=== PATIENT | female | born 1940 | race Caucasian/White ===

== ENCOUNTER 2021-01-11 22:36 | Emergency (ER) | payer MEDICARE, SELFPAY ==
--- NOTE | ~2021-01-11 | XR_ITS ---
EXAMINATION: XR hip RT 2V w AP pelvis INDICATION: Right hip and pelvic pain after fall TECHNIQUE: AP view the pelvis and two views of the right hip are obtained. COMPARISON: None available FINDINGS: There is a subtle nondisplaced transverse fracture of the right superior pubic ramus near t he pubic symphysis. Bone alignment at the hip is normal. No additional acute osseous abnormality is i dentified. The soft tissues are unremarkable. A moderate volume of colonic stool is present. IMPRESSION: 1. Subtle nondisplaced transverse fracture of the right superior pubic ramus. Reviewed, dictated and finalized at location A.
--- NOTE | ~2021-01-11 | XR_ITS ---
EXAMINATION: XR shoulder RT min 2V INDICATION: Right shoulder pain TECHNIQUE: Four views of the right shoulder are submitted. COMPARISON: None FINDINGS: Normal alignment. No fracture. There is mild osteoarthritis of the glenohumeral joint. A shine ture anchor is noted in the humeral head. Soft tissues are unremarkable. IMPRESSION: 1. No acute osseous abnormality. Reviewed, dictated and finalized at location A.
--- NOTE | ~2021-01-11 | CT_ITS ---
EXAMINATION: CT pelvis wo con DATE: 01/11/2021 23:32 INDICATION: Right hip pain TECHNIQUE: Computed tomography (CT) of the pelvis was performed without intravenous contrast. The dos e-length product (DLP) was 163.86 mGy-cm. Automated exposure control and iterative reconstruction latosha hnique were employed. COMPARISON: None FINDINGS: There are acute, nondisplaced transverse fractures of the right superior and inferior pubic rami adjacent to the pubic symphysis. No additional acute fracture is identified. Bone alignment at the hip is normal. There is a small fat-containing umbilical hernia. Calcified atherosclerosis is not ed. IMPRESSION: 1. Acute transverse fractures of the right superior and inferior pubic rami near the pubic symphysis. Reviewed, dictated and finalized at location A. IMPRESSION: 1. Acute transverse fractures of the right superior and inferior pubic rami terry r the pubic symphysis.
[2021-01-11 22:37] VITALS: RESP 17
[2021-01-11 22:43] VITALS: BP 168/72; PULSE 83; RESP 16; TEMP 36.2; O2SAT 97
[2021-01-11] MEDS: HYDROcodone/acetaminophen (*CRX) 5-325 MG TABLET 1 TAB PO (23:50)
--- NOTE | 2021-01-11 23:51 | ED.GENADULT ---
HPI - General Adult General Chief complaint: Fall Stated complaint: fall, hip/shoulder pain Time Seen by Provider: 01/11/21 23:08 History of Present Illness HPI narrative: Patient 80-year-old female presents to emergency department with chief complaint of right hip and right shoulder pain. Patient reports she was walking through the door stepped on the edge of the sidewalk lost her footing and fell to the ground the patient reports struck her right hip and her right shoulder reports that prior history of rotator cuff surgery of the right shoulder and reports that she has pain in the humeral head and the right clavicle. Patient states pain is worse with movement the patient also reports she has pain in her right hip and right inguinal area. Patient states pain is worse with movement and improved with rest the patient does report she was able to walk after the fall. The patient denies head injury denies loss of consciousness denies neck pain. Patient reports she is just on aspirin and not on any anticoagulants. Related Data Home Medications Medication Instructions Recorded Confirmed Lactobacillus acidophilus PO BID 02/11/19 [Probiotic Acidophilus] amlodipine 5 mg PO DAILY 02/11/19 aspirin [Aspir-81] 81 mg PO DAILY 02/11/19 atorvastatin 40 mg PO 02/11/19 cholecalciferol (vitamin D3) 50 mcg BID 02/11/19 02/11/19 [Vitamin D3] fexofenadine [Janessa Allergy] mg 02/11/19 levothyroxine 88 mcg PO 02/11/19 lisinopril 40 mg PO 02/11/19 mv,Ca,min-folic acid-vit K1 tablet PO 02/11/19 [One-A-Day Women's 50 Plus] omega 1-crb-cyp-fish oil [Fish Oil] 1 cap PO DAILY 02/11/19 02/11/19 venlafaxine 37.5 mg PO 02/11/19 venlafaxine 150 mg PO 02/11/19 Allergies Allergy/AdvReac Type Severity Reaction Status Date / Time No Known Allergies Allergy Mild Verified 01/11/21 22:50 Review of Systems Review of Systems: A 10 system review of systems was completed on the patient and is negative except for what is stated in the HPI. Nursing and ancillary documentation was reviewed. [facility] Past Medical History Medical History Bladder cancer GERD (gastroesophageal reflux disease) Hyperlipidemia Hypertension Hypothyroidism LVH (left ventricular hypertrophy) Plantar fasciitis of left foot Renal artery stenosis Vertigo Surgical History Surgical History H/O partial nephrectomy Due to tumor History of bladder suspension procedure History of bunionectomy History of cholecystectomy History of colonoscopy History of cystoscopy History of endoscopy History of hysterectomy History of repair of left rotator cuff History of repair of right rotator cuff History of rhinoplasty History of tubal ligation Social History Social History Smoking status: Never smoker Gender identity (if verbalized by the patient): Female Exam Narrative: GENERAL: Well-appearing, well-nourished, and in no acute distress. HEAD: Normocephalic, atraumatic. EYES: PERRLA and EOMI. ENT: Nares clear, no rhinorrhea or epistaxis. Mucous membranes moist. NECK: Supple. CHEST: Clear to auscultation. No respiratory distress. HEART: Regular rate and rhythm. No murmur heard. Normal peripheral pulses. ABDOMEN: Soft, nontender, nondistended, normal active bowel sounds. EXTREMITIES: Normal range of motion. No edema. There is no deformity of the right shoulder there is no deformity of the right hip. Patient is able to move the hip and has mild tenderness in the right inguinal area and on the greater trochanter of the right hip. SKIN: Warm, dry, no rash. NEURO: No focal deficits. Alert and oriented x3. PSYCH: Normal mood and affect. Course Course Emergency Course: Painful and x-ray showed no evidence of fracture, due to the patient's pain is CT scan of the pelvis was obtained which
[2021-01-11 23:56] VITALS: BP 160/70; PULSE 70; RESP 16; O2SAT 99
== END 2021-01-12 00:27 | disposition home or self-care (01) ==
PROVIDERS: Emergency Provider Emergency Medicine
DX: S32.511A Fracture of superior rim of right pubis, initial encounter for closed fracture (principal); S40.011A Contusion of right shoulder, initial encounter; Z85.51 Personal history of malignant neoplasm of bladder; E78.5 Hyperlipidemia, unspecified; I10 Essential (primary) hypertension; K21.9 Gastro-esophageal reflux disease without esophagitis; E03.9 Hypothyroidism, unspecified; Z90.5 Acquired absence of kidney; Z79.82 Long term (current) use of aspirin; W01.0XXA Fall on same level from slipping, tripping and stumbling without subsequent striking against object, initial encounter
CPT/HCPCS: 72192; 73030; 73502; 99284; A4565; A9270

== ENCOUNTER 2024-08-09 01:39 | Inpatient (IN) | payer MEDICARE, SELFPAY ==
[2024-08-09] VITALS (10 sets, daily range): BP systolic 121–169; BP diastolic 51–70; PULSE 72–94; RESP 15–24; TEMP 36.4–37.3; O2SAT 93–100; BMI 24.0
--- NOTE | ~2024-08-09 | XR_ITS ---
Supine and upright views of the abdomen Clinical history: Small bowel obstruction Findings: Bowel gas pattern is nonspecific. No evidence for obstruction or free air. No abnormal mass lesion or calcification is seen. Osseous structures are intact. Impression: Nonspecific bowel gas pattern. Reviewed, dictated and finalized at [facility]. Impression: Nonspecific bowel gas pattern.
--- NOTE | ~2024-08-09 | CT_ITS ---
CT of the Abdomen and Pelvis: Indication: Abdominal pain Technique: 2.5 mm axial scans were obtained through the abdomen and pelvis following intravenous adm inistration of 100 cc of Omnipaque 350. Dose reduction technique was used on this scan by utilizing a utomated exposure control and iterative reconstruction technique. The dose-length product (DLP) was 2 35.25 mGy-cm. COMPARISON: 01/11/2021, 04/09/2019 Findings: Scans through the lung bases are unremarkable. The liver, spleen, pancreas, and left adrenal gland are within normal limits. Stable 2.2 cm right adr enal nodule. Cholecystectomy clips are present. Bilateral low-density renal masses are present, thoug h some are not fluid attenuation. Largest of these nonfluid attenuation lesions in the left kidney me asuring 1.6 cm (axial image 81). There are atherosclerotic calcifications of the aorta. No lymphaden opathy. There are multiple mildly dilated, fluid-filled small bowel loops. There is mild wall thickening of p robable mid ileal loops. Possible transition point in the pelvis. Questionable area of circumferentia l wall thickening at the cecum. Images through the pelvis were performed. Urinary bladder unremarkable. Small amount of pelvic ascite s present. No adnexal mass evident. Impression: Probable small bowel obstruction with superimposed small bowel enteritis, with suspected transition p oint and wall thickening at the mid ileum. Correlate for infectious enteritis or possibly inflammator y bowel disease. Possible area of circumferential wall thickening of the cecum with fluid distention of the proximal c ecum. Correlate for neoplastic lesion versus additional infectious/inflammatory process or inflammato ry bowel disease. Consider colonoscopy. Small amount of ascites. Stable right adrenal nodule. Bilateral renal masses, some which are simple cysts, some which are higher attenuation than simple cy st. Follow-up nonemergent pre and postcontrast MR recommended to best assess for any possible solid r enal mass. Reviewed, dictated and finalized at location M. Impression: Probable small bowel obstruction with superimposed small bowel enteritis, with suspected transition point and wall thickening at the mid ileum. Correlate for infectious enteritis or possibly inflammatory bowel disease. Possible area of circumferential wall thickening of the cecum with fluid disten tion of the proximal cecum. Correlate for neoplastic lesion versus additional i nfectious/inflammatory process or inflammatory bowel disease. Consider colonosc opy. Small amount of ascites. Stable right adrenal nodule. Bilateral renal masses, some which are simple cysts, some which are higher atte nuation than simple cyst. Follow-up nonemergent pre and postcontrast MR recomme nded to best assess for any possible solid renal mass.
--- OUTSIDE RECORDS SUMMARY | 2024-08-09 01:42 | XMS_ITS | Clinical Summary ---
Author Organization [facility] Administrative Offices Address [address] [place] [id number] Care Team Providers Care Front End Loader Driver Name Role Phone Salvador Dobbs MD Primary Care Provider [phone] Allergies No known active allergies Medications cyanocobalamin 1,000 mcg Tablet Take 1,000 mcg by mouth daily. Active venlafaxine (EFFEXOR XR) 37.5 mg Extended Release 24 hour capsule TK 1 C PO QD UTD 03/21/2019 Active pantoprazole (PROTONIX) 40 mg Tablet, Delayed Release (E.C.) Take 1 Tablet by mouth daily. 04/05/2019 Active rosuvastatin (CRESTOR) 40 mg tablet Take 40 mg by mouth daily. 12/30/2021 Active levothyroxine 88 mcg tablet Take 88 mcg by mouth daily. 03/04/2022 Active Cholecalciferol, Vitamin D3, 50 mcg (2,000 unit) Capsule Take 2,000 Units by mouth. 02/04/2022 Active atorvastatin (LIPITOR) 80 mg tablet Take 80 mg by mouth daily at bedtime. Active aspirin (ECOTRIN EC) 81 mg Tablet, Delayed Release (E.C.) Take 81 mg by mouth 2 times daily. 02/04/2022 Active amLODIPine (NORVASC) 10 mg tablet Take 10 mg by mouth daily. 02/06/2022 Active Active Problems No known active problems Social History Tobacco Use Types Packs/Day Years Used Date Smoking Tobacco: Never Comments Unknown Sex and Gender Information Value Date Recorded Sex Assigned at Not on file Legal Sex Female 10:38 AM NEUROBIOLOGIST Gender Identity Not on file Sexual Orientation Not on file Plan of Treatment Health Maintenance Due Date Last Done Comments DTAP/TDAP/TD VACCINES (1 - Tdap) 1961 ZOSTER VACCINE (2 of 3) 08/03/2006 06/08/2006 PNEUMOCOCCAL VACCINE 50+ YEA RS (2 of 2 - PCV) 12/26/2008 12/27/2007 RSV VACCINE (60+ or ) (1 - 1-dose 75+ series) 2017 INFLUENZA VACCINE (#1) 2023 4, 02/01/2012, 12/25/2008, Additional history exists COVID-19 Vaccine (3 - 2023-2 5 season) 2023 05/13/2020, 04/15/2020 OSTEOPOROSIS SCREENING 03/17/2027 2, 03/17/2022, 01/02/2019, Additional history exists COLORECTAL SCREENING Discontinued 04/13/2018 Colorectal Cancer Screening Discontinued FIT-DNA Q 3 years Discontinued FIT/FOBT Q 1 year Discontinued Flex Sig/CT Colonography Q 5 years Discontinued Insurance ([employer]) [address] [id number] MEDICARE PART A AND B [place] Care Teams Front End Loader Driver Relationship Specialty Start Date End Date Salvador Dobbs MD PCP - General Internal Medicine 04/09/15
--- OUTSIDE RECORDS SUMMARY | 2024-08-09 01:42 | XMS_ITS | Encounter Summary ---
Author Organization [facility] Healthcare Address [address] [place] [address] Care Team Providers Care Disability Counselor Name Role Phone Dalia Pérez MD Primary Care Provider [phone] Encounter Details Date Type Department Care Team (Late st Contact Info) Description 08/13/2023 Orders Only Internal Medicine Precious Merino, MEMS PROCESS ENGINEER [address] [place] [address] Annual visit for general adult medical examination with abnormal findings (Primary Dx) Social History Tobacco Use Types Packs/Day Years Used Date Smoking Tobacco: Never Passive Smoke Exposure: Past Smokeless Tobacco: Never Passive Exposure Comments:fa ther smoked as chikd Alcohol Use Standard Drinks/Week Comments Yes 0 (1 standard drink = 0.6 oz pur e alcohol) AUDIT-C Answer Date Recorded Q1: How often do you have a drink containing alc ohol? Never 06/14/2023 Average Number of Drinks Not on file 024 Frequency of Binge Drinking Not on file 05/21 Personal Safety Answer Date Recorded Have you ever been in or are you currently in a harmful physical or emotional relationship or is someone making you feel afraid or unsafe? Denies 06/14/2023 Comments No Sex and Gender Information Value Date Recorded Sex Assigned at Not on file Legal Sex Female 12:16 AM MANAGER BENCH Gender Identity Not on file Sexual Orientation Not on file documented as of this encounter Plan of Treatment Scheduled Orders Name Type Priority Associated Diagnoses Orde r Schedule Lipid panel Lab Routine Annual visit for general adult medical examination with abnormal findings Expected: 08/13/2023, Expires: 08/12/2024 Comprehensive metabolic panel Lab Routine Annual visit for general adult medical examination with abnormal findings Expected: 08/13/2023, Expires: 08/12/2024 Gamma GT Lab Routine Annual visit for general adult medical examination with abnormal findings Expected: 08/16/2023, Expires: 08/12/2024 CRP (cardiac risk) Lab Routine Annual visit for general adult medical examination with abnormal findings Expected: 08/16/2023, Expires: 08/12/2024 CBC with auto differential Lab Routine Annual visit for general adult medical examination with abnormal findings Expected: 08/16/2023, Expires: 08/12/2024 Urinalysis reflex to microscopic and culture Urine, clean voided Microbiology Routine Annual visit for general adult medical examination with abnormal findings Expected: 08/16/2023, Expires: 08/12/2024 Thyroid Function [place] Lab Routine Annual visit for general adult medical examination with abnormal findings Expected: 08/13/2023, Expires: 08/12/2024 Insulin, total Lab Routine Annual visit for general adult medical examination with abnormal findings Expected: 08/16/2023, Expires: 08/12/2024 CBC with auto differential Lab Routine Annual visit for general adult medical examination with abnormal findings Expected: 08/20/2023, Expires: 08/16/2024 Urinalysis reflex to microscopic and culture Urine, clean voided Microbiology Routine Annual visit for general adult medical examination with abnormal findings Expected: 08/20/2023, Expires: 08/16/2024 documented as of this encounter Visit Diagnoses Diagnosis Annual visit for general adult medical examination with abnormal findings- Primary documented in this encounter Additional Health Concerns Infection Onset Date Last Indicated Resolved Time COVID: Suspected 05/10/2024 05/10/2024 05/10/2024 3:10 PM MANAGER BENCH COVID19 05/10/2024 05/10/2024 05/20/2024 3:07 AM MANAGER BENCH COVID: Recovered Comment:Added based on recent COVID infection. 05/20/2024 06/15/2024 documented as of this encounter Care Teams Disability Counselor Relationship Specialty Start Date End Date Dalia Pérez MD PCP - General 06/29/17 documented as of this encounter
--- OUTSIDE RECORDS SUMMARY | 2024-08-09 01:42 | XMS_ITS | Continuity of Care Document ---
Author Organization [facility] Address [address] [place] [address] Phone Care Team Providers Care Environmental Programs Specialist Name Role Phone Fan OD, [place] Unavailable Unavailable Advance Directives Directive Yes / No Effective Date File Name No Information Encounters Encounter Description Practice Location Reason(s) For Visit Diagnoses Date Provider Providers Copied on Encounter [facility], [address], [place], [place], [id number], [place] tel:[phone] [facility] No Information Mar-0 6-200 5 Fan OD [facility]. [address] , [address], [place], [address], [place]. tel:[phone] Family History Family Member Type Diagnosis Age At Onset No Information Payers Payer name Insurance type Covered green party ID Authoriza tion(s) No Information Social History [...]
--- OUTSIDE RECORDS SUMMARY | 2024-08-09 01:42 | XMS_ITS | Encounter Summary ---
Author Organization [facility] Address [address] [place] [address] Phone Care Team Providers Care Call Centre Supervisor Name Role Phone Dalia Pérez MD Primary Care Provider [phone] Reason for Visit * Reason Onset Date Comments New Patient 07/24/2024 Encounter Details Date Type Department Care Team (Late st Contact Info) Description 07/24/2024 Telephone [facility] Cardiology [address] Advanced Medicine [address]th [place] [address] [place] [address] Jade Sapp New Patient Social History Tobacco Use Types Packs/Day Years Used Date Smoking Tobacco: Never Passive Smoke Exposure: Past Smokeless Tobacco: Never Passive Exposure Comments:fa ther smoked as chikd Alcohol Use Standard Drinks/Week Comments Yes 0 (1 standard drink = 0.6 oz pur e alcohol) [facility] Utilities Answer Date Recorded In the past 12 months has [employer], gas, oil, or water [employer] threatened to shut off services in your home? No 11/23/2023 Social Connection and Isolat ion Panel [NHANES] Answer Date Recorded In a typical week, how many times do you talk on the phone with family, friends, or neighbors? More than three times a week 11/23/2023 How often do you get togethe r with friends or relatives? More than three times a week 11/23/2023 How often do you attend [facility] or orthodox services? More than 4 times per year 11/23/2023 Do you belong to any clubs o r organizations such as congregation groups, unions, fraternal or athletic groups, or school groups? No 11/23/2023 How often do you attend meet ings of the clubs or organizations you belong to? Never 11/23/2023 Are you , , di vorced, , never , or living with a partner? 11/23/2023 AUDIT-C Answer Date Recorded Q1: How often do you have a drink containing alc ohol? Never 06/14/2023 Average Number of Drinks Not on file 024 Frequency of Binge Drinking Not on file 05/21 Overall Financial Resource Strain (CARDIA) Answe r Date Recorded How hard is it for you to pa y for the very basics like food, housing, medical care, and heating? Not hard at all 11/23/2023 Hunger Vital Sign Answer Date Recorded Within the past 12 months, y ou worried that your food would run out before you got the money to buy more. Never true 11/23/19 24 Within the past 12 months, t he food you bought just didn't last and you didn't have money to get more. Never true 11/23/2023 PRAPARE - Transportation Answer Date Re corded In the past 12 months, has l ack of transportation kept you from medical appointments or from getting medications? No 05/2023 In the past 12 months, has l ack of transportation kept you from meetings, work, or from getting things needed for daily living? No 11/23/2023 Housing Stability Vital Sign Answer Lloyd e Recorded In the last 12 months, was t here a time when you were not able to pay the mortgage or rent on time? No 11/23/2023 In the past 12 months, how m any times have you moved where you were living? 0 11/23/2023 At any time in the past 12 m [facility], were you homeless or living in a [place] [facility] facility (including now)? No 11/23/2023 Personal Safety Answer Date Recorded Have you ever been in or are you currently in a harmful physical or emotional relationship or is someone making you feel afraid or unsafe? Denies 11/23/2023 Comments No Sex and Gender Information Value Date Recorded Sex Assigned at Not on file Legal Sex Female 12:16 AM WHITESMITH Gender Identity Not on file Sexual Orientation Not on file documented as of this encounter Miscellaneous Notes * Telephone Encounter - Malgorzata Ortiz - 07/27/2024 1:34 PM CDT Device updated * Telephone Encounter - Jade Sapp - 07/24/2024 3:50 PM CDT PLS ADD ORDER FOR DEVICE CHECK * Telephone Encounter - Jade Sapp - 07/24/2024 3:47 PM CDT Diagnosis/Reason for Appointment: DEVICE MANAGEMENT Referring Physician: SELF Ref Ph: If Referring MD is not PCP, list specialty: Triage Questions Yes No Who/Where/When/Notes Are you actively undergoing cancer treatments including radiation, chemotherapy, or immunotherapy or are these planned in the near future? [] [x] If 'Yes', Schedule first available with Cardio-Oncology If yes where are you being treated? Have you ever seen a Archival Studies Professor in an office setting? [] [x] IF SCHEDULING PATIENT WITH MATERNAL Have you had a baby in the last year or are you ? (If yes send to Dr. Perry for review) [] [] Have you had heart or blood pressure problems during a previous ? (If yes send to Dr. Perry for review) [] [] Dr. Jenelle Valenzuela Patients only: Are you a hemodialysis or peritoneal dialysis patient? (If yes then patient must be referred from another MD, DO NOT SCHEDULE) [] [] Do you regularly exercise, or play any competitive or recreational sports? (If yes proceed to next question) [] [x] Are your symptoms or concerns associated with this exercise or activity? (If yes schedule in [facility]) [] [] Patient History Questions Yes No Where/When/Notes Have you EVER been hospitalized for ANY cardiac issue? [] [x] Have you ever had any cardiac testing, imaging, or procedures? (Testing - echo, EKG, stress) (Imaging - Cardiac MRI, CT or calcium scoring) (Procedure - Ablation, Cardioversion, CABG, Cath) [] [x] Have you ever had a sleep study? [] [x] Do you have a device? If yes what type? (Pacemaker, Defibrillator, Implanted Loop Recorder) [x] [] PACEMAKER, 11/2023 If yes, where and when was device put in? 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 ([employer], [employer], [place]) Appointment Date: Provider: Location: [] Confirm appt date, time, provider and location. [] Advise pt to arrive 15-20 min early. [] Advise patient to bring medications/list, photo ID and insurance card [] Advise of New Patient Packet being mailed to them. documented in this encounter Plan of Treatment Not on file documented as of this encounter Visit Diagnoses Not on filedocumented in this encounter Additional Health Concerns Infection Onset Date Last Indicated Resolved Time COVID: Recovered Comment:Added based on recent COVID infection. 05/20/2024 06/15/2024 documented as of this encounter Care Teams Call Centre Supervisor Relationship Specialty Start Date End Date Dalia Pérez MD PCP - General 06/29/17 documented as of this encounter
--- OUTSIDE RECORDS SUMMARY | 2024-08-09 01:42 | XMS_ITS ---
Author Organization [facility] Address [address] [address] Care Team Providers Care Safety And Skill Based Pay Manager Name Role Phone Dalia Pérez MD Primary Care Provider [phone] Active Problems Problem Noted Date Diagnosed Date Pacemaker 03/02/2024 Syncope, unspecified syncope type 11/21/2023 Syncope and collapse 11/21/2023 Dyspnea on exertion 11/21/2023 Memory problem 11/21/2023 Aggressive behavior 11/21/2023 Upper back pain 11/21/2023 CKD (chronic kidney disease) 11/21/2023 Anemia 11/21/2023 Complete heart block 11/21/2023 History of colon polyps 03/31/2023 Right rotator cuff tear arthropathy 02/04/2022 Left bundle branch block (LBBB) 02/03/2022 Rotator cuff tear arthropathy of right shoulder 10/31/2021 Overview (10/31/2021): Added automatically from request for surgery [id number] Shoulder arthritis 08/06/2021 Anxiety 08/01/2021 History of bladder cancer 08/01/2021 Nicole positive 08/01/2021 Diastolic dysfunction without heart failure 07/20 Normal physical exam 02/24/2021 Bursitis of shoulder 01/14/2021 Hip pain 01/14/2021 History of repair of rotator cuff 01/14/2021 Posterior tibial tendon dysfunction 01/14/2021 Rotator cuff arthropathy of left shoulder 2020 Sciatica 01/14/2021 Renal artery stenosis (CMS/HCC) 03/11/2020 Gastroesophageal reflux disease without esophagi tis 08/29/2019 Overview (08/29/2019): Added automatically from request for surgery [id number] Personal history of colonic polyps 01/19/2018 Overview (01/19/2018): Added automatically from request for surgery [id number] Other dysphagia 01/19/2018 Overview (01/19/2018): Added automatically from request for surgery [id number] Allergic conjunctivitis of both eyes 11/30/2017 Assessment & Plan (02/02/2023 10:49 AM ORCHARD SPRAYER): Finished 3 yrs of allergy shot last year Takes zyrtec recently. Warned may dry eye out more.n Assessment & Plan (12/19/2019 1:24 PM CDT): Add hot compresses with lid scrubs to alleviate crusting of lashes and remove pollen. Recommend trail of lubricant eye drops 4 times/day. If still itchy and symptomatic, try Zaditor OTC drops 2x/s day. H/o shots [id number] and using nose spray and judy. Eyes ok. Assessment & Plan (12/13/2018 2:32 PM CDT): Add hot compresses with lid scrubs to alleviate crusting of lashes and remove pollen. Recommend trail of lubricant eye drops 4 times/day. If still itchy and symptomatic, try Zaditor OTC drops 2x/s day. H/o shots [id number] and using nose spray and judy. Eyes ok. Assessment & Plan (11/30/2017 2:18 PM CDT): Add hot compresses with lid scrubs to alleviate crusting of lashes and remove pollen. Recommend trail of lubricant eye drops 4 times/day. If still itchy and symptomatic, try Zaditor OTC drops 2x/s day. Combined forms of age-related cataract of both e yes 11/30/2017 Assessment & Plan (02/02/2023 10:52 AM ORCHARD SPRAYER): Not visually significant. Do not recommend surgery at this time. Continue to monitor. Patient to call if problems with activities of daily living. Warned post-LASIK will give some intraocular lens (IOL) calc challenges. Also smallish pupil, would likely need a ring when eventually needs Assessment & Plan (01/27/2022 9:24 AM ORCHARD SPRAYER): Not visually significant. Do not recommend surgery at this time. Continue to monitor. Patient to call if problems with activities of daily living. Brochure offered/given. Getting more significant left eye (OS)>OD, but will try MRx first. Assessment & Plan (12/19/2019 2:11 PM CDT): Not visually significant. Do not recommend surgery at this time. Continue to monitor. Patient to call if problems with activities of daily living. Brochure offered/given. Getting more significant left eye (OS)>OD, but will try MRx first. Assessment & Plan (12/13/2018 2:31 PM CDT): Not visually significant. Do not recommend surgery at this time. Continue to monitor. Patient to call if problems with activities of daily living. Brochure offered/given. Getting more significant left eye (OS)>OD Assessment & Plan (11/30/2017 2:24 PM CDT): Not visually significant. Do not recommend surgery at this time. Continue to monitor. Patient to call if problems with activities of daily living. Brochure offered/given. 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 Add hot compresses with lid scrubs to improve quality of tears. Assessment & Plan (01/27/2022 9:25 AM ORCHARD SPRAYER): Recommend increase lubricant eye drops to 4 times/day; consider preservative- free drops, especially if using drops more than that. Add hot compresses with lid scrubs to improve quality of tears. Assessment & Plan (12/19/2019 1:24 PM CDT): Recommend increase lubricant eye drops to 4 times/day; consider preservative- free drops, especially if using drops more than that. Add hot compresses with lid scrubs to improve quality of tears. Assessment & Plan (12/13/2018 2:31 PM CDT): Recommend increase lubricant eye drops to 4 times/day; consider preservative- free drops, especially if using drops more than that. Add hot compresses with lid scrubs to improve quality of tears. Assessment & Plan (11/30/2017 2:24 PM CDT): Recommend increase lubricant eye drops to 4 times/day; consider preservative- free drops, especially if using drops more than that. Add hot compresses with lid scrubs to improve quality of tears. Hx of LASIK 11/30/2017 Overview (11/30/2017): 2001- Lucina with enhancement OS Assessment & Plan (02/02/2023 9:51 AM ORCHARD SPRAYER): Good result from surgery in [address] Verdugo. (had enhancement left eye (OS)). Pt doing well. Assessment & Plan (01/27/2022 9:25 AM ORCHARD SPRAYER): Good result from surgery [place] [address] Verdugo. (had enhancement left eye (OS)). Pt doing well. Assessment & Plan (12/19/2019 1:24 PM CDT): Good result from surgery [place] [address] Verdugo. (had enhancement left eye (OS)). Pt doing well. Assessment & Plan (12/13/2018 2:31 PM CDT): Good result from surgery [place] [address] Verdugo. (had enhancement left eye (OS)). Pt doing well. Assessment & Plan (11/30/2017 2:24 PM CDT): Good result from surgery [place] [address] Verdugo. (had enhancement left eye (OS)). Pt doing well. 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 Gastroesophageal reflux disease with hiatal german ia 06/04/2015 Left axis deviation 05/29/2015 Left ventricular hypertrophy 05/29/2015 Menopausal symptom 05/29/2015 Vaginal atrophy 05/29/2015 Hay fever 12/13/2014 Polyp of colon 12/13/2014 Hypertension 12/13/2014 Gastroesophageal reflux disease 12/13/2014 Impaired fasting glucose 12/13/2014 Brachial radiculitis 01/12/2014 Shoulder pain 01/12/2014 Gastroesophageal reflux disease 10/17/2013 Overview (06/25/2016): GERD Impaired fasting glucose 10/17/2013 Overview (06/26/2016): IMPAIRED FASTING GLUCOSE Acquired hypothyroidism 10/17/2013 Overview (06/26/2016): ACQUIRED HYPOTHYROID NEC Carcinoma of kidney 10/17/2013 Overview (06/26/2016): Renal cell carcinoma Multiple-type hyperlipidemia 10/17/2013 Overview (06/26/2016): MIXED HYPERLIPIDEMIA Benign hypertension 10/17/2013 Overview (06/26/2016): BENIGN HYPERTENSION Essential hypertension 03/01/2013 Stress incontinence of urine 08/31/2012 Overview (06/25/2016): Stress incontinence Actinic keratosis 03/30/2012 Renal cell carcinoma 10/06/2011 Renal cell carcinoma 10/06/2011 Nodular adrenal cortex 03/06/2011 Overview (06/25/2016): Adrenal Nodule Gastric polyp 03/06/2011 Overview (06/26/2016): Gastric Polyps History of colonic polyps 03/06/2011 Overview (06/26/2016): History of Colonic Polyps Atopic rhinitis 12/25/2008 Overview (06/26/2016): ALLERGIC RHINITIS NOS Family history of colon cancer 05/02/2007 Overview (06/26/2016): Family history of Colon cancer Microscopic hematuria 10/21/2006 Malignant neoplasm of urinary bladder 10/19/2006 Current Treatment and Therapy Plans No current plan information found. Past Treatment and Therapy Plans No past plan information found. Lifetime Dose Tracking * Chemical Lifetime Dose Automatic Entry Manual Entr y Air kerma at the reference point (Ka,r) 54 mGy 0 mGy 54 mGy Resolved Problems Problem Noted Date Diagnosed Date Resolved Date Combined forms of age-related cataract 12/04/2014 01/27/2022
--- OUTSIDE RECORDS SUMMARY | 2024-08-09 01:42 | XMS_ITS | Continuity of Care Document ---
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, [place], [place], [facility], [place] tel:[phone] [facility] Rotator cuff arthropathy of left shoulderHisto ry of repair of rotator cuff Sep-2 1 Jeanna Paulson. [address], [place], [address]. tel:[phone] OFFICE/OUTPA TIENT VISIT EST [facility], [address], [place], [address], tel:[phone] [facility] Rotator cuff arthropathy of left shoulder 1 Gerardfranchescademetriaella StanfordKhurram. [address], [place], [address]. tel:[phone] OFFICE/OUTPA TIENT VISIT EST [facility], [address], [place], [address], [place] tel:[phone] [facility] Hip pain, rightGreater trochanteric bursitis, right Jun- 1 Cristobal De Santiago. [address], [place], [place], [id number]. tel:[phone] OFFICE/OUTPA TIENT VISIT EST [facility], [address] [address], [place], [address], [place] tel:[phone] [facility] Hip pain, rightSciatica of right side 0 Cristobal De Santiago. [address], [place], [place], [id number]. tel:[phone] OFFICE/OUTPA TIENT VISIT EST [facility], [address] [address], [place], [address], [place] tel:[phone] [facility] Left shoulder pain, unspecified chronicityRot ator cuff arthropathy of left shoulderHisto ry of repair of rotator cuff 0 Jeanna Paulson. [address], [place], [address]. tel:[phone] OFFICE/OUTPA TIENT VISIT EST [facility], [address], [place], [address], [place] tel:[phone] [facility] Left foot painPosterior tibial tendon dysfunction 0 Marco Barry. [address], [place], [place], [id number]. tel:[phone] OFFICE/OUTPA TIENT VISIT EST [facility], [address] [address], [place], [address], [place] tel:[phone] [facility] Elevated blood-pressur e reading, w/o diagnosis of htnBursitis of left shoulder 0 Jain Anyi. [address] [facility] [address], [place], [place], [address]. tel:[phone] OFFICE/OUTPA TIENT VISIT EST [facility], [address], [place], [address], [place] tel:[phone] [facility] Pain in left shoulderBursi tis of left shoulder Sep- 9- 9 Dusek Amado. [address] [facility] [address], [place], [place], [address]. tel:[phone] OFFICE/OUTPA TIENT VISIT EST [facility], [address], [place], [address], [place] tel:[phone] [facility] Bursitis of right shoulder May-0 7 Dusek Amado. [address] [facility], [place], [place], [address]. tel:[phone] Referring Provider: Dalia Pérez, [address] [facility] [address], [place], [address]. tel:[phone] OFFICE/OUTPA TIENT VISIT [facility], [address], [address], [place] tel:[phone] [facility] Shoulder impingementCe rvical radiculopathy 4 Cathy Gibson. [address] [facility] [address], [place], [place], [id number]. tel:[phone] OFFICE/OUTPA TIENT VISIT EST [facility], [address] [place] [address], [place], [address], [place] tel:[phone] [facility] Disorder of bursae and tendons in shoulder region 4 Raghav Brand. [address] [place], [place], [address]. tel:[phone] OFFICE/OUTPA TIENT VISIT [facility], [address] [place] [address], [address], [place] tel:[phone] [facility] Cervical radiculopathy Shoulder impingement 4 Raghav Brand. [address] [facility], [place], [place], [address]. tel:[phone] Referring Provider: Bebe Crawford, [address], [place], [address] . tel:[phone] OFFICE/OUTPA TIENT VISIT EST [facility], [address] [address], [place], [address], [place] tel:[phone] [facility] right shoulder (chief complaint) shoulder bursitis 4 [facility]. [address] [address], [place], [place], [address]. tel:[phone] Referring Provider: Bebe Crawford, [address], [place], [address] . tel:[phone] OFFICE/OUTPA TIENT VISIT EST [facility], [address] [address], [place], [address], [place] tel:[phone] [facility] shoulder bursitis 3 Billlazaro Fordnis. [address] [facility] [address], [place], [place], [address]. tel:[phone] Referring Provider: Bebe Crawford, [address], [place], [address] . tel:[phone] OFFICE/OUTPA TIENT VISIT EST [facility], [address] [facility] [address], [place], [address], [place] tel:[phone] [facility] Right shoulder new problem (chief complaint) shoulder bursitisHyper tension, Unspecified 3 Jain Anyi. [address] [address] [facility] [address], [place], [place], [address]. tel:[phone] Referring Provider: Bebe Crawford, [address], [place], [address] . tel:[phone] Family History Family Member Type Diagnosis Age [...] Provider Payers Payer name Insurance type Covered republican ID Authoriza tion(s) Medicare E2 OT [id number] Blucarat OT [id number] Social History Type Description Quantity Date Captured [...]
--- OUTSIDE RECORDS SUMMARY | 2024-08-09 01:42 | XMS_ITS ---
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 Phone MD LIZZY AVELAR Unavailable PAUL OCONNELL Unavailable ALLERGIES, ADVERSE REACTIONS AND ALERTS Allergy Name Allergy Date Allergy Status Allergy Severity Allergy Reaction NO KNOWN DRUG ALLERGIES MEDICATIONS RxNorm Brand Name Prescription Ordered Value Order Unit Start Date Date Status Fill Status Indications [id number] Levo-T 88 mcg tablet SIG: Levo-T 88 mcg oral tablet, days, Dispense # Tablet, 0 RefillsDirecti ons: tablet 2020 021 Historic [id number] lisinopr il 20 mg tablet SIG: lisinopril 20 mg oral tablet, days, Dispense # Tablet, 0 RefillsDirecti ons: tablet 2020 021 Historic [id number] amlodipi ne 5 mg tablet SIG: amlodipine 5 mg oral tablet, days, Dispense # Tablet, 0 RefillsDirecti ons: tablet 2020 021 Historic [id number] Protonix 40 mg tablet,d elayed release (DR/EC) SIG: Protonix 40 mg oral tablet,delayed release (DR/EC), days, Dispense # Tablet, 0 RefillsDirecti ons: tablet, delayed release (DR/EC) 2020 021 Historic [id number] venlafax ine 150 mg capsule, extended release 24hr SIG: venlafaxine 150 mg oral capsule,extend ed release 24hr, days, Dispense # Capsule, 0 RefillsDirecti ons: capsule ,extend ed release 24hr 2020 Historic [id number] venlafax ine 37.5 mg capsule, extended release 24hr SIG: venlafaxine 37.5 mg oral capsule,extend ed release 24hr, days, Dispense # Capsule, 0 RefillsDirecti ons: capsule ,extend ed release 24hr 2020 Historic [id number] atorvast atin 80 mg tablet SIG: atorvastatin 80 mg oral tablet, days, Dispense # Tablet, 0 RefillsDirecti ons: tablet 2020 Historic [id number] Janessa Allergy 180 mg tablet SIG: Janessa Allergy 180 mg oral tablet, days, Dispense # Tablet, 0 RefillsDirecti ons: tablet 2020 Historic [id number] calcium citrate 200 mg (950 mg) tablet SIG: calcium citrate 200 mg (950 mg) oral tablet, days, Dispense # Tablet, 0 RefillsDirecti ons: Take 6 tablets daily tablet 2020 Current multivit webb tablet SIG: multivitamin oral tablet, days, Dispense # Tablet, 0 RefillsDirecti ons: tablet 2020 021 Current [id number] aspirin 81 mg tablet,c hewable SIG: aspirin 81 mg oral tablet,chewabl e, days, Dispense # Tablet, 0 RefillsDirecti ons: tablet, chewabl e 2020 021 Current [id number] B12 Active 1,000 mcg tablet,c hewable SIG: B12 Active 1,000 mcg oral tablet,chewabl e, days, Dispense # Tablet, 0 RefillsDirecti ons: tablet, chewabl e 2020 021 Current [id number] Levo-T 88 mcg tablet SIG: Levo-T 88 mcg oral tablet, 90 days, Dispense #90 Tablet, 1 RefillsDirecti ons: Take 1 oral tablet once a day 90 tablet 2020 022 Historic [id number] Levo-T 88 mcg tablet SIG: Levo-T 88 mcg oral tablet, 90 days, Dispense #90 Tablet, 1 RefillsDirecti ons: Take 1 oral tablet once a day 90 tablet 2020 Historic [id number] tramadol 50 mg tablet SIG: tramadol 50 mg oral tablet, 7 days, Dispense #56 Tablet, 0 RefillsDirecti ons: 1 or 2 tablets every 6-8 hours with 1000 mg of tylenol 56 tablet 2020 Historic [id number] lisinopr il 20 mg tablet SIG: lisinopril 20 mg oral tablet, 90 days, Dispense #90 Tablet, 1 RefillsDirecti ons: Take 1 oral tablet once a day 90 tablet 2020 Historic [id number] atorvast atin 80 mg tablet SIG: atorvastatin 80 mg oral tablet, 90 days, Dispense #90 Tablet, 1 RefillsDirecti ons: Take 1 oral tablet once a day 90 tablet 2020 Historic [id number] amlodipi ne 5 mg tablet SIG: amlodipine 5 mg oral tablet, 90 days, Dispense #90 Tablet, 1 RefillsDirecti ons: Take 1 oral tablet once a day 90 tablet 2021 Historic [id number] venlafax ine 37.5 mg capsule, extended release 24hr SIG: venlafaxine 37.5 mg oral capsule,extend ed release 24hr, 90 days, Dispense #90 Capsule, 1 RefillsDirecti ons: Take once daily in addition to 150mg capsule 90 capsule ,extend ed release 24hr 2021 Historic [id number] Protonix 40 mg tablet,d elayed release (DR/EC) SIG: Protonix 40 mg oral tablet,delayed release (DR/EC), 90 days, Dispense #90 Tablet, 0 RefillsDirecti ons: Take 1 oral tablet once a day 90 tablet, delayed release (DR/EC) 2021 Historic [id number] Levo-T 88 mcg tablet SIG: Levo-T 88 mcg oral tablet, 90 days, Dispense #90 Tablet, 0 RefillsDirecti ons: Take 1 oral tablet once a day 90 tablet 2021 Historic [id number] levothyr oxine 88 mcg tablet SIG: levothyroxine, Dispense #90, 0 Refills, Directions: TAKE 1 TABLET BY MOUTH EVERY DAY 90 tablet 2021 Historic [id number] venlafax ine 150 mg capsule, extended release 24hr SIG: venlafaxine 150 mg oral capsule,extend ed release 24hr, 90 days, Dispense #90 Capsule, 1 RefillsDirecti ons: Take 1 oral capsule once a day 90 capsule ,extend ed release 24hr 2021 Historic [id number] Protonix 40 mg tablet,d elayed release (DR/EC) SIG: Protonix 40 mg oral tablet,delayed release (DR/EC), 90 days, Dispense #90 Tablet, 1 RefillsDirecti ons: Take 1 oral tablet once a day 90 tablet, delayed release (DR/EC) 2021 Historic [id number] lisinopr il 20 mg tablet SIG: lisinopril 20 mg oral tablet, 90 days, Dispense #90 Tablet, 1 RefillsDirecti ons: Take 1 oral tablet once a day 90 tablet 2021 Historic [id number] Paxlovid (EUA) 150 mg x 2- 100 mg tablet SIG: Paxlovid (EUA) 150 mg x 2- 100 mg oral tablet, 15 days, Dispense #30 Tablet, 0 RefillsDirecti ons: Take nirmatrelvir 300 mg with ritonavir 100 mg, administered together, twice daily for 5 days 30 tablet 2021 Historic [id number] atorvast atin 80 mg tablet SIG: atorvastatin 80 mg oral tablet, 90 days, Dispense #90 Tablet, 1 RefillsDirecti ons: Take 1 oral tablet once a day 90 tablet 2021 Historic [id number] venlafax ine 37.5 mg capsule, extended release 24hr SIG: venlafaxine 37.5 mg oral capsule,extend ed release 24hr, 90 days, Dispense #90 Capsule, 1 RefillsDirecti ons: Take once daily in addition to 150mg capsule 90 capsule ,extend ed release 24hr 2021 Historic [id number] amlodipi ne 5 mg tablet SIG: amlodipine 5 mg oral tablet, 90 days, Dispense #90 Tablet, 1 RefillsDirecti ons: Take 1 oral tablet once a day 90 tablet 2021 023 Historic [id number] levothyr oxine 88 mcg tablet SIG: levothyroxine 88 mcg oral tablet, 90 days, Dispense #90 Tablet, 0 RefillsDirecti ons: TAKE 1 TABLET BY MOUTH EVERY DAY 90 tablet 2021 Historic [id number] venlafax ine 150 mg capsule, extended release 24hr SIG: venlafaxine 150 mg oral capsule,extend ed release 24hr, 90 days, Dispense #90 Capsule, 1 RefillsDirecti ons: Take 1 oral capsule once a day 90 capsule ,extend ed release 24hr 2021 Historic [id number] Crestor 40 mg tablet SIG: Crestor 40 mg oral tablet, 90 days, Dispense #90 Tablet, 1 RefillsDirecti ons: Take 1 oral tablet once a day 90 tablet 2021 023 Historic [id number] Protonix 40 mg tablet,d elayed release (DR/EC) SIG: Protonix 40 mg oral tablet,delayed release (DR/EC), 90 days, Dispense #90 Tablet, 1 RefillsDirecti ons: Take 1 oral tablet once a day 90 tablet, delayed release (DR/EC) 2021 023 Historic [id number] amlodipi ne 10 mg tablet SIG: amlodipine 10 mg oral tablet, 90 days, Dispense #90 Tablet, 1 RefillsDirecti ons: Take 1 oral tablet once a day 90 tablet 2021 023 Historic [id number] lisinopr il 40 mg tablet SIG: lisinopril 40 mg oral tablet, 90 days, Dispense #90 Tablet, 1 RefillsDirecti ons: Take 1 oral tablet once a day 90 tablet 2021 023 Historic [id number] lisinopr il 40 mg tablet SIG: lisinopril 40 mg oral tablet, 90 days, Dispense #90 Tablet, 1 RefillsDirecti ons: Take 1 oral tablet once a day 90 tablet 2021 023 Historic [id number] LEVOTHYR OXINE 0.088MG (88MCG) TAB 88 mcg tablet SIG: LEVOTHYROXINE 0.088MG (88MCG) TAB, Dispense #90, 1 Refills, Directions: TAKE 1 TABLET BY MOUTH EVERY DAY 90 tablet 2021 023 Historic [id number] valacycl ovir 1 gram tablet SIG: valacyclovir 1 gram oral tablet, 3 days, Dispense #30 Tablet, 0 RefillsDirecti ons: Take 1 tablet twice daily x 3 days at first sign of a flare 30 tablet 2022 023 Historic [id number] venlafax ine 150 mg capsule, extended release 24hr SIG: venlafaxine 150 mg oral capsule,extend ed release 24hr, 90 days, Dispense #90 Capsule, 1 RefillsDirecti ons: Take 1 oral capsule once a day 90 capsule ,extend ed release 24hr 2022 Historic [id number] Protonix 40 mg tablet,d elayed release (DR/EC) SIG: Protonix 40 mg oral tablet,delayed release (DR/EC), 90 days, Dispense #90 Tablet, 1 RefillsDirecti ons: Take 1 oral tablet once a day 90 tablet, delayed release (DR/EC) 2022 Historic [id number] amlodipi ne 10 mg tablet SIG: amlodipine 10 mg oral tablet, 90 days, Dispense #90 Tablet, 1 RefillsDirecti ons: Take 1 oral tablet once a day 90 tablet 2022 023 Historic [id number] levothyr oxine 75 mcg tablet SIG: levothyroxine 75 mcg oral tablet, 30 days, Dispense #30 Tablet, 1 RefillsDirecti ons: Take 1 oral tablet once a day 30 tablet 2022 Historic [id number] levothyr oxine 75 mcg tablet SIG: levothyroxine 75 mcg oral tablet, 90 days, Dispense #90 Tablet, 0 RefillsDirecti ons: Take 1 oral tablet once a day 90 tablet 2022 Historic [id number] ROSUVAST ATIN 40MG TABLETS 40 mg tablet SIG: ROSUVASTATIN 40MG TABLETS, Dispense #90, 1 Refills, Directions: TAKE 1 TABLET BY MOUTH EVERY DAY 90 tablet 2022 Historic [id number] Protonix 40 mg tablet,d elayed release (/EC) SIG: Protonix 40 mg oral tablet,delayed release (/), 90 days, Dispense #90 Tablet, 1 RefillsDirecti ons: Take 1 oral tablet once a day 90 tablet, delayed release (DR/EC) 2022 Historic [id number] amlodipi ne 10 mg tablet SIG: amlodipine 10 mg oral tablet, 90 days, Dispense #90 Tablet, 1 RefillsDirecti ons: Take 1 oral tablet once a day 90 tablet 2022 Historic [id number] venlafax ine 150 mg capsule, extended release 24hr SIG: venlafaxine 150 mg oral capsule,extend ed release 24hr, 90 days, Dispense #90 Capsule, 1 RefillsDirecti ons: Take 1 oral capsule once a day 90 capsule ,extend ed release 24hr 2022 Historic [id number] lisinopr il 10 mg tablet SIG: lisinopril 10 mg oral tablet, 90 days, Dispense #90 Tablet, 0 RefillsDirecti ons: Take 1 oral tablet once a day 90 tablet 2022 Historic [id number] lisinopr il 10 mg tablet SIG: lisinopril 10 mg oral tablet, 90 days, Dispense #90 Tablet, 0 RefillsDirecti ons: Take 1 oral tablet once a day 90 tablet 2022 Historic [id number] levothyr oxine 75 mcg tablet SIG: levothyroxine 75 mcg oral tablet, 90 days, Dispense #90 Tablet, 1 RefillsDirecti ons: Take 1 oral tablet once a day 90 tablet 2022 Historic [id number] hydrochl orothiaz nicanor 25 mg tablet SIG: hydrochlorothi azide 25 mg oral tablet, 30 days, Dispense #30 Tablet, 3 RefillsDirecti ons: Take 1 oral tablet once a day 30 tablet 2022 Historic [id number] LISINOPR IL 10MG TABLETS 10 mg tablet SIG: LISINOPRIL 10MG TABLETS, Dispense #90, 0 Refills, Directions: TAKE 1 TABLET BY MOUTH EVERY DAY 90 tablet 2022 Historic [id number] ROSUVAST ATIN 40MG TABLETS 40 mg tablet SIG: ROSUVASTATIN 40MG TABLETS, Dispense #90, 0 Refills, Directions: TAKE 1 TABLET BY MOUTH EVERY DAY 90 tablet 2023 Historic [id number] Paxlovid 300 mg (150 mg x 2)-100 mg tablets, dose pack SIG: Paxlovid 300 mg (150 mg x 2)-100 mg oral tablets,dose pack, 5 days, Dispense #30 Tablet, 0 RefillsDirecti ons: Take nirmatrelvir 300 mg with ritonavir 100 mg, administered together, twice daily for 5 days 30 tablets ,dose pack 2023 Historic [id number] venlafax ine 150 mg capsule, extended release 24hr SIG: venlafaxine 150 mg oral capsule,extend ed release 24hr, 90 days, Dispense #90 Capsule, 1 RefillsDirecti ons: Take 1 oral capsule once a day 90 capsule ,extend ed release 24hr 2023 Historic [id number] lisinopr il 20 mg tablet SIG: lisinopril 20 mg oral tablet, 90 days, Dispense #90 Tablet, 1 RefillsDirecti ons: Take 1 oral tablet once a day 90 tablet 2023 Historic [id number] hydrochl orothiaz nicanor 25 mg tablet SIG: hydrochlorothi azide 25 mg oral tablet, 90 days, Dispense #90 Tablet, 1 RefillsDirecti ons: Take 1 oral tablet once a day 90 tablet 2023 Historic [id number] amoxicil santo-pot clavulan ate 875-125 mg tablet SIG: amoxicillin-po t clavulanate 875-125 mg oral tablet, 5 days, Dispense #10 Tablet, 0 Refills, Directions: Take 1 oral tablet 2 times a day 10 tablet 2023 Historic [id number] meclizin e 25 mg tablet SIG: meclizine 25 mg oral tablet, 30 days, Dispense #60 Tablet, 0 Refills, Directions: Take 12.5 to 25 mg every 6 to 12 hours as needed 60 tablet 2023 Historic [id number] ROSUVAST ATIN 40MG TABLETS 40 mg tablet SIG: ROSUVASTATIN 40MG TABLETS, Dispense #90, 1 Refills, Directions: take 1 tablet by mouth every day 90 tablet 2023 Historic [id number] LEVOTHYR OXINE 0.075MG (75MCG) TABS 75 mcg tablet SIG: LEVOTHYROXINE 0.075MG (75MCG) TABS, Dispense #90, 0 Refills, Directions: take 1 tablet by mouth every day 90 tablet 2023 Historic [id number] Protonix 40 mg tablet,d elayed release (DR/EC) SIG: Protonix 40 mg oral tablet,delayed release (DR/EC), 90 days, Dispense #90 Tablet, 1 RefillsDirecti ons: Take 1 oral tablet once a day 90 tablet, delayed release (DR/EC) 2023 Historic [id number] valacycl ovir 1 gram tablet SIG: valacyclovir 1 gram oral tablet, 3 days, Dispense #30 Tablet, 2 Refills, Directions: Take 1 tablet twice daily x 3 days at first sign of a flare 30 tablet 202305/ 024 Current [id number] LEVOTHYR OXINE 0.075MG (75MCG) TABS 75 mcg tablet SIG: LEVOTHYROXINE 0.075MG (75MCG) TABS, Dispense #90, 1 Refills, Directions: take 1 tablet by mouth every day 90 tablet 2023 Historic [id number] LISINOPR IL 20MG TABLETS 20 mg tablet SIG: LISINOPRIL 20MG TABLETS, Dispense #90, 1 Refills, Directions: take 1 tablet by mouth every day 90 tablet 2023 Historic [id number] hydrochl orothiaz nicanor 25 mg tablet SIG: hydrochlorothi azide, Dispense #90, 1 Refills, Directions: take 1 tablet by mouth every day 90 tablet 2023 Historic [id number] lisinopr il 10 mg tablet SIG: lisinopril 10 mg oral tablet, 90 days, Dispense #180 Tablet, 1 Refills, Directions: Take 1 oral tablet 2 times a day 180 tablet 2023 Current [id number] rosuvast atin 10 mg tablet SIG: rosuvastatin 10 mg oral tablet, 90 days, Dispense #90 Tablet, 1 Refills, Directions: Take 1 oral tablet once a day 90 tablet 2023 Historic [id number] venlafax ine 37.5 mg tablet SIG: venlafaxine 37.5 mg oral tablet, 90 days, Dispense #90 Tablet, 1 Refills, Directions: Take 1 oral tablet once a day with 75 mg tablet for total dosage of 112.5mg/day 90 tablet 2023 Historic [id number] venlafax ine 75 mg tablet SIG: venlafaxine 75 mg oral tablet, 90 days, Dispense #90 Tablet, 1 Refills, Directions: Take 1 oral tablet once a day with 37.5 mg tablet for total dosage of 112.5mg/day 90 tablet 2023 Historic [id number] Entresto 24-26 mg tablet SIG: Entresto 24-26 mg tablet, 30 days, Dispense #60 Tablet, 0 Refills Directions: Take 1 tablet twice daily 60 tablet 2023 Current [id number] mupiroci n 2 % ointment SIG: mupirocin 2 % topical ointment, 5 days, Dispense #22 Gram, 0 Refills, Directions: Apply to affected area 2 to 3 times daily for 5 days 22 ointmen t 2023 Current [id number] Protonix 40 mg tablet,d elayed release (DR/EC) SIG: Protonix 40 mg oral tablet,delayed release (DR/EC), 90 days, Dispense #90 Tablet, 1 Refills, Directions: Take 1 oral tablet once a day 90 tablet, delayed release (DR/EC) 2023 Historic [id number] levothyr oxine 75 mcg tablet SIG: levothyroxine 75 mcg oral tablet, 90 days, Dispense #90 Tablet, 1 Refills, Directions: take 1 tablet by mouth every day 90 tablet 2024 Current FreeStyl e Amber 3 Sensor device SIG: FreeStyle Amber 3 Sensor miscellaneous device, 28 days, Dispense #2 Kit, 1 Refills, Directions: Apply sensor to arm once every 14 days 2 device 2024 Current FreeStyl e Amber 3 Palmer misc SIG: FreeStyle Amber 3 Palmer miscellaneous misc, 30 days, Dispense #1 Each, 0 Refills, Directions: For use with FreeStyle Amber 3 sensors 1 misc 2024 Current [id number] LEVOTHYR OXINE 0.075MG (75MCG) TABS 75 mcg tablet SIG: levothyroxine 75 mcg oral tablet, 90 days, Dispense #90 Tablet, 0 Refills, Directions: TAKE 1 TABLET BY MOUTH EVERY DAY 90 tablet 2024 Current [id number] ROSUVAST ATIN 10MG TABLETS 10 mg tablet SIG: rosuvastatin 10 mg oral tablet, 90 days, Dispense #90 Tablet, 1 Refills, Directions: TAKE 1 TABLET BY MOUTH DAILY 90 tablet 2024 Current [id number] VENLAFAX INE 37.5MG TABLETS 37.5 mg tablet SIG: venlafaxine 37.5 mg oral tablet, 90 days, Dispense #90 Tablet, 1 Refills, Directions: TAKE 1 TABLET BY MOUTH EVERY DAY ALONG WITH 75MG TABLET 90 tablet 2024 Current [id number] VENLAFAX INE 75MG TABLETS 75 mg tablet SIG: venlafaxine 75 mg oral tablet, 90 days, Dispense #90 Tablet, 1 Refills, Directions: TAKE 1 TABLET BY MOUTH EVERY DAY ALONG WITH THE 37.5MG TABLET 90 tablet 2024 Current [id number] Protonix 40 mg tablet,d elayed release (DR/EC) SIG: Protonix 40 mg oral tablet,delayed release (DR/EC), 90 days, Dispense #90 Tablet, 2 Refills, Directions: Take 1 oral tablet once a day 90 tablet, delayed release (DR/EC) 2024 Current PROBLEMS Problem Code Problem Description Problem Status Problem Date Problem End Date [id number]-Brjbwwewfs Osteopenia Current 10/04/2020 [id number]-Wggyv anxiety and depressive disorder Mixed anxiety and depressive disorder Current 10/04/2020 [id number]-Etosobunnlvifw Hypothyroidism Current 10/05/19 31757400-Hgbfqtvhgegzjn Hyperlipidemia Current 10/05/19 [id number]-Cwyoauxtmdtxl eal reflux disease Gastroesophageal reflux disease Current 10/04/2020 [id number]-Oxdrn artery stenosis Renal artery stenosis Current 10/04/2020 08676249-Plmiins D deficiency Vitamin D deficiency Current 10/04/2020 969282757-Upfhjxb kidney disease stage 3 Chronic kidney disease stage 3 Current 10/04/2020 11838193-Quhfaltas hypertension Essential hypertension Current 10/04/2020 [id number]-Gfijxldvfkumq ridemia Hypertriglyceridemia Current 10/04/2020 70477483-Yxdmro simplex Herpes simplex Current 10/05/19 21 L98.9-DISORDER OF THE SKIN AND SUBCUTANEOUS TISSUE, UNSPECIFIED DISORDER OF THE SKIN AND SUBCUTANEOUS TISSUE, UNSPECIFIED Current 09/18/2021 U07.1-COVID-19 COVID-19 Current 09/30/2021 R09.81-NASAL CONGESTION NASAL CONGESTION Current 2021 R53.83-OTHER FATIGUE OTHER FATIGUE Current 09/30/2021 R51.9-HEADACHE, UNSPECIFIED HEADACHE, UNSPECIFIED Current 09/30/2021 Z00.01-ENCOUNTER FOR GENERAL ADULT MEDICAL EXAM W ABNORMAL ENCOUNTER FOR GENERAL ADULT MEDICAL EXAM W ABNORMAL Current 12/25/2021 E78.5-HYPERLIPIDEMIA, UNSPECIFIED HYPERLIPIDEMIA, UNSPECIFIED Current 12/25/2021 I43-OQGQMCAGG (PRIMARY) HYPERTENSION ESSENTIAL (PRIMARY) HYPERTENSION Current 12/25/2021 N18.30-CHRONIC KIDNEY DISEASE, STAGE 3 UNSPECIFIED CHRONIC KIDNEY DISEASE, STAGE 3 UNSPECIFIED Current 12/25/2021 R94.31-ABNORMAL ELECTROCARDIOGRAM [ECG] [EKG] ABNORMAL ELECTROCARDIOGRAM [ECG] [EKG] Current 12/25/2021 E78.1-PURE HYPERGLYCERIDEMIA PURE HYPERGLYCERIDEMIA Current 12/25/2021 E78.6-LIPOPROTEIN DEFICIENCY LIPOPROTEIN DEFICIENCY Current 12/25/2021 D75.89-OTHER SPECIFIED DISEASES OF BLOOD AND BLOOD-FORMING OTHER SPECIFIED DISEASES OF BLOOD AND BLOOD-FORMING Current 12/25/2021 F41.9-ANXIETY DISORDER, UNSPECIFIED ANXIETY DISORDER, UNSPECIFIED Current 12/25/2021 X66-[id number] HYPERHIDROSIS GENERALIZED HYPERHIDROSIS Current 12/25/2021 M19.90-UNSPECIFIED OSTEOARTHRITIS, UNSPECIFIED SITE UNSPECIFIED OSTEOARTHRITIS, UNSPECIFIED SITE Current 12/25/2021 D17.9-BENIGN LIPOMATOUS NEOPLASM, UNSPECIFIED BENIGN LIPOMATOUS NEOPLASM, UNSPECIFIED Current 12/25/2021 I44-[id number], NOT ELSEWHERE CLASSIFIED HEMORRHAGE, NOT ELSEWHERE CLASSIFIED Current 12/25/2021 J06.9-ACUTE UPPER RESPIRATORY INFECTION, UNSPECIFIED ACUTE UPPER RESPIRATORY INFECTION, UNSPECIFIED Current 03/21/2022 B34.9-VIRAL INFECTION, UNSPECIFIED VIRAL INFECTION, UNSPECIFIED Current 03/21/2022 E87.22-CHRONIC METABOLIC ACIDOSIS CHRONIC METABOLIC ACIDOSIS Current 10/19/2023 R73.03-PREDIABETES PREDIABETES Current 10/19/2023 E88.819-INSULIN RESISTANCE, UNSPECIFIED INSULIN RESISTANCE, UNSPECIFIED Current 10/19/2023 R41.3-OTHER AMNESIA OTHER AMNESIA Current 10/19/2023 F43.0-ACUTE STRESS REACTION ACUTE STRESS REACTION Current 10/19/2023 Z63.79-OTHER STRESSFUL LIFE EVENTS AFFECTING FAMILY AND SATURNINO OTHER STRESSFUL LIFE EVENTS AFFECTING FAMILY AND SATURNINO Current 10/19/2023 K21.1-MBDXBL-SECGOVUYUO REFLUX DISEASE WITHOUT ESOPHAGITIS GASTRO-ESOPHAGEAL REFLUX DISEASE WITHOUT ESOPHAGITIS Current 01/26/2024 E53.8-DEFICIENCY OF OTHER SPECIFIED B GROUP VITAMINS DEFICIENCY OF OTHER SPECIFIED B GROUP VITAMINS Current 01/26/2024 E55.9-VITAMIN D DEFICIENCY, UNSPECIFIED VITAMIN D DEFICIENCY, UNSPECIFIED Current 01/26/2024 PROCEDURES Procedure Description Date Notes NO PROCEDURES PERFORMED ASSESSMENTS Assessment None PLAN OF TREATMENT Assessment Planned Activity LOINC Planned Lloyd e None CONSULTATION NOTE Note Author Date None HISTORY AND PHYSICAL NOTE Note Author Date None PROGRESS NOTE Note Author Date None DISCHARGE SUMMARY Note Author Date None CHIEF COMPLAINT AND REASON FOR VISIT FUNCTIONAL STATUS Functional or Cognitive Find ing None MENTAL STATUS Cognitive Finding None ENCOUNTERS Encounter Type Provider Diagnoses Start Date Location None SOCIAL HISTORY Social Status Observation Unknown if ever smoked Sex:Female 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
--- OUTSIDE RECORDS SUMMARY | 2024-08-09 01:42 | XMS_ITS | Clinical Summary ---
Author Organization [facility] Address [address] [place] [address] Care Team Providers Care Marketing Content Specialist Name Role Phone Dalia Pérez MD Primary Care Provider [phone] Allergies No known active allergies Medications venlafaxine XR (EFFEXOR-XR) 150 mg 24 hr capsule take 1 capsule by oral route every day 0 0 6 Active azelastine (ASTELIN) 137 mcg (0.1 %) nasal spray 1 spray daily as needed for allergies 2 8 Active Lactobac no.41/Bifidobac t no.7 (PROBIOTIC-10 ORAL) Take 10 mg by mouth every morning Active pantoprazole DR (PROTONIX) 40 mg EC tablet Take 1 tablet (40 mg total) by mouth nightly 0 Active cyanocobalamin (Vitamin B-12) 1,000 mcg tablet Take 1 tablet (1,000 mcg total) by mouth every morning Active cholecalciferol (Vitamin D3) 2000 unit capsule Take 1 capsule (2,000 Units total) by mouth every morning 2 Active hydroCHLOROthia zide (HYDRODIURIL) 25 mg tablet Take 0.5 tablets (12.5 mg total) by mouth daily 3 Active rosuvastatin (CRESTOR) 40 mg tablet Take 1 tablet (40 mg total) by mouth daily Active levothyroxine (SYNTHROID) 75 mcg tablet Take 1 tablet (75 mcg total) by mouth daily 3 Active lisinopriL (PRINIVIL,ZESTR IL) 10 mg tablet Take 1 tablet (10 mg total) by mouth 2 (two) times a day 3 Active aspirin 81 mg enteric coated tablet Take 1 tablet (81 mg total) by mouth daily Active multivitamin-Ca -iron-minerals tablet Take 1 tablet by mouth daily Active cetirizine (ZyrTEC) 5 mg chewable tablet Take 1 tablet (5 mg total) by mouth daily as needed for allergies Active ferrous sulfate 134 mg (27 mg of elemental iron) tablet Take 1 tablet (134 mg total) by mouth every other day Active calcium cit/mag/D3/Zn/c op/jailene (CALCIUM CITRATE PLUS ORAL) Take 1,200 mg by mouth daily Active krill oil 500 mg capsule Take 2 capsules by mouth daily Active aspirin 81 mg enteric coated tabletIndicatio ns:Deep Vein Thrombosis Prevention Take 1 tablet (81 mg total) by mouth daily 4 Active Active Problems Problem Noted Date Diagnosed Date [...] (10/31/2021): Added automatically from request for surgery [id number] Shoulder arthritis 08/06/2021 Anxiety 08/01/2021 History of [...] (08/29/2019): Added automatically from request for surgery [id number] Personal history of colonic polyps 01/19/2018 Overview (01/19/2018): Added automatically from request for surgery [id number] Other dysphagia 01/19/2018 Overview (01/19/2018): Added automatically from request for surgery [id number] Allergic conjunctivitis of both eyes 11/30/2017 Assessment & Plan (02/02/2023 10:49 AM PEER SUPPORT SPECIALIST): Finished 3 yrs of allergy shot last year Takes zyrtec recently. Warned may dry eye out more.n Assessment & Plan (12/19/2019 1:24 PM CDT): Add hot compresses with lid scrubs to alleviate crusting of lashes and remove pollen. Recommend trail of lubricant eye drops 4 times/day. If still itchy and symptomatic, try Zaditor OTC drops 2x/s day. H/o shots [id number] and using nose spray and judy. Eyes ok. Assessment & Plan (12/13/2018 2:32 PM CDT): Add hot compresses with lid scrubs to alleviate crusting of lashes and remove pollen. Recommend trail of lubricant eye drops 4 times/day. If still itchy and symptomatic, try Zaditor OTC drops 2x/s day. H/o shots [id number] and using nose spray and judy. Eyes [...] 11/30/2017 Assessment & Plan (02/02/2023 10:52 AM PEER SUPPORT SPECIALIST): Not visually significant. Do not recommend surgery at this time. Continue to monitor. Patient to call if problems with activities of daily living. Warned post-LASIK will give some intraocular lens (IOL) calc challenges. Also smallish pupil, would likely need a ring when eventually needs Assessment & Plan (01/27/2022 9:24 AM PEER SUPPORT SPECIALIST): Not visually significant. Do not recommend surgery [...] 01/2018 Assessment & Plan (02/02/2023 9:51 AM PEER SUPPORT SPECIALIST): Recommend increase lubricant eye drops to 4 times/day; consider preservative- free drops, especially if using drops more than that. Add hot compresses with lid scrubs to improve quality of tears. Assessment & Plan (01/27/2022 9:25 AM PEER SUPPORT SPECIALIST): Recommend increase lubricant eye drops to 4 [...] tears. Hx of LASIK 11/30/2017 Overview (11/30/2017): 2001Uzair Verdugo with enhancement OS Assessment & Plan (02/02/2023 9:51 AM PEER SUPPORT SPECIALIST): Good result from surgery [place] [address] Verdugo. (had enhancement left eye (OS)). Pt doing well. Assessment & Plan (01/27/2022 9:25 AM PEER SUPPORT SPECIALIST): Good result from surgery in 2001 with [...] 10/21/2006 Malignant neoplasm of urinary bladder 10/19/2006 Resolved Problems Problem Noted Date Diagnosed Date Resolved Date Combined forms of age-related cataract 12/04/2014 01/27/2022 Encounters Date Type Department Care Team Description 07/24/2024 Orders Only [facility] Cardiology [facility] Medicine [address] [place] [address] [place] [address] Darrell Alex MD Pacemaker (Primary Dx) 07/24/2024 Telephone [facility] Cardiology [facility] Medicine [address]th [place] [address] [place] [address] Sekou Jade New Patient 07/19/2024 9:51 AM CDT - 07/19/2024 11:59 PM CDT Hospital Encounter [facility] - Imaging [address] [place] [address] Screening for osteoporosis; Asymptomatic menopausal state Discharge Disposition: Discharge to home or self care 06/14/2024 11:30 AM CDT Office Visit [facility] Dermatology [address] [place] [address] BCC (basal cell carcinoma), lip (Primary Dx) from Last 3 Months Immunizations Immunization Administration Dates Next Due Influenza, Split 03/07/2013,01/05/2011, 0 Influenza, Trivalent, High D ose, Split, Preservative Free, Intramuscular 02/19/2014 Influenza, Trivalent, IM (MDV) 02/01/2012,2008,12/27/2007 Pfizer SARS-CoV-2 Monovalent Vaccination (12+ Yrs) PURPLE 05/13/2020,04/15/2020 Pneumococcal Polysaccharide PPV23 12/27/2007 Td, adsorbed 12/02/2007 ZOSTER LIVE 06/08/2006 Surgical History Surgery Date Site/Laterality Comments CHOLECYSTECTOMY 03/22/1998 - 03/21/1999 TONSILLECTOMY ROTATOR CUFF REPAIR 03/22/2004 - 03/21/2005 Right BUNIONECTOMY 03/22/1994 - 03/21/1995 ABDOMINAL SACROCOLPOPEXY 03/22/2009 - 03/21/2010 PARTIAL NEPHRECTOMY 03/22/2011 - 03/21/2012 Right HYSTERECTOMY TOTAL SHOULDER REPLACEMENT 03/22/2021 - 03/21/2022 Bilat eral Medical History Medical History Date Comments Prediabetes Combined forms of age-relate d cataract of both eyes Hyperlipidemia Other specified diseases of intestine Small intestinal bacterial overgrowth - (Added by TW Conv) History of colon polyps Bladder cancer (HCC) 1993 Renal cell carcinoma (HCC) Diverticulitis HTN (hypertension) Renal artery stenosis R S/P LASIK (laser assisted in situ keratomileusis) of both eyes with OS enhancement Myopia, left eye Astigmatism of both eyes with presbyopia Wears hearing aid Family History Medical History Relation Name Comments COPD Father COPD; Coronary artery disease Father Katiuska nary artery disease; /Coronary artery disease; Cause of : Coronary artery disease Hyperlipidemia Father Hyperlipidemi a; Hypertension Father Hypertension; Cancer Mother Cancer -unknown primary; Cause of : Cancer -unknown primary Ovarian cancer Mother Colon cancer Mother's Brother 1 Cancer, c olon; Colon cancer Mother's Brother 2 Cancer, c olon; Colon cancer Mother's Sister Cancer -colo n; Anesthesia problems Neg Hx Relation Name Status Comments Father (Age 86) Mother (Age 39) Mother's Brother 1 Mother's Brother 2 Mother's Sister Social History Tobacco Use Types Packs/Day Years Used Date Smoking Tobacco: Never Passive Smoke Exposure: Past Smokeless Tobacco: Never Tobacco Cessation:Counseling Given: Not Answered Passive Exposure Comments:father smoked as chikd Alcohol Use Standard Drinks/Week Comments Yes 0 (1 standard drink = 0.6 oz pur e alcohol) [facility] Utilities Answer Date Recorded In the past 12 months has th e electric, gas, oil, or water company threatened to shut off services in your [...] week 11/23/2023 How often do you attend chur ch or latter-day services? More than 4 times per year 11/23/2023 Do you belong to any clubs o r organizations such as synagogue groups, unions, fraternal or athletic groups, or [...] any time in the past 12 m [facility], were you homeless or living in a prison (including now)? No 11/23/2023 Personal Safety Answer Date Recorded Have you ever been in or are you currently in a harmful physical or emotional relationship or is someone making you feel afraid or unsafe? Denies 11/23/2023 Comments No Sex and Gender Information Value Date Recorded Sex Assigned at Not on file Legal Sex Female 12:16 AM PEER SUPPORT SPECIALIST Gender Identity Not on file Sexual Orientation Not on file Obstetrics History Last Filed Vital Signs Vital Sign Reading Time Taken Comments Blood Pressure 152/70 05/10/2024 3:03 PM PEER SUPPORT SPECIALIST Pulse 84 05/10/2024 3:03 PM PEER SUPPORT SPECIALIST Temperature 37 C (98.6 F) 05/10/2024 3:03 PM PEER SUPPORT SPECIALIST Respiratory Rate 24 05/10/2024 3:03 PM PEER SUPPORT SPECIALIST Oxygen Saturation 98% 05/10/2024 3:03 PM PEER SUPPORT SPECIALIST Inhaled Oxygen Concentration - - Weight 61.2 kg (135 lb) 05/10/2024 3:03 PM PEER SUPPORT SPECIALIST Height 165.1 cm (5' 5) 01/05/2024 7:41 AM CDT Body Mass Index 22.47 01/05/2024 7:41 AM CDT Plan of Treatment Health Maintenance Due Date Last Done Comments Depression Screening 1942 Hepatitis B Screening 1960 Well Visit 65+ 12/22/2007 Covid-19 Vaccine (2023-2 5 season) 2023 02/07/2021, 05/13/2020, 04/15/2020 Influenza Vaccine (Season Ended) 2024 02/07/2021, 12/25/2019, 01/03/2019, Additional history exists Fall Risk Assessment 11/23/2024 11/24/2023 Osteoporosis Screening-Bone Density Scan 07/19/2026 07/19/2024, 03/17/2022, 03/17/2022, Additional history exists DTaP/Tdap/Td Vaccine (2 - Td or Tdap) 12/24/2029 12/25/2019, 12/02/2007, 03/22/2007 Zoster Vaccine Completed 04/27/2019, 01/21, 06/08/2006, Additional history exists Pneumococcal vaccine 65+ Completed 020, 01/09/2016, 01/15/2015, Additional history exists Medical Devices Implanted Type Area Hosiery Bagger Device Identifier Shelf Expiration Date Model / Serial / Lot [employer] Tornier Aequalis Perform 25mm Reverse Shoulder Standard Baseplate [id number] - [id number] - [id number] Implanted:Qty: 1 on 02/04/2022 by Rafael Hernandez MD at [facility] Other - see comments Right: Shoulder [employer] [id number] 12/29/2026 [id number] / [id number] / Description:Implant Pause Pe rformed [employer] Tornier Aequalis Perform 15mm Press Fit Long Post Shoulder [id number] - [id number] - [id number] Implanted:Qty: 1 on 02/04/2022 by Rafael Hernandez MD at [facility] Other - see comments Right: Shoulder [employer] [id number] 06/19/2026 [id number] / [id number] / Description:Implant Pause Pe rformed No Boundaries [employer] Tornier Aequalis Perform 36mm Lateralize Reverse Shoulder +3mm Izn562 - [id number] - [id number] Implanted:Qty: 1 on 02/04/2022 by Rafael Hernandez MD at [facility] Other - see comments Right: Shoulder [employer] [id number] 10/07/2026 [id number] / [id number] / Description:Implant Pause Pe rformed [employer] Stem Perform Sz 2 Plus Humeral Long Dwx2pl - [id number] - [id number] Implanted:Qty: 1 on 02/04/2022 by Rafael Hernandez MD at [facility] Other - see comments Right: Shoulder [employer] [id number] 12/26/2026 [id number] / [id number] / Description:Implant Pause Pe rformed [employer] [id number] Insert Perform [id number] - [id number] - [id number] Implanted:Qty: 1 on 02/04/2022 by Rafael Hernandez MD at [facility] Other - see comments Right: Shoulder [employer] [id number] 10/23/2026 [id number] / [id number] / Description:Implant Pause Pe rformed Medtronic Inc Lewellen S Mri Surescan 50.8x46.6mm 2 Chamber 7.4mm Pacemaker 22.5gm W3dr01 - [id number] Implanted:Qty: 1 on 11/23/2023 by Roberto Mueller MD at [facility] Pacemaker [employer] [id number] / / Tornier Inc Kqv959 Aequalis Perform Reversed 5mm 34mm Peripheral Glenoid Screw - [id number] - [id number] Implanted:Qty: 2 on 08/06/2021 by Rafael Hernandez MD at [facility] Screw Left: Shoulder [employer] YDI464 / [id number] / [employer] Aequalis Perform Reversed 5mm 30mm Peripheral Glenoid Screw Nao716 - Sna - [id number] Implanted:Qty: 1 on 02/04/2022 by Rafael Hernandez MD at [facility] Screw Right: Shoulder [employer] 10/19/2049 [id number] / NA / [employer] Aequalis Perform Reversed 5mm 34mm Peripheral Glenoid Screw Wer341 - Sna - [id number] Implanted:Qty: 1 on 02/04/2022 by Rafael Hernandez MD at [facility] Screw Right: Shoulder [employer] 10/19/2049 CQI432 / NA / Joint Bilateral: Shoulder Description:Placed in 2004, 2005 Tornier Inc Wsw767 Tornier Aequalis Perform 15mm Press Fit Long Post Shoulder - Cula447 - [id number] Implanted:Qty: 1 on 08/06/2021 by Rafael Hernandez MD at [facility] Left: Shoulder [employer] 06/10/2026 HPI027 / [id number] / Tornier Inc Nep742 Tornier Aequalis Perform 25mm Reverse Shoulder Standard Baseplate - [id number] - [id number] Implanted:Qty: 1 on 08/06/2021 by Rafael Hernandez MD at [facility] Left: Shoulder [employer] 06/18/2025 UBI721 / [id number] / Tornier Inc Xsd288 Tornier Aequalis Perform 36mm Lateralize Reverse Shoulder +3mm - [id number] - [id number] Implanted:Qty: 1 on 08/06/2021 by Rafael Hernandez MD at [facility] Left: Shoulder [employer] Inc 06/02/2026 CZD541 / [id number] / No Boundaries [employer] Dwx2ps Stem Perform Sz 2 Plus Humeral - [id number] - [id number] Implanted:Qty: 1 on 08/06/2021 by Rafael Hernandez MD at [facility] Left: Shoulder [employer] 05/06/2026 DWX2PS / [id number] / No Boundaries [employer] [id number] Insert Perform Dlf7432 - [id number] - [id number] Implanted:Qty: 1 on 08/06/2021 by Rafael Hernandez MD at [facility] Left: Shoulder [employer] 04/21/2026 [id number] / [id number] / Medtronic Inc Capsurefix Novus 6.2fr 2mm 52cm Bipolar Screw In Implantable Latex Free 5076-52 - [id number] - [id number] Implanted:Qty: 1 on 11/23/2023 by Roberto Mueller MD at [facility] [employer] [id number] 09/12/2025 5076-52 / [id number] / Medtronic Inc Selectsecure 4.1fr 69cm Bipolar Screw In Is-1 Atrium Ventricle [id number] - [id number] Implanted:Qty: 1 on 11/23/2023 by Roberto Mueller MD at [facility] [employer] [id number] / / Procedures Procedure Name Priority Date/Time Associated Diagnosis Comments DEXA AXIAL SKELETON BONE DENSITY 1 OR MORE SITES Schedule Routine, Read Routine (OP Routine) 07/19/2024 10:08 AM CDT Screening for osteoporosis Asymptomatic menopausal state from Last 3 Months Results * Dexa Axial Skeleton Bone Density 1 or 2 Site (07/19/2024 10:08 AM CDT) Anatomical Region Laterality Modality Body N/A Digital Radiogra phy 07/19/2024 10:3 1 AM CDT Impressions 07/19/2024 10:31 AM CDT 1. The bone mineral density of the lumbar spine is normal. There has been no significant change in bone mineral density since the baseline examination of 01/02/2019. 2. The bone mineral density of the left femoral neck is normal. 3. The bone mineral density of the left total hip is normal. There has been a statistically significant decrease in bone mineral density since the baseline examination of 01/02/2019. 4. Overall, the above findings are normal by WHO criteria. 5. Calculation of fracture risk using the FRAX model is not appropriate in certain settings. It was not performed in this patient because the patient met the following condition(s): normal bone density. General comments regarding interpretation of bone density measurements: A) In children, premenopausal woman and males under age 50 not at increased risk for fractures only Z-scores, not T-scores are used to indicate risk. A Z-score above -2.0 is defined as within the expected range for age and Z-score at or less than -2.0 is below the expected range for age. A Z-score below the expected range for age in a patient with recent fractures and/or chronic corticosteroid treatment is consistent with a diagnosis of osteoporosis. B) In post menopausal women and males over 50, comparison of the measured bone mineral density with the average value in young normal subjects (the T-score) has been found to be useful in assessing fracture risk. Fracture risk approximately doubles for each 1.0 standard deviation (SD) in individual's hip or spine bone mineral density is below the average value of young normal subjects. The World Health Organization (WHO) has defined T-scores of -1.0 to -2.5 as diagnostic of low bone mass (OSTEOPENIA), and T-scores of -2.5 or lower to be diagnostic of OSTEOPOROSIS, based on the site of lowest bone density. Note that there will be a change in reporting format and reference databases as patients move from the younger population (group A) to the older population (group B) The National Osteoporosis Foundation (www.nof.org) recommends adequate intake of calcium and vitamin D and regular weight-bearing exercise in all patients. They recommend pharmacologic treatment in postmenopausal women and men age 50 and older presenting with any of the followin) Osteoporosis, after appropriate evaluation to exclude secondary causes. 2) A hip or vertebral (clinical or radiographic) fracture, regardless of the bone density. 3) Low bone mass (Osteopenia) and one or more of: other prior fractures, secondary causes associated with high risk of fracture (such as glucocorticoid use or total immobilization), or computed high risk of fracture (10-yr probability of hip fracture >= 3% or a 10-yr probability of any major osteoporosis-related fracture >= 20% based on the [place].-adapted WHO algorithm), available at http://www.shef.ac.uk/FRAX). The radiology attending physician has personally reviewed this study, and had reviewed and/or edited this written report and agrees with it. Electronically signed by: Angelo Granda M.D. Narrative 07/19/2024 10:31 AM CDT BONE DENSITOMETRY OF THE SPINE AND HIP DATE OF STUDY: 07/19/2024 HISTORY: 83-year-old postmenopausal woman FINDINGS (SPINE): The bone mineral density of L1-L4 was assessed by dual-energy x-ray absorptiometry. The average bone mineral density within this region is 1.075 gm/sq-cm. This is 3.0 standard deviations above the mean of the average bone mineral density for age- and gender-matched subjects (the Z-score). It is 0.3 standard deviations above the mean peak bone mineral density in young adults (the T-score). FINDINGS (FEMORAL NECK): The bone mineral density of the left femoral neck was assessed by dual-energy x-ray absorptiometry. The average bone mineral density within the femoral neck region is 0.829 gm/sq-cm. This is 2.2 standard deviations above the mean of the average bone mineral density for age- and gender-matched subjects (the Z-score). It is 0.2 standard deviations below the mean peak bone mineral density in young adults (the T-score). FINDINGS (TOTAL HIP): The bone mineral density of the left hip was assessed by dual-energy x-ray absorptiometry. The average bone mineral density within the total hip region is 0.993 gm/sq-cm. This is 2.6 standard deviations above the mean of the average bone mineral density for age- and gender-matched subjects (the Z-score). It is 0.4 standard deviations above the mean peak bone mineral density in young adults (the T-score). SUMMARY OF CURRENT RESULTS: Region BMD T-score Z-score AP Spine (L1-L4) 1.075 0.3 3.0 Femoral Neck (Left) 0.829 -0.2 2.2 Total Hip (Left) 0.993 0.4 2.6 COMPARISON WITH PREVIOUS RESULTS Region Age BMD T-score BMD Change BMD Change Exam Date g/cm2 vs Baseline vs Previous AP Spine (L1-L4) 07/19/2024 83 1.075 0.3 0.022 (2.1%) 0.019 (1.8%) 03/17/2022 81 1.057 0.1 0.003 (0.3%) 0.003 (0.3%) 01/02/2019 78 1.054 0.1 Total Hip(Left) 07/19/2024 83 0.993 0.4 -0.061 (-5.8%) -0.013 (-1.2%) 03/17/2022 81 1.005 0.5 -0.049 (-4.6%) -0.049 (-4.6%) 01/02/2019 78 1.054 0.9 *Denotes significance at 95% confidence level Procedure Note Angelo Granda MD - 07/19/2024 BONE DENSITOMETRY OF THE SPINE AND HIP DATE OF STUDY: 07/19/2024 HISTORY: 83-year-old postmenopausal woman FINDINGS (SPINE): The bone mineral density of L1-L4 was assessed by dual-energy x-ray absorptiometry. The average bone mineral density within this region is 1.075 gm/sq-cm. This is 3.0 standard deviations above the mean of the average bone mineral density for age- and gender-matched subjects (the Z-score). It is 0.3 standard deviations above the mean peak bone mineral density in young adults (the T-score). FINDINGS (FEMORAL NECK): The bone mineral density of the left femoral neck was assessed by dual-energy x-ray absorptiometry. The average bone mineral density within the femoral neck region is 0.829 gm/sq-cm. This is 2.2 standard deviations above the mean of the average bone mineral density for age- and gender-matched subjects (the Z-score). It is 0.2 standard deviations below the mean peak bone mineral density in young adults (the T-score). FINDINGS (TOTAL HIP): The bone mineral density of the left hip was assessed by dual-energy x-ray absorptiometry. The average bone mineral density within the total hip region is 0.993 gm/sq-cm. This is 2.6 standard deviations above the mean of the average bone mineral density for age- and gender-matched subjects (the Z-score). It is 0.4 standard deviations above the mean peak bone mineral density in young adults (the T-score). SUMMARY OF CURRENT RESULTS: Region BMD T-score Z-score AP Spine (L1-L4) 1.075 0.3 3.0 Femoral Neck (Left) 0.829 -0.2 2.2 Total Hip (Left) 0.993 0.4 2.6 COMPARISON WITH PREVIOUS RESULTS Region Age BMD T-score BMD Change BMD Change Exam Date g/cm2 vs Baseline vs Previous AP Spine (L1-L4) 07/19/2024 83 1.075 0.3 0.022 (2.1%) 0.019 (1.8%) 03/17/2022 81 1.057 0.1 0.003 (0.3%) 0.003 (0.3%) 01/02/2019 78 1.054 0.1 Total Hip(Left) 07/19/2024 83 0.993 0.4 -0.061 (-5.8%) -0.013 (-1.2%) 03/17/2022 81 1.005 0.5 -0.049 (-4.6%) -0.049 (-4.6%) 01/02/2019 78 1.054 0.9 *Denotes significance at 95% confidence level IMPRESSION: 1. The bone mineral density of the lumbar spine is normal. There has been no significant change in bone mineral density since the baseline examination of 01/02/2019. 2. The bone mineral density of the left femoral neck is normal. 3. The bone mineral density of the left total hip is normal. There has been a statistically significant decrease in bone mineral density since the baseline examination of 01/02/2019. 4. Overall, the above findings are normal by WHO criteria. 5. Calculation of fracture risk using the FRAX model is not appropriate in certain settings. It was not performed in this patient because the patient met the following condition(s): normal bone density. General comments regarding interpretation of bone density measurements: A) In children, premenopausal woman and males under age 50 not at increased risk for fractures only Z-scores, not T-scores are used to indicate risk. A Z-score above -2.0 is defined as within the expected range for age and Z-score at or less than -2.0 is below the expected range for age. A Z-score below the expected range for age in a patient with recent fractures and/or chronic corticosteroid treatment is consistent with a diagnosis of osteoporosis. B) In post menopausal women and males over 50, comparison of the measured bone mineral density with the average value in young normal subjects (the T-score) has been found to be useful in assessing fracture risk. Fracture risk approximately doubles for each 1.0 standard deviation (SD) in individual's hip or spine bone mineral density is below the average value of young normal subjects. The World Health Organization (WHO) has defined T-scores of -1.0 to -2.5 as diagnostic of low bone mass (OSTEOPENIA), and T-scores of -2.5 or lower to be diagnostic of OSTEOPOROSIS, based on the site of lowest bone density. Note that there will be a change in reporting format and reference databases as patients move from the younger population (group A) to the older population (group B) The National Osteoporosis Foundation (www.nof.org) recommends adequate intake of calcium and vitamin D and regular weight-bearing exercise in all patients. They recommend pharmacologic treatment in postmenopausal women and men age 50 and older presenting with any of the followin) Osteoporosis, after appropriate evaluation to exclude secondary causes. 2) A hip or vertebral (clinical or radiographic) fracture, regardless of the bone density. 3) Low bone mass (Osteopenia) and one or more of: other prior fractures, secondary causes associated with high risk of fracture (such as glucocorticoid use or total immobilization), or computed high risk of fracture (10-yr probability of hip fracture >= 3% or a 10-yr probability of any major osteoporosis-related fracture >= 20% based on the [place].-adapted WHO algorithm), available at http://www.shef.ac.uk/FRAX). The radiology attending physician has personally reviewed this study, and had reviewed and/or edited this written report and agrees with it. Electronically signed by: Angelo Granda M.D. Precious Merino NP IMG DXA PROCEDURES Final Re sult from Last 3 Months Additional Health Concerns Infection Onset Date Last Indicated COVID: Recovered Comment:Added based on recent COVID infection. 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 02/02/2022 2:00 PM Genia ng Will Advance Directives and Living Will 08/06/2021 10:42 AM ADVANCE DIRECTIVE 07/24/2021 12:51 PM POWER OF FILLER WIPER-MEDICAL * Full Code (Latest Code Status on File) Date Activated Date Inactivated Comments 11/21/2023 4:26 PM 11/24/2023 7:21 PM * Full Code Date Activated Date Inactivated Comments 06/14/2023 11:46 AM 06/14/2023 7:19 PM * Full Code Date Activated Date Inactivated Comments 02/04/2022 10:38 AM 02/05/2022 2:06 PM * Full Code Date Activated Date Inactivated Comments 08/06/2021 3:18 PM 08/07/2021 2:21 PM * Full Code Date Activated Date Inactivated Comments 09/20/2019 7:39 AM 09/20/2019 2:11 PM Care Teams Marketing Content Specialist Relationship Specialty Start Date End Date Dalia Pérez MD [facility] - General 06/29/17
--- OUTSIDE RECORDS SUMMARY | 2024-08-09 01:42 | XMS_ITS | Referral Summary ---
Author Organization [facility] Address [address] [place] [address] Care Team Providers Care Training Instructor Name Role Phone Dalia Pérez MD Primary Care Provider [phone] Encounters Date Type Department Care Team Description 07/24/2024 Orders Only [facility] Cardiology [address] Advanced Medicine 8th [place] [address] [place] [address] Darrell Alex MD Pacemaker (Primary Dx) 07/24/2024 Telephone [facility] Cardiology [address] [facility] Medicine 8th [place] [address] [place] [address] Jade Sapp New Patient 07/19/2024 9:51 AM CDT - 07/19/2024 11:59 PM CDT Hospital Encounter [facility] - Imaging [address] [place] [address] Screening for osteoporosis; Asymptomatic menopausal state Discharge Disposition: Discharge to home or self care 06/14/2024 11:30 AM CDT Office Visit [facility] Dermatology [address] [place] [address] BCC (basal cell carcinoma), lip (Primary Dx) from Last 3 Months Allergies No known active allergies Medications venlafaxine [...] (10/31/2021): Added automatically from request for surgery [id number] Shoulder arthritis 08/06/2021 Anxiety 08/01/2021 History of [...] (08/29/2019): Added automatically from request for surgery [id number] Personal history of colonic polyps 01/19/2018 Overview (01/19/2018): Added automatically from request for surgery [id number] Other dysphagia 01/19/2018 Overview (01/19/2018): Added automatically from request for surgery [id number] Allergic conjunctivitis of both eyes 11/30/2017 Assessment & Plan (02/02/2023 10:49 AM MANAGER CATEGORY): Finished 3 yrs of allergy shot last year Takes zyrtec recently. Warned may dry eye out more.n Assessment & Plan (12/19/2019 1:24 PM CDT): Add hot compresses with lid scrubs to alleviate crusting of lashes and remove pollen. Recommend trail of lubricant eye drops 4 times/day. If still itchy and symptomatic, try Zaditor OTC drops 2x/s day. H/o shots [id number] and using nose spray and judy. Eyes ok. Assessment & Plan (12/13/2018 2:32 PM CDT): Add hot compresses with lid scrubs to alleviate crusting of lashes and remove pollen. Recommend trail of lubricant eye drops 4 times/day. If still itchy and symptomatic, try Zaditor OTC drops 2x/s day. H/o shots [id number] and using nose spray and judy. Eyes [...] 11/30/2017 Assessment & Plan (02/02/2023 10:52 AM MANAGER CATEGORY): Not visually significant. Do not recommend surgery at this time. Continue to monitor. Patient to call if problems with activities of daily living. Warned post-LASIK will give some intraocular lens (IOL) calc challenges. Also smallish pupil, would likely need a ring when eventually needs Assessment & Plan (01/27/2022 9:24 AM MANAGER CATEGORY): Not visually significant. Do not recommend surgery [...] 01/2018 Assessment & Plan (02/02/2023 9:51 AM MANAGER CATEGORY): Recommend increase lubricant eye drops to 4 times/day; consider preservative- free drops, especially if using drops more than that. Add hot compresses with lid scrubs to improve quality of tears. Assessment & Plan (01/27/2022 9:25 AM MANAGER CATEGORY): Recommend increase lubricant eye drops to 4 [...] OS Assessment & Plan (02/02/2023 9:51 AM MANAGER CATEGORY): Good result from surgery [place] [address] Verdugo. (had enhancement left eye (OS)). Pt doing well. Assessment & Plan (01/27/2022 9:25 AM MANAGER CATEGORY): Good result from surgery in 2001 with [...] Combined forms of age-related cataract 12/04/2014 01/27/2022 Immunizations Immunization Administration Dates Next Due Influenza, Split 03/07/2013,01/05/2011, 0 Influenza, Trivalent, High D ose, Split, Preservative Free, Intramuscular 02/19/2014 Influenza, Trivalent, IM (MDV) 02/01/2012,2008,12/27/2007 Pfizer SARS-CoV-2 Monovalent Vaccination (12+ Yrs) PURPLE 05/13/2020,04/15/2020 Pneumococcal Polysaccharide PPV23 12/27/2007 Td, adsorbed 12/02/2007 ZOSTER LIVE 06/08/2006 Social History Tobacco Use Types Packs/Day Years Used Date Smoking Tobacco: Never Passive Smoke Exposure: Past Smokeless Tobacco: Never Tobacco Cessation:Counseling Given: Not Answered Passive Exposure Comments:father smoked as chikd Alcohol Use Standard Drinks/Week Comments Yes 0 (1 standard drink = 0.6 oz pur e alcohol) [facility] [employer] Answer Date Recorded In the past 12 months has [employer], [employer], oil, or water [employer] threatened to shut off services in your [...] 11/23/2023 How often do you attend chur or evangelical services? More than 4 times per year 11/23/2023 Do you belong to any clubs o r organizations such as shinto groups, unions, fraternal or athletic groups, or [...] any time in the past 12 m [facility], were you homeless or living in a half-way (including now)? No 11/23/2023 Personal Safety Answer Date Recorded Have you ever been in or are you currently in a harmful physical or emotional relationship or is someone making you feel afraid or unsafe? Denies 11/23/2023 Comments No Sex and Gender Information Value Date Recorded Sex Assigned at Not on file Legal Sex Female 12:16 AM MANAGER CATEGORY Gender Identity Not on file Sexual Orientation Not on file Last Filed Vital Signs Vital Sign Reading Time Taken Comments Blood Pressure 152/70 05/10/2024 3:03 PM MANAGER CATEGORY Pulse 84 05/10/2024 3:03 PM MANAGER CATEGORY Temperature 37 C (98.6 F) 05/10/2024 3:03 PM MANAGER CATEGORY Respiratory Rate 24 05/10/2024 3:03 PM MANAGER CATEGORY Oxygen Saturation 98% 05/10/2024 3:03 PM MANAGER CATEGORY Inhaled Oxygen Concentration - - Weight 61.2 kg (135 lb) 05/10/2024 3:03 PM MANAGER CATEGORY Height 165.1 cm (5' 5) 01/05/2024 7:41 AM CDT Body Mass Index 22.47 01/05/2024 7:41 AM CDT Plan of Treatment Not on file Medical Devices Implanted Type Area Sap Architect Device Identifier Shelf Expiration Date Model / Serial / Lot [employer] Tornier Aequalis Perform 25mm Reverse Shoulder Standard Baseplate [id number] - [id number] - [id number] Implanted:Qty: 1 on 02/04/2022 by Rafael Hernandez MD at [facility] Other - see comments Right: Shoulder [employer] [id number] 12/29/2026 [id number] / [id number] / Description:Implant Pause Pe rformed [employer] Tornier Aequalis Perform 15mm Press Fit Long Post Shoulder [id number] - [id number] - [id number] Implanted:Qty: 1 on 02/04/2022 by Rafael Hernandez MD at [facility] Other - see comments Right: Shoulder [employer] [id number] 06/19/2026 [id number] / [id number] / Description:Implant Pause Pe rformed [employer] Tornier Aequalis Perform 36mm Lateralize Reverse Shoulder +3mm Zzp632 - [id number] - [id number] Implanted:Qty: 1 on 02/04/2022 by Rafael Hernandez MD at [facility] Other - see comments Right: Shoulder [employer] [id number] 10/07/2026 [id number] / [id number] / Description:Implant Pause Pe rformed [employer] Stem Perform Sz 2 Plus Humeral Long Dwx2pl - [id number] - [id number] Implanted:Qty: 1 on 02/04/2022 by Rafael Hernandez MD at [facility] Other - see comments Right: Shoulder [employer] [id number] 12/26/2026 [id number] / [id number] / Description:Implant Pause Pe rformed [employer] [id number] Insert Perform [id number] - [id number] - [id number] Implanted:Qty: 1 on 02/04/2022 by Rafael Hernandez MD at [facility] Other - see comments Right: Shoulder [employer] [id number] 10/23/2026 [id number] / [id number] / Description:Implant Pause Pe rformed [employer] [place] S Mri Surescan 50.8x46.6mm 2 Chamber 7.4mm Pacemaker 22.5gm W3dr01 - [id number] Implanted:Qty: 1 on 11/23/2023 by Roberto Mueller MD at [facility] Pacemaker [employer] [id number] / / [employer] Ijt329 Aequalis Perform Reversed 5mm 34mm Peripheral Glenoid Screw - [id number] - [id number] Implanted:Qty: 2 on 08/06/2021 by Rafael Hernandez MD at [facility] Screw Left: Shoulder [employer] JPK083 / [id number] / [employer] Aequalis Perform Reversed 5mm 30mm Peripheral Glenoid Screw Umj193 - Sna - [id number] Implanted:Qty: 1 on 02/04/2022 by Rafael Hernandez MD at [facility] Screw Right: Shoulder [employer] 10/19/2049 [id number] / NA / [employer] Aequalis Perform Reversed 5mm 34mm Peripheral Glenoid Screw [id number] - Sna - [id number] Implanted:Qty: 1 on 02/04/2022 by Rafael Hernandez MD at [facility] Screw Right: Shoulder [employer] 10/19/2049 [id number] / NA / Joint Bilateral: Shoulder Description:Placed in 2004, 2005 [employer] Zso333 Tornier Aequalis Perform 15mm Press Fit Long Post Shoulder - [id number] - [id number] Implanted:Qty: 1 on 08/06/2021 by Rafael Hernandez MD at [facility] Left: Shoulder [employer] 06/10/2026 UFS666 / [id number] / [employer] Waf647 Tornier Aequalis Perform 25mm Reverse Shoulder Standard Baseplate - Yhqe024 - [id number] Implanted:Qty: 1 on 08/06/2021 by Rafael Hernandez MD at [facility] Left: Shoulder [employer] Technology Inc 06/18/2025 FVG038 / [id number] / [employer] Wwr846 Tornier Aequalis Perform 36mm Lateralize Reverse Shoulder +3mm - [id number] - [id number] Implanted:Qty: 1 on 08/06/2021 by Rafael Hernandez MD at [facility] Left: Shoulder [employer] 06/02/2026 KFZ261 / [id number] / [employer] Dwx2ps Stem Perform Sz 2 Plus Humeral - [id number] - [id number] Implanted:Qty: 1 on 08/06/2021 by Rafael Hernandez MD at [facility] Left: Shoulder [employer] 05/06/2026 DWX2PS / [id number] / [employer] [id number] Insert Perform [id number] - [id number] - [id number] Implanted:Qty: 1 on 08/06/2021 by Rafael Hernandez MD at [facility] Left: Shoulder [employer] Technology Inc 04/21/2026 DOG3610 / [id number] / [employer] Capsurefix Novus 6.2fr 2mm 52cm Bipolar Screw In Implantable Latex Free 5076-52 - [id number] - [id number] Implanted:Qty: 1 on 11/23/2023 by Roberto Mueller MD at [facility] [employer] [id number] 09/12/2025 5076-52 / [id number] / [employer] Selectsecure 4.1fr 69cm Bipolar Screw In Is-1 Atrium Ventricle [id number] - [id number] Implanted:Qty: 1 on 11/23/2023 by Roberto Mueller MD at [facility] [employer] [id number] / / Procedures Procedure Name Priority Date/Time [...] it. Electronically signed by: Angelo Granda M.D. us Precious Merino NP IMG DXA PROCEDURES Final Re sult from Last 3 Months Additional Health Concerns Infection Onset Date Last Indicated COVID: Recovered Comment:Added based on recent COVID infection. 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
[2024-08-09 02:12] LABS: Basophils Percent Auto 0.2 % (0.2-1.2); Eosinophils Absolute Auto 0.1 K/mm3 (0-0.3); Eosinophils Percent Auto 0.5 % (0-4.4); Hematocrit 39.2 % (37.0-47.0); Hemoglobin 13.3 g/dL (12.0-15.0); Immature Granulocyte Absolute 0.05 K/mm3 (0.00-0.031); Immature Granulocyte Percent A 0.4 % (0-0.5); Lymphocytes Absolute Auto 2.32 K/mm3 (0.9-3.2); Lymphocytes Percent Auto 16.7 % (18.3-44.2); Mean Corpuscular HGB Conc 33.9 g/dl (32-36); Mean Corpuscular Volume 97.3 fl (80-100); Mean Platelet Volume 9.5 fl (7.4-10.4); Monocytes Absolute Auto 0.3 K/mm3 (0.1-0.6); Monocytes Percent Auto 2.2 % (2.6-8.5); Neutrophils Absolute Auto 11.1 K/mm3 (1.3-6.7); Platelet Count Result 280 k/mm3 (150-375); Red Blood Count 4.03 M/mm3 (4.2-5.4); White Blood Count 13.9 K/mm3 (4.5-10.0)
[2024-08-09 02:24] LABS: Alanine Aminotransferase 29 U/L (6-35); Albumin Level 4.9 g/dL (3.5-5.1); Alkaline Phosphatase 79 U/L (38-126); Anion Gap 19 mmol/L (4-12); Aspartate Amino Transferase 35 U/L (14-36); Bilirubin,Total 0.5 mg/dL (0.2-1.3); Blood Urea Nitrogen 33 mg/dL (7-17); Calcium 9.8 mg/dL (8.4-10.2); Carbon Dioxide 16 mmol/L (22-30); Chloride 102 mmol/L (98-107); Estimated Glomerular Filt Rate 33; Glucose 176 mg/dL (65-110); Lipase 110 U/L (23-300); Potassium 3.1 mmol/L (3.4-5.0); Sodium 137 mmol/L (137-145)
[2024-08-09] MEDS: LACTATED RINGERS 1,000 ML 999 ML IV CONT ×2 (02:32→06:15)
[2024-08-09] MEDS: MORPHINE SULFATE (*CRX) 4 MG/ML INJ 2 MG IV PUSH (02:33)
[2024-08-09] MEDS: ONDANSETRON INJ 4 MG/2 ML VIAL IV PUSH (02:34)
--- OUTSIDE RECORDS SUMMARY | 2024-08-09 03:13 | XMS_ITS ---
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 Name Role Phone MD LIZZY AVELAR Unavailable PAUL OCONNELL Unavailable ALLERGIES, ADVERSE REACTIONS AND ALERTS Allergy Name Allergy Date Allergy Status Allergy Severity Allergy Reaction NO KNOWN DRUG ALLERGIES MEDICATIONS RxNorm Brand Name Prescription Ordered Value Order Unit Start Date Date Status Fill Status Indications [id number] Levo-T 88 mcg tablet SIG: Levo-T 88 mcg oral tablet, days, Dispense # Tablet, 0 RefillsDirecti ons: tablet 2020 021 Historic [id number] lisinopr il 20 mg tablet SIG: lisinopril 20 mg oral tablet, days, Dispense # Tablet, 0 RefillsDirecti ons: tablet 2020 021 Historic [id number] amlodipi ne 5 mg tablet SIG: amlodipine 5 mg oral tablet, days, Dispense # Tablet, 0 RefillsDirecti ons: tablet 2020 021 Historic [id number] Protonix 40 mg tablet,d elayed release (DR/EC) SIG: Protonix 40 mg oral tablet,delayed release (DR/EC), days, Dispense # Tablet, 0 RefillsDirecti ons: tablet, delayed release (DR/EC) 2020 021 Historic [id number] venlafax ine 150 mg capsule, extended release 24hr SIG: venlafaxine 150 mg oral capsule,extend ed release 24hr, days, Dispense # Capsule, 0 RefillsDirecti ons: capsule ,extend ed release 24hr 2020 Historic [id number] venlafax ine 37.5 mg capsule, extended release 24hr SIG: venlafaxine 37.5 mg oral capsule,extend ed release 24hr, days, Dispense # Capsule, 0 RefillsDirecti ons: capsule ,extend ed release 24hr 2020 Historic [id number] atorvast atin 80 mg tablet SIG: atorvastatin 80 mg oral tablet, days, Dispense # Tablet, 0 RefillsDirecti ons: tablet 2020 Historic [id number] Janessa Allergy 180 mg tablet SIG: Janessa Allergy 180 mg oral tablet, days, Dispense # Tablet, 0 RefillsDirecti ons: tablet 2020 Historic [id number] calcium citrate 200 mg (950 mg) tablet SIG: calcium citrate 200 mg (950 mg) oral tablet, days, Dispense # Tablet, 0 RefillsDirecti ons: Take 6 tablets daily tablet 2020 Current multivit webb tablet SIG: multivitamin oral tablet, days, Dispense # Tablet, 0 RefillsDirecti ons: tablet 2020 021 Current [id number] aspirin 81 mg tablet,c hewable SIG: aspirin 81 mg oral tablet,chewabl e, days, Dispense # Tablet, 0 RefillsDirecti ons: tablet, chewabl e 2020 021 Current [id number] B12 Active 1,000 mcg tablet,c hewable SIG: B12 Active 1,000 mcg oral tablet,chewabl e, days, Dispense # Tablet, 0 RefillsDirecti ons: tablet, chewabl e 2020 021 Current [id number] Levo-T 88 mcg tablet SIG: Levo-T 88 mcg oral tablet, 90 days, Dispense #90 Tablet, 1 RefillsDirecti ons: Take 1 oral tablet once a day 90 tablet 2020 022 Historic [id number] Levo-T 88 mcg tablet SIG: Levo-T 88 mcg oral tablet, 90 days, Dispense #90 Tablet, 1 RefillsDirecti ons: Take 1 oral tablet once a day 90 tablet 2020 Historic [id number] tramadol 50 mg tablet SIG: tramadol 50 mg oral tablet, 7 days, Dispense #56 Tablet, 0 RefillsDirecti ons: 1 or 2 tablets every 6-8 hours with 1000 mg of tylenol 56 tablet 2020 Historic [id number] lisinopr il 20 mg tablet SIG: lisinopril 20 mg oral tablet, 90 days, Dispense #90 Tablet, 1 RefillsDirecti ons: Take 1 oral tablet once a day 90 tablet 2020 Historic [id number] atorvast atin 80 mg tablet SIG: atorvastatin 80 mg oral tablet, 90 days, Dispense #90 Tablet, 1 RefillsDirecti ons: Take 1 oral tablet once a day 90 tablet 2020 Historic [id number] amlodipi ne 5 mg tablet SIG: amlodipine 5 mg oral tablet, 90 days, Dispense #90 Tablet, 1 RefillsDirecti ons: Take 1 oral tablet once a day 90 tablet 2021 Historic [id number] venlafax ine 37.5 mg capsule, extended release 24hr SIG: venlafaxine 37.5 mg oral capsule,extend ed release 24hr, 90 days, Dispense #90 Capsule, 1 RefillsDirecti ons: Take once daily in addition to 150mg capsule 90 capsule ,extend ed release 24hr 2021 Historic [id number] Protonix 40 mg tablet,d elayed release (DR/EC) SIG: Protonix 40 mg oral tablet,delayed release (DR/EC), 90 days, Dispense #90 Tablet, 0 RefillsDirecti ons: Take 1 oral tablet once a day 90 tablet, delayed release (DR/EC) 2021 Historic [id number] Levo-T 88 mcg tablet SIG: Levo-T 88 mcg oral tablet, 90 days, Dispense #90 Tablet, 0 RefillsDirecti ons: Take 1 oral tablet once a day 90 tablet 2021 Historic [id number] levothyr oxine 88 mcg tablet SIG: levothyroxine, Dispense #90, 0 Refills, Directions: TAKE 1 TABLET BY MOUTH EVERY DAY 90 tablet 2021 Historic [id number] venlafax ine 150 mg capsule, extended release 24hr SIG: venlafaxine 150 mg oral capsule,extend ed release 24hr, 90 days, Dispense #90 Capsule, 1 RefillsDirecti ons: Take 1 oral capsule once a day 90 capsule ,extend ed release 24hr 2021 Historic [id number] Protonix 40 mg tablet,d elayed release (DR/EC) SIG: Protonix 40 mg oral tablet,delayed release (DR/EC), 90 days, Dispense #90 Tablet, 1 RefillsDirecti ons: Take 1 oral tablet once a day 90 tablet, delayed release (DR/EC) 2021 Historic [id number] lisinopr il 20 mg tablet SIG: lisinopril 20 mg oral tablet, 90 days, Dispense #90 Tablet, 1 RefillsDirecti ons: Take 1 oral tablet once a day 90 tablet 2021 Historic [id number] Paxlovid (EUA) 150 mg x 2- 100 mg tablet SIG: Paxlovid (EUA) 150 mg x 2- 100 mg oral tablet, 15 days, Dispense #30 Tablet, 0 RefillsDirecti ons: Take nirmatrelvir 300 mg with ritonavir 100 mg, administered together, twice daily for 5 days 30 tablet 2021 Historic [id number] atorvast atin 80 mg tablet SIG: atorvastatin 80 mg oral tablet, 90 days, Dispense #90 Tablet, 1 RefillsDirecti ons: Take 1 oral tablet once a day 90 tablet 2021 Historic [id number] venlafax ine 37.5 mg capsule, extended release 24hr SIG: venlafaxine 37.5 mg oral capsule,extend ed release 24hr, 90 days, Dispense #90 Capsule, 1 RefillsDirecti ons: Take once daily in addition to 150mg capsule 90 capsule ,extend ed release 24hr 2021 Historic [id number] amlodipi ne 5 mg tablet SIG: amlodipine 5 mg oral tablet, 90 days, Dispense #90 Tablet, 1 RefillsDirecti ons: Take 1 oral tablet once a day 90 tablet 2021 023 Historic [id number] levothyr oxine 88 mcg tablet SIG: levothyroxine 88 mcg oral tablet, 90 days, Dispense #90 Tablet, 0 RefillsDirecti ons: TAKE 1 TABLET BY MOUTH EVERY DAY 90 tablet 2021 Historic [id number] venlafax ine 150 mg capsule, extended release 24hr SIG: venlafaxine 150 mg oral capsule,extend ed release 24hr, 90 days, Dispense #90 Capsule, 1 RefillsDirecti ons: Take 1 oral capsule once a day 90 capsule ,extend ed release 24hr 2021 Historic [id number] Crestor 40 mg tablet SIG: Crestor 40 mg oral tablet, 90 days, Dispense #90 Tablet, 1 RefillsDirecti ons: Take 1 oral tablet once a day 90 tablet 2021 023 Historic [id number] Protonix 40 mg tablet,d elayed release (DR/EC) SIG: Protonix 40 mg oral tablet,delayed release (DR/EC), 90 days, Dispense #90 Tablet, 1 RefillsDirecti ons: Take 1 oral tablet once a day 90 tablet, delayed release (DR/EC) 2021 023 Historic [id number] amlodipi ne 10 mg tablet SIG: amlodipine [...] a day 90 tablet 2021 023 Historic [id number] LEVOTHYR OXINE 0.088MG (88MCG) TAB 88 mcg tablet SIG: LEVOTHYROXINE 0.088MG (88MCG) TAB, Dispense #90, 1 Refills, Directions: TAKE 1 TABLET BY MOUTH EVERY DAY 90 tablet 2021 023 Historic [id number] valacycl ovir 1 gram tablet SIG: valacyclovir 1 gram oral tablet, 3 days, Dispense #30 Tablet, 0 RefillsDirecti ons: Take 1 tablet twice daily x 3 days at first sign of a flare 30 tablet 2022 023 Historic [id number] venlafax ine 150 mg capsule, extended release 24hr SIG: venlafaxine 150 mg oral capsule,extend ed release 24hr, 90 days, Dispense #90 Capsule, 1 RefillsDirecti ons: Take 1 oral capsule once a day 90 capsule ,extend ed release 24hr 2022 Historic [id number] Protonix 40 mg tablet,d elayed release (DR/EC) SIG: Protonix 40 mg oral tablet,delayed release (DR/EC), 90 days, Dispense #90 Tablet, 1 RefillsDirecti ons: Take 1 oral tablet once a day 90 tablet, delayed release (DR/EC) 2022 Historic [id number] amlodipi ne 10 mg tablet SIG: amlodipine 10 mg oral tablet, 90 days, Dispense #90 Tablet, 1 RefillsDirecti ons: Take 1 oral tablet once a day 90 tablet 2022 023 Historic [id number] levothyr oxine 75 mcg tablet SIG: levothyroxine 75 mcg oral tablet, 30 days, Dispense #30 Tablet, 1 RefillsDirecti ons: Take 1 oral tablet once a day 30 tablet 2022 Historic [id number] levothyr oxine 75 mcg tablet SIG: levothyroxine 75 mcg oral tablet, 90 days, Dispense #90 Tablet, 0 RefillsDirecti ons: Take 1 oral tablet once a day 90 tablet 2022 Historic [id number] ROSUVAST ATIN 40MG TABLETS 40 mg tablet SIG: ROSUVASTATIN 40MG TABLETS, Dispense #90, 1 Refills, Directions: TAKE 1 TABLET BY MOUTH EVERY DAY 90 tablet 2022 Historic [id number] Protonix 40 mg tablet,d elayed release (/EC) SIG: Protonix 40 mg oral tablet,delayed release (/), 90 days, Dispense #90 Tablet, 1 RefillsDirecti ons: Take 1 oral tablet once a day 90 tablet, delayed release (DR/EC) 2022 Historic [id number] amlodipi ne 10 mg tablet SIG: amlodipine 10 mg oral tablet, 90 days, Dispense #90 Tablet, 1 RefillsDirecti ons: Take 1 oral tablet once a day 90 tablet 2022 Historic [id number] venlafax ine 150 mg capsule, extended release 24hr SIG: venlafaxine 150 mg oral capsule,extend ed release 24hr, 90 days, Dispense #90 Capsule, 1 RefillsDirecti ons: Take 1 oral capsule once a day 90 capsule ,extend ed release 24hr 2022 Historic [id number] lisinopr il 10 mg tablet SIG: lisinopril 10 mg oral tablet, 90 days, Dispense #90 Tablet, 0 RefillsDirecti ons: Take 1 oral tablet once a day 90 tablet 2022 Historic [id number] lisinopr il 10 mg tablet SIG: lisinopril 10 mg oral tablet, 90 days, Dispense #90 Tablet, 0 RefillsDirecti ons: Take 1 oral tablet once a day 90 tablet 2022 Historic [id number] levothyr oxine 75 mcg tablet SIG: levothyroxine 75 mcg oral tablet, 90 days, Dispense #90 Tablet, 1 RefillsDirecti ons: Take 1 oral tablet once a day 90 tablet 2022 Historic [id number] hydrochl orothiaz nicanor 25 mg tablet SIG: hydrochlorothi azide 25 mg oral tablet, 30 days, Dispense #30 Tablet, 3 RefillsDirecti ons: Take 1 oral tablet once a day 30 tablet 2022 Historic [id number] LISINOPR IL 10MG TABLETS 10 mg tablet SIG: LISINOPRIL 10MG TABLETS, Dispense #90, 0 Refills, Directions: TAKE 1 TABLET BY MOUTH EVERY DAY 90 tablet 2022 Historic [id number] ROSUVAST ATIN 40MG TABLETS 40 mg tablet SIG: ROSUVASTATIN 40MG TABLETS, Dispense #90, 0 Refills, Directions: TAKE 1 TABLET BY MOUTH EVERY DAY 90 tablet 2023 Historic [id number] Paxlovid 300 mg (150 mg x 2)-100 mg tablets, dose pack SIG: Paxlovid 300 mg (150 mg x 2)-100 mg oral tablets,dose pack, 5 days, Dispense #30 Tablet, 0 RefillsDirecti ons: Take nirmatrelvir 300 mg with ritonavir 100 mg, administered together, twice daily for 5 days 30 tablets ,dose pack 2023 Historic [id number] venlafax ine 150 mg capsule, extended release 24hr SIG: venlafaxine 150 mg oral capsule,extend ed release 24hr, 90 days, Dispense #90 Capsule, 1 RefillsDirecti ons: Take 1 oral capsule once a day 90 capsule ,extend ed release 24hr 2023 Historic [id number] lisinopr il 20 mg tablet SIG: lisinopril 20 mg oral tablet, 90 days, Dispense #90 Tablet, 1 RefillsDirecti ons: Take 1 oral tablet once a day 90 tablet 2023 Historic [id number] hydrochl orothiaz nicanor 25 mg tablet SIG: hydrochlorothi azide 25 mg oral tablet, 90 days, Dispense #90 Tablet, 1 RefillsDirecti ons: Take 1 oral tablet once a day 90 tablet 2023 Historic [id number] amoxicil santo-pot clavulan ate 875-125 mg tablet SIG: amoxicillin-po t clavulanate 875-125 mg oral tablet, 5 days, Dispense #10 Tablet, 0 Refills, Directions: Take 1 oral tablet 2 times a day 10 tablet 2023 Historic [id number] meclizin e 25 mg tablet SIG: meclizine 25 mg oral tablet, 30 days, Dispense #60 Tablet, 0 Refills, Directions: Take 12.5 to 25 mg every 6 to 12 hours as needed 60 tablet 2023 Historic [id number] ROSUVAST ATIN 40MG TABLETS 40 mg tablet SIG: ROSUVASTATIN 40MG TABLETS, Dispense #90, 1 Refills, Directions: take 1 tablet by mouth every day 90 tablet 2023 Historic [id number] LEVOTHYR OXINE 0.075MG (75MCG) TABS 75 mcg tablet SIG: LEVOTHYROXINE 0.075MG (75MCG) TABS, Dispense #90, 0 Refills, Directions: take 1 tablet by mouth every day 90 tablet 2023 Historic [id number] Protonix 40 mg tablet,d elayed release (DR/EC) SIG: Protonix 40 mg oral tablet,delayed release (DR/EC), 90 days, Dispense #90 Tablet, 1 RefillsDirecti ons: Take 1 oral tablet once a day 90 tablet, delayed release (DR/EC) 2023 Historic [id number] valacycl ovir 1 gram tablet SIG: valacyclovir 1 gram oral tablet, 3 days, Dispense #30 Tablet, 2 Refills, Directions: Take 1 tablet twice daily x 3 days at first sign of a flare 30 tablet 202305/ 024 Current [id number] LEVOTHYR OXINE 0.075MG (75MCG) TABS 75 mcg tablet SIG: LEVOTHYROXINE 0.075MG (75MCG) TABS, Dispense #90, 1 Refills, Directions: take 1 tablet by mouth every day 90 tablet 2023 Historic [id number] LISINOPR IL 20MG TABLETS 20 mg tablet SIG: LISINOPRIL 20MG TABLETS, Dispense #90, 1 Refills, Directions: take 1 tablet by mouth every day 90 tablet 2023 Historic [id number] hydrochl orothiaz nicanor 25 mg tablet SIG: hydrochlorothi azide, Dispense #90, 1 Refills, Directions: take 1 tablet by mouth every day 90 tablet 2023 Historic [id number] lisinopr il 10 mg tablet SIG: lisinopril 10 mg oral tablet, 90 days, Dispense #180 Tablet, 1 Refills, Directions: Take 1 oral tablet 2 times a day 180 tablet 2023 Current [id number] rosuvast atin 10 mg tablet SIG: rosuvastatin 10 mg oral tablet, 90 days, Dispense #90 Tablet, 1 Refills, Directions: Take 1 oral tablet once a day 90 tablet 2023 Historic [id number] venlafax ine 37.5 mg tablet SIG: venlafaxine 37.5 mg oral tablet, 90 days, Dispense #90 Tablet, 1 Refills, Directions: Take 1 oral tablet once a day with 75 mg tablet for total dosage of 112.5mg/day 90 tablet 2023 Historic [id number] venlafax ine 75 mg tablet SIG: venlafaxine 75 mg oral tablet, 90 days, Dispense #90 Tablet, 1 Refills, Directions: Take 1 oral tablet once a day with 37.5 mg tablet for total dosage of 112.5mg/day 90 tablet 2023 Historic [id number] Entresto 24-26 mg tablet SIG: Entresto 24-26 mg tablet, 30 days, Dispense #60 Tablet, 0 Refills Directions: Take 1 tablet twice daily 60 tablet 2023 Current [id number] mupiroci n 2 % ointment SIG: mupirocin 2 % topical ointment, 5 days, Dispense #22 Gram, 0 Refills, Directions: Apply to affected area 2 to 3 times daily for 5 days 22 ointmen t 2023 Current [id number] Protonix 40 mg tablet,d elayed release (DR/EC) SIG: Protonix 40 mg oral tablet,delayed release (DR/EC), 90 days, Dispense #90 Tablet, 1 Refills, Directions: Take 1 oral tablet once a day 90 tablet, delayed release (DR/EC) 2023 Historic [id number] levothyr oxine 75 mcg tablet SIG: levothyroxine [...] device 2024 Current FreeStyl e Amber 3 [place] misc SIG: FreeStyle Amber 3 [place] miscellaneous misc, 30 days, Dispense #1 Each, 0 Refills, Directions: For use with FreeStyle Amber 3 sensors 1 misc 2024 Current [id number] LEVOTHYR OXINE 0.075MG (75MCG) TABS 75 mcg tablet SIG: levothyroxine 75 mcg oral tablet, 90 days, Dispense #90 Tablet, 0 Refills, Directions: TAKE 1 TABLET BY MOUTH EVERY DAY 90 tablet 2024 Current [id number] ROSUVAST ATIN 10MG TABLETS 10 mg tablet SIG: rosuvastatin 10 mg oral tablet, 90 days, Dispense #90 Tablet, 1 Refills, Directions: TAKE 1 TABLET BY MOUTH DAILY 90 tablet 2024 Current [id number] VENLAFAX INE 37.5MG TABLETS 37.5 mg tablet SIG: venlafaxine 37.5 mg oral tablet, 90 days, Dispense #90 Tablet, 1 Refills, Directions: TAKE 1 TABLET BY MOUTH EVERY DAY ALONG WITH 75MG TABLET 90 tablet 2024 Current [id number] VENLAFAX INE 75MG TABLETS 75 mg tablet SIG: venlafaxine 75 mg oral tablet, 90 days, Dispense #90 Tablet, 1 Refills, Directions: TAKE 1 TABLET BY MOUTH EVERY DAY ALONG WITH THE 37.5MG TABLET 90 tablet 2024 Current [id number] Protonix 40 mg tablet,d elayed release (DR/EC) SIG: Protonix 40 mg oral tablet,delayed release (DR/EC), 90 days, Dispense #90 Tablet, 2 Refills, Directions: Take 1 oral tablet once a day 90 tablet, delayed release (DR/EC) 2024 Current PROBLEMS Problem Code Problem Description Problem Status Problem Date Problem End Date [id number]-Bgdxgywxly Osteopenia Current 10/04/2020 [id number]-Rfecq anxiety and depressive disorder Mixed anxiety and depressive disorder Current 10/04/2020 [id number]-Ykpledjtqztihi Hypothyroidism Current 10/05/19 [id number]-Ukipwqschxygsy Hyperlipidemia Current 10/05/19 [id number]-Dfmjmlndbhkkd eal reflux disease Gastroesophageal reflux disease Current 10/04/2020 [id number]-Uzoxg artery stenosis Renal artery stenosis Current 10/04/2020 88784843-Bguxggn D deficiency Vitamin D deficiency Current 10/04/2020 [id number]-Xugzunq kidney disease stage 3 Chronic kidney disease stage 3 Current 10/04/2020 71066578-Txhxrzbrh hypertension Essential hypertension Current 10/04/2020 [id number]-Cyzjtzsxdqpup ridemia Hypertriglyceridemia Current 10/04/2020 15353633-Zdcuqa simplex Herpes simplex Current 10/05/19 21 L98.9-DISORDER [...] 12/25/2021 E78.5-HYPERLIPIDEMIA, UNSPECIFIED HYPERLIPIDEMIA, UNSPECIFIED Current 12/25/2021 T64-GRDILNLBD (PRIMARY) HYPERTENSION ESSENTIAL (PRIMARY) HYPERTENSION Current 12/25/2021 [...] DISORDER, UNSPECIFIED ANXIETY DISORDER, UNSPECIFIED Current 12/25/2021 D16-FPQPFAMSICG HYPERHIDROSIS GENERALIZED HYPERHIDROSIS Current 12/25/2021 M19.90-UNSPECIFIED OSTEOARTHRITIS, UNSPECIFIED SITE UNSPECIFIED OSTEOARTHRITIS, UNSPECIFIED SITE Current 12/25/2021 D17.9-BENIGN LIPOMATOUS NEOPLASM, UNSPECIFIED BENIGN LIPOMATOUS NEOPLASM, UNSPECIFIED Current 12/25/2021 C32-EAAHORKIMG, NOT ELSEWHERE CLASSIFIED HEMORRHAGE, NOT ELSEWHERE CLASSIFIED [...] EVENTS AFFECTING FAMILY AND SATURNINO Current 10/19/2023 K21.3-ILKRUS-QCNBDGQNDO REFLUX DISEASE WITHOUT ESOPHAGITIS GASTRO-ESOPHAGEAL REFLUX DISEASE [...] if ever smoked Sex:Female CARE TEAM INFORMATION [facility] Provider ID Role Location Phone LIZZY AVELAR [id number] [address] [place] [address] PAUL OCONNELL [id number] 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
--- OUTSIDE RECORDS SUMMARY | 2024-08-09 03:14 | XMS_ITS | Referral Summary ---
Author Organization [facility] Address [address] [place] [address] Care Team Providers Care Insecticide Mixer Name Role Phone Dalia Pérez MD Primary Care Provider [phone] Encounters Date Type Department Care Team Description 07/24/2024 Orders Only [facility] Cardiology [address] Advanced Medicine 8th [place] [address] [place] [address] Darrell Alex MD Pacemaker (Primary Dx) 07/24/2024 Telephone [facility] Cardiology [address] [facility] Medicine 8th [place] [address] [place] [address] Jade Sapp New Patient 07/19/2024 9:51 AM CDT - 07/19/2024 11:59 PM CDT Hospital Encounter [facility] - Imaging [address] [place] [address] Screening for osteoporosis; Asymptomatic menopausal state Discharge Disposition: Discharge to home or self care 06/14/2024 11:30 AM CDT Office Visit [facility] Dermatology [address] [place] [address] BCC (basal cell carcinoma), lip (Primary [...] (10/31/2021): Added automatically from request for surgery [id number] Shoulder arthritis 08/06/2021 Anxiety 08/01/2021 History of [...] (08/29/2019): Added automatically from request for surgery [id number] Personal history of colonic polyps 01/19/2018 Overview (01/19/2018): Added automatically from request for surgery [id number] Other dysphagia 01/19/2018 Overview (01/19/2018): Added automatically from request for surgery [id number] Allergic conjunctivitis of both eyes 11/30/2017 Assessment & Plan (02/02/2023 10:49 AM STRAP BUCKLER MACHINE): Finished 3 yrs of allergy shot last year Takes zyrtec recently. Warned may dry eye out more.n Assessment & Plan (12/19/2019 1:24 PM CDT): Add hot compresses with lid scrubs to alleviate crusting of lashes and remove pollen. Recommend trail of lubricant eye drops 4 times/day. If still itchy and symptomatic, try Zaditor OTC drops 2x/s day. H/o shots [id number] and using nose spray and judy. Eyes ok. Assessment & Plan (12/13/2018 2:32 PM CDT): Add hot compresses with lid scrubs to alleviate crusting of lashes and remove pollen. Recommend trail of lubricant eye drops 4 times/day. If still itchy and symptomatic, try Zaditor OTC drops 2x/s day. H/o shots [id number] and using nose spray and judy. Eyes [...] 11/30/2017 Assessment & Plan (02/02/2023 10:52 AM STRAP BUCKLER MACHINE): Not visually significant. Do not recommend surgery at this time. Continue to monitor. Patient to call if problems with activities of daily living. Warned post-LASIK will give some intraocular lens (IOL) calc challenges. Also smallish pupil, would likely need a ring when eventually needs Assessment & Plan (01/27/2022 9:24 AM STRAP BUCKLER MACHINE): Not visually significant. Do not recommend surgery [...] 01/2018 Assessment & Plan (02/02/2023 9:51 AM STRAP BUCKLER MACHINE): Recommend increase lubricant eye drops to 4 times/day; consider preservative- free drops, especially if using drops more than that. Add hot compresses with lid scrubs to improve quality of tears. Assessment & Plan (01/27/2022 9:25 AM STRAP BUCKLER MACHINE): Recommend increase lubricant eye drops to 4 [...] OS Assessment & Plan (02/02/2023 9:51 AM STRAP BUCKLER MACHINE): Good result from surgery [place] [address] Verdugo. (had enhancement left eye (OS)). Pt doing well. Assessment & Plan (01/27/2022 9:25 AM STRAP BUCKLER MACHINE): Good result from surgery in 2001 with [...] drink = 0.6 oz pur e alcohol) [facility] Eyeota Answer Date Recorded In the past 12 months has [employer], [employer], oil, or water [employer] threatened to shut off services in your [...] How often do you attend chur or anglican services? More than 4 times per year 11/23/2023 Do you belong to any clubs o r organizations such as mormonism groups, unions, fraternal or athletic groups, or [...] any time in the past 12 m [facility], were you homeless or living in a assisted (including now)? No 11/23/2023 Personal Safety Answer Date Recorded Have you ever been in or are you currently in a harmful physical or emotional relationship or is someone making you feel afraid or unsafe? Denies 11/23/2023 Comments No Sex and Gender Information Value Date Recorded Sex Assigned at Not on file Legal Sex Female 12:16 AM STRAP BUCKLER MACHINE Gender Identity Not on file Sexual Orientation Not on file Last Filed Vital Signs Vital Sign Reading Time Taken Comments Blood Pressure 152/70 05/10/2024 3:03 PM STRAP BUCKLER MACHINE Pulse 84 05/10/2024 3:03 PM STRAP BUCKLER MACHINE Temperature 37 C (98.6 F) 05/10/2024 3:03 PM STRAP BUCKLER MACHINE Respiratory Rate 24 05/10/2024 3:03 PM STRAP BUCKLER MACHINE Oxygen Saturation 98% 05/10/2024 3:03 PM STRAP BUCKLER MACHINE Inhaled Oxygen Concentration - - Weight 61.2 kg (135 lb) 05/10/2024 3:03 PM STRAP BUCKLER MACHINE Height 165.1 cm (5' 5) 01/05/2024 7:41 AM CDT Body Mass Index 22.47 01/05/2024 7:41 AM CDT Plan of Treatment Not on file Medical Devices Implanted Type Area Lead Worker Of Housekeeping And Laundry Device Identifier Shelf Expiration Date Model / Serial / Lot [employer] Tornier Aequalis Perform 25mm Reverse Shoulder Standard Baseplate [id number] - [id number] - [id number] Implanted:Qty: 1 on 02/04/2022 by Rafael Hernandez MD at [facility] Other - see comments Right: Shoulder [employer] [id number] 12/29/2026 RBK285 / [id number] / Description:Implant Pause Pe rformed [employer] Tornier Aequalis Perform 15mm Press Fit Long Post Shoulder Xcc493 - [id number] - [id number] Implanted:Qty: 1 on 02/04/2022 by Rafael Hernandez MD at [facility] Other - see comments Right: Shoulder [employer] [id number] 06/19/2026 AJD966 / [id number] / Description:Implant Pause Pe rformed [employer] Tornier Aequalis Perform 36mm Lateralize Reverse Shoulder +3mm Iob360 - [id number] - [id number] Implanted:Qty: 1 on 02/04/2022 by Rafael Hernandez MD at [facility] Other - see comments Right: Shoulder [employer] [id number] 10/07/2026 KUI157 / [id number] / Description:Implant Pause Pe rformed [employer] Stem Perform Sz 2 Plus Humeral Long Dwx2pl - [id number] - [id number] Implanted:Qty: 1 on 02/04/2022 by Rafael Hernandez MD at [facility] Other - see comments Right: Shoulder [employer] [id number] 12/26/2026 DWX2PL / [id number] / Description:Implant Pause Pe rformed [employer] Iyy2689 Insert Perform Jwe0471 - [id number] - [id number] Implanted:Qty: 1 on 02/04/2022 by Rafael Hernandez MD at [facility] Other - see comments Right: Shoulder [employer] [id number] 10/23/2026 KRH3162 / [id number] / Description:Implant Pause Pe rformed Medtronic Inc Bud S Mri Surescan 50.8x46.6mm 2 Chamber 7.4mm Pacemaker 22.5gm W3dr01 - [id number] Implanted:Qty: 1 on 11/23/2023 by Roberto Mueller MD at [facility] Pacemaker Med[employer] Inc W3DR01 / / Tornier Inc Tnr099 Aequalis Perform Reversed 5mm 34mm Peripheral Glenoid Screw - Lsho089 - [id number] Implanted:Qty: 2 on 08/06/2021 by Rafael Hernandez MD at [facility] Screw Left: Shoulder [employer] PEH103 / [id number] / [employer] Aequalis Perform Reversed 5mm 30mm Peripheral Glenoid Screw Iuz668 - Sna - [id number] Implanted:Qty: 1 on 02/04/2022 by Rafael Hernandez MD at [facility] Screw Right: Shoulder [employer] 10/19/2049 QOC939 / NA / [employer] Aequalis Perform Reversed 5mm 34mm Peripheral Glenoid Screw Klj957 - Sna - [id number] Implanted:Qty: 1 on 02/04/2022 by Rafael Hernandez MD at [facility] Screw Right: Shoulder [employer] 10/19/2049 UUP568 / NA / Joint Bilateral: Shoulder Description:Placed in 2004, 2005 T[employer]ier Inc Xvq188 Tornier Aequalis Perform 15mm Press Fit Long Post Shoulder - Bxxp195 - [id number] Implanted:Qty: 1 on 08/06/2021 by Rafael Hernandez MD at [facility] Left: Shoulder [employer] 06/10/2026 YWC509 / [id number] / Tornier Inc Sac678 Tornier Aequalis Perform 25mm Reverse Shoulder Standard Baseplate - Oben102 - [id number] Implanted:Qty: 1 on 08/06/2021 by Rafael Hernandez MD at [facility] Left: Shoulder [employer] 06/18/2025 YFK282 / [id number] / Tornier Inc Vmu346 Tornier Aequalis Perform 36mm Lateralize Reverse Shoulder +3mm - Qpsv236 - [id number] Implanted:Qty: 1 on 08/06/2021 by Rafael Hernandez MD at [facility] Left: Shoulder [employer] 06/02/2026 LRR560 / [id number] / [employer] Dwx2ps Stem Perform Sz 2 Plus Humeral - Xual4zu - [id number] Implanted:Qty: 1 on 08/06/2021 by Rafael Hernandez MD at [facility] Left: Shoulder [employer] 05/06/2026 DWX2PS / [id number] / [employer] Mgx1297 Insert Perform Ekg2851 - [id number] - [id number] Implanted:Qty: 1 on 08/06/2021 by Rafael Hernandez MD at [facility] Left: Shoulder [employer] 04/21/2026 UYH0918 / [id number] / Medtronic Inc Capsurefix Novus 6.2fr 2mm 52cm Bipolar Screw In Implantable Latex Free 5076-52 - [id number] - [id number] Implanted:Qty: 1 on 11/23/2023 by Roberto Mueller MD at [facility] [employer] Inc [id number] 09/12/2025 5076-52 / [id number] / Medtronic Inc Selectsecure 4.1fr 69cm Bipolar Screw In Is-1 Atrium Ventricle [id number] - [id number] Implanted:Qty: 1 on 11/23/2023 by Roberto Mueller MD at [facility] [employer] Inc [id number] / / Procedures Procedure Name Priority Date/Time [...] Insurance MEDICARE [employer] MEDICARE [facility] Address: [address] [address] [place] [address] [employer] [facility] INSURANCE COMPANY MEDICARE [employer] INS[employer]ANCE [employer] Advance Directives For more information, please contact: [phone] Documents on File Type Date Recorded Patient Telephone Lineworker Expl anation ADVANCE DIRECTIVE 02/02/2022 2:00 PM Genia ng Will Advance Directives and Living Will 08/06/2021 10:42 AM ADVANCE DIRECTIVE 07/24/2021 12:51 PM POWER OF FARM EQUIPMENT OPERATOR-MEDICAL * Full Code (Latest Code Status on [...] 7:39 AM 09/20/2019 2:11 PM Care Teams Insecticide Mixer Relationship Specialty Start Date End Date Dalia Pérez MD PCP - General 06/29/17
--- OUTSIDE RECORDS SUMMARY | 2024-08-09 03:14 | XMS_ITS | Encounter Summary ---
Author Organization [facility] Address [address] [place] [address] Care Team Providers Care Rock Wool Applicator Name Role Phone Dalia Pérez MD Primary Care Provider [phone] Encounter Details Date Type Department Care Team (Late st Contact Info) Description 08/13/2023 Orders Only Internal Medicine Precious Merino, ICE HOCKEY COACH [address] [place] [address] Annual visit for general adult medical examination [...] on file Legal Sex Female 12:16 AM PRINCIPAL EMBEDDED SOFTWARE ENGINEER Gender Identity Not on file Sexual Orientation [...] findings Expected: 08/16/2023, Expires: 08/12/2024 Thyroid Function [facility] Routine Annual visit for general adult [...] COVID: Suspected 05/10/2024 05/10/2024 05/10/2024 3:10 PM PRINCIPAL EMBEDDED SOFTWARE ENGINEER COVID19 05/10/2024 05/10/2024 05/20/2024 3:07 AM PRINCIPAL EMBEDDED SOFTWARE ENGINEER COVID: Recovered Comment:Added based on recent COVID infection. 05/20/2024 06/15/2024 documented as of this encounter Care Teams Rock Wool Applicator Relationship Specialty Start Date End Date Dalia Pérez MD PCP - General 06/29/17 documented as of this encounter
--- OUTSIDE RECORDS SUMMARY | 2024-08-09 03:14 | XMS_ITS | Clinical Summary ---
Author Organization [facility] Address [address] [address] Care Team Providers Care Outside Sales Account Manager Name Role Phone Dalia Pérez MD Primary Care Provider [phone] Allergies No known active allergies Medications venlafaxine [...] (10/31/2021): Added automatically from request for surgery [id number] Shoulder arthritis 08/06/2021 Anxiety 08/01/2021 History of [...] (08/29/2019): Added automatically from request for surgery [id number] Personal history of colonic polyps 01/19/2018 Overview (01/19/2018): Added automatically from request for surgery [id number] Other dysphagia 01/19/2018 Overview (01/19/2018): Added automatically from request for surgery [id number] Allergic conjunctivitis of both eyes 11/30/2017 Assessment & Plan (02/02/2023 10:49 AM KAIAKO KURA KAUPAPA MAORI): Finished 3 yrs of allergy shot last year Takes zyrtec recently. Warned may dry eye out more.n Assessment & Plan (12/19/2019 1:24 PM CDT): Add hot compresses with lid scrubs to alleviate crusting of lashes and remove pollen. Recommend trail of lubricant eye drops 4 times/day. If still itchy and symptomatic, try Zaditor OTC drops 2x/s day. H/o shots [id number] and using nose spray and judy. Eyes ok. Assessment & Plan (12/13/2018 2:32 PM CDT): Add hot compresses with lid scrubs to alleviate crusting of lashes and remove pollen. Recommend trail of lubricant eye drops 4 times/day. If still itchy and symptomatic, try Zaditor OTC drops 2x/s day. H/o shots [id number] and using nose spray and judy. Eyes [...] 11/30/2017 Assessment & Plan (02/02/2023 10:52 AM KAIAKO KURA KAUPAPA MAORI): Not visually significant. Do not recommend surgery at this time. Continue to monitor. Patient to call if problems with activities of daily living. Warned post-LASIK will give some intraocular lens (IOL) calc challenges. Also smallish pupil, would likely need a ring when eventually needs Assessment & Plan (01/27/2022 9:24 AM KAIAKO KURA KAUPAPA MAORI): Not visually significant. Do not recommend surgery [...] 01/2018 Assessment & Plan (02/02/2023 9:51 AM KAIAKO KURA KAUPAPA MAORI): Recommend increase lubricant eye drops to 4 times/day; consider preservative- free drops, especially if using drops more than that. Add hot compresses with lid scrubs to improve quality of tears. Assessment & Plan (01/27/2022 9:25 AM KAIAKO KURA KAUPAPA MAORI): Recommend increase lubricant eye drops to 4 [...] OS Assessment & Plan (02/02/2023 9:51 AM KAIAKO KURA KAUPAPA MAORI): Good result from surgery in [address] Verdugo. (had enhancement left eye (OS)). Pt doing well. Assessment & Plan (01/27/2022 9:25 AM KAIAKO KURA KAUPAPA MAORI): Good result from surgery in 2001 with [...] Department Care Team Description 07/24/2024 Orders Only [facility] Cardiology [facility] Medicine 8th [place] [address] [place] [address] Darrell Alex MD Pacemaker (Primary Dx) 07/24/2024 Telephone [facility] Cardiology [facility] Medicine 8th [place] [address] [place] [address] Sekou Jade New Patient 07/19/2024 9:51 AM CDT - 07/19/2024 11:59 PM CDT Hospital Encounter [facility] - Imaging [address] [place] [address] Screening for osteoporosis; Asymptomatic menopausal state Discharge Disposition: Discharge to home or self care 06/14/2024 11:30 AM CDT Office Visit [facility] Dermatology [address] [place] [address] BCC (basal cell carcinoma), lip (Primary Dx) [...] drink = 0.6 oz pur e alcohol) [facility] Utilities Answer Date Recorded In the [...] often do you attend chur ch or presybeterian services? More than 4 times per year [...] any time in the past [address] [facility], were you homeless or living in a fdc (including now)? No 11/23/2023 Personal Safety Answer Date Recorded Have you ever been in or are you currently in a harmful physical or emotional relationship or is someone making you feel afraid or unsafe? Denies 11/23/2023 Comments No Sex and Gender Information Value Date Recorded Sex Assigned at Not on file Legal Sex Female 12:16 AM KAIAKO KURA KAUPAPA MAORI Gender Identity Not on file Sexual Orientation Not on file Obstetrics History Last Filed Vital Signs Vital Sign Reading Time Taken Comments Blood Pressure 152/70 05/10/2024 3:03 PM KAIAKO KURA KAUPAPA MAORI Pulse 84 05/10/2024 3:03 PM KAIAKO KURA KAUPAPA MAORI Temperature 37 C (98.6 F) 05/10/2024 3:03 PM KAIAKO KURA KAUPAPA MAORI Respiratory Rate 24 05/10/2024 3:03 PM KAIAKO KURA KAUPAPA MAORI Oxygen Saturation 98% 05/10/2024 3:03 PM KAIAKO KURA KAUPAPA MAORI Inhaled Oxygen Concentration - - Weight 61.2 kg (135 lb) 05/10/2024 3:03 PM KAIAKO KURA KAUPAPA MAORI Height 165.1 cm (5' 5) 01/05/2024 7:41 [...] history exists Medical Devices Implanted Type Area Manager Testing Device Identifier Shelf Expiration Date Model / Serial / Lot [employer] Tornier Aequalis Perform 25mm Reverse Shoulder Standard Baseplate Gok271 - [id number] - [id number] Implanted:Qty: 1 on 02/04/2022 by Rafael Hernandez MD at [facility] Other - see comments Right: Shoulder [employer] [id number] 12/29/2026 LST710 / [id number] / Description:Implant Pause Pe rformed [employer] Tornier Aequalis Perform 15mm Press Fit Long Post Shoulder Tnd589 - [id number] - [id number] Implanted:Qty: 1 on 02/04/2022 by Rafael Hernandez MD at [facility] Other - see comments Right: Shoulder [employer] [id number] 06/19/2026 SYX029 / [id number] / Description:Implant Pause Pe rformed [employer] Tornier Aequalis Perform 36mm Lateralize Reverse Shoulder +3mm Fsv792 - [id number] - [id number] Implanted:Qty: 1 on 02/04/2022 by Rafael Hernandez MD at [facility] Other - see comments Right: Shoulder [employer] [id number] 10/07/2026 DPP014 / [id number] / Description:Implant Pause Pe rformed [employer] Stem Perform Sz 2 Plus Humeral Long Dwx2pl - [id number] - [id number] Implanted:Qty: 1 on 02/04/2022 by Rafael Hernandez MD at [facility] Other - see comments Right: Shoulder [employer] [id number] 12/26/2026 DWX2PL / [id number] / Description:Implant Pause Pe rformed [employer] Ozz9489 Insert Perform Vft9070 - [id number] - [id number] Implanted:Qty: 1 on 02/04/2022 by Rafael Hernandez MD at [facility] Other - see comments Right: Shoulder [employer] [id number] 10/23/2026 YHZ5773 / [id number] / Description:Implant Pause Pe rformed Medtronic Inc Kellogg S Mri Surescan 50.8x46.6mm 2 Chamber 7.4mm Pacemaker 22.5gm W3dr01 - [id number] Implanted:Qty: 1 on 11/23/2023 by Roberto Mueller MD at [facility] Pacemaker Med[employer]onic Inc W3DR01 / / Tornier Inc Oyl250 Aequalis Perform Reversed 5mm 34mm Peripheral Glenoid Screw - Eovg658 - [id number] Implanted:Qty: 2 on 08/06/2021 by Rafael Hernandez MD at [facility] Screw Left: Shoulder [employer] GHY226 / [id number] / [employer] Aequalis Perform Reversed 5mm 30mm Peripheral Glenoid Screw Ocr191 - Sna - [id number] Implanted:Qty: 1 on 02/04/2022 by Rafael Hernandez MD at [facility] Screw Right: Shoulder [employer] 10/19/2049 LVK154 / NA / [employer] Aequalis Perform Reversed 5mm 34mm Peripheral Glenoid Screw Fgp404 - Sna - [id number] Implanted:Qty: 1 on 02/04/2022 by Rafael Hernandez MD at [facility] Screw Right: Shoulder [employer] 10/19/2049 PTQ136 / NA / Joint Bilateral: Shoulder Description:Placed in 2004, 2005 Tornier Inc Zcq091 Tornier Aequalis Perform 15mm Press Fit Long Post Shoulder - Vxuu639 - [id number] Implanted:Qty: 1 on 08/06/2021 by Rafael Hernandez MD at [facility] Left: Shoulder [employer] 06/10/2026 MDH576 / [id number] / Tornier Inc Qbt045 Tornier Aequalis Perform 25mm Reverse Shoulder Standard Baseplate - Qead749 - [id number] Implanted:Qty: 1 on 08/06/2021 by Rafael Hernandez MD at [facility] Left: Shoulder [employer] 06/18/2025 QKY284 / [id number] / Tornier Inc Yfe441 Tornier Aequalis Perform 36mm Lateralize Reverse Shoulder +3mm - Guqf008 - [id number] Implanted:Qty: 1 on 08/06/2021 by Rafael Hernandez MD at [facility] Left: Shoulder [employer] 06/02/2026 MNJ262 / [id number] / [employer] Dwx2ps Stem Perform Sz 2 Plus Humeral - Alkn9sq - [id number] Implanted:Qty: 1 on 08/06/2021 by Rafael Hernandez MD at [facility] Left: Shoulder [employer] 05/06/2026 DWX2PS / DWX2PS / [employer] Wlt1823 Insert Perform Zix2499 - [id number] - [id number] Implanted:Qty: 1 on 08/06/2021 by Rafael Hernandez MD at [facility] Left: Shoulder [employer] 04/21/2026 ZAZ2746 / [id number] / Medtronic Inc Capsurefix Novus 6.2fr 2mm 52cm Bipolar Screw In Implantable Latex Free 5076-52 - [id number] - [id number] Implanted:Qty: 1 on 11/23/2023 by Roberto Mueller MD at [facility] [employer] Inc [id number] 09/12/2025 5076-52 / [id number] / Medtronic Inc Selectsecure 4.1fr 69cm Bipolar Screw In Is-1 Atrium Ventricle 754833 - [id number] Implanted:Qty: 1 on 11/23/2023 by Roberto Mueller MD at [facility] [employer] Inc [id number] / / Procedures Procedure Name Priority Date/Time [...] recent COVID infection. 05/20/2024 025 Insurance MEDICARE [employer] MEDICARE [employer] MEDICARE [employer] Advance Directives For more information, please contact: [phone] Documents on File Type Date Recorded Patient Fashion Design Professor Expl anation ADVANCE DIRECTIVE 02/02/2022 2:00 PM Genia ng Will Advance Directives and Living Will 08/06/2021 10:42 AM ADVANCE DIRECTIVE 07/24/2021 12:51 PM POWER OF LIFE SKILLS COORDINATOR VOLUNTEER-MEDICAL * Full Code (Latest Code Status on [...] 7:39 AM 09/20/2019 2:11 PM Care Teams Outside Sales Account Manager Relationship Specialty Start Date End Date Dalia Pérez MD [facility] - General 06/29/17
--- OUTSIDE RECORDS SUMMARY | 2024-08-09 03:14 | XMS_ITS | Encounter Summary ---
Author Organization [facility] Address [address] [place] [address] Phone Care Team Providers Care Carpenter Bridge Name Role Phone Dalia Pérez MD Primary Care Provider [phone] Reason for Visit * Reason Onset Date Comments New Patient 07/24/2024 Encounter Details Date Type Department Care Team (Late st Contact Info) Description 07/24/2024 Telephone [facility] Cardiology [address] [facility] 8th [place] [address] [place] [address] Jade Sapp New Patient Social History Tobacco Use Types Packs/Day Years Used Date Smoking Tobacco: Never Passive Smoke Exposure: Past Smokeless Tobacco: Never Passive Exposure Comments:fa ther smoked as chikd Alcohol Use Standard Drinks/Week Comments Yes 0 (1 standard drink = 0.6 oz pur e alcohol) [facility] Utilities Answer Date Recorded In the past 12 months has [employer], gas, oil, or water [employer] threatened to shut off services in your [...] week 11/23/2023 How often do you attend [facility] or yazidi services? More than 4 times per year 11/23/2023 Do you belong to any clubs o r organizations such as yazidi groups, unions, fraternal or athletic groups, or [...] any time in the past 12 m [facility], were you homeless or living in a retirement (including now)? No 11/23/2023 Personal Safety Answer Date Recorded Have you ever been in or are you currently in a harmful physical or emotional relationship or is someone making you feel afraid or unsafe? Denies 11/23/2023 Comments No Sex and Gender Information Value Date Recorded Sex Assigned at Not on file Legal Sex Female 12:16 AM DIRECTOR RADIO Gender Identity Not on file Sexual Orientation [...] being treated? Have you ever seen a Correctional Officer Chief in an office setting? [] [x] IF [...] where and when was device put in? Sheet Finisher? ([employer], [employer], [employer] [place]) Appointment Date: Provider: [...] documented as of this encounter Care Teams Carpenter Bridge Relationship Specialty Start Date End Date Dalia Pérez MD PCP - General 06/29/17 documented as of this encounter
--- OUTSIDE RECORDS SUMMARY | 2024-08-09 03:14 | XMS_ITS ---
Author Organization [facility] Address [address] [address] Care Team Providers Care Box Toe Flanger Stitchdowns Name Role Phone Dalia Pérez MD Primary Care Provider [phone] Active Problems Problem Noted Date Diagnosed Date [...] (10/31/2021): Added automatically from request for surgery [id number] Shoulder arthritis 08/06/2021 Anxiety 08/01/2021 History of [...] (08/29/2019): Added automatically from request for surgery [id number] Personal history of colonic polyps 01/19/2018 Overview (01/19/2018): Added automatically from request for surgery [id number] Other dysphagia 01/19/2018 Overview (01/19/2018): Added automatically from request for surgery [id number] Allergic conjunctivitis of both eyes 11/30/2017 Assessment & Plan (02/02/2023 10:49 AM SHOWROOM MANAGER): Finished 3 yrs of allergy shot last year Takes zyrtec recently. Warned may dry eye out more.n Assessment & Plan (12/19/2019 1:24 PM CDT): Add hot compresses with lid scrubs to alleviate crusting of lashes and remove pollen. Recommend trail of lubricant eye drops 4 times/day. If still itchy and symptomatic, try Zaditor OTC drops 2x/s day. H/o shots [id number] and using nose spray and judy. Eyes ok. Assessment & Plan (12/13/2018 2:32 PM CDT): Add hot compresses with lid scrubs to alleviate crusting of lashes and remove pollen. Recommend trail of lubricant eye drops 4 times/day. If still itchy and symptomatic, try Zaditor OTC drops 2x/s day. H/o shots [id number] and using nose spray and judy. Eyes [...] 11/30/2017 Assessment & Plan (02/02/2023 10:52 AM SHOWROOM MANAGER): Not visually significant. Do not recommend surgery at this time. Continue to monitor. Patient to call if problems with activities of daily living. Warned post-LASIK will give some intraocular lens (IOL) calc challenges. Also smallish pupil, would likely need a ring when eventually needs Assessment & Plan (01/27/2022 9:24 AM SHOWROOM MANAGER): Not visually significant. Do not recommend surgery [...] 01/2018 Assessment & Plan (02/02/2023 9:51 AM SHOWROOM MANAGER): Recommend increase lubricant eye drops to 4 times/day; consider preservative- free drops, especially if using drops more than that. Add hot compresses with lid scrubs to improve quality of tears. Assessment & Plan (01/27/2022 9:25 AM SHOWROOM MANAGER): Recommend increase lubricant eye drops to 4 [...] OS Assessment & Plan (02/02/2023 9:51 AM SHOWROOM MANAGER): Good result from surgery [place] [address] Verdugo. (had enhancement left eye (OS)). Pt doing well. Assessment & Plan (01/27/2022 9:25 AM SHOWROOM MANAGER): Good result from surgery in 2001 with [...]
--- OUTSIDE RECORDS SUMMARY | 2024-08-09 03:14 | XMS_ITS | Clinical Summary ---
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
--- OUTSIDE RECORDS SUMMARY | 2024-08-09 03:14 | XMS_ITS | Continuity of Care Document ---
Author Organization [facility] Address [address] [facility] [address] [place] [address] Phone Care Team Providers Care Internet Sales Consultant Name Role Phone Fan OD, Medhat Unavailable Unavailable Advance Directives Directive Yes / No Effective Date File Name No Information Encounters Encounter Description Practice Location Reason(s) For Visit Diagnoses Date Provider Providers Copied on Encounter [facility], [address], [place], [place], [id number], [place] tel:[phone] [facility] No Information Mar-0 6-200 5 Fan OD Medhat. [address] , [address], [place], [address], [place]. tel:[phone] Family History Family Member Type Diagnosis Age [...]
--- OUTSIDE RECORDS SUMMARY | 2024-08-09 03:14 | XMS_ITS | Continuity of Care Document ---
Author Organization [facility] Address [address] [address] [place] [address] Phone Care Team Providers Care Roofing Subcontractor Name Role Phone Khurram Meeks MD Unavailable [...] on Encounter OFFICE/OUTPA TIENT VISIT EST [facility], [address], [place], [place], [facility], [place] tel:[phone] [facility] Rotator cuff arthropathy of left shoulderHisto ry of repair of rotator cuff Sep-2 [address], [place], [address]. tel:[phone] OFFICE/OUTPA TIENT VISIT EST [facility], [address], [place], [address], tel:[phone] [facility] Rotator cuff arthropathy of left shoulder 1 Gerardfranchescademetriaella StanfordKhurram. [address], [place], [address]. tel:[phone] OFFICE/OUTPA TIENT VISIT EST [facility], [address] [facility] [address], [place], [address], [place] tel:[phone] [facility] Hip pain, rightGreater trochanteric bursitis, right Jun- 1 Cristobal De Santiago. [address], [place], [place], [address]. tel:[phone] OFFICE/OUTPA TIENT VISIT EST [facility], [address] [address], [place], [address], [place] tel:[phone] [facility] Hip pain, rightSciatica of right side 0 Cristobal De [address]. [address], [place], [place], [address]. tel:[phone] OFFICE/OUTPA TIENT VISIT EST [facility], [address], [place], [address], [place] tel:[phone] [facility] Left shoulder pain, unspecified chronicityRot ator cuff arthropathy of left shoulderHisto ry of repair of rotator cuff 0 Jeanna Paulson. [address], [place], [address]. tel:[phone] OFFICE/OUTPA TIENT VISIT EST [facility], [address], [place], [address], [place] tel:[phone] [facility] Left foot painPosterior tibial tendon dysfunction 0 Marco Barry. [address], [place], [place], [address]. tel:[phone] OFFICE/OUTPA TIENT VISIT EST [facility], [address], [place], [address], [place] tel:[phone] [facility] Elevated blood-pressur e reading, w/o diagnosis of htnBursitis of left shoulder 0 Jain Anyi. [address], [place], [place], [address]. tel:[phone] OFFICE/OUTPA TIENT VISIT EST [facility], [address], [place], [address], [place] tel:[phone] [facility] Pain in left shoulderBursi tis of left shoulder Sep- 9- 9 Dusek Amado. [address], [place], [place], [address]. tel:[phone] OFFICE/OUTPA TIENT VISIT EST [facility], [address], [place], [address], [place] tel:[phone] [facility] Bursitis of right shoulder May-0 7 Dusek Amado. [address] [facility], [place], [place], [address]. tel:[phone] Referring Provider: Dalia Pérez, [address] [facility] [address], [place], [address]. tel:[phone] OFFICE/OUTPA TIENT VISIT [facility], [address], [address], [place] tel:[phone] [facility] Shoulder impingementCe rvical radiculopathy 4 Cathy Gibson. [address] [facility] [address], [place], [place], [address]. tel:[phone] OFFICE/OUTPA TIENT VISIT EST [facility], [address] [place] [address], [address], [place] tel:[phone] [facility] Disorder of bursae and tendons in shoulder region 4 Raghav Brand. [address] [place], [place], [address]. tel:[phone] OFFICE/OUTPA TIENT VISIT [facility], [address] [place] [address], [address], [place] tel:[phone] [facility] Cervical radiculopathy Shoulder impingement 4 Raghav Brand. [address] [facility], [place], [place], [address]. tel:[phone] Referring Provider: Bebe Crawford, [address], [place], [address] . tel:[phone] OFFICE/OUTPA TIENT VISIT EST [facility], [address] [address], [place], [address], [place] tel:[phone] [facility] right shoulder (chief complaint) shoulder bursitis 4 [facility]. [address] [address], [place], [place], [address]. tel:[phone] Referring Provider: Bebe Crawford, [address], [place], [address] . tel:[phone] OFFICE/OUTPA TIENT VISIT EST [facility], [address] [address], [place], [address], [place] tel:[phone] [facility] shoulder bursitis 3 Billlazaro Fordnis. [address] [facility] [address], [place], [place], [address]. tel:[phone] Referring Provider: Bebe Crawford, [address], [place], [address] . tel:[phone] OFFICE/OUTPA TIENT VISIT EST [facility], [address] [facility] [address], [place], [address], [place] tel:[phone] [facility] Right shoulder new problem (chief complaint) shoulder bursitisHyper tension, Unspecified 3 Jain Anyi. [address] [facility] [address], [place], [place], [address]. tel:[phone] Referring Provider: Bebe Crawford, [address], [place], [address] . tel:[phone] Family History Family Member Type Diagnosis Age [...] republican ID Authoriza tion(s) Medicare E2 OT [id number] [employer] OT [id number] Social History Type Description Quantity Date Captured [...]
--- NOTE | 2024-08-09 03:17 | ED.ABDPAIN ---
HPI - Abdominal Pain General Chief Complaint: Abdominal Pain Stated Complaint: abd pain, bloating, N/V Time Seen by Provider: 08/09/24 01:56 History of Present Illness HPI narrative: Patient presents with 2 days of all over abdominal pain and bloating and distension, nausea vomiting, also had some slight diarrhea but very little bowel movement, prior history of bladder surgery and cholecystectomy Related Data Home Medications ?Medication ?Instructions ?Recorded ?Confirmed ?Last Taken ?Type Lactobacillus acidophilus 250 PO BID 02/11/19 Unknown History million cell capsule (Probiotic Acidophilus) amlodipine 5 mg tablet 5 mg PO DAILY 02/11/19 Unknown History aspirin 81 mg tablet,delayed 81 mg PO DAILY 02/11/19 Unknown History release (Aspir-) atorvastatin 40 mg tablet 40 mg PO 02/11/19 Unknown History cholecalciferol (vitamin D3) 50 50 mcg BID 02/11/19 02/11/19 Unknown History mcg (2,000 unit) capsule (Vitamin D3) fexofenadine 60 mg tablet (Janessa mg 02/11/19 Unknown History Allergy) levothyroxine 88 mcg tablet 88 mcg PO 02/11/19 Unknown History lisinopril 40 mg tablet 40 mg PO 02/11/19 Unknown History iunpugwhnhnx-xcfdwygy-djarigq-folic tablet PO 02/11/19 Unknown History acid 400 mcg-vit K1 20 mcg tablet (One-A-Day Women's 50 Plus) omega 9-mbv-ezo-fish oil 1,000 mg 1 cap PO DAILY 02/11/19 02/11/19 Unknown History (120 mg-180 mg) capsule (Fish Oil) venlafaxine 150 mg 37.5 mg PO 02/11/19 Unknown History capsule,extended release 24 hr venlafaxine 37.5 mg 150 mg PO 02/11/19 Unknown History capsule,extended release 24 hr Allergies Allergy/AdvReac Type Severity Reaction Status Date / Time No Known Allergies Allergy Mild Verified 03/30/24 03:55 Review of Systems Review of Systems: All systems reviewed & are unremarkable except as noted in HPI and below PMFSH Past Medical History Medical History Renal artery stenosis Bladder cancer Plantar fasciitis of left foot LVH (left ventricular hypertrophy) GERD (gastroesophageal reflux disease) Hypertension Hyperlipidemia Hypothyroidism Vertigo Surgical History Surgical History H/O partial nephrectomy Due to tumor History of endoscopy History of colonoscopy History of repair of right rotator cuff History of repair of left rotator cuff History of bunionectomy History of cholecystectomy History of bladder suspension procedure History of cystoscopy History of hysterectomy History of rhinoplasty History of tubal ligation Social History Social History Smoking status: Never smoker Gender identity (if verbalized by the patient): Female Exam Narrative: EXAMINATION OF ORGAN SYSTEMS/BODY AREAS: Constitutional: Vital signs per nursing GENERAL:[No acute distress, non-toxic appearing.] HEAD: Normal with no signs of head trauma. EYES: EOMI, conjunctiva normal ENT: Hearing grossly intact LUNGS: Nonlabored breathing. HEART: [Regular rate and rhythm] ABD: [Soft], distended, diffusely tender to palpation EXT: Normal range of motion SKIN: [No rashes or lesions.] NEURO: [Alert and oriented x 3. No gross focal sensory or strength deficits.] PSYCH: Normal affect Course Vital Signs Vital signs: Vital Signs Pulse Rate 83 08/09/24 03:51 Respiratory Rate 17 08/09/24 03:51 Blood Pressure 153/59 H 08/09/24 03:51 Pulse Oximetry 100 08/09/24 03:51 Pulse Rate 79 08/09/24 05:15 Respiratory Rate 17 08/09/24 05:15 Blood Pressure 130/52 L 08/09/24 05:15 Pulse Oximetry 97 08/09/24 05:15 MDM - Abdominal Pain MDM Narrative Medical decision making narrative: Electronic medical record was reviewed. Patient presented to the ED with complaint of [abdominal pain and vomiting]. Vitals [were within acceptable limits]. Physical exam revealed [tenderness to palpation in periumbilical abdomen with distention]. Based on the patient's history and physical exam, my differential includes but is not limited to [SBO, gastritis, gastroenteritis, pancreatitis, appendicitis]. [IV access was established by nursing staff. Patient was given zofran, morphine, IV fluids]. CBC, BMP, lipase, LFTs, bilirubin and alk phos were obtained. Labs were pertinent for leukocytosis, low potassium which is repleted, elevated lactic with gap and low bicarb. [Decision was made to obtain a CT-abdomen to evaluate for acute abdominal process. CT-abdomen per radiology interpretation is unremarkable for SBO, and possible abdominal mass.] On reevaluation, the patient states that they are feeling much better. There were no witnessed episodes of vomiting in the emergency department. They are not complaining of any new abdominal pain. Repeat examination did not show any significant guarding or rebound. No new tenderness. I discussed the findings with the patient and at bedside. Decision to admit patient, discussed with surgeon and hospitalist. Lab Data 08/09/24 02:04 08/09/24 02:04 Labs: Lab Results 08/09/24 08/09/24 08/09/24 Range/Units 02:04 03:24 03:41 WBC 13.9 H (4.5-10.0) K/mm3 RBC 4.03 L (4.2-5.4) M/mm3 Hgb 13.3 (12.0-15.0) g/dL Hct 39.2 (37.0-47.0) % MCV 97.3 (80-100) fl MCH 33.0 (26-34) pg MCHC 33.9 (32-36) g/dl RDW 12.0 (11.5-14.5) % Plt Count 280 (150-375) k/mm3 MPV 9.5 (7.4-10.4) fl Immature Gran % (Auto) 0.4 (0-0.5) % Neut % (Auto) 80.0 H (45.5-73.1) % Lymph % (Auto) 16.7 L (18.3-44.2) % [place] % (Auto) 2.2 L (2.6-8.5) % Eos % (Auto) 0.5 (0-4.4) % Baso % (Auto) 0.2 (0.2-1.2) % Lymph # (Auto) 2.32 (0.9-3.2) K/mm3 [place] # (Auto) 0.3 (0.1-0.6) K/mm3 Eos # (Auto) 0.1 (0-0.3) K/mm3 Baso # (Auto) 0.0 (0.0-0.1) K/mm3 Abs Immat Gran (auto) 0.05 H (0.00-0.031) K/mm3 Absolute Neuts (auto) 11.1 H (1.3-6.7) K/mm3 Absolute Nucleated RBC 0.000 (0.0-0.012) K/mm3 Nucleated RBC % 0.0 (0.0-0.2) % Sodium 137 (137-145) mmol/L Potassium 3.1 L (3.4-5.0) mmol/L Chloride 102 (98-107) mmol/L Carbon Dioxide 16 L (22-30) mmol/L Anion Gap 19 H (4-12) mmol/L BUN 33 H (7-17) mg/dL Creatinine 1.53 H (0.7-1.0) mg/dL Estim Creat Clear Calc Not Reportable Estimated GFR 33 L (59 - ) Glucose 176 H (65-110) mg/dL Lactic Acid 2.9 H (0.7-2.0) mmol/L Calcium 9.8 (8.4-10.2) mg/dL Total Bilirubin 0.5 (0.2-1.3) mg/dL AST 35 (14-36) U/L ALT 29 (6-35) U/L Alkaline Phosphatase 79 (38-126) U/L Total Protein 8.0 (6.3-8.2) g/dL Albumin 4.9 (3.5-5.1) g/dL Lipase 110 (23-300) U/L Urine Color Yellow (Yellow) Urine Appearance Clear (Clear) Urine pH 6.0 (5.0-9.0) Ur Specific [place] 1.037 H (1.001-1.035) Urine Protein Negative (Negative) mg/dL Urine Glucose (UA) Negative (Negative) mg/dL Urine Ketones Negative (Negative) mg/dL Ur Blood (Man) 1+ H (Negative) Urine Nitrate Negative (Negative) Urine Bilirubin Negative (Negative) Urine Urobilinogen 0.2 (<2.0) mg/dL Leukocyte Esterase Rfl Negative (Negative) CHEN/UL Urine RBC 3-5 H (0-2) /hpf Urine WBC 0-5 (0-3) /hpf Ur Squamous Epith Cells None seen (Few) /hpf Urine Bacteria None seen /hpf Urine Casts 3-5 Imaging Data Radiologist's impression: ITS Impressions Abdomen/Pelvis CT 08/09/24 05:31 Impression: Probable small bowel obstruction with superimposed small bowel enteritis, with suspected transition point and wall thickening at the mid ileum. Correlate for infectious enteritis or possibly inflammatory bowel disease. Possible area of circumferential wall thickening of the cecum with fluid distention of the proximal cecum. Correlate for neoplastic lesion versus additional infectious/inflammatory process or inflammatory bowel disease. Consider colonoscopy. Small amount of ascites. Stable right adrenal nodule. Bilateral renal masses, some which are simple cysts, some which are higher attenuation than simple cyst. Follow-up nonemergent pre and postcontrast MR recommended to best assess for any possible solid renal mass. Discharge Plan Discharge Clinical Impression: SBO (small bowel obstruction) Patient Disposition: Still a Patient Condition: Serious Instructions: Antibiotic Form Patient Language: Yakut Prescriptions: No Action atorvastatin 40 mg tablet 40 mg PO venlafaxine 37.5 mg capsule,extended release 24hr 150 mg PO fexofenadine [Janessa Allergy] 60 mg Tablet venlafaxine 150 mg capsule,extended release 24hr 37.5 mg PO amlodipine 5 mg tablet 5 mg PO DAILY aspirin [Aspir-81] 81 mg Tablet,Delayed Release (Dr/Ec) 81 mg PO DAILY levothyroxine 88 mcg tablet 88 mcg PO lisinopril 40 mg tablet 40 mg PO cholecalciferol (vitamin D3) [Vitamin D3] 50 mcg (2,000 unit) Capsule 50 mcg BID omega 1-nuw-uxc-fish oil [Fish Oil] 1,000 mg (120 mg-180 mg) Capsule 1 cap PO DAILY One-A-Day Women's 50 Plus 400-20 mcg Tablet PO Probiotic Acidophilus 1.5 mg (250 million cell) Capsule PO BID hydrocodone-acetaminophen 5-325 mg tablet 1 tablet PO Q6H PRN (Reason: pain) 3 Days Qty: 12 0RF Follow-up/Referrals: PHYSICIAN NOT ON STAFF,NONSTAFF [Primary Care Provider] -
[2024-08-09 03:42] LABS: Lactic Acid Reflex 2.9 mmol/L (0.7-2.0)
[2024-08-09 04:02] LABS: Add Urine Microscopic? YES; Appearance Urine Clear (Clear); Bacteria Urine None Seen /hpf; Bilirubin Urine Negative (Negative); Blood Urine 1+ (Negative); Color Urine Yellow (Yellow); Glucose Urine UA Negative (Negative); Ketones Urine Negative (Negative); Leukocyte Esterase Ur Negative LEU/UL (Negative); Nitrate Urine Negative (Negative); Protein Urine Negative (Negative); Specific Grav Ur 1.037 (1.001-1.035); Squamous Epithelial Cell Urine None Seen /hpf (Few); Urobilinogen Urine 0.2 mg/dL (<2.0); WBC Urine 0-5 /hpf (0-3)
[2024-08-09 05:28] LABS: Reflex Lactic Acid Yes or No Add Lactic
[2024-08-09] MEDS: MORPHINE SULFATE (*CRX) 2 MG/ML INJ IV PUSH (06:28)
[2024-08-09] MEDS: POTASSIUM CHLORIDE INJ 40 MEQ in SODIUM CHLORIDE 0.9% IV 500 ML 130 MEQ IVPB (06:38)
--- NOTE | 2024-08-09 08:09 | ADMGEN ---
This patient, Khushi Kraus, was admitted to IMU Room 232-01. Patient/family oriented to hospital policies and general routines including ID bracelet, bed and alarms, visiting hours, pain management, procedures, bathroom and other care routines, personal items, smoking policy, room service/diet, and visiting hours. Information on how to activate the Rapid Response Team has been discussed. Patient/Family are encouraged to report perceived risks to care and to ask questions if they do not understand what they are told or what they should do.
[2024-08-09] MEDS: LACTATED RINGERS 1,000 ML 100 ML IV CONT ×2 (09:32→17:41)
[2024-08-09] MEDS: FAMOTIDINE 20 MG/2 ML VIAL IV PUSH ×2 (09:33→19:52)
[2024-08-09] MEDS: LEVOTHYROXINE SODIUM 75 MCG TABLET PO (10:31)
[2024-08-09 10:51] LABS: Lactic Acid 2.6 mmol/L (0.7-2.0)
[2024-08-09 11:06] LABS: Eosinophils Percent Auto 0.7 % (0-4.4); Hematocrit 31.6 % (37.0-47.0); Hemoglobin 10.3 g/dL (12.0-15.0); Immature Granulocyte Absolute 0.01 K/mm3 (0.00-0.031); Immature Granulocyte Percent A 0.4 % (0-0.5); Lymphocytes Absolute Auto 0.83 K/mm3 (0.9-3.2); Lymphocytes Percent Auto 30.3 % (18.3-44.2); Mean Corpuscular HGB Conc 32.6 g/dl (32-36); Mean Corpuscular Hemoglobin 32.6 pg (26-34); Mean Platelet Volume 9.7 fl (7.4-10.4); Monocytes Percent Auto 1.1 % (2.6-8.5); Neutrophils Absolute Auto 1.9 K/mm3 (1.3-6.7); Neutrophils Percent Auto 67.5 % (45.5-73.1); Platelet Count Result 194 k/mm3 (150-375); Red Blood Count 3.16 M/mm3 (4.2-5.4); Red Cell Distribution Width 12.2 % (11.5-14.5); White Blood Count 2.7 K/mm3 (4.5-10.0)
[2024-08-09 11:22] LABS: Anion Gap 9 mmol/L (4-12); Blood Urea Nitrogen 26 mg/dL (7-17); Calcium 8.6 mg/dL (8.4-10.2); Carbon Dioxide 23 mmol/L (22-30); Chloride 109 mmol/L (98-107); Estimated CRCL calculation 27 ml/min; Estimated Glomerular Filt Rate 39; Glucose 114 mg/dL (65-110); Magnesium 1.8 mg/dL (1.6-2.3); Potassium 4.9 mmol/L (3.4-5.0); Sodium 141 mmol/L (137-145)
[2024-08-09] MEDS: AZELASTINE HCL NASAL 0.1% 137 MCG/SPR 30 ML BTL 1 SPRAY NASAL (11:52)
[2024-08-09] MEDS: VENLAFAXINE HCL 75 MG TABLET PO (11:53)
[2024-08-09] MEDS: VENLAFAXINE HCL 37.5 MG TABLET PO (11:53)
--- NOTE | 2024-08-09 12:13 | P.CONGS_ITS ---
Assessment and Plan Assessment and plan (1) SBO (small bowel obstruction): Code(s): K56.609 - Unspecified intestinal obstruction, unspecified as to partial versus complete obstruction Status: Acute Assessment and Plan: Patient presents with 4 day history of vomiting, diarrhea, and generalized abdominal pain. CT scan showed probable small bowel obstruction with superimposed small bowel enteritis, with suspected transition point and wall thickening at the mid ileum. She continues to have bowel function and had a bowel movement this morning. Her abdominal exam is fairly benign with no peritoneal signs. No evidence for a high-grade small bowel obstruction. This is more likely related to gastroenteritis rather than intraabdominal adhesions. She has not been vomiting since admission. Will continue to defer the NG tube for now. Will keep her NPO except ice chips as she is still nauseous and was dry heaving earlier. Continue antiemetics, IV fluids, and bowel rest. Will need to reconsider NG tube placement if she begins vomiting. No indication for urgent surgical intervention, but will continue to follow with serial abdominal exams and labs. (2) Enteritis: Code(s): K52.9 - Noninfective gastroenteritis and colitis, unspecified Status: Acute Assessment and Plan: Continue medical management. Stool studies and Cdiff ordered, but no yet collected. (3) Hypertension: Code(s): I10 - Essential (primary) hypertension Status: Chronic (4) H/O major abdominal surgery: Code(s): Z98.890 - Other specified postprocedural states Status: Acute Plan I have discussed the patient's case and plan of care with Dr. Romero. Thank you for allowing us to see the patient in consultation and we will continue to follow along with you. History of Present Illness Consult details Consult date: 08/09/24 Reason for consult: other (Small-bowel obstruction) Requesting physician: Eleanor Shields MD Narrative: This is an 83-year-old female with history of hypertension, hypothyroidism, bladder cancer in 2009, kidney cancer in 2012 s/p partial right nephrectomy, pacemaker, and multiple other medical problems, who we have been asked to see in surgical consultation for a small-bowel obstruction. She presented to the ED overnight with complaints of generalized abdominal pain, vomiting and diarrhea. She reports over the past 5 weeks she has had poor appetite with mild nausea and complains of loose stools anytime after eating. Then, 4 days ago she developed vomiting and diarrhea. This continued through the night and she continued to have vomiting and diarrhea for the next two days. She also complains of abdominal soreness but not a lot of pain initially. Her diarrhea slowed yesterday and she did not have any vomiting, but her abdominal pain progressed. Last night she started vomiting again and decided to come into the ED for evaluation. She reports her emesis appears dark, coffee-ground. Denies any blood in her stool. She still had loose stool yesterday. In the ED, labs showed WBC count 13,900, potassium 3.1, CO2 16, anion gap 19, BUN 33, creatinine 1.53, lactic acid 2.9. CT scan of the abdomen and pelvis showed probable small bowel obstruction with superimposed small bowel enteritis with suspected transition point and wall thickening at the mid ileum, correlate for infectious enteritis or possibly inflammatory bowel disease, possible area of circumferential wall thickening of the cecum with fluid distention of the proximal cecum, correlate for neoplastic lesion versus additional infectious/inflammatory process or inflammatory bowel disease, small amount of ascites, stable right adrenal nodule, bilateral renal masses. She was admitted to the hospitalist. She is currently NPO. Potassium was replaced and is now up to 4.9. She did not have an NG tube placed. She apparently vomited while in triage, but no more vomiting after being evaluated in the ED. She reports having another liquid stool earlier this morning. She is not having any abdominal pain, but still reports feeling very sore. She reports just diffuse mild abdominal tenderness. She feels like it is related to all the dry heaving. She has reportedly been belching. She is passing flatus. Denies any previous bowel obstructions. No history of inflammatory bowel disease. No close contacts at a been sick recently. C diff has been ordered but not collected. She has had multiple previous abdominal surgeries and reportedly had a significant amount of adhesions during her partial nephrectomy that was initially attempted laparoscopically but was converted to open. She has had a laparoscopic cholecystectomy, tubal ligation, hysterectomy, and a partial right nephrectomy. Review of Systems 2 Review of Systems: All systems reviewed & are unremarkable except as noted in HPI and below PMFSH Past Medical History Medical History Renal artery stenosis Bladder cancer Plantar fasciitis of left foot LVH (left ventricular hypertrophy) GERD (gastroesophageal reflux disease) Hypertension Hyperlipidemia Hypothyroidism Vertigo Surgical History Surgical History (Updated 08/09/24 @ 15:56 by MELCHOR Tomlin) History of transurethral resection of bladder tumor (TURBT) H/O partial nephrectomy Due to tumor History of endoscopy History of colonoscopy History of repair of right rotator cuff History of repair of left rotator cuff History of bunionectomy History of cholecystectomy History of bladder suspension procedure History of cystoscopy History of hysterectomy History of rhinoplasty History of tubal ligation Family History Family History Mother Uterine cancer Father Acute myocardial infarction Asthma Sibling Diabetes mellitus Social History Social History Smoking status: Never smoker Alcohol intake: never Substance use: never Substance use type: does not use Do You Feel Safe in your Home?: Yes Lack of Transportation: No Lack of Food: Never True Current Housing: I Have Housing Concerned About Future Housing: No Difficulty Paying Gas/Electric Bills: No Difficulty Paying for Meds: No Currently Unemployed: No Education: High School Diploma/GED Difficulty w/ Childcare or Family Care: No Gender identity (if verbalized by the patient): Female Spiritual care concerns: No Meds Home Medications and Allergies Home Medications ?Medication ?Instructions ?Recorded ?Confirmed ?Type Lactobacillus acidophilus 250 250 mmu cells PO DAILY 02/11/19 08/09/24 History million cell capsule (Probiotic Acidophilus) cholecalciferol (vitamin D3) 50 50 mcg PO DAILY 02/11/19 08/09/24 History mcg (2,000 unit) capsule (Vitamin D3) exegislvkfup-fjneqcji-uudzhxd-folic 1 tablet PO DAILY 02/11/19 08/09/24 History acid 400 mcg-vit K1 20 mcg tablet (One-A-Day Women's 50 Plus) aspirin 81 mg tablet,delayed 81 mg PO DAILY 08/09/24 08/09/24 History release azelastine 205.5 mcg (0.15 %) 1 spray intranasal DAILY PRN 08/09/24 08/09/24 History nasal spray (Astepro Allergy) allergy symptoms cetirizine 10 mg tablet (24Hour 5 mg PO DAILY PRN allergy symptoms 08/09/24 08/09/24 History Allergy) ferrous sulfate 27 mg iron tablet 27 mg PO EVERY OTHER DAY 08/09/24 08/09/24 History (High Potency Iron) hydrochlorothiazide 25 mg tablet 12.5 mg PO DAILY 08/09/24 08/09/24 History krill oil 500 mg capsule 2,500 mg PO DAILY 08/09/24 08/09/24 History levothyroxine 75 mcg tablet 75 mcg PO DAILY 08/09/24 08/09/24 History mecobalamin (vitamin B12) 1,000 2,000 mcg PO DAILY 08/09/24 08/09/24 History mcg chewable tablet pantoprazole 40 mg tablet,delayed 40 mg PO HS 08/09/24 08/09/24 History release rosuvastatin 10 mg tablet 10 mg PO HS 08/09/24 08/09/24 History sacubitril 24 mg-valsartan 26 mg 1 tablet PO BID 08/09/24 08/09/24 History tablet (Entresto) triamcinolone acetonide 55 mcg 2 spray intranasal DAILY PRN 08/09/24 08/09/24 History nasal spray aerosol (Nasacort) allergy symptoms venlafaxine 37.5 mg tablet 37.5 mg PO DAILY 08/09/24 08/09/24 History venlafaxine 75 mg tablet 75 mg PO DAILY 08/09/24 08/09/24 History Allergies Allergy/AdvReac Type Severity Reaction Status Date / Time No Known Allergies Allergy Mild Verified 08/09/24 08:32 Vital Signs Vital Signs - 24 hr 08/09/24 03:51 08/09/24 05:15 08/09/24 06:16 Temperature Pulse Rate 83 79 75 Respiratory Rate 17 17 17 Blood Pressure 153/59 H 130/52 L 126/57 L Pulse Oximetry 100 97 99 08/09/24 07:17 08/09/24 07:31 08/09/24 08:20 Temperature 97.7 F Pulse Rate 72 75 76 Respiratory Rate 15 17 18 Blood Pressure 128/58 L 129/54 L 137/66 Pulse Oximetry 98 96 97 08/09/24 10:00 08/09/24 11:26 Temperature 99.2 F Pulse Rate 73 94 Respiratory Rate 24 H Blood Pressure 169/70 H Pulse Oximetry 100 Exam 2 Const: General: comfortable and no acute distress Nutritional Appearance: a verage body habitus Orientation/consciousness: patient oriented x3 HENMT: Head: normocephalic and atraumatic Ears: hearing grossly normal bilaterally Mouth: Yes moist mucous membranes Eyes: General: appearance normal, both eyes and all related structures P upils: Equal, round and reactive pupils present Neck: Neck: normal visual inspection and full ROM Resp: Effort & Inspection: no respiratory distress Auscultation: clear to auscultation bilaterally Cardio: Rate: regular rate Rhythm: regular rhythm Peripheral pulses: P eripheral pulses 2+ throughout GI: Inspection: scar (Large horizontal scar in the lower abdomen, few small port site scars) and other (Mildly distended) GI Palp: Yes Soft to palpation, Yes Tenderness to palpation present (GI) (Mild diffuse tenderness along the lower abdomen), No Guarding due to palpation present (GI), No Hernia present and No Rebound tenderness present Auscultation: normal bowel sounds Skin: General skin exam: normal color Neuro: General: moves all extremities and no focal motor deficits Speech: n ormal speech Motor exam (neuro): 5/5 motor strength present throughout Extrem: General: normal to inspection and no edema Psych: Mental Status: mental status grossly normal Attitude: cooperative Insight: Good insight present (Psych) Judgement: Good judgement present (Psych) Results Labs 08/09/24 10:37 08/09/24 10:37 Labs: Abnormal lab results 08/09/24 08/09/24 08/09/24 Range/Units 02:04 03:24 03:41 WBC 13.9 H (4.5-10.0) K/mm3 RBC 4.03 L (4.2-5.4) M/mm3 Hgb (12.0-15.0) g/dL Hct (37.0-47.0) % Neut % (Auto) 80.0 H (45.5-73.1) % Lymph % (Auto) 16.7 L (18.3-44.2) % [place] % (Auto) 2.2 L (2.6-8.5) % Baso % (Auto) (0.2-1.2) % Lymph # (Auto) (0.9-3.2) K/mm3 [place] # (Auto) (0.1-0.6) K/mm3 Abs Immat Gran (auto) 0.05 H (0.00-0.031) K/mm3 Absolute Neuts (auto) 11.1 H (1.3-6.7) K/mm3 Potassium 3.1 L (3.4-5.0) mmol/L Chloride (98-107) mmol/L Carbon Dioxide 16 L (22-30) mmol/L Anion Gap 19 H (4-12) mmol/L BUN 33 H (7-17) mg/dL Creatinine 1.53 H (0.7-1.0) mg/dL Estimated GFR 33 L (59 - ) Glucose 176 H (65-110) mg/dL Lactic Acid 2.9 H (0.7-2.0) mmol/L Ur Specific [place] 1.037 H (1.001-1.035) Ur Blood (Man) 1+ H (Negative) Urine RBC 3-5 H (0-2) /hpf 08/09/24 Range/Units 10:37 WBC 2.7 L (4.5-10.0) K/mm3 RBC 3.16 L (4.2-5.4) M/mm3 Hgb 10.3 L D (12.0-15.0) g/dL Hct 31.6 L (37.0-47.0) % Neut % (Auto) (45.5-73.1) % Lymph % (Auto) (18.3-44.2) % [place] % (Auto) 1.1 L (2.6-8.5) % Baso % (Auto) 0.0 L (0.2-1.2) % Lymph # (Auto) 0.83 L (0.9-3.2) K/mm3 [place] # (Auto) 0.0 L (0.1-0.6) K/mm3 Abs Immat Gran (auto) (0.00-0.031) K/mm3 Absolute Neuts (auto) (1.3-6.7) K/mm3 Potassium (3.4-5.0) mmol/L Chloride 109 H (98-107) mmol/L Carbon Dioxide (22-30) mmol/L Anion Gap (4-12) mmol/L BUN 26 H (7-17) mg/dL Creatinine 1.30 H (0.7-1.0) mg/dL Estimated GFR 39 L (59 - ) Glucose 114 H (65-110) mg/dL Lactic Acid 2.6 H (0.7-2.0) mmol/L Ur Specific [place] (1.001-1.035) Ur Blood (Man) (Negative) Urine RBC (0-2) /hpf Diabetes panel 08/09/24 08/09/24 Range/Units 02:04 10:37 Sodium 137 141 (137-145) mmol/L Potassium 3.1 L 4.9 (3.4-5.0) mmol/L Chloride 102 109 H (98-107) mmol/L Carbon Dioxide 16 L 23 (22-30) mmol/L BUN 33 H 26 H (7-17) mg/dL Creatinine 1.53 H 1.30 H (0.7-1.0) mg/dL Glucose 176 H 114 H (65-110) mg/dL Calcium 9.8 8.6 (8.4-10.2) mg/dL AST 35 (14-36) U/L ALT 29 (6-35) U/L Alkaline Phosphatase 79 (38-126) U/L Total Protein 8.0 (6.3-8.2) g/dL Albumin 4.9 (3.5-5.1) g/dL Calcium panel 08/09/24 08/09/24 Range/Units 02:04 10:37 Calcium 9.8 8.6 (8.4-10.2) mg/dL Albumin 4.9 (3.5-5.1) g/dL Pituitary panel 08/09/24 08/09/24 Range/Units 02:04 10:37 Sodium 137 141 (137-145) mmol/L Potassium 3.1 L 4.9 (3.4-5.0) mmol/L Chloride 102 109 H (98-107) mmol/L Carbon Dioxide 16 L 23 (22-30) mmol/L BUN 33 H 26 H (7-17) mg/dL Creatinine 1.53 H 1.30 H (0.7-1.0) mg/dL Glucose 176 H 114 H (65-110) mg/dL Calcium 9.8 8.6 (8.4-10.2) mg/dL Adrenal panel 08/09/24 08/09/24 Range/Units 02:04 10:37 Sodium 137 141 (137-145) mmol/L Potassium 3.1 L 4.9 (3.4-5.0) mmol/L Chloride 102 109 H (98-107) mmol/L Carbon Dioxide 16 L 23 (22-30) mmol/L BUN 33 H 26 H (7-17) mg/dL Creatinine 1.53 H 1.30 H (0.7-1.0) mg/dL Glucose 176 H 114 H (65-110) mg/dL Calcium 9.8 8.6 (8.4-10.2) mg/dL Total Bilirubin 0.5 (0.2-1.3) mg/dL AST 35 (14-36) U/L ALT 29 (6-35) U/L Alkaline Phosphatase 79 (38-126) U/L Total Protein 8.0 (6.3-8.2) g/dL Albumin 4.9 (3.5-5.1) g/dL All other labs normal. Imaging Additional studies: ITS Impressions Abdomen/Pelvis CT 08/09/24 05:31 Impression: Probable small bowel obstruction with superimposed small bowel enteritis, with suspected transition point and wall thickening at the mid ileum. Correlate for infectious enteritis or possibly inflammatory bowel disease. Possible area of circumferential wall thickening of the cecum with fluid distention of the proximal cecum. Correlate for neoplastic lesion versus additional infectious/inflammatory process or inflammatory bowel disease. Consider colonoscopy. Small amount of ascites. Stable right adrenal nodule. Bilateral renal masses, some which are simple cysts, some which are higher attenuation than simple cyst. Follow-up nonemergent pre and postcontrast MR recommended to best assess for any possible solid renal mass.
--- NOTE | 2024-08-09 16:33 | PM.IMHP ---
H&P: HPI History of Present Illness Date/Time: 08/09/24 16:33 Chief Complaint: abdominal pain, bloating and N/V Narrative: ER-HPI narrative: Patient presents with 2 days of all over abdominal pain and bloating and distension, nausea vomiting, also had some slight diarrhea but very little bowel movement, prior history of bladder surgery and cholecystectomy. patient stats she had been working in the yard prior developing her symptoms suspect may have dehydrated, patient continued to have BM, to further evaluate patient had CT of abdomen which showed probable small bowel obstruction with superimposed small bowel enteritis, with suspected transition point and wall thickening at the mid ileum. patient was seen by surgery service, patient does not need any surgical intervention nor she need NG tube as patient is have BM, However will keep patient NPO have bowl rest. will continue to monitor and patient symptoms improve will start oral intake. Review of Systems Review of Systems: All systems reviewed & are unremarkable except as noted in HPI and below PMFSH Past Medical History Medical History Renal artery stenosis Bladder cancer Plantar fasciitis of left foot LVH (left ventricular hypertrophy) GERD (gastroesophageal reflux disease) Hypertension Hyperlipidemia Hypothyroidism Vertigo Surgical History Surgical History (Updated 08/09/24 @ 15:56 by MELCHOR Tomlin) History of transurethral resection of bladder tumor (TURBT) H/O partial nephrectomy Due to tumor History of endoscopy History of colonoscopy History of repair of right rotator cuff History of repair of left rotator cuff History of bunionectomy History of cholecystectomy History of bladder suspension procedure History of cystoscopy History of hysterectomy History of rhinoplasty History of tubal ligation Family History Family History Mother Uterine cancer Father Acute myocardial infarction Asthma Sibling Diabetes mellitus Social History Social History Smoking status: Never smoker Alcohol intake: never Substance use: never Substance use type: does not use Do You Feel Safe in your Home?: Yes Lack of Transportation: No Lack of Food: Never True Current Housing: I Have Housing Concerned About Future Housing: No Difficulty Paying Gas/Electric Bills: No Difficulty Paying for Meds: No Currently Unemployed: No Education: High School Diploma/GED Difficulty w/ Childcare or Family Care: No Gender identity (if verbalized by the patient): Female Spiritual care concerns: No Meds Home Medications and Allergies Home Medications ?Medication ?Instructions ?Recorded ?Confirmed ?Type Lactobacillus acidophilus 250 250 mmu cells PO DAILY 02/11/19 08/09/24 History million cell capsule (Probiotic Acidophilus) cholecalciferol (vitamin D3) 50 50 mcg PO DAILY 02/11/19 08/09/24 History mcg (2,000 unit) capsule (Vitamin D3) zipxpndxkvwu-lkohgrgh-erwrfwh-folic 1 tablet PO DAILY 02/11/19 08/09/24 History acid 400 mcg-vit K1 20 mcg tablet (One-A-Day Women's 50 Plus) aspirin 81 mg tablet,delayed 81 mg PO DAILY 08/09/24 08/09/24 History release azelastine 205.5 mcg (0.15 %) 1 spray intranasal DAILY PRN 08/09/24 08/09/24 History nasal spray (Astepro Allergy) allergy symptoms cetirizine 10 mg tablet (24Hour 5 mg PO DAILY PRN allergy symptoms 08/09/24 08/09/24 History Allergy) ferrous sulfate 27 mg iron tablet 27 mg PO EVERY OTHER DAY 08/09/24 08/09/24 History (High Potency Iron) hydrochlorothiazide 25 mg tablet 12.5 mg PO DAILY 08/09/24 08/09/24 History krill oil 500 mg capsule 2,500 mg PO DAILY 08/09/24 08/09/24 History levothyroxine 75 mcg tablet 75 mcg PO DAILY 08/09/24 08/09/24 History mecobalamin (vitamin B12) 1,000 2,000 mcg PO DAILY 08/09/24 08/09/24 History mcg chewable tablet pantoprazole 40 mg tablet,delayed 40 mg PO HS 08/09/24 08/09/24 History release rosuvastatin 10 mg tablet 10 mg PO HS 08/09/24 08/09/24 History sacubitril 24 mg-valsartan 26 mg 1 tablet PO BID 08/09/24 08/09/24 History tablet (Entresto) triamcinolone acetonide 55 mcg 2 spray intranasal DAILY PRN 08/09/24 08/09/24 History nasal spray aerosol (Nasacort) allergy symptoms venlafaxine 37.5 mg tablet 37.5 mg PO DAILY 08/09/24 08/09/24 History venlafaxine 75 mg tablet 75 mg PO DAILY 08/09/24 08/09/24 History Allergies Allergy/AdvReac Type Severity Reaction Status Date / Time No Known Allergies Allergy Mild Verified 08/09/24 08:32 Vital Signs Vital Signs - 24 hr 08/09/24 03:51 08/09/24 05:15 08/09/24 06:16 Temperature Pulse Rate 83 79 75 Respiratory Rate 17 17 17 Blood Pressure 153/59 H 130/52 L 126/57 L Pulse Oximetry 100 97 99 Oxygen Delivery 08/09/24 07:17 08/09/24 07:31 08/09/24 08:20 Temperature 36.5 C Pulse Rate 72 75 76 Respiratory Rate 15 17 18 Blood Pressure 128/58 L 129/54 L 137/66 Pulse Oximetry 98 96 97 Oxygen Delivery 08/09/24 09:07 08/09/24 10:00 08/09/24 11:26 Temperature 37.3 C Pulse Rate 73 94 Respiratory Rate 24 H Blood Pressure 169/70 H Pulse Oximetry 100 Oxygen Delivery Room Air 08/09/24 15:27 Temperature 36.9 C Pulse Rate 85 Respiratory Rate 16 Blood Pressure 125/51 L Pulse Oximetry 96 Oxygen Delivery Exam Narrative: Patient is comfortable, NAD HEENT: eyes are clear and none icteric LUNGS:CTA HEART: RR S1S2 ABD: Bowel sounds are faint Lower extremities: no edema SKIN: nonjaundiced Neuro: grossly intact. H&P: Results Labs Labs: Short CBC 08/09/24 08/09/24 Range/Units 02:04 10:37 WBC 13.9 H 2.7 L (4.5-10.0) K/mm3 Hgb 13.3 10.3 L D (12.0-15.0) g/dL Hct 39.2 31.6 L (37.0-47.0) % Plt Count 280 194 (150-375) k/mm3 BMP 08/09/24 08/09/24 02:04 10:37 Sodium 137 141 Potassium 3.1 L 4.9 Chloride 102 109 H Carbon Dioxide 16 L 23 BUN 33 H 26 H Creatinine 1.53 H 1.30 H Glucose 176 H 114 H Calcium 9.8 8.6 Liver Function 05/21/25 Range/Units 02:04 Total Bilirubin 0.5 (0.2-1.3) mg/dL AST 35 (14-36) U/L ALT 29 (6-35) U/L Alkaline Phosphatase 79 (38-126) U/L Albumin 4.9 (3.5-5.1) g/dL Urine 08/09/24 Range/Units 03:41 Urine Color Yellow (Yellow) Urine Appearance Clear (Clear) Urine pH 6.0 (5.0-9.0) Ur Specific [place] 1.037 H (1.001-1.035) Urine Protein Negative (Negative) mg/dL Urine Glucose (UA) Negative (Negative) mg/dL Assessment and Plan Assessment and plan (1) SBO (small bowel obstruction): Code(s): K56.609 - Unspecified intestinal obstruction, unspecified as to partial versus complete obstruction Status: Acute (2) Enteritis: Code(s): K52.9 - Noninfective gastroenteritis and colitis, unspecified Status: Acute (3) H/O major abdominal surgery: Code(s): Z98.890 - Other specified postprocedural states Status: Acute (4) Hypertension: Code(s): I10 - Essential (primary) hypertension Status: Chronic Plan patient stats she had been working in the yard prior developing her symptoms suspect may have dehydrated, patient continued to have BM, to further evaluate patient had CT of abdomen which showed probable small bowel obstruction with superimposed small bowel enteritis, with suspected transition point and wall thickening at the mid ileum. patient was seen by surgery service, patient does not need any surgical intervention nor she need NG tube as patient is have BM, However will keep patient NPO have bowl rest. will continue to monitor and patient symptoms improve will start oral intake. Quality VTE Prophylaxis VTE prophylaxis: mechanical ordered Hospitalist MIPS Advance Care Plan I have confirmed that the patient's Advanced Care Plan is present, code status is documented, or surrogate decision maker is listed in patient medical record.: Yes Medication Reconciliation The patient is not eligible for med reconciliation; the patient is in a emergent medical situation where delaying treatment would jeopardize the patients health.: Yes
[2024-08-09] MEDS: SACUBITRIL/VALSARTAN 24-26 MG TABLET 1 TAB PO (17:40)
[2024-08-09] MEDS: PANTOPRAZOLE 40 MG TABLET PO (19:52)
[2024-08-09] MEDS: ROSUVASTATIN 10 MG TABLET PO (19:52)
--- NOTE | 2024-08-09 22:45 | PC.NURSE ---
RECEIVED PT IN HOSPITAL BED FROM [facility] 232. PT BELONGINGS AT BEDSIDE. APPEARS COMFORTABLE CALL LIGHT WITHIN REACH.
[2024-08-10] VITALS: BP 126/64; PULSE 93; RESP 18; TEMP 37; O2SAT 92
--- NOTE | 2024-08-10 01:17 | P.PNCROSS_ITS ---
Event Note Event Note Event Note: I received a phone call regarding sepsis [place] after midnight vital signs w ere entered. I reviewed record and noted that patient was given fluids on admission but not on antibiotics. I ordered stat labs and asked that morning labs be drawn at the same time. w 08/09/24 00:00-03:59 08/09/24 08:00-11:59 08/10/24 00:00-03:59 Hematology WBC (4.5-10.0?K/mm3) RBC (4.2-5.4?M/mm3) Hgb (12.0-15.0?g/dL) Hct (37.0-47.0?%) MCV (80-100?fl) MCH (26-34?pg) MCHC (32-36?g/dl) RDW (11.5-14.5?%) Plt Count (150-375?k/mm3) MPV (7.4-10.4?fl) Immature Gran % (Auto) (0-0.5?%) Neut % (Auto) (45.5-73.1?%) Lymph % (Auto) (18.3-44.2?%) [place] % (Auto) (2.6-8.5?%) Eos % (Auto) (0-4.4?%) Baso % (Auto) (0.2-1.2?%) Lymph # (Auto) (0.9-3.2?K/mm3) [place] # (Auto) (0.1-0.6?K/mm3) Eos # (Auto) (0-0.3?K/mm3) Baso # (Auto) (0.0-0.1?K/mm3) Abs Immat Gran (auto) (0.00-0.031?K/mm3) Absolute Neuts (auto) (1.3-6.7?K/mm3) Absolute Nucleated RBC (0.0-0.012?K/mm3) Nucleated RBC % (0.0-0.2?%) ESR (0-20?mm/hr) 13.9?H 4.03?L 13.3 39.2 97.3 33.0 33.9 12.0 280 9.5 0.4 80.0?H 16.7?L 2.2?L 0.5 0.2 2.32 0.3 0.1 0.0 0.05?H 11.1?H 0.000 0.0 2.7?L 3.16?L 10.3?L? 31.6?L 100.0 32.6 32.6 12.2 194 9.7 0.4 67.5 30.3 1.1?L 0.7 0.0?L 0.83?L 0.0?L 0.0 0.0 0.01 1.9 0.000 0.0 5.2 3.00?L 9.9?L 29.9?L 99.7 33.0 33.1 12.4 154 9.5 0.2 69.4 19.1 9.7?H 1.4 0.2 0.99 0.5 0.1 0.0 0.01 3.6 0.000 0.0 26?H Coagulation PT INR APTT Chemistry Sodium (137-145?mmol/L) Potassium (3.4-5.0?mmol/L) Chloride (98-107?mmol/L) Carbon Dioxide (22-30?mmol/L) Anion Gap (4-12?mmol/L) BUN (7-17?mg/dL) Creatinine (0.7-1.0?mg/dL) Estim Creat Clear Calc Estimated GFR (59-) Glucose (65-110?mg/dL) Lactic Acid (0.7-2.0?mmol/L) Calcium (8.4-10.2?mg/dL) Magnesium (1.6-2.3?mg/dL) Total Bilirubin (0.2-1.3?mg/dL) AST (14-36?U/L) ALT (6-35?U/L) Alkaline Phosphatase (38-126?U/L) NT-Pro-B Natriuret Pep Troponin I C-Reactive Protein (<1.0?mg/dL) Total Protein (6.3-8.2?g/dL) Albumin (3.5-5.1?g/dL) Lipase (23-300?U/L) Procalcitonin 137 3.1?L 102 16?L 19?H 33?H 1.53?H Not Reportable 33?L?? 176?H 2.9?H 9.8 0.5 35 29 79 8.0 4.9 110 141 4.9 109?H 23 9 26?H 1.30?H 27?? 39?L?? 114?H 2.6?H 8.6 1.8 139 3.6 108?H 22 9 17 1.19?H 30?? 44?L?? 113?H 0.7 8.4 1.8 3.1?H 2.5?? Urines Urine Color (Yellow) Urine Appearance (Clear) Urine pH (5.0-9.0) Ur Specific [place] (1.001-1.035) Urine Protein (Negative?mg/dL) Urine Glucose (UA) (Negative?mg/dL) Urine Ketones (Negative?mg/dL) Ur Blood (Man) (Negative) Urine Nitrate (Negative) Urine Bilirubin (Negative) Urine Urobilinogen (<2.0?mg/dL) Leukocyte Esterase Rfl (Negative?CHEN/UL) Urine RBC (0-2?/hpf) Urine WBC (0-3?/hpf) Ur Squamous Epith Cells (Few?/hpf) Hyaline Casts Urine Bacteria Urine Mucus Urine Casts Yellow Clear 6.0 1.037?H Negative Negative Negative 1+?H Negative Negative 0.2 Negative 3-5?H 0-5 None seen None seen 05-24 00:00-03:59 08/09/24 08:00-11:59 08/10/24 00:00-03:59 Hematology WBC (4.5-10.0?K/mm3) RBC (4.2-5.4?M/mm3) Hgb (12.0-15.0?g/dL) Hct (37.0-47.0?%) MCV (80-100?fl) MCH (26-34?pg) MCHC (32-36?g/dl) RDW (11.5-14.5?%) Plt Count (150-375?k/mm3) MPV (7.4-10.4?fl) Immature Gran % (Auto) (0-0.5?%) Neut % (Auto) (45.5-73.1?%) Lymph % (Auto) (18.3-44.2?%) [place] % (Auto) (2.6-8.5?%) Eos % (Auto) (0-4.4?%) Baso % (Auto) (0.2-1.2?%) Lymph # (Auto) (0.9-3.2?K/mm3) [place] # (Auto) (0.1-0.6?K/mm3) Eos # (Auto) (0-0.3?K/mm3) Baso # (Auto) (0.0-0.1?K/mm3) Abs Immat Gran (auto) (0.00-0.031?K/mm3) Absolute Neuts (auto) (1.3-6.7?K/mm3) Absolute Nucleated RBC (0.0-0.012?K/mm3) Nucleated RBC % (0.0-0.2?%) ESR (0-20?mm/hr) 13.9?H 4.03?L 13.3 39.2 97.3 33.0 33.9 12.0 280 9.5 0.4 80.0?H 16.7?L 2.2?L 0.5 0.2 2.32 0.3 0.1 0.0 0.05?H 11.1?H 0.000 0.0 2.7?L 3.16?L 10.3?L? 31.6?L 100.0 32.6 32.6 12.2 194 9.7 0.4 67.5 30.3 1.1?L 0.7 0.0?L 0.83?L 0.0?L 0.0 0.0 0.01 1.9 0.000 0.0 5.2 3.00?L 9.9?L 29.9?L 99.7 33.0 33.1 12.4 154 9.5 0.2 69.4 19.1 9.7?H 1.4 0.2 0.99 0.5 0.1 0.0 0.01 3.6 0.000 0.0 26?H Coagulation PT INR APTT Chemistry Sodium (137-145?mmol/L) Potassium (3.4-5.0?mmol/L) Chloride (98-107?mmol/L) Carbon Dioxide (22-30?mmol/L) Anion Gap (4-12?mmol/L) BUN (7-17?mg/dL) Creatinine (0.7-1.0?mg/dL) Estim Creat Clear Calc Estimated GFR (59-) Glucose (65-110?mg/dL) Lactic Acid (0.7-2.0?mmol/L) Calcium (8.4-10.2?mg/dL) Magnesium (1.6-2.3?mg/dL) Total Bilirubin (0.2-1.3?mg/dL) AST (14-36?U/L) ALT (6-35?U/L) Alkaline Phosphatase (38-126?U/L) NT-Pro-B Natriuret Pep Troponin I C-Reactive Protein (<1.0?mg/dL) Total Protein (6.3-8.2?g/dL) Albumin (3.5-5.1?g/dL) Lipase (23-300?U/L) Procalcitonin 137 3.1?L 102 16?L 19?H 33?H 1.53?H Not Reportable 33?L?? 176?H 2.9?H 9.8 0.5 35 29 79 8.0 4.9 110 141 4.9 109?H 23 9 26?H 1.30?H 27?? 39?L?? 114?H 2.6?H 8.6 1.8 139 3.6 108?H 22 9 17 1.19?H 30?? 44?L?? 113?H 0.7 8.4 1.8 3.1?H 2.5?? Urines Urine Color (Yellow) Urine Appearance (Clear) Urine pH (5.0-9.0) Ur Specific [place] (1.001-1.035) Urine Protein (Negative?mg/dL) Urine Glucose (UA) (Negative?mg/dL) Urine Ketones (Negative?mg/dL) Ur Blood (Man) (Negative) Urine Nitrate (Negative) Urine Bilirubin (Negative) Urine Urobilinogen (<2.0?mg/dL) Leukocyte Esterase Rfl (Negative?CHEN/UL) Urine RBC (0-2?/hpf) Urine WBC (0-3?/hpf) Ur Squamous Epith Cells (Few?/hpf) Hyaline Casts Urine Bacteria Urine Mucus Urine Casts Yellow Clear 6.0 1.037?H Negative Negative Negative 1+?H Negative Negative 0.2 Negative 3-5?H 0-5 None seen None seen 3-5 CRP was 3.1 and ESR was 26. Procalcitonin was 2.5 which is concerning for acute bacterial infection. Ordered IV Zosyn after reviewing CT results from 08/09/[address] of the Abdomen and Pelvis: Indication: Abdominal pain Technique: 2.5 mm axial scans were obtained through the abdomen and pelvis following intravenous administration of 100 cc of Omnipaque 350. Dose reduction technique was used on this scan by utilizing automated exposure control and iterative reconstruction technique. The dose-length product (DLP) was 235.25 mGy-cm. COMPARISON: 01/11/2021, 04/09/2019 Findings: Scans through the lung bases are unremarkable. The liver, spleen, pancreas, and left adrenal gland are within normal limits. Stable 2.2 cm right adrenal nodule. Cholecystectomy clips are present. Bilateral low-density renal masses are present, though some are not fluid attenuation. Largest of these nonfluid attenuation lesions in the left kidney measuring 1.6 cm (axial image 81). There are atherosclerotic calcifications of the aorta. No lymphadenopathy. There are multiple mildly dilated, fluid-filled small bowel loops. There is mild wall thickening of probable mid ileal loops. Possible transition point in the pelvis. Questionable area of circumferential wall thickening at the cecum. Images through the pelvis were performed. Urinary bladder unremarkable. Small amount of pelvic ascites present. No adnexal mass evident. Impression: Probable small bowel obstruction with superimposed small bowel enteritis, with suspected transition point and wall thickening at the mid ileum. Correlate for infectious enteritis or possibly inflammatory bowel disease. Possible area of circumferential wall thickening of the cecum with fluid distention of the proximal cecum. Correlate for neoplastic lesion versus addit ional infectious/inflammatory process or inflammatory bowel disease. Consider colonoscopy. Small amount of ascites. Stable right adrenal nodule. Bilateral renal masses, some which are simple cysts, some which are higher attenuation than simple cyst. Follow-up nonemergent pre and postcontrast MR recommended to best assess for any possible solid renal mass. Reviewed, dictated and finalized at location M.
[2024-08-10 01:44] LABS: Basophils Percent Auto 0.2 % (0.2-1.2); Eosinophils Absolute Auto 0.1 K/mm3 (0-0.3); Eosinophils Percent Auto 1.4 % (0-4.4); Hematocrit 29.9 % (37.0-47.0); Hemoglobin 9.9 g/dL (12.0-15.0); Immature Granulocyte Absolute 0.01 K/mm3 (0.00-0.031); Immature Granulocyte Percent A 0.2 % (0-0.5); Lymphocytes Absolute Auto 0.99 K/mm3 (0.9-3.2); Lymphocytes Percent Auto 19.1 % (18.3-44.2); Mean Corpuscular HGB Conc 33.1 g/dl (32-36); Mean Corpuscular Volume 99.7 fl (80-100); Mean Platelet Volume 9.5 fl (7.4-10.4); Monocytes Absolute Auto 0.5 K/mm3 (0.1-0.6); Monocytes Percent Auto 9.7 % (2.6-8.5); Neutrophils Absolute Auto 3.6 K/mm3 (1.3-6.7); Neutrophils Percent Auto 69.4 % (45.5-73.1); Platelet Count Result 154 k/mm3 (150-375); Red Cell Distribution Width 12.4 % (11.5-14.5); White Blood Count 5.2 K/mm3 (4.5-10.0)
[2024-08-10 01:52] LABS: Anion Gap 9 mmol/L (4-12); Blood Urea Nitrogen 17 mg/dL (7-17); Calcium 8.4 mg/dL (8.4-10.2); Carbon Dioxide 22 mmol/L (22-30); Chloride 108 mmol/L (98-107); Estimated CRCL calculation 30 ml/min; Estimated Glomerular Filt Rate 44; Glucose 113 mg/dL (65-110); Lactic Acid Reflex 0.7 mmol/L (0.7-2.0); Magnesium 1.8 mg/dL (1.6-2.3); Potassium 3.6 mmol/L (3.4-5.0); Sodium 139 mmol/L (137-145)
[2024-08-10 02:05] LABS: Erythrocyte Sedimentation Rate 26 mm/hr (0-20)
[2024-08-10 02:10] LABS: Procalcitonin 2.5 ng/mL
[2024-08-10 02:18] LABS: CRP 3.1 mg/dL (<1.0)
[2024-08-10] MEDS: PIPERACILLN/TAZ 3.375GM/NS50ML 3.375 GM/50 ML BAG IVPB (03:14)
[2024-08-10] MEDS: LACTATED RINGERS 1,000 ML 100 ML IV CONT ×2 (05:24→17:22)
[2024-08-10 06:09] VITALS: BP 109/57; PULSE 89; RESP 18; TEMP 36.5; O2SAT 97
[2024-08-10 08:43] VITALS: BP 123/54; PULSE 70; O2SAT 96
[2024-08-10] MEDS: ACIDOPHILUS/BULGARICUS CHEWABLE TABLET 1 TABLET BY MOUTH (08:45)
[2024-08-10] MEDS: PIPERACILLIN/TAZ 2.25G/NS 50ML 2.25 GM/50 ML BAG IVPB ×4 (08:45→23:43)
[2024-08-10] MEDS: CYANOCOBALAMIN 1,000 MCG TABLET 2000 MCG PO (08:46)
[2024-08-10] MEDS: FAMOTIDINE 20 MG/2 ML VIAL IV PUSH ×2 (08:46→20:28)
[2024-08-10] MEDS: ASPIRIN 81 MG ENTERIC TABLET PO (08:46)
[2024-08-10] MEDS: hydroCHLOROthiazide 12.5 MG CAPSULE PO (08:46)
[2024-08-10] MEDS: CHOLECALCIFEROL 1,000 UNITS TABLET 2000 UNITS PO (08:46)
[2024-08-10] MEDS: FERROUS SULFATE 325 MG TABLET DR BY MOUTH (08:46)
[2024-08-10] MEDS: THERAPEUTIC MULTIVITAMINS/MINERALS TAB (*BKC) 1 TABLET PO (08:46)
[2024-08-10] MEDS: VENLAFAXINE HCL 37.5 MG TABLET PO (08:47)
[2024-08-10] MEDS: VENLAFAXINE HCL 75 MG TABLET PO (08:47)
[2024-08-10] MEDS: SACUBITRIL/VALSARTAN 24-26 MG TABLET 1 TAB PO ×2 (08:47→17:23)
--- NOTE | 2024-08-10 09:48 | PM.PNGS ---
Progress Note: A&P Assessment and Plan (1) SBO (small bowel obstruction): Code(s): K56.609 - Unspecified intestinal obstruction, unspecified as to partial versus complete obstruction Status: Acute Assessment and Plan: Abdominal xray showed no evidence for obstruction or free air. No abnormal mass lesion or calcification is seen. Patient has not been experiencing any abdominal pain or nausea. Patient is passing flatus, but is yet to have a bowel movement. Advance diet to clear liquids. Will need to reconsider NG tube placement if she begins vomiting. No indication for urgent surgical intervention, but will continue to follow with serial abdominal exams and labs. (2) Enteritis: Code(s): K52.9 - Noninfective gastroenteritis and colitis, unspecified Status: Acute Assessment and Plan: Continue medical management. Stool studies and Cdiff ordered, but no yet collected. (3) Hypertension: Code(s): I10 - Essential (primary) hypertension Status: Chronic (4) H/O major abdominal surgery: Code(s): Z98.890 - Other specified postprocedural states Status: Acute Plan Patient discussed with Dr. Romero. Subjective Subjective Date/Time Seen: 08/10/24 09:48 Interval history: Patient is generally feeling well today with no abdominal discomfort, N/V, or diarrhea. She has not had a bowel movement, but does report passing flatus. No antiemetics or pain medications given overnight. Xray this morning showed no evidence for obstruction or free air and no mass. Vital signs stable. No acute changes in lab values. Review of Systems Gastrointestinal: Gastrointestinal: Denies abdominal pain, Denies bloating, Denies diarrhea, Denies nausea and Denies vomiting Exam GI: Inspection: non-distended GI Palp: Yes Soft to palpation, No Tenderness to palpation present (GI) and No Guarding due to palpation present (GI) Auscultation: abnormal bowel sounds (slightly hypoactive) Objective Data Vital Signs Vital Signs: Vital Signs - 24 hr 08/09/24 10:00 08/09/24 11:26 08/09/24 15:27 Temperature 99.2 F 98.5 F Pulse Rate 73 94 85 Respiratory Rate 24 H 16 Blood Pressure 169/70 H 125/51 L Pulse Oximetry 100 96 Oxygen Delivery 08/09/24 20:00 08/09/24 20:23 08/10/24 00:00 Temperature 97.5 F L 98.6 F Pulse Rate 77 93 Respiratory Rate 16 18 Blood Pressure 121/53 L 126/64 Pulse Oximetry 93 92 Oxygen Delivery Room Air 08/10/24 06:09 08/10/24 08:43 Temperature 97.7 F Pulse Rate 89 70 Respiratory Rate 18 Blood Pressure 109/57 L 123/54 L Pulse Oximetry 97 96 Oxygen Delivery Intake/Output Intake/Output: Intake & Output 08/07/24 08/08/24 08/09/24 08/10/24 23:59 23:59 23:59 23:59 Intake Total 2815 1000 Output Total 600 Balance 2215 1000 Meds/Results Medications: Active Medications Generic Name Dose Route Start Last Admin Trade Name Freq PRN Reason Stop Dose Admin Acetaminophen 650 mg 08/09/24 11:21 Acetaminophen 325 Mg Tablet PO Q6H PRN Mild Pain (1-3) or Fever Aspirin 81 mg 08/10/24 09:00 08/10/24 08:46 Aspirin 81 Mg Enteric Tablet PO 81 mg DAILY HANNAH Administration Azelastine HCl 1 spray 08/09/24 10:17 08/09/24 11:52 Azelastine Hcl Nasal 0.1% 137 Mcg/Spr 30 Ml Btl NASAL 1 spray DAILY PRN Administration allergy symptoms Cyanocobalamin 2,000 mcg 08/10/24 09:00 08/10/24 08:46 Cyanocobalamin 1,000 Mcg Tablet PO 2,000 mcg QAM HANNAH Administration Famotidine 20 mg 08/09/24 09:00 08/10/24 08:46 Famotidine 20 Mg/2 Ml Vial IV PUSH 20 mg Q12HR HANNAH Administration Ferrous Sulfate 325 mg 08/10/24 09:00 08/10/24 08:46 Ferrous Sulfate [address] BY MOUTH 325 mg Q48HR HANNAH Administration Hydrochlorothiazide 12.5 mg 08/10/24 09:00 08/10/24 08:46 Hydrochlorothiazide 12.5 Mg Capsule PO 12.5 mg QAM HANNAH Administration Lactated Ringer's 1,000 mls @ 100 mls/hr 08/09/24 05:55 08/10/24 05:24 Lr - Lactated Ringers Iv IV CONT 100 mls/hr .Q10H HANNAH Administration Piperacillin Sod/Tazobactam Sod 2.25 gm in 50 mls @ 100 mls/hr 08/10/24 08:00 08/10/24 08:45 Zosyn 2.25 Gm/Ns 50 Ml IVPB 100 mls/hr Q6HR HANNAH Administration Lactobacillus Acidophilus 1 tablet 08/10/24 09:00 08/10/24 08:45 Acidophilus/Bulgaricus Chewable Tablet BY MOUTH 1 tablet DAILY HANNAH Administration Levothyroxine Sodium 75 mcg 08/09/24 11:00 08/10/24 06:30 Levothyroxine Sodium 75 Mcg Tablet PO Not Given DAILY@0630 HANNAH Loratadine 5 mg 08/09/24 10:23 Loratadine 5 Mg Tablet PO DAILY PRN allergy symptoms Morphine Sulfate 2 mg 08/09/24 05:51 Morphine Sulfate (*Crx) 2 Mg/Ml Inj IV PUSH Q2H PRN Pain Rated 7-10 Multivitamins/Calcium 1 tablet 08/10/24 09:00 08/10/24 08:46 Therapeutic Multivitamins/Minerals Tab (*Bkc) PO 1 tablet DAILY HANNAH Administration Ondansetron HCl 4 mg 08/09/24 05:51 Ondansetron Inj 4 Mg/2 Ml Vial IV PUSH Q4H PRN Nausea Pantoprazole Sodium 40 mg 08/09/24 21:00 08/09/24 19:52 Pantoprazole 40 Mg Tablet PO 40 mg HS HANNAH Administration Rosuvastatin Calcium 10 mg 08/09/24 21:00 08/09/24 19:52 Rosuvastatin 10 Mg Tablet PO 10 mg HS HANNAH Administration Sacubitril/Valsartan 1 tab 08/09/24 17:00 08/10/24 08:47 Sacubitril/Valsartan 24-26 Mg Tablet PO 1 tab BID HANNAH Administration Venlafaxine HCl 75 mg 08/09/24 10:35 08/10/24 08:47 Venlafaxine Hcl 75 Mg Tablet PO 75 mg DAILY HANNAH Administration Venlafaxine HCl 37.5 mg 08/09/24 10:35 08/10/24 08:47 Venlafaxine Hcl 37.5 Mg Tablet PO 37.5 mg DAILY HANNAH Administration Vitamin D 2,000 units 08/10/24 09:00 08/10/24 08:46 Cholecalciferol 1,000 Units Tablet PO 2,000 units DAILY HANNAH Administration Radiology Results: ITS Impressions Abdomen/Pelvis CT 08/09/24 05:31 Impression: Probable small bowel obstruction with superimposed small bowel enteritis, with suspected transition point and wall thickening at the mid ileum. Correlate for infectious enteritis or possibly inflammatory bowel disease. Possible area of circumferential wall thickening of the cecum with fluid distention of the proximal cecum. Correlate for neoplastic lesion versus additional infectious/inflammatory process or inflammatory bowel disease. Consider colonoscopy. Small amount of ascites. Stable right adrenal nodule. Bilateral renal masses, some which are simple cysts, some which are higher attenuation than simple cyst. Follow-up nonemergent pre and postcontrast MR recommended to best assess for any possible solid renal mass. Abdomen X-Ray 08/10/24 06:16 Impression: Nonspecific bowel gas pattern. Labs Labs: Laboratory Results - last 24 hr 08/09/24 08/10/24 10:37 01:30 WBC 2.7 L 5.2 RBC 3.16 L 3.00 L Hgb 10.3 L D 9.9 L Hct 31.6 L 29.9 L MCV 100.0 99.7 MCH 32.6 33.0 MCHC 32.6 33.1 RDW 12.2 12.4 Plt Count 194 154 MPV 9.7 9.5 Immature Gran % (Auto) 0.4 0.2 Neut % (Auto) 67.5 69.4 Lymph % (Auto) 30.3 19.1 [place] % (Auto) 1.1 L 9.7 H Eos % (Auto) 0.7 1.4 Baso % (Auto) 0.0 L 0.2 Lymph # (Auto) 0.83 L 0.99 [place] # (Auto) 0.0 L 0.5 Eos # (Auto) 0.0 0.1 Baso # (Auto) 0.0 0.0 Abs Immat Gran (auto) 0.01 0.01 Absolute Neuts (auto) 1.9 3.6 Absolute Nucleated RBC 0.000 0.000 Nucleated RBC % 0.0 0.0 ESR 26 H Sodium 141 139 Potassium 4.9 3.6 Chloride 109 H 108 H Carbon Dioxide 23 22 Anion Gap 9 9 BUN 26 H 17 Creatinine 1.30 H 1.19 H Estim Creat Clear Calc 27 30 Estimated GFR 39 L 44 L Glucose 114 H 113 H Lactic Acid 2.6 H 0.7 Calcium 8.6 8.4 Magnesium 1.8 1.8 C-Reactive Protein 3.1 H Procalcitonin 2.5
--- NOTE | 2024-08-10 13:23 | P.PNIM_ITS ---
Progress Note: A&P Assessment and Plan (1) SBO (small bowel obstruction): Code(s): K56.609 - Unspecified intestinal obstruction, unspecified as to partial versus complete obstruction Status: Acute (2) Enteritis: Code(s): K52.9 - Noninfective gastroenteritis and colitis, unspecified Status: Acute (3) H/O major abdominal surgery: Code(s): Z98.890 - Other specified postprocedural states Status: Acute (4) Hypertension: Code(s): I10 - Essential (primary) hypertension Status: Chronic Plan patient stats she had been working in the yard prior developing her symptoms suspect may have dehydrated, patient continued to have BM, to further evaluate patient had CT of abdomen which showed probable small bowel obstruction with superimposed small bowel enteritis, with suspected transition point and wall thickening at the mid ileum. patient was seen by surgery service, patient does not need any surgical intervention nor she need NG tube as patient is passing gas however no BM while in the hospital, patient was kept NPO have bowl rest. surgery service has started patient on clear liquids, will continue to monitor and patient symptoms improve will advance her diet, there was concern with spesis score as patient met the criteria and was started on Zosyn for possible enteritis and colitis. Subjective Date/time seen: 08/10/24 13:23 Interval history: patient stats she had been working in the yard prior developing her symptoms suspect may have dehydrated, patient continued to have BM, to further evaluate patient had CT of abdomen which showed probable small bowel obstruction with superimposed small bowel enteritis, with suspected transition point and wall thickening at the mid ileum. patient was seen by surgery service, patient does not need any surgical intervention nor she need NG tube as patient is passing gas however no BM while in the hospital, patient was kept NPO have bowl rest. surgery service has started patient on clear liquids, will continue to monitor and patient symptoms improve will advance her diet, there was concern with spesis score as patient met the criteria and was started on Zosyn for possible enteritis and colitis. Review of Systems Review of Systems: All systems reviewed & are unremarkable except as noted in HPI and below Exam Narrative: Patient is comfortable, NAD HEENT: eyes are clear and none icteric LUNGS:CTA HEART: RR S1S2 ABD: Bowel sounds are faint Lower extremities: no edema SKIN: nonjaundiced Neuro: grossly intact. Objective Data Vital Signs Vital Signs: Vital Signs - 24 hr 08/09/24 15:27 08/09/24 20:00 08/09/24 20:23 Temperature 36.9 C 36.4 C L Pulse Rate 85 77 Respiratory Rate 16 16 Blood Pressure 125/51 L 121/53 L Pulse Oximetry 96 93 Oxygen Delivery Room Air 08/10/24 00:00 08/10/24 06:09 08/10/24 08:00 Temperature 37.0 C 36.5 C Pulse Rate 93 89 Respiratory Rate 18 18 Blood Pressure 126/64 109/57 L Pulse Oximetry 92 97 Oxygen Delivery Room Air 08/10/24 08:43 Temperature Pulse Rate 70 Respiratory Rate Blood Pressure 123/54 L Pulse Oximetry 96 Oxygen Delivery Intake/Output Intake/Output: Intake & Output 08/07/24 08/08/24 08/09/24 08/10/24 23:59 23:59 23:59 23:59 Intake Total 2815 1290 Output Total 600 Balance 2215 1290 Meds/Results Medications: Active Medications Generic Name Dose Route Start Last Admin Trade Name Freq PRN Reason Stop Dose Admin Acetaminophen 650 mg 08/09/24 11:21 Acetaminophen 325 Mg Tablet PO Q6H PRN Mild Pain (1-3) or Fever Aspirin 81 mg 08/10/24 09:00 08/10/24 08:46 Aspirin 81 Mg Enteric Tablet PO 81 mg DAILY HANNAH Administration Azelastine HCl 1 spray 08/09/24 10:17 08/09/24 11:52 Azelastine Hcl Nasal 0.1% 137 Mcg/Spr 30 Ml Btl NASAL 1 spray DAILY PRN Administration allergy symptoms Cyanocobalamin 2,000 mcg 08/10/24 09:00 08/10/24 08:46 Cyanocobalamin 1,000 Mcg Tablet PO 2,000 mcg QAM HANNAH Administration Famotidine 20 mg 08/09/24 09:00 08/10/24 08:46 Famotidine 20 Mg/2 Ml Vial IV PUSH 20 mg Q12HR HANNAH Administration Ferrous Sulfate 325 mg 08/10/24 09:00 08/10/24 08:46 Ferrous Sulfate [address] BY MOUTH 325 mg Q48HR HANNAH Administration Hydrochlorothiazide 12.5 mg 08/10/24 09:00 08/10/24 08:46 Hydrochlorothiazide 12.5 Mg Capsule PO 12.5 mg QAM HANNAH Administration Lactated Ringer's 1,000 mls @ 100 mls/hr 08/09/24 05:55 08/10/24 05:24 Lr - Lactated Ringers Iv IV CONT 100 mls/hr .Q10H HANNAH Administration Piperacillin Sod/Tazobactam Sod 2.25 gm in 50 mls @ 100 mls/hr 08/10/24 08:00 08/10/24 13:16 Zosyn 2.25 Gm/Ns 50 Ml IVPB 100 mls/hr Q6HR HANNAH Administration Lactobacillus Acidophilus 1 tablet 08/10/24 09:00 08/10/24 08:45 Acidophilus/Bulgaricus Chewable Tablet BY MOUTH 1 tablet DAILY HANNAH Administration Levothyroxine Sodium 75 mcg 08/09/24 11:00 08/10/24 06:30 Levothyroxine Sodium 75 Mcg Tablet PO Not Given DAILY@0630 HANNAH Loratadine 5 mg 08/09/24 10:23 Loratadine 5 Mg Tablet PO DAILY PRN allergy symptoms Morphine Sulfate 2 mg 08/09/24 05:51 Morphine Sulfate (*Crx) 2 Mg/Ml Inj IV PUSH Q2H PRN Pain Rated 7-10 Multivitamins/Calcium 1 tablet 08/10/24 09:00 08/10/24 08:46 Therapeutic Multivitamins/Minerals Tab (*Bkc) PO 1 tablet DAILY HANNAH Administration Ondansetron HCl 4 mg 08/09/24 05:51 Ondansetron Inj 4 Mg/2 Ml Vial IV PUSH Q4H PRN Nausea Pantoprazole Sodium 40 mg 08/09/24 21:00 08/09/24 19:52 Pantoprazole 40 Mg Tablet PO 40 mg HS HANNAH Administration Rosuvastatin Calcium 10 mg 08/09/24 21:00 08/09/24 19:52 Rosuvastatin 10 Mg Tablet PO 10 mg HS HANNAH Administration Sacubitril/Valsartan 1 tab 08/09/24 17:00 08/10/24 08:47 Sacubitril/Valsartan 24-26 Mg Tablet PO 1 tab BID HANNAH Administration Venlafaxine HCl 75 mg 08/09/24 10:35 08/10/24 08:47 Venlafaxine Hcl 75 Mg Tablet PO 75 mg DAILY HANNAH Administration Venlafaxine HCl 37.5 mg 08/09/24 10:35 08/10/24 08:47 Venlafaxine Hcl 37.5 Mg Tablet PO 37.5 mg DAILY HANNAH Administration Vitamin D 2,000 units 08/10/24 09:00 08/10/24 08:46 Cholecalciferol 1,000 Units Tablet PO 2,000 units DAILY HANNAH Administration Radiology Results: ITS Impressions Abdomen/Pelvis CT 08/09/24 05:31 Impression: Probable small bowel obstruction with superimposed small bowel enteritis, with suspected transition point and wall thickening at the mid ileum. Correlate for infectious enteritis or possibly inflammatory bowel disease. Possible area of circumferential wall thickening of the cecum with fluid distention of the proximal cecum. Correlate for neoplastic lesion versus additional infectious/inflammatory process or inflammatory bowel disease. Consider colonoscopy. Small amount of ascites. Stable right adrenal nodule. Bilateral renal masses, some which are simple cysts, some which are higher attenuation than simple cyst. Follow-up nonemergent pre and postcontrast MR recommended to best assess for any possible solid renal mass. Abdomen X-Ray 08/10/24 06:16 Impression: Nonspecific bowel gas pattern. Labs Labs: Laboratory Results - last 24 hr 08/10/24 01:30 WBC 5.2 RBC 3.00 L Hgb 9.9 L Hct 29.9 L MCV 99.7 MCH 33.0 MCHC 33.1 RDW 12.4 Plt Count 154 MPV 9.5 Immature Gran % (Auto) 0.2 Neut % (Auto) 69.4 Lymph % (Auto) 19.1 [place] % (Auto) 9.7 H Eos % (Auto) 1.4 Baso % (Auto) 0.2 Lymph # (Auto) 0.99 [place] # (Auto) 0.5 Eos # (Auto) 0.1 Baso # (Auto) 0.0 Abs Immat Gran (auto) 0.01 Absolute Neuts (auto) 3.6 Absolute Nucleated RBC 0.000 Nucleated RBC % 0.0 ESR 26 H Sodium 139 Potassium 3.6 Chloride 108 H Carbon Dioxide 22 Anion Gap 9 BUN 17 Creatinine 1.19 H Estim Creat Clear Calc 30 Estimated GFR 44 L Glucose 113 H Lactic Acid 0.7 Calcium 8.4 Magnesium 1.8 C-Reactive Protein 3.1 H Procalcitonin 2.5 Quality VTE Prophylaxis VTE prophylaxis: mechanical ordered
[2024-08-10 14:35] VITALS: BP 129/52; PULSE 67; RESP 16; TEMP 36.8; O2SAT 97
--- NOTE | 2024-08-10 15:45 | P.CONGI_ITS ---
Assessment and Plan Assessment and plan (1) Enteritis: Code(s): K52.9 - Noninfective gastroenteritis and colitis, unspecified Status: Acute Assessment and Plan: Her clinical picture and imaging are most compatible with infectious gastroenteritis. Although previous abdominal surgeries initially raised concern for adhesive small bowel obstruction, her rapid improvement and the absence nasogastric decompression suggest this is a less probable diagnosis. Given her current tolerance of a liquid diet and today's normal abdominal films (showing no signs of obstruction or ileus), we suggest to advance her to a soft diet. She appears suitable for discharge tomorrow. Also suggest oral Ciprofloxacin 500 mg twice daily for 5 additional days to empirically treat a bacterial cause, considering her initial leukocytosis. GI Consult Note Consult date/time: 08/10/24 15:45 Reason for consult: Diarrhea and vomiting HPI: Khushi Kraus, an 83-year-old female with a past surgical history of bladder surgery and cholecystectomy, was admitted yesterday due to a 4-day history of worsening gastrointestinal symptoms. These included nausea with greenish emesis, frequent watery diarrhea, and diffuse, crampy abdominal pain ranging from moderate to severe. Notably, a colonoscopy in March 2023 was normal. Initial imaging on admission, a CT scan of the abdomen, revealed a possible circumferential thickening of the cecum and some dilated small bowel loops. Today's abdominal plain films are unremarkable. Laboratory data from admission showed a WBC 13.9 and creatinine 1.3. Current labs indicate improvement with a WBC 5.2 and creatinine 1.19, though hemoglobin is 9.9. Sodium and potassium levels remain normal. The patient's clinical status has significantly improved; she is tolerating a liquid diet and is pain-free Review of Systems 2 Review of Systems: All systems reviewed & are unremarkable except as noted in HPI and below PMFSH Past Medical History Medical History Renal artery stenosis Bladder cancer Plantar fasciitis of left foot LVH (left ventricular hypertrophy) GERD (gastroesophageal reflux disease) Hypertension Hyperlipidemia Hypothyroidism Vertigo Surgical History Surgical History (Updated 08/09/24 @ 15:56 by MELCHOR Tomlin) History of transurethral resection of bladder tumor (TURBT) H/O partial nephrectomy Due to tumor History of endoscopy History of colonoscopy History of repair of right rotator cuff History of repair of left rotator cuff History of bunionectomy History of cholecystectomy History of bladder suspension procedure History of cystoscopy History of hysterectomy History of rhinoplasty History of tubal ligation Family History Family History Mother Uterine cancer Father Acute myocardial infarction Asthma Sibling Diabetes mellitus Social History Social History Smoking status: Never smoker Alcohol intake: never Substance use: never Substance use type: does not use Do You Feel Safe in your Home?: Yes Lack of Transportation: No Lack of Food: Never True Current Housing: I Have Housing Concerned About Future Housing: No Difficulty Paying Gas/Electric Bills: No Difficulty Paying for Meds: No Currently Unemployed: No Education: High School Diploma/GED Difficulty w/ Childcare or Family Care: No Gender identity (if verbalized by the patient): Female Spiritual care concerns: No Meds Home Medications and Allergies Home Medications ?Medication ?Instructions ?Recorded ?Confirmed ?Type Lactobacillus acidophilus 250 250 mmu cells PO DAILY 02/11/19 08/09/24 History million cell capsule (Probiotic Acidophilus) cholecalciferol (vitamin D3) 50 50 mcg PO DAILY 02/11/19 08/09/24 History mcg (2,000 unit) capsule (Vitamin D3) kwqjjmadzwkn-kyqxqluz-hebkffk-folic 1 tablet PO DAILY 02/11/19 08/09/24 History acid 400 mcg-vit K1 20 mcg tablet (One-A-Day Women's 50 Plus) aspirin 81 mg tablet,delayed 81 mg PO DAILY 08/09/24 08/09/24 History release azelastine 205.5 mcg (0.15 %) 1 spray intranasal DAILY PRN 08/09/24 08/09/24 History nasal spray (Astepro Allergy) allergy symptoms cetirizine 10 mg tablet (24Hour 5 mg PO DAILY PRN allergy symptoms 08/09/24 08/09/24 History Allergy) ferrous sulfate 27 mg iron tablet 27 mg PO EVERY OTHER DAY 08/09/24 08/09/24 History (High Potency Iron) hydrochlorothiazide 25 mg tablet 12.5 mg PO DAILY 08/09/24 08/09/24 History krill oil 500 mg capsule 2,500 mg PO DAILY 08/09/24 08/09/24 History levothyroxine 75 mcg tablet 75 mcg PO DAILY 08/09/24 08/09/24 History mecobalamin (vitamin B12) 1,000 2,000 mcg PO DAILY 08/09/24 08/09/24 History mcg chewable tablet pantoprazole 40 mg tablet,delayed 40 mg PO HS 08/09/24 08/09/24 History release rosuvastatin 10 mg tablet 10 mg PO HS 08/09/24 08/09/24 History sacubitril 24 mg-valsartan 26 mg 1 tablet PO BID 08/09/24 08/09/24 History tablet (Entresto) triamcinolone acetonide 55 mcg 2 spray intranasal DAILY PRN 08/09/24 08/09/24 History nasal spray aerosol (Nasacort) allergy symptoms venlafaxine 37.5 mg tablet 37.5 mg PO DAILY 08/09/24 08/09/24 History venlafaxine 75 mg tablet 75 mg PO DAILY 08/09/24 08/09/24 History Allergies Allergy/AdvReac Type Severity Reaction Status Date / Time No Known Allergies Allergy Mild Verified 08/09/24 08:32 Vital Signs Vital Signs - 24 hr 08/09/24 20:00 08/09/24 20:23 08/10/24 00:00 Temperature 97.5 F L 98.6 F Pulse Rate 77 93 Respiratory Rate 16 18 Blood Pressure 121/53 L 126/64 Pulse Oximetry 93 92 Oxygen Delivery Room Air 08/10/24 06:09 08/10/24 08:00 08/10/24 08:43 Temperature 97.7 F Pulse Rate 89 70 Respiratory Rate 18 Blood Pressure 109/57 L 123/54 L Pulse Oximetry 97 96 Oxygen Delivery Room Air 08/10/24 14:35 Temperature 98.3 F Pulse Rate 67 Respiratory Rate 16 Blood Pressure 129/52 L Pulse Oximetry 97 Oxygen Delivery Exam 2 Const: General: cooperative and healthy appearing Resp: Effort & Inspection: normal respiratory effort and able to speak in complete sentences Auscultation: clear to auscultation bilaterally Cardio: Rate: regular rate Rhythm: regular rhythm GI: Inspection: normal to inspection Auscultation: normal bowel sounds R ectal Exam: deferred Skin: General skin exam: normal color Psych: Appearance: grossly normal Mental Status: mental status grossly normal Results Labs 08/10/24 01:30 08/10/24 01:30 Labs: Short CBC 08/10/24 Range/Units 01:30 WBC 5.2 (4.5-10.0) K/mm3 Hgb 9.9 L (12.0-15.0) g/dL Hct 29.9 L (37.0-47.0) % Plt Count 154 (150-375) k/mm3 BMP 08/10/24 01:30 Sodium 139 Potassium 3.6 Chloride 108 H Carbon Dioxide 22 BUN 17 Creatinine 1.19 H Glucose 113 H Calcium 8.4
[2024-08-10] MEDS: PANTOPRAZOLE 40 MG TABLET PO (20:28)
[2024-08-10] MEDS: ROSUVASTATIN 10 MG TABLET PO (20:28)
[2024-08-11] VITALS: BP 148/55; PULSE 81; RESP 18; TEMP 36.9; O2SAT 100
[2024-08-11] MEDS: LACTATED RINGERS 1,000 ML 100 ML IV CONT (04:26)
[2024-08-11 05:11] LABS: Basophils Percent Auto 0.4 % (0.2-1.2); Eosinophils Absolute Auto 0.1 K/mm3 (0-0.3); Eosinophils Percent Auto 1.7 % (0-4.4); Hematocrit 30.1 % (37.0-47.0); Immature Granulocyte Absolute 0.01 K/mm3 (0.00-0.031); Immature Granulocyte Percent A 0.2 % (0-0.5); Lymphocytes Absolute Auto 1.39 K/mm3 (0.9-3.2); Lymphocytes Percent Auto 26.2 % (18.3-44.2); Mean Corpuscular HGB Conc 33.2 g/dl (32-36); Mean Corpuscular Volume 99.3 fl (80-100); Mean Platelet Volume 9.6 fl (7.4-10.4); Monocytes Absolute Auto 0.6 K/mm3 (0.1-0.6); Monocytes Percent Auto 11.1 % (2.6-8.5); Neutrophils Absolute Auto 3.2 K/mm3 (1.3-6.7); Neutrophils Percent Auto 60.4 % (45.5-73.1); Platelet Count Result 164 k/mm3 (150-375); Red Blood Count 3.03 M/mm3 (4.2-5.4); Red Cell Distribution Width 11.9 % (11.5-14.5); White Blood Count 5.3 K/mm3 (4.5-10.0)
[2024-08-11 05:23] LABS: Anion Gap 7 mmol/L (4-12); Blood Urea Nitrogen 17 mg/dL (7-17); Calcium 8.5 mg/dL (8.4-10.2); Carbon Dioxide 25 mmol/L (22-30); Chloride 110 mmol/L (98-107); Estimated CRCL calculation 30 ml/min; Estimated Glomerular Filt Rate 45; Glucose 121 mg/dL (65-110); Magnesium 1.8 mg/dL (1.6-2.3); Potassium 4.3 mmol/L (3.4-5.0); Sodium 142 mmol/L (137-145)
[2024-08-11] MEDS: PIPERACILLIN/TAZ 2.25G/NS 50ML 2.25 GM/50 ML BAG IVPB ×2 (05:53→12:04)
[2024-08-11] MEDS: LEVOTHYROXINE SODIUM 75 MCG TABLET PO (05:53)
[2024-08-11 06:29] VITALS: BP 117/53; PULSE 72; RESP 18; TEMP 36.5; O2SAT 99
--- NOTE | 2024-08-11 07:08 | WPDGIPROGNO ---
Progress Note: A&P Assessment and Plan (1) Acute gastroenteritis: Code(s): K52.9 - Noninfective gastroenteritis and colitis, unspecified Status: Acute Assessment and Plan: The patient, who presented with acute nausea, vomiting, and diarrhea, has shown a complete resolution of symptoms. She received intravenous antibiotic therapy well and is now stable for discharge. She should continue oral antibiotic therapy for 4 more days with either Ciprofloxacin 500 mg twice daily or Levofloxacin 750 mg once daily. Subjective Date/time seen: 08/11/24 07:08 Interval history: The patient had a semi liquid bowel movement earlier today. No further abdominal pain, no vomiting no nausea. She recovered her appetite. Exam Narrative: Abdomen: Soft, nontender, nondistended, rest of the exam unchanged from yesterday. Objective Data Vital Signs Vital Signs: Vital Signs - 24 hr 08/10/24 08:00 08/10/24 08:43 08/10/24 14:35 Temperature 98.3 F Pulse Rate 70 67 Respiratory Rate 16 Blood Pressure 123/54 L 129/52 L Pulse Oximetry 96 97 Oxygen Delivery Room Air 08/10/24 20:00 08/11/24 00:00 08/11/24 06:29 Temperature 98.5 F 97.7 F Pulse Rate 81 72 Respiratory Rate 18 18 Blood Pressure 148/55 H 117/53 L Pulse Oximetry 100 99 Oxygen Delivery Room Air Intake/Output Intake/Output: Intake & Output 08/08/24 08/09/24 08/10/24 08/11/24 23:59 23:59 23:59 23:59 Intake Total 2815 3470 1050 Output Total 600 Balance 2215 3470 1050 Meds/Results Medications: Active Medications Generic Name Dose Route Start Last Admin Trade Name Freq PRN Reason Stop Dose Admin Acetaminophen 650 mg 08/09/24 11:21 Acetaminophen 325 Mg Tablet PO Q6H PRN Mild Pain (1-3) or Fever Aspirin 81 mg 08/10/24 09:00 08/10/24 08:46 Aspirin 81 Mg Enteric Tablet PO 81 mg DAILY HANNAH Administration Azelastine HCl 1 spray 08/09/24 10:17 08/09/24 11:52 Azelastine Hcl Nasal 0.1% 137 Mcg/Spr 30 Ml Btl NASAL 1 spray DAILY PRN Administration allergy symptoms Cyanocobalamin 2,000 mcg 08/10/24 09:00 08/10/24 08:46 Cyanocobalamin 1,000 Mcg Tablet PO 2,000 mcg QAM HANNAH Administration Famotidine 20 mg 08/09/24 09:00 08/10/24 20:28 Famotidine 20 Mg/2 Ml Vial IV PUSH 20 mg Q12HR HANNAH Administration Ferrous Sulfate 325 mg 08/10/24 09:00 08/10/24 08:46 Ferrous Sulfate [address] BY MOUTH 325 mg Q48HR HANNAH Administration Hydrochlorothiazide 12.5 mg 08/10/24 09:00 08/10/24 08:46 Hydrochlorothiazide 12.5 Mg Capsule PO 12.5 mg QAM HANNAH Administration Lactated Ringer's 1,000 mls @ 100 mls/hr 08/09/24 05:55 08/11/24 04:26 Lr - Lactated Ringers Iv IV CONT 100 mls/hr .Q10H HANNAH Administration Piperacillin Sod/Tazobactam Sod 2.25 gm in 50 mls @ 100 mls/hr 08/10/24 08:00 08/11/24 05:53 Zosyn 2.25 Gm/Ns 50 Ml IVPB 100 mls/hr Q6HR HANNAH Administration Lactobacillus Acidophilus 1 tablet 08/10/24 09:00 08/10/24 08:45 Acidophilus/Bulgaricus Chewable Tablet BY MOUTH 1 tablet DAILY HANNAH Administration Levothyroxine Sodium 75 mcg 08/09/24 11:00 08/11/24 05:53 Levothyroxine Sodium 75 Mcg Tablet PO 75 mcg DAILY@0630 HANNAH Administration Loratadine 5 mg 08/09/24 10:23 Loratadine 5 Mg Tablet PO DAILY PRN allergy symptoms Morphine Sulfate 2 mg 08/09/24 05:51 Morphine Sulfate (*Crx) 2 Mg/Ml Inj IV PUSH Q2H PRN Pain Rated 7-10 Multivitamins/Calcium 1 tablet 08/10/24 09:00 08/10/24 08:46 Therapeutic Multivitamins/Minerals Tab (*Bkc) PO 1 tablet DAILY HANNAH Administration Ondansetron HCl 4 mg 08/09/24 05:51 Ondansetron Inj 4 Mg/2 Ml Vial IV PUSH Q4H PRN Nausea Pantoprazole Sodium 40 mg 08/09/24 21:00 08/10/24 20:28 Pantoprazole 40 Mg Tablet PO 40 mg HS HANNAH Administration Rosuvastatin Calcium 10 mg 08/09/24 21:00 08/10/24 20:28 Rosuvastatin 10 Mg Tablet PO 10 mg HS HANNAH Administration Sacubitril/Valsartan 1 tab 08/09/24 17:00 08/10/24 17:23 Sacubitril/Valsartan 24-26 Mg Tablet PO 1 tab BID HANNAH Administration Venlafaxine HCl 75 mg 08/09/24 10:35 08/10/24 08:47 Venlafaxine Hcl 75 Mg Tablet PO 75 mg DAILY HANNAH Administration Venlafaxine HCl 37.5 mg 08/09/24 10:35 08/10/24 08:47 Venlafaxine Hcl 37.5 Mg Tablet PO 37.5 mg DAILY HANNAH Administration Vitamin D 2,000 units 08/10/24 09:00 08/10/24 08:46 Cholecalciferol 1,000 Units Tablet PO 2,000 units DAILY HANNAH Administration Radiology Results: ITS Impressions Abdomen/Pelvis CT 08/09/24 05:31 Impression: Probable small bowel obstruction with superimposed small bowel enteritis, with suspected transition point and wall thickening at the mid ileum. Correlate for infectious enteritis or possibly inflammatory bowel disease. Possible area of circumferential wall thickening of the cecum with fluid distention of the proximal cecum. Correlate for neoplastic lesion versus additional infectious/inflammatory process or inflammatory bowel disease. Consider colonoscopy. Small amount of ascites. Stable right adrenal nodule. Bilateral renal masses, some which are simple cysts, some which are higher attenuation than simple cyst. Follow-up nonemergent pre and postcontrast MR recommended to best assess for any possible solid renal mass. Abdomen X-Ray 08/10/24 06:16 Impression: Nonspecific bowel gas pattern. Labs Labs: Laboratory Results - last 24 hr 08/11/24 05:02 WBC 5.3 RBC 3.03 L Hgb 10.0 L Hct 30.1 L MCV 99.3 MCH 33.0 MCHC 33.2 RDW 11.9 Plt Count 164 MPV 9.6 Immature Gran % (Auto) 0.2 Neut % (Auto) 60.4 Lymph % (Auto) 26.2 [place] % (Auto) 11.1 H Eos % (Auto) 1.7 Baso % (Auto) 0.4 Lymph # (Auto) 1.39 [place] # (Auto) 0.6 Eos # (Auto) 0.1 Baso # (Auto) 0.0 Abs Immat Gran (auto) 0.01 Absolute Neuts (auto) 3.2 Absolute Nucleated RBC 0.000 Nucleated RBC % 0.0 Sodium 142 Potassium 4.3 Chloride 110 H Carbon Dioxide 25 Anion Gap 7 BUN 17 Creatinine 1.16 H Estim Creat Clear Calc 30 Estimated GFR 45 L Glucose 121 H Calcium 8.5 Magnesium 1.8
[2024-08-11 08:07] LABS: Glucose Point of Care 113 mg/dl (65-105)
[2024-08-11 08:17] VITALS: BP 136/60; PULSE 65; O2SAT 100
[2024-08-11] MEDS: CHOLECALCIFEROL 1,000 UNITS TABLET 2000 UNITS PO (08:18)
[2024-08-11] MEDS: ASPIRIN 81 MG ENTERIC TABLET PO (08:18)
[2024-08-11] MEDS: ACIDOPHILUS/BULGARICUS CHEWABLE TABLET 1 TABLET BY MOUTH (08:18)
[2024-08-11] MEDS: hydroCHLOROthiazide 12.5 MG CAPSULE PO (08:18)
[2024-08-11] MEDS: SACUBITRIL/VALSARTAN 24-26 MG TABLET 1 TAB PO (08:18)
[2024-08-11] MEDS: CYANOCOBALAMIN 1,000 MCG TABLET 2000 MCG PO (08:18)
[2024-08-11] MEDS: VENLAFAXINE HCL 37.5 MG TABLET PO (08:18)
[2024-08-11] MEDS: VENLAFAXINE HCL 75 MG TABLET PO (08:18)
[2024-08-11] MEDS: FAMOTIDINE 20 MG/2 ML VIAL IV PUSH (08:19)
[2024-08-11] MEDS: THERAPEUTIC MULTIVITAMINS/MINERALS TAB (*BKC) 1 TABLET PO (08:19)
[2024-08-11 11:39] VITALS: O2SAT 99
--- NOTE | 2024-08-11 12:26 | PM.DS ---
DS: Admitting Diagnosis Discharge Date 08/11/24 Admitting Diagnosis abdominal pain, bloating and N/V DS: Discharge Diagnosis Discharge Diagnosis (1) SBO (small bowel obstruction): Code(s): K56.609 - Unspecified intestinal obstruction, unspecified as to partial versus complete obstruction Status: Acute (2) Enteritis: Code(s): K52.9 - Noninfective gastroenteritis and colitis, unspecified Status: Acute (3) H/O major abdominal surgery: Code(s): Z98.890 - Other specified postprocedural states Status: Acute (4) Hypertension: Code(s): I10 - Essential (primary) hypertension Status: Chronic Plan patient stats she had been working in the yard prior developing her symptoms suspect may have dehydrated, patient continued to have BM, to further evaluate patient had CT of abdomen which showed probable small bowel obstruction with superimposed small bowel enteritis, with suspected transition point and wall thickening at the mid ileum. patient was seen by surgery service, patient does not need any surgical intervention nor she need NG tube as patient is passing gas however no BM while in the hospital, patient was kept NPO have bowl rest. surgery service has started patient on clear liquids, will continue to monitor and patient symptoms improve will advance her diet, there was concern with spesis score as patient met the criteria and was started on Zosyn for possible enteritis and colitis. patient clinical symptoms have improved, able to tolerate her diet, will discharge today. DS: Summary Hospital Course Hospital Course: patient stats she had been working in the yard prior developing her symptoms suspect may have dehydrated, patient continued to have BM, to further evaluate patient had CT of abdomen which showed probable small bowel obstruction with superimposed small bowel enteritis, with suspected transition point and wall thickening at the mid ileum. patient was seen by surgery service, patient does not need any surgical intervention nor she need NG tube as patient is passing gas however no BM while in the hospital, patient was kept NPO have bowl rest. surgery service has started patient on clear liquids, will continue to monitor and patient symptoms improve will advance her diet, there was concern with spesis score as patient met the criteria and was started on Zosyn for possible enteritis and colitis. patient clinical symptoms have improved, able to tolerate her diet, will discharge today. Time Spent with Patient Time attestation: Total time spent providing and/or coordinating discharge services: Exam Narrative: Patient is comfortable, NAD HEENT: eyes are clear and none icteric LUNGS:CTA HEART: RR S1S2 ABD: Bowel sounds are faint Lower extremities: no edema SKIN: nonjaundiced Neuro: grossly intact. DS: Data Data Completed and Pending Labs on day of discharge: Labs from last 24 hours 08/11/24 08/11/24 08:02 05:02 WBC 5.3 RBC 3.03 L Hgb 10.0 L Hct 30.1 L MCV 99.3 MCH 33.0 MCHC 33.2 RDW 11.9 Plt Count 164 MPV 9.6 Immature Gran % (Auto) 0.2 Neut % (Auto) 60.4 Lymph % (Auto) 26.2 [place] % (Auto) 11.1 H Eos % (Auto) 1.7 Baso % (Auto) 0.4 Lymph # (Auto) 1.39 [place] # (Auto) 0.6 Eos # (Auto) 0.1 Baso # (Auto) 0.0 Abs Immat Gran (auto) 0.01 Absolute Neuts (auto) 3.2 Absolute Nucleated RBC 0.000 Nucleated RBC % 0.0 Sodium 142 Potassium 4.3 Chloride 110 H Carbon Dioxide 25 Anion Gap 7 BUN 17 Creatinine 1.16 H Estim Creat Clear Calc 30 Estimated GFR 45 L Glucose 121 H POC Capillary Glucose 113 H Calcium 8.5 Magnesium 1.8 Preliminary micro results at discharge 08/09/24 03:24 Blood Culture - Preliminary Blood 08/09/24 03:24 Blood Culture - Preliminary Blood Discharge Plan Discharge Attending physician on discharge: Beck Noyola Consulting providers: Iqra Pham; Luan Casas; Sushant Dominguez; Paloma Rahman; Juanpablo Hickman Discharging Clinician: Sai Spencer Patient Disposition: Home Activity: as tolerated Diet: heart healthy Discharge Instructions: patient to follow up with her primary care provider as soon as possible, patient to follow up patient is instructed if any symptoms redevelop to go to nearest ER, Patient to follow up with Dr. Yessenia SNOWDEN as scheduled. Patient Instructions: Antibiotic Form Patient Language: Icelandic Stand Alone Forms: General Discharge Information Follow-up/Referrals: PHYSICIAN NOT ON STAFF,NONSTAFF [Primary Care Provider] - Luan Casas MD [Physician] - Discharge Medications: New ciprofloxacin HCl [Cipro] 500 mg tablet 500 mg PO Q12H Qty: 8 0RF Continued cholecalciferol (vitamin D3) [Vitamin D3] 50 mcg (2,000 unit) Capsule 50 mcg PO DAILY One-A-Day Women's 50 Plus 400-20 mcg Tablet 1 tablet PO DAILY Probiotic Acidophilus 1.5 mg (250 million cell) Capsule 250 mmu cells PO DAILY rosuvastatin 10 mg tablet 10 mg PO HS levothyroxine 75 mcg tablet 75 mcg PO DAILY Entresto 24-26 mg tablet 1 tablet PO BID pantoprazole 40 mg tablet,delayed release (DR/EC) 40 mg PO HS hydrochlorothiazide 25 mg tablet 12.5 mg PO DAILY venlafaxine 75 mg tablet 75 mg PO DAILY venlafaxine 37.5 mg tablet 37.5 mg PO DAILY High Potency Iron 27 mg iron tablet 27 mg PO EVERY OTHER DAY mecobalamin (vitamin B12) 1,000 mcg tablet,chewable 2,000 mcg PO DAILY krill oil 500 mg capsule 2,500 mg PO DAILY Patient Comments: 2 pills for her home dose cetirizine [24Hour Allergy] 10 mg tablet 5 mg PO DAILY PRN (Reason: allergy symptoms) azelastine [Astepro Allergy] 205.5 mcg (0.15 %) spray,non-aerosol 1 spray intranasal DAILY PRN (Reason: allergy symptoms) Rx Instructions: administer into each nostril triamcinolone acetonide [Nasacort] 55 mcg aerosol,spray 2 spray intranasal DAILY PRN (Reason: allergy symptoms) Rx Instructions: administer into each nostril aspirin 81 mg tablet,delayed release (DR/EC) 81 mg PO DAILY Date of admission: 08/09/24 05:52 Primary Care Provider: PHYSICIAN NOT ON STAFF,NONSTAFF Admitting Provider: Beck Noyola Attending physician on admission: Sai Spencer Condition: Stable
--- NOTE | 2024-08-11 14:18 | P.PNGS_ITS ---
Progress Note: A&P Assessment and Plan (1) SBO (small bowel obstruction): Code(s): K56.609 - Unspecified intestinal obstruction, unspecified as to partial versus complete obstruction Status: Acute Assessment and Plan: Abdominal xray showed no evidence for obstruction or free air. No abnormal mass lesion or calcification is seen. Patient has not been experiencing any abdominal pain or nausea. Patient is passing flatus and having regular bowel movements.. No indication for urgent surgical intervention. OK for discharge from surgical standpoint. (2) Enteritis: Code(s): K52.9 - Noninfective gastroenteritis and colitis, unspecified Status: Acute Assessment and Plan: Continue medical management. Stool studies and Cdiff ordered, but no yet collected. (3) Hypertension: Code(s): I10 - Essential (primary) hypertension Status: Chronic (4) H/O major abdominal surgery: Code(s): Z98.890 - Other specified postprocedural states Status: Acute Plan Patient discussed with Dr. Romero. Subjective Subjective Date/Time Seen: 08/11/24 14:18 Interval history: Patient is feeling well today with no abdominal discomfort, N/V, or diarrhea. She is having regular bowel movements and tolerating regular diet. Exam Const: General: comfortable, no acute distress and average body habitus Nutritional Appearance: average body habitus Orientation/consciousness: patient oriented x3 HENMT: Head: normocephalic and atraumatic Ears: hearing grossly normal bilaterally Mouth: Yes moist mucous membranes Eyes: General: appearance normal, both eyes and all related structures Pupils: Equal, round and reactive pupils present Neck: Neck: normal visual inspection and full ROM Resp: Effort & Inspection: no respiratory distress Auscultation: clear to auscultation bilaterally Cardio: Rate: regular rate Rhythm: regular rhythm Peripheral pulses: Peripheral pulses 2+ throughout GI: Inspection: non-distended, scar (Large horizontal scar in the lower abdomen, few small port site scars) and other (Mildly distended) Auscultation: normal bowel sounds and abnormal bowel sounds (slightly hypoactive) Skin: General skin exam: normal color Neuro: General: patient oriented x3, moves all extremities and no focal motor deficits Cranial nerves: Yes Equal, round and reactive pupils present Speech: normal speech Motor exam (neuro): 5/5 motor strength present throughout Extrem: General: normal to inspection and no edema Psych: Mental Status: mental status grossly normal Attitude: cooperative Insight: Good insight present (Psych) Judgement: Good judgement present (Psych) Objective Data Vital Signs Vital Signs: Vital Signs - 24 hr 08/10/24 14:35 08/10/24 20:00 08/11/24 00:00 Temperature 98.3 F 98.5 F Pulse Rate 67 81 Respiratory Rate 16 18 Blood Pressure 129/52 L 148/55 H Pulse Oximetry 97 100 Oxygen Delivery Room Air 08/11/24 06:29 08/11/24 08:00 08/11/24 08:17 Temperature 97.7 F Pulse Rate 72 65 Respiratory Rate 18 Blood Pressure 117/53 L 136/60 Pulse Oximetry 99 100 Oxygen Delivery Room Air 08/11/24 11:39 Temperature Pulse Rate Respiratory Rate Blood Pressure Pulse Oximetry 99 Oxygen Delivery Room Air Intake/Output Intake/Output: Intake & Output 08/08/24 08/09/24 08/10/24 08/11/24 23:59 23:59 23:59 23:59 Intake Total 2815 3470 1790 Output Total 600 Balance 2215 3470 1790 Meds/Results Radiology Results: ITS Impressions Abdomen/Pelvis CT 08/09/24 05:31 Impression: Probable small bowel obstruction with superimposed small bowel enteritis, with suspected transition point and wall thickening at the mid ileum. Correlate for infectious enteritis or possibly inflammatory bowel disease. Possible area of circumferential wall thickening of the cecum with fluid distention of the proximal cecum. Correlate for neoplastic lesion versus additional infectious/inflammatory process or inflammatory bowel disease. Consider colonoscopy. Small amount of ascites. Stable right adrenal nodule. Bilateral renal masses, some which are simple cysts, some which are higher attenuation than simple cyst. Follow-up nonemergent pre and postcontrast MR recommended to best assess for any possible solid renal mass. Abdomen X-Ray 08/10/24 06:16 Impression: Nonspecific bowel gas pattern. Labs Labs: Laboratory Results - last 24 hr 08/11/24 08/11/24 05:02 08:02 WBC 5.3 RBC 3.03 L Hgb 10.0 L Hct 30.1 L MCV 99.3 MCH 33.0 MCHC 33.2 RDW 11.9 Plt Count 164 MPV 9.6 Immature Gran % (Auto) 0.2 Neut % (Auto) 60.4 Lymph % (Auto) 26.2 [place] % (Auto) 11.1 H Eos % (Auto) 1.7 Baso % (Auto) 0.4 Lymph # (Auto) 1.39 [place] # (Auto) 0.6 Eos # (Auto) 0.1 Baso # (Auto) 0.0 Abs Immat Gran (auto) 0.01 Absolute Neuts (auto) 3.2 Absolute Nucleated RBC 0.000 Nucleated RBC % 0.0 Sodium 142 Potassium 4.3 Chloride 110 H Carbon Dioxide 25 Anion Gap 7 BUN 17 Creatinine 1.16 H Estim Creat Clear Calc 30 Estimated GFR 45 L Glucose 121 H POC Capillary Glucose 113 H Calcium 8.5 Magnesium 1.8
--- NOTE | 2024-08-15 06:14 | WPDCDIQUERY2 ---
CDI Query Clarification Request 1)Sepsis was mentioned in text but not listed as a problem diagnosis, Please clarify if Sepsis has been ruled in or ruled out 2) If yes, please clarify if present on admission: ? *Yes- condition was present at the time of inpatient admission ? *No- condition was not present at the time of inpatient admission and it developed during the inpatient stay ? *W- provider is unable to clinically determine whether condition is present on admission The medical chart reflects the following: Event Note: 08/10 I received a phone call regarding sepsis bulls eye after midnight vital signs were entered. I reviewed record and noted that patient was given fluids on admission but not on antibiotics. I ordered stat labs and asked that morning labs be drawn at the same time. hospitalist note 08/10 Plan patient stats she had been working in the yard prior developing her symptoms suspect may have dehydrated, patient continued to have BM, to further evaluate patient had CT of abdomen which showed probable small bowel obstruction with superimposed small bowel enteritis, with suspected transition point and wall thickening at the mid ileum. patient was seen by surgery service, patient does not need any surgical intervention nor she need NG tube as patient is passing gas however no BM while in the hospital, patient was kept NPO have bowl rest. surgery service has started patient on clear liquids, will continue to monitor and patient symptoms improve will advance her diet, there was concern with spesis score as patient met the criteria and was started on Zosyn for possible enteritis and colitis. WBC: 08/09: 13.9, 2.7 08/10: 5.2 Lactic acid: 08/09: 2.9, 2.6 08/10: 5.2 IV ABX Zosyn q6 hr <Yamini Sevilla RN - Last Filed: 08/15/24 06:30> Provider Comments yes condition were present at the time upon arrival patient met the criteria for sepsis due to stress from abdominal pain due to SBO, and dehydration however patient white counts were not significantly elevated, lactic acid levels were slight elevated and resolved with hydration, there was no fever, sepsis was ruled out. <Sai Spencer MD - Last Filed: 08/24/24 17:37>
== END 2024-08-11 14:05 | disposition home or self-care (01) | DRG 390 ==
LOC: ANHED 06:15 → ANHIMU 06:44 → ANH2MED 22:45
PROVIDERS: Nurse Practitioner; Nurse Practitioner Family; Admitting Provider Internal Medicine; Emergency Provider Emergency Medicine; Visit Provider Family Medicine
DX: K56.609 Unspecified intestinal obstruction, unspecified as to partial versus complete obstruction (principal); K52.9 Noninfective gastroenteritis and colitis, unspecified; E86.0 Dehydration; E03.9 Hypothyroidism, unspecified; E78.5 Hyperlipidemia, unspecified; I10 Essential (primary) hypertension; K21.9 Gastro-esophageal reflux disease without esophagitis; Z85.51 Personal history of malignant neoplasm of bladder; Z90.49 Acquired absence of other specified parts of digestive tract; Z79.82 Long term (current) use of aspirin; Z90.5 Acquired absence of kidney; Z85.528 Personal history of other malignant neoplasm of kidney; Z95.0 Presence of cardiac pacemaker
CPT/HCPCS: 36415; 74019; 74177; 80048; 80053; 81001; 82948; 83605; 83690; 83735; 84145; 85025; 85652; 86140; 87040; 87086; 96361; 96374; 96375; 96376; 99285; A9270; J2270; J2405; J2543; J3480; J7040; J7120; Q9967

== ENCOUNTER 2025-01-24 01:49 | Emergency (ER) | payer MEDICARE, SELFPAY ==
--- OUTSIDE RECORDS SUMMARY | 2004-03-27 02:45 | XMS_ITS | Continuity of Care Document ---
Author Organization [facility] Address [address] [facility] [address] [place] [address] Phone Care Team Providers Care Screwhead Polisher Name Role Phone Fan OD, Medhat Unavailable Unavailable Advance Directives Directive Yes / No Effective Date File Name No Information Encounters Encounter Description Practice Location Reason(s) For Visit Diagnoses Date Provider Providers Copied on Encounter [facility], [address], [place], [place], [address], [place] tel:[phone] [facility] No Information Mar-0 6-200 5 Fan OD Medhat. [address], [place], [address], [place]. tel:[phone] Family History Family Member Type Diagnosis Age At Onset No Information Payers Payer name Insurance type Covered republican ID Authoriza tion(s) No Information Social History Type Description Quantity Date Captured Comments Sex Female Smoking Status No Information Chief Complaint And Reason For Visit No Information Reason For Referral Reason For Referral No Information History Of Present Illness Encounter Date Complaint History Of Prese nt Illness No Information Functional Status Date Functional Assessmen t No Information Instructions Date Instruction Additional Infor mation No Information Assessments Type Assessment Date No Information Patient Care Teams Name Effective Dates (start - stop) Status Members No Information
--- OUTSIDE RECORDS SUMMARY | 2004-03-27 02:45 | XMS_ITS | Continuity of Care Document ---
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 [address] , [address], [place], [address], [place]. tel:[phone] Family History Family Member Type Diagnosis Age [...]
--- OUTSIDE RECORDS SUMMARY | 2020-12-18 05:00 | XMS_ITS | Continuity of Care Document ---
Author Organization [facility] Address [address] [address] [place] [address] Phone Care Team Providers Care Apns Name Role Phone Khurram Meeks MD Unavailable Unavaila ble Allergies, Adverse Reactions, Alerts Substance Reaction Status Criticality No Known Allergies Active No Inform ation Medications Medication Instructions Dosage Effective Dates (start - stop) Status Comments Medrol (Scooter) 4 mg tablets in a dose pack take by oral route as directed per package instructions 0.00 - Active venlafaxine ER 75 mg tablet,extended release 24 hr - Active atorvastatin 40 mg tablet - Active ranitidine 150 mg tablet - Active PROBIOTIC (unknown strength) Not Available - Active AZELASTINE HCL (unknown strength) Not Available - Active FISH OIL (unknown strength) Not Available - Active CALCIUM (unknown strength) Not Available - Active VITAMIN D3 (unknown strength) Not Available - Active SIMVASTATIN (unknown strength) take 1 tablet by oral route every day in the evening Not Available - Active LISINOPRIL (unknown strength) take 1 tablet by oral route every day Not Available - Active OMEPRAZOLE (unknown strength) take 1 capsule by oral route every day 30 minutes to 1 hour before a meal Not Available - Active VAGIFEM (unknown strength) insert 1 tablet by vaginal route every day for 14 days then 1 tablet (10 mcg) 2 times per week for duration of use Not Available - Active levothyroxine 88 mcg capsule - Active lisinopril 10 mg tablet - Active omeprazole 40 mg capsule,delayed release - Active aspirin 81 mg chewable tablet - Active multivitamin capsule - Active Procedures Procedure Date OFFICE/OUTPATIENT VISIT EST Triamcinolone acet inj NOS Drugs unclassified injection DRAIN/INJECT JOINT/BURSA OFFICE/OUTPATIENT VISIT EST Triamcinolone acet inj NOS Drugs unclassified injection DRAIN/INJECT JOINT/BURSA OFFICE/OUTPATIENT VISIT EST Drugs unclassified injection Methylprednisolone 80mg/ml inj DRAIN/INJECT JOINT/BURSA X-RAY HIP UNI W PELVIS 2-3 VIEWS 2019 OFFICE/OUTPATIENT VISIT EST RADEX TINA COMPL MINIMUM 2 VIEWS 020 Triamcinolone acet inj NOS Drugs unclassified injection DRAIN/INJECT JOINT/BURSA OFFICE/OUTPATIENT VISIT EST RADEX ANKLE COMPL MINIMUM 3 VIEWS RADEX FOOT COMPL MINIMUM 3 VIEWS 2019 OFFICE/OUTPATIENT VISIT EST OFFICE/OUTPATIENT VISIT EST RADEX TINA COMPL MINIMUM 2 VIEWS 019 OFFICE/OUTPATIENT VISIT EST OFFICE/OUTPATIENT VISIT EST OFFICE/OUTPATIENT VISIT EST OFFICE/OUTPATIENT VISIT EST OFFICE/OUTPATIENT VISIT EST OFFICE/OUTPATIENT VISIT EST OFFICE/OUTPATIENT VISIT EST OFFICE/OUTPATIENT VISIT EST Advance Directives Directive Yes / No Effective Date File Name No Information Encounters Encounter Description Practice Location Reason(s) For Visit Diagnoses Date Provider Providers Copied on Encounter OFFICE/OUTPA TIENT VISIT EST [facility], [address] [facility] [address], [place], [place], [facility], [place] tel:[phone] [facility] Rotator cuff arthropathy of left shoulderHisto ry of repair of rotator cuff Sep-2 1 Jeanna Paulson. [address], [place], [address]. tel:[phone] OFFICE/OUTPA TIENT VISIT EST [facility], [address], [place], [address], tel:[phone] [facility] Rotator cuff arthropathy of left shoulder 1 Gerardfranchescademetriaella StanfordKhurram. [address] [facility] [address], [place], [address]. tel:[phone] OFFICE/OUTPA TIENT VISIT EST [facility], [address] [facility] [address], [place], [address], [place] tel:[phone] [facility] Hip pain, rightGreater trochanteric bursitis, right Jun- 1 Cristobal De Santiago. [address], [place], [place], [address]. tel:[phone] OFFICE/OUTPA TIENT VISIT EST [facility], [address] [address], [place], [address], [place] tel:[phone] [facility] Hip pain, rightSciatica of right side 0 Cristobal De Santiago. [address], [place], [place], [address]. tel:[phone] OFFICE/OUTPA TIENT VISIT EST [facility], [address] [facility] [address], [place], [address], [place] tel:[phone] [facility] Left shoulder pain, unspecified chronicityRot ator cuff arthropathy of left shoulderHisto ry of repair of rotator cuff 0 Jeanna Paulson. [address] [facility] [address], [place], [address]. tel:[phone] OFFICE/OUTPA TIENT VISIT EST [facility], [address] [facility] [address], [place], [address], [place] tel:[phone] [facility] Left foot painPosterior tibial tendon dysfunction 0 Marco Barry. [address] [facility] [address], [place], [place], [address]. tel:[phone] OFFICE/OUTPA TIENT VISIT EST [facility], [address] [facility] [address], [place], [address], [place] tel:[phone] [facility] Elevated blood-pressur e reading, w/o diagnosis of htnBursitis of left shoulder 0 Jain Anyi. [address] [facility] [address], [place], [place], [address]. tel:[phone] OFFICE/OUTPA TIENT VISIT EST [facility], [address] [facility] [address], [place], [address], [place] tel:[phone] [facility] Pain in left shoulderBursi tis of left shoulder Sep- 9- 9 Dusek Amado. [address] [facility], [place], [place], [address]. tel:[phone] OFFICE/OUTPA TIENT VISIT EST [facility], [address] [facility] [address], [place], [address], [place] tel:[phone] [facility] Bursitis of right shoulder May-0 7 Dusek Amado. [address] [facility], [place], [place], [address]. tel:[phone] Referring Provider: Dalia Pérez, [address] [facility] [address], [place], [address]. tel:[phone] OFFICE/OUTPA TIENT VISIT [facility] [place], [address], [address], [place] tel:[phone] [facility] Shoulder impingementCe rvical radiculopathy 4 Cathy Gibson. [address] [facility] [address], [place], [place], [address]. tel:[phone] OFFICE/OUTPA TIENT VISIT EST [facility], [address] [place] [address], [place], [address], [place] tel:[phone] [facility] Disorder of bursae and tendons in shoulder region 4 Raghav Brand. [address] [place], [place], [address]. tel:[phone] OFFICE/OUTPA TIENT VISIT [facility] [place], [address] [place] [address], [address], [place] tel:[phone] [facility] Cervical radiculopathy Shoulder impingement 4 Raghav Brand. [address] [facility], [place], [place], [address]. tel:[phone] Referring Provider: Bebe Crawford, [address], [place], [address] . tel:[phone] OFFICE/OUTPA TIENT VISIT EST [facility], [address] [address], [place], [address], [place] tel:[phone] [facility] right shoulder (chief complaint) shoulder bursitis 4 [facility]. [address] [address], [place], [place], [address]. tel:[phone] Referring Provider: Bebe Crawford, [address], [place], [address] . tel:[phone] OFFICE/OUTPA TIENT VISIT EST [facility], [address] [address], [place], [address], [place] tel:[phone] [facility] shoulder bursitis 3 Billlazaro Fordnis. [address] [facility], [place], [place], [address]. tel:[phone] Referring Provider: Bebe Crawford, [address], [place], [address] . tel:[phone] OFFICE/OUTPA TIENT VISIT EST [facility], [address] [facility] [address], [place], [address], [place] tel:[phone] [facility] Right shoulder new problem (chief complaint) shoulder bursitisHyper tension, Unspecified [address] [facility] [address], [place], [place], [address]. tel:[phone] Referring Provider: Bebe Crawford, [address], [place], [address] . tel:[phone] Family History Family Member Type Diagnosis Age At Onset Sister Problem Cardiovascular disease Father Problem (finding) Cardiovascular disease Father Problem hypertension Mother Problem (finding) Cancer, Ovarian Father Problem Thyroid disorder Immunizations Vaccine Date Status Comments Pneumo (2 yrs or older)(PPV) administered Source: Other Provider Pneumo (2 yrs or older)(PPV) administered Source: Other Provider Pneumo (2 yrs or older)(PPV) administered Source: Other Provider Payers Payer name Insurance type Covered constitution party ID Authoriza tion(s) Medicare E2 OT [id number] [employer] OT [id number] Social History Type Description Quantity Date Captured Comments Alcohol Use Details Unknown Caffeine Use Details Unknown Tobacco Use Status No Information Smoking Status No Information Sex Female Chief Complaint And Reason For Visit No Information Reason For Referral Reason For Referral No Information Plan Of Treatment Date Type Action Status Referral Ordered: X-RAY HIP UNI W PELVIS 2-3 VIEWS RT ordered Referral Ordered: RADEX TINA COMPL MINIMUM 2 VIEWS LT ordered Referral Ordered: RADEX ANKLE COMPL MINIMUM 3 VIEWS LT ordered Referral Ordered: RADEX FOOT COMPL MINIMUM 3 VIEWS LT ordered Referral Ordered: Blood Pressure management: Referral to hypertension clinic. (related to Elevated blood-pressure reading, without diagnosis of hypertension) ordered Referral Ordered: RADEX TINA COMPL MINIMUM 2 VIEWS ordered Referral Ordered: RADEX SPI CRV 2/3 VIEWS ordered Referral Ordered: RADEX TINA COMPL MINIMUM 2 VIEWS RT ordered Referral Ordered: RADEX SCAPULA COMPL RT ordered Referral Ordered: RADEX TINA COMPL MINIMUM 2 VIEWS Bilateral ordered Referral Ordered: RADEX ACROMCLAV JTS BI +-W8ED DISTRCJ ordered Referral Ordered: US XTR NON-VASC COMPLETE RT shoulder Appointment date/timeframe: 03/06/2013 ordered History Of Present Illness Encounter Date Complaint History Of Prese nt Illness No Information Functional Status Date Functional Assessmen t No Information Instructions Date Instruction Additional Infor mation Discussed treatment options Rela shayy to Bursitis of left shoulder Call for increase in pain Relate d to Bursitis of left shoulder Discussed treatment options Rela shayy to Bursitis of right shoulder Call for increase in pain Relate d to Bursitis of right shoulder Limit overhead reach ing, pushing/pulling Discussed post-operative precaut ions Increased joint rest Continue medication as prescribe d Activity as tolerated Assessments Type Assessment Date assessment Rotator cuff arthropathy of left shoulder assessment History of repair of rotator cuf f Patient Care Teams Name Effective Dates (start - stop) Status Members No Information
--- OUTSIDE RECORDS SUMMARY | 2020-12-18 05:00 | XMS_ITS | Continuity of Care Document ---
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 [address] [facility] [address], [place], [address]. tel:[phone] OFFICE/OUTPA TIENT VISIT EST [facility], [address] [facility] [address], [place], [address], tel:[phone] [facility] Rotator cuff arthropathy of left shoulder 1 Gerardfranchescademetriaella StanfordKhurram. [address], [place], [address]. tel:[phone] OFFICE/OUTPA TIENT VISIT EST [facility], [address] [facility] [address], [place], [address], [place] tel:[phone] [facility] Hip pain, rightGreater trochanteric bursitis, right Jun- 1 Cristobal De Santiago. [address], [place], [place], [address]. tel:[phone] OFFICE/OUTPA TIENT VISIT EST [facility], [address] [address], [place], [address], [place] tel:[phone] [facility] Hip pain, rightSciatica of right side 0 Cristobal De Santiago. [address] [facility] [address], [place], [place], [address]. tel:[phone] OFFICE/OUTPA TIENT VISIT EST [facility], [address] [facility] [address], [place], [address], [place] tel:[phone] [facility] Left shoulder pain, unspecified chronicityRot ator cuff arthropathy of left shoulderHisto ry of repair of rotator cuff 0 Jeanna Paulson. [address], [place], [address]. tel:[phone] OFFICE/OUTPA TIENT VISIT EST [facility], [address] [facility] [address], [place], [address], [place] tel:[phone] [facility] Left foot painPosterior tibial tendon dysfunction 0 Marco Barry. [address], [place], [place], [address]. tel:[phone] OFFICE/OUTPA TIENT VISIT EST [facility], [address] [facility] [address], [place], [address], [place] tel:[phone] [facility] Elevated blood-pressur e reading, w/o diagnosis of htnBursitis of left shoulder 0 Jain Anyi. [address] [facility] [address], [place], [place], [address]. tel:[phone] OFFICE/OUTPA TIENT VISIT EST [facility], [address] [facility] [address], [place], [address], [place] tel:[phone] [facility] Pain in left shoulderBursi tis of left shoulder Sep- 9- 9 Dusek Amado. [address] [facility], [place], [place], [address]. tel:[phone] OFFICE/OUTPA TIENT VISIT EST [facility], [address] [facility] [address], [place], [address], [place] tel:[phone] [facility] Bursitis of right shoulder May-0 7 Dusek Amado. [address] [facility], [place], [place], [address]. tel:[phone] Referring Provider: Dalia Pérez, [address] [facility] [address], [place], [address]. tel:[phone] OFFICE/OUTPA TIENT VISIT [facility], [address], [address], [place] tel:[phone] [facility] Shoulder impingementCe rvical radiculopathy 4 Cathy Gibson. [address] [facility] [address], [place], [place], [address]. tel:[phone] OFFICE/OUTPA TIENT VISIT EST [facility], [address] [place] [address], [address], [place] tel:[phone] [facility] Disorder of bursae and tendons in shoulder region 4 Raghav Brand. [address] [place], [place], [address]. tel:[phone] OFFICE/OUTPA TIENT VISIT [facility], [address] [place] [address], [address], [place] tel:[phone] [facility] Cervical radiculopathy Shoulder impingement 4 Raghav Brand. [address] [facility], [place], [place], [address]. tel:[phone] Referring Provider: Bebe Crawford, [address], [place], [address] . tel:[phone] OFFICE/OUTPA TIENT VISIT EST [facility], [address] [address], [place], [address], [place] tel:[phone] [facility] right shoulder (chief complaint) shoulder bursitis 4 [facility]. [address] [address], [place], [place], [address]. tel:[phone] Referring Provider: Bebe Crawford, [address], [place], [address] . tel:[phone] OFFICE/OUTPA TIENT VISIT EST [facility], [address] [address], [place], [address], [place] tel:[phone] [facility] shoulder bursitis 3 Billlazaro Fordnis. [address] [facility], [place], [place], [address]. tel:[phone] Referring Provider: Bebe Crawford, [address], [place], [address] . tel:[phone] OFFICE/OUTPA TIENT VISIT EST [facility], [address] [facility] [address], [place], [address], [place] tel:[phone] [facility] Right shoulder new problem (chief complaint) shoulder bursitisHyper tension, Unspecified 3 Jain Anyi. [address] [facility] [address], [place], [place], [address]. tel:[phone] Referring Provider: Bebe Crawford, [address], [place], [address] . tel:[phone] Family History Family Member Type Diagnosis Age [...] Provider Payers Payer name Insurance type Covered libertarian ID Authoriza tion(s) Medicare E2 OT [id number] [employer] OT [id number] Social History Type Description Quantity Date Captured [...]
[2025-01-24] VITALS (9 sets, daily range): BP systolic 165–226; BP diastolic 76–105; PULSE 72–86; RESP 14–22; TEMP 37; O2SAT 96–100
--- NOTE | ~2025-01-24 | XR_ITS ---
Examination: XR chest 1V portable Clinical History: CP BLOATING Comparison: 04/09/2019 Technique: Portable AP Findings: Left pacemaker. Heart size normal. Lungs clear. Mild hyperinflation. A few tiny calcified granulomata. No acute bony abnormality. IMPRESSION: 1. No acute cardiopulmonary findings given portable technique. Reviewed, dictated and finalized at location R. ECT ARCHIVIST
--- NOTE | ~2025-01-24 | CT_ITS ---
EXAMINATION: CT abdomen pelvis w con DATE: 01/24/2025 03:40 INDICATION: Abdominal distention. TECHNIQUE: Computed tomography (CT) of the abdomen and pelvis was performed with 100 mL Omnipaque 350 intravenous contrast. Automated exposure control and iterative reconstruction technique were employed. The dose-length product was 242.48 mGy-cm. COMPARISON: CT abdomen and pelvis 08/09/2024 FINDINGS: The visualized portions of the lung bases demonstrate mild atelectasis. No pleural effusion. The heart size is normal. No pericardial effusion. There are pacer wires in right atrium and right ventricle. No pericardial effusion. There is a small sliding hiatal hernia. The liver and spleen are normal. There are changes of cholecystectomy. The pancreas and left adrenal gland are normal. There is a 1.8 cm mass in right adrenal gland without change from 04/09/2019, likely an adenoma. There are changes of partial right nephrectomy. There are cysts in the kidneys measuring up to 2.1 cm on the left. There is a 1.6 cm hemorrhagic cyst in left kidney. There is diverticulosis of the colon without evidence of diverticulitis. The appendix is not visualized. There are mildly dilated loops of small bowel without focal transition point. There are no pathologically enlarged lymph nodes. There is trace ascites. There are old healed left rib fractures. There is moderate lumbar spondylosis. IMPRESSION: 1. Small sliding hiatal hernia. 2. Mildly dilated loops of small bowel, likely adynamic ileus. Reviewed, dictated and finalized at location E. MBLYMAN OR WOMAN
--- OUTSIDE RECORDS SUMMARY | 2025-01-24 01:52 | XMS_ITS ---
Author Organization [facility] Address [address] [address] Care Team Providers Care Forestry Support Specialist Name Role Phone Dalia Pérez MD Primary Care Provider [phone] Monserrat Beasley MD Unavailable [phone] Active Problems Problem Noted Date Diagnosed Date Fitting and adjustment of cardiac pacemaker 09/20 ISRA (acute kidney injury) 09/21/2024 Moderate malnutrition 09/21/2024 SBO (small bowel obstruction) 08/22/2024 Abdominal pain 08/22/2024 Pacemaker 03/02/2024 Syncope, unspecified syncope type 11/21/2023 [...] (10/31/2021): Added automatically from request for surgery [id number] Shoulder arthritis 08/06/2021 Anxiety 08/01/2021 History of [...] (08/29/2019): Added automatically from request for surgery [id number] Personal history of colonic polyps 01/19/2018 Overview (01/19/2018): Added automatically from request for surgery [id number] Other dysphagia 01/19/2018 Overview (01/19/2018): Added automatically from request for surgery [id number] Allergic conjunctivitis of both eyes 11/30/2017 Assessment & Plan (02/02/2023 10:49 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 Warned may dry eye out more.n Assessment & Plan (12/19/2019 1:24 PM CDT): Add hot compresses with lid scrubs to alleviate crusting of lashes and remove pollen. Recommend trail of lubricant eye drops 4 times/day. If still itchy and symptomatic, try Zaditor OTC drops 2x/s day. H/o shots [id number] and using nose spray and judy. Eyes ok. Assessment & Plan (12/13/2018 2:32 PM CDT): Add hot compresses with lid scrubs to alleviate crusting of lashes and remove pollen. Recommend trail of lubricant eye drops 4 times/day. If still itchy and symptomatic, try Zaditor OTC drops 2x/s day. H/o shots [id number] and using nose spray and judy. Eyes ok. Assessment & Plan (11/30/2017 2:18 PM CDT): Add hot compresses with lid scrubs to alleviate crusting of lashes and remove pollen. Recommend trail of lubricant eye drops 4 times/day. If still itchy and symptomatic, try Zaditor OTC drops 2x/s day. Combined forms of age-related cataract of both e yes 11/30/2017 Assessment & Plan (12/20/2024 9:00 AM CDT): ADL being met / NVS, monitor. S/P LASIK OU DFE unremarkable Assessment & Plan (02/02/2023 10:52 AM HIGH [employer]CHO[employer] TEACHER): Not visually significant. Do not recommend surgery at this time. Continue to monitor. Patient to call if problems with activities of daily living. Warned post-LASIK will give some intraocular lens (IOL) calc challenges. 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 Add hot compresses with lid scrubs to improve quality of tears. 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 Verdugo. (had enhancement left eye (OS)). Pt doing well. 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
--- OUTSIDE RECORDS SUMMARY | 2025-01-24 01:52 | XMS_ITS | Clinical Summary ---
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 Gender Identity Not on file Sexual Orientation Not on file Plan of Treatment Health Maintenance Due Date Last Done Comments DTAP/TDAP/TD VACCINES (1 - Tdap) 1959 ZOSTER VACCINE (2 of 3) 08/03/2006 06/08/2006 PNEUMOCOCCAL VACCINE 50+ YEA RS (2 of 2 - PCV) 12/26/2008 12/27/2007 RSV VACCINE (60+ or ) (1 - 1-dose 75+ series) 2017 INFLUENZA VACCINE (#1) 2024 4, 02/01/2012, 12/25/2008, Additional history exists COVID-19 Vaccine (3 - 2024-2 6 season) 2024 05/13/2020, 04/15/2020 OSTEOPOROSIS SCREENING 03/17/2027 2, 03/17/2022, 01/02/2019, Additional history exists COLORECTAL SCREENING Discontinued 04/13/2018 Colorectal Cancer Screening Discontinued FIT-DNA Q 3 years Discontinued FIT/FOBT Q 1 year Discontinued Flex Sig/CT Colonography Q 5 years Discontinued Insurance ([place]) [address] [id number] MEDICARE PART A AND B [email or web address] Care Teams English Horn Player Relationship Specialty Start Date End Date Salvador Dobbs MD PCP - General Internal Medicine 04/09/15
--- OUTSIDE RECORDS SUMMARY | 2025-01-24 01:52 | XMS_ITS | Clinical Summary ---
Author Organization [facility] Address [address] [facility] [place] campus[place]ARREN Nunez [address] Care Team Providers Care Risk Reduction Counselor Name Role Phone Dalia Pérez MD Primary Care Provider [phone] Monserrat Beasley MD Unavailable [phone] Allergies No known active allergies Medications azelastine (ASTELIN) 137 mcg (0.1 %) nasal spray Administer 1 spray into each nostril daily as needed for allergies [address] (PROTONIX) 40 mg EC tablet Take 1 tablet (40 mg total) by mouth nightly 0 Active cyanocobalamin (Vitamin B-12) 1,000 mcg tablet Take 2 tablets (2,000 mcg total) by mouth every morning Active cholecalciferol (VITAMIN D-3) 25 mcg (1,000 unit) tablet Take 0.5 tablets (500 Units total) by mouth every morning 2 Active hydroCHLOROthiazi de (HYDRODIURIL) 25 mg tablet Take 0.5 tablets (12.5 mg total) by mouth daily 3 Active rosuvastatin (CRESTOR) 10 mg tablet Take 1 tablet (10 mg total) by mouth nightly Active levothyroxine (SYNTHROID) 75 mcg tablet Take 1 tablet (75 mcg total) by mouth daily 3 Active aspirin 81 mg enteric coated tablet Take 1 tablet (81 mg total) by mouth daily Active ferrous sulfate 134 mg (27 mg of elemental iron) tablet Take 1 tablet (134 mg total) by mouth every other day Active krill oil 500 mg capsule Take 2 capsules by mouth daily Active venlafaxine (EFFEXOR) 37.5 mg tablet Take 1 tablet (37.5 mg total) by mouth daily With 75 mg Active venlafaxine (EFFEXOR) 75 mg tablet Take 1 tablet (75 mg total) by mouth daily With 37.5 Active Entresto 49-51 mg tablet Take 2 tablets by mouth 2 (two) times a day 5 Active valACYclovir (VALTREX) 1 gram tablet Take 1 tablet (1,000 mg total) by mouth daily as needed Active therapeutic multivitamin (THERA) tabletIndications :Vitamin Deficiency Prevention Take 1 tablet by mouth daily Active acidophilus-pecti n, citrus 100 million cell-10 mg capsule Take 1 capsule by mouth daily Active calcium carbonate (OS-FRED) 1,250 mg (500 mg elemental) tablet Take 1 tablet (1,250 mg total) by mouth daily Active UNABLE TO FIND Med Name: Marine COllagen Active cetirizine (ZyrTEC) 5 mg tablet Take 1 tablet (5 mg total) by mouth nightly Active triamcinolone (NASACORT) 55 mcg nasal inhaler Administer 2 sprays into each nostril daily Active docusate sodium (COLACE) 100 mg capsuleIndication s:constipation Take 1 capsule (100 mg total) by mouth 2 (two) times a day 60 capsule 5 Active polyethylene glycol (MIRALAX) 17 gram/dose bulk powderIndications :constipation Take 17 g by mouth daily 510 g Active oxyCODONE (ROXICODONE) 5 mg immediate release tabletIndications :Pain Take 1 tablet (5 mg total) by mouth every 4 (four) hours as needed for pain 12 tablet 5 Active Active Problems Problem Noted Date Diagnosed [...] (10/31/2021): Added automatically from request for surgery [id number] Shoulder arthritis 08/06/2021 Anxiety 08/01/2021 History of [...] (08/29/2019): Added automatically from request for surgery [id number] Personal history of colonic polyps 01/19/2018 Overview (01/19/2018): Added automatically from request for surgery [id number] Other dysphagia 01/19/2018 Overview (01/19/2018): Added automatically from request for surgery [id number] Allergic conjunctivitis of both eyes 11/30/2017 Assessment & Plan (02/02/2023 10:49 AM PROFESSOR OF FOOD BIOCHEMISTRY): Finished 3 yrs of allergy shot last year Takes zyrtec recently. Warned may dry eye out more.n Assessment & Plan (12/19/2019 1:24 PM CDT): Add hot compresses with lid scrubs to alleviate crusting of lashes and remove pollen. Recommend trail of lubricant eye drops 4 times/day. If still itchy and symptomatic, try Zaditor OTC drops 2x/s day. H/o shots [id number] and using nose spray and judy. Eyes ok. Assessment & Plan (12/13/2018 2:32 PM CDT): Add hot compresses with lid scrubs to alleviate crusting of lashes and remove pollen. Recommend trail of lubricant eye drops 4 times/day. If still itchy and symptomatic, try Zaditor OTC drops 2x/s day. H/o shots [id number] and using nose spray and judy. Eyes [...] unremarkable Assessment & Plan (02/02/2023 10:52 AM PROFESSOR OF FOOD BIOCHEMISTRY): Not visually significant. Do not recommend surgery at this time. Continue to monitor. Patient to call if problems with activities of daily living. Warned post-LASIK will give some intraocular lens (IOL) calc challenges. Also smallish pupil, would likely need a ring when eventually needs Assessment & Plan (01/27/2022 9:24 AM PROFESSOR OF FOOD BIOCHEMISTRY): Not visually significant. Do not recommend surgery [...] 01/2018 Assessment & Plan (02/02/2023 9:51 AM PROFESSOR OF FOOD BIOCHEMISTRY): Recommend increase lubricant eye drops to 4 times/day; consider preservative- free drops, especially if using drops more than that. Add hot compresses with lid scrubs to improve quality of tears. Assessment & Plan (01/27/2022 9:25 AM PROFESSOR OF FOOD BIOCHEMISTRY): Recommend increase lubricant eye drops to 4 [...] monitor Assessment & Plan (02/02/2023 9:51 AM PROFESSOR OF FOOD BIOCHEMISTRY): Good result from surgery [place] [address] Verdugo. (had enhancement left eye (OS)). Pt doing well. Assessment & Plan (01/27/2022 9:25 AM PROFESSOR OF FOOD BIOCHEMISTRY): Good result from surgery in 2001 with [...] Encounters Date Type Department Care Team Description 01/03/2025 10:35 AM CDT Lab [facility] [address] [place] [address] Hyperlipidemia, unspecified hyperlipidemia type; Hypertension, essential; Vitamin B12 deficiency; Vitamin D deficiency; Abnormal finding of blood chemistry, unspecified 01/03/2025 Orders Only Internal Medicine Dalia Pérez MD Hyperlipidemia, unspecified hyperlipidemia type (Primary Dx); Hypertension, essential; Vitamin D deficiency; Vitamin B12 deficiency; Abnormal finding of blood chemistry, unspecified 12/20/2024 9:00 AM CDT Office Visit [facility] Medicine [facility] [address] [place] [address] Sebastien Sapp, OD Combined forms of age-related cataract of both eyes (Primary Dx); Hx of LASIK 11/16/2024 Orders Only [facility] Medicine Cardiology [address] [place] [address] Yan Varghese MD PhD from Last 3 Months Immunizations Immunization Administration [...] HYSTERECTOMY TOTAL SHOULDER REPLACEMENT 03/22/2021 - 03/21/2022 Bildali akins Medical History Medical History Date Comments Prediabetes [...] both eyes with presbyopia Wears hearing aid Bladder cancer (HCC) Cancer of kidney (HCC) Family History Medical History Relation Name Comments [...] drink = 0.6 oz pur e alcohol) [facility] Utilities Answer Date Recorded In the past 12 months has AF83, gas, oil, or water [employer] threatened to shut off services in your home? No 09/23/2024 Social Connection and Isolation Panel Answer Date Recorded In a typical week, how many times do you talk on the phone with family, friends, or neighbors? More than three times a week 09/23/2024 How often do you get togethe r with friends or relatives? Once a week 09/23/2024 How often do you attend chur ch or adventist services? More than 4 times per year 09/23/2024 Do you belong to any clubs o r organizations such as quaker groups, unions, fraternal or athletic groups, or school groups? No 09/23/2024 How often do you attend meet ings of the clubs or organizations you belong to? Never 09/23/2024 Are you , , di vorced, , never , or living with a partner? 09/23/2024 AUDIT-C Answer Date Recorded Q1: How often do you have a drink containing alcohol? Never 09/21/2024 Q2: How many drinks containi ng alcohol do you have on a typical day when you are drinking? Patient does not drink Q3: How often do you have si x or more drinks on one occasion? Never 09/21/2024 Overall Financial Resource Strain (CARDIA) Answe r Date Recorded How hard is it for you to pa y for the very basics like food, housing, medical care, and heating? Not very hard 09/23/2024 Hunger Vital Sign Answer Date Recorded Within the past 12 months, y ou worried that your food would run out before you got the money to buy more. Never true 09/24/19 25 Within the past 12 months, t he food you bought just didn't last and you didn't have money to get more. Never true 09/23/2024 PRAPARE - Transportation Answer Date Re corded In the past 12 months, has l ack of transportation kept you from medical appointments or from getting medications? No 07/2024 In the past 12 months, has l ack of transportation kept you from meetings, work, or from getting things needed for daily living? No 09/23/2024 Housing Stability Vital Sign Answer Lloyd e Recorded In the last 12 months, was t here a time when you were not able to pay the mortgage or rent on time? No 09/23/2024 In the past 12 months, how m any times have you moved where you were living? 0 09/23/2024 At any time in the past 12 m [place], were you homeless or living in a care home (including now)? No 09/23/2024 Personal Safety Answer Date Recorded Have you ever been in or are you currently in a harmful physical or emotional relationship or is someone making you feel afraid or unsafe? Denies 09/21/2024 Comments No Sex and Gender Information Value Date Recorded Sex Assigned at Not on file Legal Sex Female 12:16 AM PROFESSOR OF FOOD BIOCHEMISTRY Gender Identity Not on file Sexual Orientation Not on file Last Filed Vital Signs Vital Sign Reading Time Taken Comments Blood Pressure 126/68 10/19/2024 9:13 AM CDT Pulse 83 10/19/2024 9:13 AM CDT Temperature 36.3 C (97.3 F) 09/26/2024 12:38 PM CDT Respiratory Rate 18 09/26/2024 12:38 PM CDT Oxygen Saturation 100% 10/10/2024 8:10 AM CDT Inhaled Oxygen Concentration - - Weight 5.987 kg (13 lb 3.2 oz) 10/19/2024 9:13 A M CDT Height 162.6 cm (5' 4) 10/19/2024 9:13 AM CDT Body Mass Index 2.27 10/19/2024 9:13 AM CDT Plan of Treatment Health Maintenance Due Date Last Done Comments Depression Screening 1942 Hepatitis B Screening 1960 Well Visit 65+ 12/22/2007 Covid-19 Vaccine (2024- 6 season) 2024 02/07/2021, 05/13/2020, 04/15/2020 Influenza Vaccine (#1) 2024 , 12/25/2019, 01/03/2019, Additional history exists Fall Risk Assessment 09/26/2025 09/26/2024 Osteoporosis Screening-Bone Density Scan 07/19/2026 07/19/2024, 03/17/2022, 01/02/2019, Additional history exists DTaP/Tdap/Td Vaccine (2 - Td or Tdap) 12/24/2029 12/25/2019, 12/02/2007, 03/22/2007 Zoster Vaccine Completed 04/27/2019, 01/21, 06/08/2006, Additional history exists Pneumococcal vaccine 65+ Completed 020, 01/09/2016, 01/15/2015, Additional history exists Medical Devices Implanted Type Area Electric Hoist Operator Device Identifier Shelf Expiration Date Model / Serial / Lot [employer] Tornier Aequalis Perform 25mm Reverse Shoulder Standard Baseplate [id number] - [id number] - [id number] Implanted:Qty: 1 on 02/04/2022 by Rafael Hernandez MD at [facility] Other - see comments Right: Shoulder [employer] [id number] 12/29/2026 [id number] / [id number] / Description:Implant Pause Pe rformed [employer] Tornier Aequalis Perform 15mm Press Fit Long Post Shoulder [id number] - [id number] - [id number] Implanted:Qty: 1 on 02/04/2022 by Rafael Hernandez MD at [facility] Other - see comments Right: Shoulder [employer] [id number] 06/19/2026 [id number] / [id number] / Description:Implant Pause Pe rformed [employer] Tornier Aequalis Perform 36mm Lateralize Reverse Shoulder +3mm [id number] - [id number] - [id number] Implanted:Qty: 1 on 02/04/2022 by Rafael Hernandez MD at [facility] Other - see comments Right: Shoulder [employer] [id number] 10/07/2026 [id number] / [id number] / Description:Implant Pause Pe rformed [employer] Stem Perform Sz 2 Plus Humeral Long Dwx2pl - [id number] - [id number] Implanted:Qty: 1 on 02/04/2022 by Rafael Hernandez MD at [facility] Other - see comments Right: Shoulder [employer] [id number] 12/26/2026 [id number] / [id number] / Description:Implant Pause Pe rformed [employer] [id number] Insert Perform [id number] - [id number] - [id number] Implanted:Qty: 1 on 02/04/2022 by Rafael Hernandez MD at [facility] Other - see comments Right: Shoulder [employer] [id number] 10/23/2026 [id number] / [id number] / Description:Implant Pause Pe rformed [employer] Healy S Mri Surescan 50.8x46.6mm 2 Chamber 7.4mm Pacemaker 22.5gm W3dr01 - [id number] Implanted:Qty: 1 on 11/23/2023 by Roberto Huang MD at [facility] Pacemaker [employer] [id number] / / [employer] Rny128 Aequalis Perform Reversed 5mm 34mm Peripheral Glenoid Screw - [id number] - [id number] Implanted:Qty: 2 on 08/06/2021 by Rafael Hernandez MD at [facility] Screw Left: Shoulder [employer] [id number] / [id number] / [employer] Aequalis Perform Reversed 5mm 30mm Peripheral Glenoid Screw Wvr595 - Sna - [id number] Implanted:Qty: 1 on 02/04/2022 by Rafael Hernandez MD at [facility] Screw Right: Shoulder [employer] 10/19/2049 PRZ159 / NA / [employer] Aequalis Perform Reversed 5mm 34mm Peripheral Glenoid Screw Kqf667 - Sna - [id number] Implanted:Qty: 1 on 02/04/2022 by Rafael Hernandez MD at [facility] Screw Right: Shoulder [employer] 10/19/2049 [id number] / NA / Joint Bilateral: Shoulder Description:Placed in 2004, 2005 [employer] Inc Ked776 Tornier Aequalis Perform 15mm Press Fit Long Post Shoulder - [id number] - [id number] Implanted:Qty: 1 on 08/06/2021 by Rafael Hernandez MD at [facility] Left: Shoulder [employer] 06/10/2026 SBZ267 / [id number] / [employer] Eho499 Tornier Aequalis Perform 25mm Reverse Shoulder Standard Baseplate - [id number] - [id number] Implanted:Qty: 1 on 08/06/2021 by Rafael Hernandez MD at [facility] Left: Shoulder [employer] 06/18/2025 UGI618 / [id number] / [employer] Inc Rpn483 Tornier Aequalis Perform 36mm Lateralize Reverse Shoulder +3mm - [id number] - [id number] Implanted:Qty: 1 on 08/06/2021 by Rafael Hernandez MD at [facility] Left: Shoulder [employer] 06/02/2026 YVU016 / [id number] / [employer] Dwx2ps Stem Perform Sz 2 Plus Humeral - [id number] - [id number] Implanted:Qty: 1 on 08/06/2021 by Rafael Hernandez MD at [facility] Left: Shoulder [employer] 05/06/2026 DWX2PS / [id number] / [employer] [id number] Insert Perform Lex2144 - [id number] - [id number] Implanted:Qty: 1 on 08/06/2021 by Rafael Hernandez MD at [facility] Left: Shoulder [employer] 04/21/2026 [id number] / [id number] / Medtronic Inc Capsurefix Novus 6.2fr 2mm 52cm Bipolar Screw In Implantable Latex Free 5076-52 - [id number] - [id number] Implanted:Qty: 1 on 11/23/2023 by Roberto Huang MD at [facility] [employer] [id number] 09/12/2025 5076-52 / [id number] / Med[employer] Selectsecure 4.1fr 69cm Bipolar Screw In Is-1 Atrium Ventricle [id number] - [id number] Implanted:Qty: 1 on 11/23/2023 by Roberto Huang MD at [facility] [employer] [id number] / / [facility] Ruth Ann Barrier Adhesion Seprafilm 5x6in Translucent [facility] Sterile [id number] - [id number] Implanted:Qty: 1 on 09/21/2024 by Monserrat Beasley MD at [facility] N/A: Abdomen [facility] Ruth Ann [id number] 02/17/2026 [id number] / / [id number] Procedures Procedure Name Priority Date/Time Associated Diagnosis Comments EGFR Routine 01/03/2025 10:35 AM CDT Hyperlipidemia, unspecified hyperlipidemia type Hypertension, essential URINALYSIS, MICROSCOPIC ONLY Routine 01/03/2025 10:35 AM CDT Hyperlipidemia, unspecified hyperlipidemia type Hypertension, essential CBC WITHOUT DIFFERENTIAL Routine 01/03/2025 10:35 AM CDT Hyperlipidemia, unspecified hyperlipidemia type Hypertension, essential COMPREHENSIVE METABOLIC PANEL Routine 01/03/2025 10:35 AM CDT Hyperlipidemia, unspecified hyperlipidemia type Hypertension, essential THYROID FUNCTION CASCADE Routine 01/03/2025 10:35 AM CDT Hyperlipidemia, unspecified hyperlipidemia type Hypertension, essential LIPID PANEL Routine 01/03/2025 10:35 AM CDT Hyperlipidemia, unspecified hyperlipidemia type Hypertension, essential INSULIN, TOTAL Routine 01/03/2025 10:35 AM CDT Hyperlipidemia, unspecified hyperlipidemia type Hypertension, essential HEMOGLOBIN A1C Routine 01/03/2025 10:35 AM CDT Hyperlipidemia, unspecified hyperlipidemia type Hypertension, essential Abnormal finding of blood chemistry, unspecified GAMMA GT Routine 01/03/2025 10:35 AM CDT Hyperlipidemia, unspecified hyperlipidemia type Hypertension, essential CRP, HIGH SENSITIVITY Routine 01/03/2025 10:35 AM CDT Hyperlipidemia, unspecified hyperlipidemia type Hypertension, essential URINALYSIS AND REFLEX TO MICROSCOPIC Routine 01/03/2025 10:35 AM CDT Hyperlipidemia, unspecified hyperlipidemia type Hypertension, essential APOLIPOPROTEIN B Routine 01/03/2025 10:35 AM CDT Hyperlipidemia, unspecified hyperlipidemia type Hypertension, essential VITAMIN D 25 HYDROXY Routine 01/03/2025 10:35 AM CDT Hyperlipidemia, unspecified hyperlipidemia type Hypertension, essential Vitamin D deficiency VITAMIN B12 Routine 01/03/2025 10:35 AM CDT Hyperlipidemia, unspecified hyperlipidemia type Hypertension, essential Vitamin B12 deficiency DEVICE CHECK - REMOTE Routine 11/16/2024 9:42 PM CDT DEXA AXIAL SKELETON BONE DENSITY 1 OR MORE SITES Schedule Routine, Read Routine (OP Routine) 07/19/2024 10:08 AM CDT Screening for osteoporosis Asymptomatic menopausal state from Last 3 Months or Most Recently Relevant to Health Maintenance Results * eGFR (01/03/2025 10:35 AM CDT) eGFR 61 >=60 mL/min/1. 73 m2 Comment: Interpretive Data Reference Interval Normal >/= 90 mL/min/1.73m2 Mildly decreased* 60 - 89 mL/min/1.73m2 Mildly to moderately decreased 45 - 59 mL/min/1.73m2 Moderately to severely decreased 30 - 44 mL/min/1.73m2 Severely decreased 15 - 29 mL/min/1.73m2 Kidney Failure < 15 mL/min/1.73m2 *Relative to young adult level Estimated glomerular filtration rate is determined by the 2020 CKD-EPI equation recommended by the National Kidney Foundation (A Unifying Approach to GFR Estimation: Recommendations of the NKF-ASK Task Force on Reassessing the Inclusion of Race in Diagnosing Kidney Disease, JASN 2020). The CKD-EPI equation should not be used for patients with unstable renal function and has not been validated in children and those over 70. Current interpretive data was last reviewed 2021. Blood 01/03/2025 10:3 5 AM CDT 01/03/2025 1:30 PM CDT us Precious Merino NP LAB BLOOD ORDERABLES Final Result [facility] [address] Department of [facility] [place] [address] * Thyroid Function [place] (01/03/2025 10:35 AM CDT) Pathologist [facility] TSH 0.77 0.30 - 4.20 mcIUnit/mL Blood 01/03/2025 10:3 5 AM CDT 01/03/2025 1:30 PM CDT Precious Merino NP LAB BLOOD ORDERABLES Final Result Performing Organization Address [facility] de Phone Number [facility] [address] [place] [address] * (ABNORMAL) Apolipoprotein B, serum (01/03/2025 10:35 AM CDT) [facility] Apolipoprotein B 112(H) mg/dL [place] ref [facility] Comment: REFERENCE VALUE Desirable: <90 Above Desirable: 90-99 Borderline high: 100-119 High: 120-139 Very high: > or = 140 Test Performed by: [place] [address] Lumber Planer: Rut Licea Ph.D.; CLIA# [id number] Blood 01/03/2025 10:3 5 AM CDT 01/03/2025 2:12 PM CDT Precious Merino NP LAB BLOOD ORDERABLES Final Result Performing Organization Address [facility] de Phone Number [facility] [address] Department [facility] [place] [address] [place] [facility] * (ABNORMAL) Urinalysis reflex to microscopic (01/03/2025 10:35 AM CDT) Pathologist [facility] Color, ur Yellow Yellow Clarity, ur Clear Clear [facility] Specific gravity, ur 1.021 1.003 - 1.030 [facility] pH, urine 5.5 [facility] Comment: Interpretive Data U rine pH is affected by diet, medications, systemic acid-base disturbances, and renal tubular function. pH may affect urinary stone formation. For example, urine pH below 6.0 may help reduce the tendency for calcium phosphate stones and pH greater than 6.0 may reduce the tendency for uric acid stone formation. Source: [facility] Current Interpretive Data was last revised on 2017 Protein, ur ql 1+(A) Negative [facility] Glucose, ur ql Negative Negative [facility] Ketones, ur Negative Negative [facility] Bilirubin, ur Negative Negative [facility] Blood, ur Negative Negative [facility] Urobilinogen, ur <2.0 <2.0 mg/dL [facility] Nitrite, ur Negative Negative [facility] Leukocyte esterase, ur Negative Negative [facility] UA reflex comment Reflex to microscopic UA will be performed. [facility] Urine 01/03/2025 10:3 5 AM CDT 01/03/2025 10:35 AM CDT Precious Merino NP LAB URINE ORDERABLES Final Result Performing Organization Address City/[facility]/ZIP Co de Phone Number [facility] [address] Department of [facility] [place], [place] [id number] * Vitamin D 25 hydroxy (01/03/2025 10:35 AM CDT) Vitamin D 25-OH 40 30 - 80 ng/mL Blood 01/03/2025 10:3 5 AM CDT 01/03/2025 1:30 PM CDT us Precious Merino NP LAB BLOOD ORDERABLES Final Result [facility] [address] Department of [facility] [place] [address] * Insulin, total (01/03/2025 10:35 AM CDT) Insulin 23.3 2.6 - 25.0 mcIUnit/mL Comment:Testing performed by : [facility], [address] [place]., [address] Blood 01/03/2025 10:3 5 AM CDT 01/03/2025 7:13 PM CDT Precious Merino NP LAB BLOOD ORDERABLES Final Result Performing Organization Address [facility]/ZIP Co de Phone Number [facility] [address] Department [place] [address] * (ABNORMAL) Urinalysis, microscopic only (01/03/2025 10:35 AM CDT) WBC, ur 0-5 0 - 5 /HPF RBC, ur 0-2 0 - 2 /HPF [facility] Epithelial cells, squamous, ur 1-5 0 - 5 /HPF [facility] Mucous, ur Present(A) [facility] Urine 01/03/2025 10:3 5 AM CDT 01/03/2025 1:30 PM CDT Precious Merino ANATOMIC PATHOLOGY MANAGER LAB URINE ORDERABLES Final Result Performing Organization Address [facility] de Phone Number [facility] [address] [place] [address] * (ABNORMAL) CBC without differential (01/03/2025 10:35 AM CDT) WBC 10.76(H) 3.80 - 9.90 K/cumm Hgb 12.0 11.9 - 15.5 g/dL [facility] Hct 36.5 35.6 - 45.5 % [facility] Plt 239 150 - 400 K/cumm [facility] MPV 10.8 9.1 - 12.3 fL [facility] RBC 3.74(L) 3.90 - 5.20 M/cumm [facility] MCV 97.6(H) 81.3 - 96.4 fL [facility] MCH 32.1 27.1 - 33.3 pg [facility] MCHC 32.9 32.3 - 35.7 g/dL [facility] RDW CV 11.9 11.1 - 14.9 % [facility] RDW SD 43.1 35.7 - 48.1 fL [facility] NRBC abs 0.00 0.00 - 0.01 K/cumm [facility] Blood 01/03/2025 10:3 5 AM CDT 01/03/2025 2:12 PM CDT Precious Merino NP LAB BLOOD ORDERABLES Final Result Performing Organization Address City/[facility]/ZIP Co de Phone Number [facility] [address] Department [employer] [place], [place] [id number] * CRP (cardiac risk) (01/03/2025 10:35 AM CDT) hsCRP 0.22 mg/L Comment: Interpretive data Adult only - values greater than or equal to 10 mg/L are consistent with infection or inflammation. Individuals with evidence of active infection, systemic inflammatory processes, or trauma should not be tested until these conditions have abated. When using HS CRP to assess cardiovascular risk, two measurements should be taken, two weeks apart (averaging results). The CDC/AHA recommended the following HS CRP cut off points (tertiles) for CVD assessment. Adult low risk <1.0 mg/L Average risk 1.0 - 3.0 mg/L High Risk >3.0 mg/L Current interpretive data was last revised on 2017. Blood 01/03/2025 10:3 5 AM CDT 01/03/2025 1:30 PM CDT Precious Merino NP LAB BLOOD ORDERABLES Final Result [facility] [address] Department [employer] [place], [place] [id number] * (ABNORMAL) Hemoglobin A1c (01/03/2025 10:35 AM CDT) Hgb A1C 5.8(H) 4.0 - 5.6 % Estimated Average Glucose 120 mg/dL [facility] Comment: The ADA recommends reporting an estimated Average Glucose (eAG) with all Hemoglobin A1c results using the equation derived from a study of 507 normal and diabetic adults. Minority populations were underrepresented and children were not included. (Diabetes Care 31:8896-2104, 2008). The eAG is not equivalent to a fasting glucose. Blood 01/03/2025 10:3 5 AM CDT 01/03/2025 2:12 PM CDT Precious Merino NP LAB BLOOD ORDERABLES Final Result [facility] [address] [facility] [place] [address] * Gamma GT (01/03/2025 10:35 AM CDT) GGT 23 5 - 35 Units/L Blood 01/03/2025 10:3 5 AM CDT 01/03/2025 1:30 PM CDT Precious Merino NP LAB BLOOD ORDERABLES Final Result Performing Organization Address [facility] Co de Phone Number [facility] [address] [facility] [place], [place] [id number] * (ABNORMAL) Vitamin B12 (01/03/2025 10:35 AM CDT) Vitamin B12 3,858(H) 230 - 1,250 pg/mL Blood 01/03/2025 10:3 5 AM CDT 01/03/2025 1:30 PM CDT Precious Merino NP LAB BLOOD ORDERABLES Final Result Performing Organization Address City/[facility] Co de Phone Number [facility] [address] Department [facility] [place], [place] [id number] * (ABNORMAL) Lipid panel (01/03/2025 10:35 AM CDT) Cholesterol 187 30 - 199 mg/dL Comment: Interpretive Data Ages < or = 19 years Acceptable: <170 mg/dL Borderline high: 170-199 mg/dL High: >or= 200 mg/dL Ages > or = 20 years Desirable: <200 mg/dL Borderline high: 200-239 mg/dL High: >or= 240 mg/dL Literature References: 1. Expert Panel on Integrated Guidelines for Cardiovascular Health and Risk Reduction in Children and Adolescents. Pediatrics 2011;128:S213 2. NCEP Expert Panel. Circulation 2004;110:227 Current Interpretive Data was last revised on 2017. Triglycerides 237(H) <=149 mg/dL [facility] Comment: Interpretive Data Ages < or = 9 years Acceptable: <75 mg/dL Borderline high: 75-99 mg/dL High: >or= 100 mg/dL Ages 10 to 20 years Acceptable: <90 mg/dL Borderline high: 90-129 mg/dL High: >or= 130 mg/dL Ages > or = 20 years Desirable: <150 mg/dL Borderline high: 150-199 mg/dL High: 200-499 mg/dL Very high: >or= 499 mg/dL Literature References: 1. Expert Panel on Integrated Guidelines for Cardiovascular Health and Risk Reduction in Children and Adolescents. Pediatrics 2011;128:S213 2. NCEP Expert Panel. Circulation 2004;110:227 Current Interpretive Data was last revised on 2017. HDL 43 >=40 mg/dL [facility] Comment: Interpretive Data Ages < or = 19 years Acceptable: >45 mg/dL Borderline low: 40-45 mg/dL Low: <40 mg/dL Ages > or = 20 years Desirable: >or= 60 mg/dL Low: <40 mg/dL Literature References: 1. Expert Panel on Integrated Guidelines for Cardiovascular Health and Risk Reduction in Children and Adolescents. Pediatrics 2011;128:S213 2. NCEP Expert Panel. Circulation 2004;110:227 Current Interpretive Data was last revised on 2017. LDL, calculated 103 <=129 mg/dL [facility] Comment: Interpretive Data Ages < or = 19 years Acceptable: <110 mg/dL Borderline high: 110-129 mg/dL High: >or= 130 mg/dL Ages > or = 20 years Optimal: <100 mg/dL Near optimal: 100-129 mg/dL Borderline high: 130-159 mg/dL High: >160 mg/dL Calculated using the Toby LDL-C estimating equation. This equation was implemented on 2023. Prior to this date LDL-C was estimated using the Friedewald equation. Literature References: 1. Expert Panel on Integrated Guidelines for Cardiovascular Health and Risk Reduction in Children and Adolescents. Pediatrics 2011;128:S213 2. NCEP Expert Panel. Circulation 2004;110:227 3. Toby Keenan et al. NAILA Cardiol. 2020 July 20;5(5):540-548. doi: 10.1001/jamacardio.2020.0013 Current Interpretive Data was last revised on 2023. Non-HDL Cholesterol 144 mg/dL [facility] Comment: Interpretive Data Ages < or = 19 years Acceptable: <120 mg/dL Borderline high: 120-144 mg/dL High: >145 mg/dL Ages > or = 20 years When triglycerides are >200 mg/dL, Non-HDL cholesterol is a secondary target of therapy with treatment goals that are 30 mg/dL greater than the LDL cholesterol target. Literature References: 1. Expert Panel on Integrated Guidelines for Cardiovascular Health and Risk Reduction in Children and Adolescents. Pediatrics 2011;128:S213 2. NCEP Expert Panel. Circulation 2004;110:227 Current Interpretive Data was last revised on 2017. Chol/HDL ratio 4 [facility] Blood 01/03/2025 10:3 5 AM CDT 01/03/2025 1:30 PM CDT Precious Merino NP LAB BLOOD ORDERABLES Final Result [facility] [address] [place] [address] * (ABNORMAL) Comprehensive metabolic panel (01/03/2025 10:35 AM CDT) Sodium 139 135 - 145 mmol/L Potassium, pl 4.5 3.3 - 4.9 mmol/L [facility] Chloride 107 97 - 110 mmol/L [facility] CO2 17(L) 22 - 32 mmol/L [facility] Anion gap 15 2 - 15 mmol/L [facility] BUN 29(H) 6 - 25 mg/dL [facility] Creatinine 0.94 0.60 - 1.10 mg/dL [facility] Glucose 109 70 - 199 mg/dL [facility] Comment: Interpretive Data Fasting glucose >/= 126 mg/dl is diagnostic for diabetes. Fasting is defined as no caloric intake for at least 8 hours. Fasting glucose between 100 mg/dl to 125 mg/dl is diagnostic of prediabetes. In a patient with classic symptoms of hyperglycemia or hyperglycemic crisis, a random glucose >/= 200 mg/dl is diagnostic for diabetes. In the absence of unequivocal hyperglycemia, results should be confirmed by repeat testing. The classification and Diagnosis of Diabetes Diabetes Care 2021; 46: S19-S40. Current interpretive data was last revised 2022. Calcium 10.2 8.5 - 10.3 mg/dL [facility] Bilirubin, total 0.4 0.1 - 1.2 mg/dL [facility] Protein, pl 7.6 6.5 - 8.5 g/dL [facility] Albumin 4.5 3.5 - 5.0 g/dL [facility] Alk phos 79 40 - 130 Units/L [facility] ALT 24 7 - 45 Units/L [facility] AST 24 10 - 45 Units/L [facility] Comment:Slightly Hemolyzed S pecimen Blood 01/03/2025 10:3 5 AM CDT 01/03/2025 1:30 PM CDT Precious Merino NP LAB BLOOD ORDERABLES Final Result [facility] [address] [place] [address] * DEVICE CHECK - REMOTE (11/16/2024 9:42 PM CDT) Anatomical Region Laterality Modality Other 11/16/2024 9:42 PM CDT Narrative 12/14/2024 2:44 PM CDT Interpretation Summary: Battery and Leads (BL) Normal parameters noted on battery and lead(s) --- 14.1 yrs remaining longevity. Lead impedance, sensing, and threshold trends stable and appropriate. No short V-V intervals. Presenting Rhythm (UT) Atrial Sensing-Ventricular Sensing (-VS) --- /VS (SR) 80s with 2 PVCs. Arrhythmic events (AE) Supraventricular Tachycardia --- Since 10/10/24: One SVT-ST detection, 47 sec, with EGM appearing to show 1:1 AV rhythm, likely ST, 150s. Transmission Information (TI) Device Summary Report Procedure Note Yan Varghese MD PhD - 12/14/2024 Interpretation Summary: Battery and Leads (BL) Normal parameters noted on battery and lead(s) --- 14.1 yrs remaininglongevity. Lead impedance, sensing, and threshold trends stable andappropriate. No short V-V intervals. Presenting Rhythm (UT) Atrial Sensing-Ventricular Sensing (-VS) --- /VS (SR) 80s with 2PVCs. Arrhythmic events (AE) Supraventricular Tachycardia --- Since 10/10/24: One SVT-ST detection, 47sec, with EGM appearing to show 1:1 AV rhythm, likely ST, 150s. 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 ADVANCE DIRECTIVE 02/02/2022 2:00 PM Genia ng Will Advance Directives and Living Will 08/06/2021 10:42 AM ADVANCE DIRECTIVE 07/24/2021 12:51 PM POWER OF RN CASE [facility] * Full Code (Latest Code Status on File) Date Activated Date Inactivated Comments 09/21/2024 4:46 PM 09/26/2024 9:18 PM * Full Code Date Activated Date Inactivated Comments 09/21/2024 5:06 AM 09/21/2024 4:46 PM * Full Code Date Activated Date Inactivated Comments 08/22/2024 11:05 PM 08/25/2024 4:45 PM * Full Code Date Activated Date Inactivated Comments 11/21/2023 4:26 PM 11/24/2023 7:21 PM * Full Code Date Activated Date Inactivated Comments 06/14/2023 11:46 AM 06/14/2023 7:19 PM Care Teams Risk Reduction Counselor Relationship Specialty Start Date End Date Dalia Pérez MD PCP - General 06/29/17 John-Monserrat Ferrer MD [address] [facility] [phone] [place] [address] Consulting Physician General Surgery 09/25/24
--- OUTSIDE RECORDS SUMMARY | 2025-01-24 01:52 | XMS_ITS | Encounter Summary ---
Author Organization [facility] Healthcare Address [address] [place] [address] Care Team Providers Care Gmat Tutor Name Role Phone Dalia Pérez MD Primary Care Provider [phone] Monserrat Beasley MD Unavailable [phone] Encounter Details Date Type Department Care Team (Late st Contact Info) Description 08/13/2023 Orders Only Internal Medicine Precious Merino, AUDIT MACHINE OPERATOR [address] [place], [place] [id number] Annual visit for general adult medical examination [...] on file Legal Sex Female 12:16 AM GRANULATOR MACHINE OPERATOR Gender Identity Not on file Sexual Orientation [...] findings Expected: 08/16/2023, Expires: 08/12/2024 Thyroid Function [place] [facility] Routine Annual visit for general adult medical examination with abnormal findings Expected: 08/13/2023, Expires: 08/12/2024 Insulin, total Lab Routine Annual visit for general adult medical examination with abnormal findings Expected: 08/16/2023, Expires: 08/12/2024 documented as of this encounter Visit Diagnoses Diagnosis Annual visit for general adult medical examination with abnormal findings- Primary documented in this encounter Additional Health Concerns Infection Onset Date Last Indicated Resolved Time COVID: Suspected 05/10/2024 05/10/2024 05/10/2024 3:10 PM GRANULATOR MACHINE OPERATOR COVID19 05/10/2024 05/10/2024 05/20/2024 3:07 AM GRANULATOR MACHINE OPERATOR COVID: Recovered Comment:Added based on recent COVID infection. 05/20/2024 06/15/2024 08/18/2024 7:26 PM C DT C. difficile suspected 08/22/2024 08/22/202408/25 9:39 AM CDT documented as of this encounter Care Teams Gmat Tutor Relationship Specialty Start Date End Date Dalia Pérez MD PCP - General 4/10/18 Monserrat Beasley MD [address] [facility] [phone] [place] [address] Consulting Physician General Surgery 09/25/24 documented as of this encounter
--- NOTE | 2025-01-24 01:59 | ECG_ITS ---
Test Date: 2025-01-24 02:19:16 Measurements Intervals [place] Rate: 75 P: 43 DC: 213 QRS: -27 QRSD: 145 T: 116 QT: 438 QTc: 491 Interpretive Statements SINUS RHYTHM WITH FIRST DEGREE AV BLOCK WITH OCCASIONAL VENTRICULAR PREMATURE COMPLEXES POSSIBLE RIGHT VENTRICULAR CONDUCTION DELAY [RSR (QR) IN V1/V2] LEFT BUNDLE BRANCH BLOCK [120+ ms QRS DURATION, 80+ ms Q/S IN V1/V2, 85+ ms R IN I/aVL/V5/V6] No previous ECG available for comparison Electronically Signed On 01-24-2025 06:38:33 AUTOMOTIVE PARTS COUNTER PERSON by Candido Hopson M.D.
--- OUTSIDE RECORDS SUMMARY | 2025-01-24 02:27 | XMS_ITS | Clinical Summary ---
Author Organization [facility] Address [address] company[place]EN Nunez [address] Care Team Providers Care Take Out Waitress Name Role Phone Dalia Pérez MD Primary Care Provider [phone] Monserrat Beasley MD Unavailable [phone] Allergies No known active allergies Medications azelastine [...] (10/31/2021): Added automatically from request for surgery [id number] Shoulder arthritis 08/06/2021 Anxiety 08/01/2021 History of [...] (08/29/2019): Added automatically from request for surgery [id number] Personal history of colonic polyps 01/19/2018 Overview (01/19/2018): Added automatically from request for surgery [id number] Other dysphagia 01/19/2018 Overview (01/19/2018): Added automatically from request for surgery [id number] Allergic conjunctivitis of both eyes 11/30/2017 Assessment & Plan (02/02/2023 10:49 AM AUTO WINDER): Finished 3 yrs of allergy shot last year Takes zyrtec recently. Warned may dry eye out more.n Assessment & Plan (12/19/2019 1:24 PM CDT): Add hot compresses with lid scrubs to alleviate crusting of lashes and remove pollen. Recommend trail of lubricant eye drops 4 times/day. If still itchy and symptomatic, try Zaditor OTC drops 2x/s day. H/o shots [id number] and using nose spray and judy. Eyes ok. Assessment & Plan (12/13/2018 2:32 PM CDT): Add hot compresses with lid scrubs to alleviate crusting of lashes and remove pollen. Recommend trail of lubricant eye drops 4 times/day. If still itchy and symptomatic, try Zaditor OTC drops 2x/s day. H/o shots [id number] and using nose spray and judy. Eyes [...] unremarkable Assessment & Plan (02/02/2023 10:52 AM AUTO WINDER): Not visually significant. Do not recommend surgery at this time. Continue to monitor. Patient to call if problems with activities of daily living. Warned post-LASIK will give some intraocular lens (IOL) calc challenges. Also smallish pupil, would likely need a ring when eventually needs Assessment & Plan (01/27/2022 9:24 AM AUTO WINDER): Not visually significant. Do not recommend surgery [...] 01/2018 Assessment & Plan (02/02/2023 9:51 AM AUTO WINDER): Recommend increase lubricant eye drops to 4 times/day; consider preservative- free drops, especially if using drops more than that. Add hot compresses with lid scrubs to improve quality of tears. Assessment & Plan (01/27/2022 9:25 AM AUTO WINDER): Recommend increase lubricant eye drops to 4 [...] monitor Assessment & Plan (02/02/2023 9:51 AM AUTO WINDER): Good result from surgery [place] [address] Verdugo. (had enhancement left eye (OS)). Pt doing well. Assessment & Plan (01/27/2022 9:25 AM AUTO WINDER): Good result from surgery in 2001 with [...] Team Description 01/03/2025 10:35 AM CDT Lab [facility] [address] [place] [address] Hyperlipidemia, unspecified hyperlipidemia type; Hypertension, essential; Vitamin B12 deficiency; Vitamin D deficiency; Abnormal finding of blood chemistry, unspecified 01/03/2025 Orders Only Internal Medicine Dalia Pérez MD Hyperlipidemia, unspecified hyperlipidemia type (Primary Dx); Hypertension, essential; Vitamin D deficiency; Vitamin B12 deficiency; Abnormal finding of blood chemistry, unspecified 12/20/2024 9:00 AM CDT Office Visit [facility] [address] [place] [address] Sebastien Sapp, OD Combined forms of age-related cataract of both eyes (Primary Dx); Hx of LASIK 11/16/[address] [facility] Cardiology [address] [place] [address] Yan Varghese MD PhD from Last 3 [...] drink = 0.6 oz pur e alcohol) [facility] Utilities Answer Date Recorded In the past 12 months has [employer], gas, oil, or water [employer] threatened to shut off services in your [...] often do you attend chur ch or lutheran services? More than 4 times per year 09/23/2024 Do you belong to any clubs o r organizations such as yazidism groups, unions, fraternal or athletic groups, or [...] any time in the past 12 [facility], were you homeless or living in a snf (including now)? No 09/23/2024 Personal Safety Answer Date Recorded Have you ever been in or are you currently in a harmful physical or emotional relationship or is someone making you feel afraid or unsafe? Denies 09/21/2024 Comments No Sex and Gender Information Value Date Recorded Sex Assigned at Not on file Legal Sex Female 12:16 AM AUTO WINDER Gender Identity Not on file Sexual Orientation [...] history exists Medical Devices Implanted Type Area Geochemical Laboratory Technician Device Identifier Shelf Expiration Date Model / Serial / Lot [employer] Tornier Aequalis Perform 25mm Reverse Shoulder Standard Baseplate [id number] - [id number] - [id number] Implanted:Qty: 1 on 02/04/2022 by Rafael Hernandez MD at [facility] Other - see comments Right: Shoulder [employer] [id number] 12/29/2026 [id number] / [id number] / Description:Implant Pause Pe rformed [employer] Tornier Aequalis Perform 15mm Press Fit Long Post Shoulder [id number] - [id number] - [id number] Implanted:Qty: 1 on 02/04/2022 by Rafael Hernandez MD at [facility] Other - see comments Right: Shoulder [employer] [id number] 06/19/2026 QZQ335 / [id number] / Description:Implant Pause Pe rformed [employer] Tornier Aequalis Perform 36mm Lateralize Reverse Shoulder +3mm Tmv426 - [id number] - [id number] Implanted:Qty: 1 on 02/04/2022 by Rafael Hernandez MD at [facility] Other - see comments Right: Shoulder [employer] [id number] 10/07/2026 [id number] / [id number] / Description:Implant Pause Pe rformed [employer] Stem Perform Sz 2 Plus Humeral Long Dwx2pl - [id number] - [id number] Implanted:Qty: 1 on 02/04/2022 by Rafael Hernandez MD at [facility] Other - see comments Right: Shoulder [employer] [id number] 12/26/2026 [id number] / [id number] / Description:Implant Pause Pe rformed [employer] [id number] Insert Perform [id number] - [id number] - [id number] Implanted:Qty: 1 on 02/04/2022 by Rafael Hernandez MD at [facility] Other - see comments Right: Shoulder [employer] [id number] 10/23/2026 [id number] / [id number] / Description:Implant Pause Pe rformed Med[employer] Inc [address] Mri Surescan 50.8x46.6mm 2 Chamber 7.4mm Pacemaker 22.5gm W3dr01 - [id number] Implanted:Qty: 1 on 11/23/2023 by [facility] at [facility] Pacemaker [employer] W3DR01 / / T[employer]ier [employer] Rbj564 Aequalis Perform Reversed 5mm 34mm Peripheral Glenoid Screw - Zfvh208 - [id number] Implanted:Qty: 2 on 08/06/2021 by Rafael Hernandez MD at [facility] Screw Left: Shoulder [employer] WFU230 / [id number] / [employer] Aequalis Perform Reversed 5mm 30mm Peripheral Glenoid Screw Xlj062 - Sna - [id number] Implanted:Qty: 1 on 02/04/2022 by Rafael Hernandez MD at [facility] Screw Right: Shoulder [employer] 10/19/2049 FJJ149 / NA / [employer] Aequalis Perform Reversed 5mm 34mm Peripheral Glenoid Screw Nqh508 - Sna - [id number] Implanted:Qty: 1 on 02/04/2022 by Rafael Hernandez MD at [facility] Screw Right: Shoulder [employer] 10/19/2049 RRP688 / NA / Joint Bilateral: Shoulder Description:Placed in 2004, 2005 [employer]ier Inc Nao776 Tornier Aequalis Perform 15mm Press Fit Long Post Shoulder - [id number] - [id number] Implanted:Qty: 1 on 08/06/2021 by Rafael Hernandez MD at [facility] Left: Shoulder [employer] 06/10/2026 GLF380 / [id number] / T[employer]ier Inc Vlm792 Tornier Aequalis Perform 25mm Reverse Shoulder Standard Baseplate - Sjlz335 - [id number] Implanted:Qty: 1 on 08/06/2021 by Rafael Hernandez MD at [facility] Left: Shoulder [employer] 06/18/2025 MVY620 / [id number] / T[employer]ier Inc Jtt328 Tornier Aequalis Perform 36mm Lateralize Reverse Shoulder +3mm - Tvbs747 - [id number] Implanted:Qty: 1 on 08/06/2021 by Rafael Hernandez MD at [facility] Left: Shoulder [employer] 06/02/2026 ZIG241 / [id number] / [employer] Dwx2ps Stem Perform Sz 2 Plus Humeral - [id number] - [id number] Implanted:Qty: 1 on 08/06/2021 by Rafael Hernandez MD at [facility] Left: Shoulder [employer] 05/06/2026 DWX2PS / [id number] / [employer] [id number] Insert Perform Htw1171 - [id number] - [id number] Implanted:Qty: 1 on 08/06/2021 by Rafael Hernandez MD at [facility] Left: Shoulder [employer] 04/21/2026 JMR2939 / [id number] / Medtronic Inc Capsurefix Novus 6.2fr 2mm 52cm Bipolar Screw In Implantable Latex Free 5076-52 - [id number] - [id number] Implanted:Qty: 1 on 11/23/2023 by Roberto Huang MD at [facility] [employer] [id number] 09/12/2025 5076-52 / [id number] / Med[employer]onic Inc Selectsecure 4.1fr 69cm Bipolar Screw In Is-1 Atrium Ventricle 441223 - [id number] Implanted:Qty: 1 on 11/23/2023 by Roberto Huang MD at [facility] [employer] [id number] / / [facility] Ruth Ann Barrier Adhesion Seprafilm 5x6in Translucent [facility] Sterile 897536 - [id number] Implanted:Qty: 1 on 09/21/2024 by Monserrat Beasley MD at [facility] N/A: Abdomen [facility] Ruth Ann [id number] 02/17/2026 [id number] / / [id number] Procedures Procedure Name Priority Date/Time Associated [...] NP LAB BLOOD ORDERABLES Final Result YAN[facility] [address] [place] [address] * Thyroid Function Tobyhanna (01/03/2025 10:35 AM CDT) Pathologist [facility] TSH 0.77 0.30 - 4.20 mcIUnit/mL Blood 01/03/2025 10:3 5 AM CDT 01/03/2025 1:30 PM CDT Precious Merino NP LAB BLOOD ORDERABLES Final Result Performing Organization Address [facility] de Phone Number [facility] [address] [place] [address] * (ABNORMAL) Apolipoprotein B, serum (01/03/2025 10:35 AM CDT) [facility] Apolipoprotein B 112(H) mg/dL [facility] Comment: REFERENCE VALUE Desirable: <90 Above Desirable: 90-99 Borderline high: 100-119 High: 120-139 Very high: > or = 140 Test Performed by: [place] [address] Senior It Architect: Rut Licea Ph.D.; CLIA# [id number] Blood 01/03/2025 10:3 5 AM CDT 01/03/2025 2:12 PM CDT Precious Merino NP LAB BLOOD ORDERABLES Final Result Performing Organization Address [facility] de Phone Number [facility] [address] [place] [address] [facility] * (ABNORMAL) Urinalysis reflex to microscopic (01/03/2025 10:35 AM CDT) Pathologist [facility] Color, ur Yellow Yellow Clarity, ur Clear Clear [facility] Specific gravity, ur 1.021 1.003 - 1.030 [facility] pH, urine 5.5 [facility] Comment: Interpretive Data U rine pH is affected by diet, medications, systemic acid-base disturbances, and renal tubular function. pH may affect urinary stone formation. For example, urine pH below 6.0 may help reduce the tendency for calcium phosphate stones and pH greater than 6.0 may reduce the tendency for uric acid stone formation. Source: [facility] Current Interpretive Data was last revised on 2017 Protein, ur ql 1+(A) Negative [facility] Glucose, ur ql Negative Negative [facility] Ketones, ur Negative Negative [facility] Bilirubin, ur Negative Negative [facility] Blood, ur Negative Negative [facility] Urobilinogen, ur <2.0 <2.0 mg/dL [facility] Nitrite, ur Negative Negative [facility] Leukocyte esterase, ur Negative Negative [facility] UA reflex comment Reflex to microscopic UA will be performed. [facility] Urine 01/03/2025 10:3 5 AM CDT 01/03/2025 10:35 AM CDT Precious Merino NP LAB URINE ORDERABLES Final Result Performing Organization Address City/[facility]/ZIP Co de Phone Number [facility] [address] Department of [place], [place] [id number] * Vitamin D 25 hydroxy (01/03/2025 10:35 AM CDT) Vitamin D 25-OH 40 30 - 80 ng/mL Blood 01/03/2025 10:3 5 AM CDT 01/03/2025 1:30 PM CDT us Precious Merino NP LAB BLOOD ORDERABLES Final Result [facility] [address] [place] [address] * Insulin, total (01/03/2025 10:35 AM CDT) Insulin 23.3 2.6 - 25.0 mcIUnit/mL Comment:Testing performed by : [facility], [address] [place]., [address] Blood 01/03/2025 10:3 5 AM CDT 01/03/2025 7:13 PM CDT Precious Merino NP LAB BLOOD ORDERABLES Final Result Performing Organization Address [facility]/ZIP Co de Phone Number [facility] [address] Department [place] [address] * (ABNORMAL) Urinalysis, microscopic only (01/03/2025 10:35 AM CDT) WBC, ur 0-5 0 - 5 /HPF RBC, ur 0-2 0 - 2 /HPF [facility] Epithelial cells, squamous, ur 1-5 0 - 5 /HPF [facility] Mucous, ur Present(A) [facility] Urine 01/03/2025 10:3 5 AM CDT 01/03/2025 1:30 PM CDT Precious Merino DATA SUPPORT ANALYST LAB URINE ORDERABLES Final Result Performing Organization Address [facility] de Phone Number [facility] [address] [place] [address] * (ABNORMAL) CBC without differential (01/03/2025 10:35 AM CDT) WBC 10.76(H) 3.80 - 9.90 K/cumm Hgb 12.0 11.9 - 15.5 g/dL [facility] Hct 36.5 35.6 - 45.5 % [facility] Plt 239 150 - 400 K/cumm [facility] MPV 10.8 9.1 - 12.3 fL [facility] RBC 3.74(L) 3.90 - 5.20 M/cumm [facility] MCV 97.6(H) 81.3 - 96.4 fL [facility] MCH 32.1 27.1 - 33.3 pg [facility] MCHC 32.9 32.3 - 35.7 g/dL [facility] RDW CV 11.9 11.1 - 14.9 % [facility] RDW SD 43.1 35.7 - 48.1 fL [facility] NRBC abs 0.00 0.00 - 0.01 K/cumm [facility] Blood 01/03/2025 10:3 5 AM CDT 01/03/2025 2:12 PM CDT Precious Merino NP LAB BLOOD ORDERABLES Final Result Performing Organization Address City/[facility]/ZIP Co de Phone Number [facility] [address] Department [employer] [place], [place] [address] * CRP (cardiac risk) (01/03/2025 10:35 AM [...] AM CDT 01/03/2025 1:30 PM CDT Precious Merion NP LAB BLOOD ORDERABLES Final Result [facility] [address] Department [employer] [place], [place] [address] * (ABNORMAL) Hemoglobin A1c (01/03/2025 10:35 AM CDT) Hgb A1C 5.8(H) 4.0 - 5.6 % Estimated Average Glucose 120 mg/dL [facility] Comment: The ADA recommends reporting an estimated Average Glucose (eAG) with all Hemoglobin A1c results using the equation derived from a study of 507 normal and diabetic adults. Minority populations were underrepresented and children were not included. (Diabetes Care 31:8867-6951, 2008). The eAG is not equivalent to a fasting glucose. Blood 01/03/2025 10:3 5 AM CDT 01/03/2025 2:12 PM CDT Precious Merino NP LAB BLOOD ORDERABLES Final Result [facility] [address] [facility] [place] [address] * Gamma GT (01/03/2025 10:35 AM CDT) GGT 23 5 - 35 Units/L Blood 01/03/2025 10:3 5 AM CDT 01/03/2025 1:30 PM CDT Precious Merino NP LAB BLOOD ORDERABLES Final Result Performing Organization Address [facility] Co de Phone Number [facility] [address] [facility] [place] [place], [place] [id number] * (ABNORMAL) Vitamin B12 (01/03/2025 10:35 AM CDT) Vitamin B12 3,858(H) 230 - 1,250 pg/mL Blood 01/03/2025 10:3 5 AM CDT 01/03/2025 1:30 PM CDT Precious Merino NP LAB BLOOD ORDERABLES Final Result Performing Organization Address City/[facility] Co de Phone Number [facility] [address] Department [place], [place] [id number] * (ABNORMAL) Lipid panel (01/03/2025 10:35 AM [...] revised on 2017. Triglycerides 237(H) <=149 mg/dL [facility] Comment: Interpretive Data Ages < or = [...] revised on 2017. HDL 43 >=40 mg/dL [facility] Comment: Interpretive Data Ages < or = [...] on 2017. LDL, calculated 103 <=129 mg/dL [facility] Comment: Interpretive Data Ages < or = [...] revised on 2023. Non-HDL Cholesterol 144 mg/dL [facility] Comment: Interpretive Data Ages < or = [...] last revised on 2017. Chol/HDL ratio 4 [facility] Blood 01/03/2025 10:3 5 AM CDT 01/03/2025 1:30 PM CDT Precious Merino NP LAB BLOOD ORDERABLES Final Result [facility] [address] [place] [address] * (ABNORMAL) Comprehensive metabolic panel (01/03/2025 10:35 AM CDT) Sodium 139 135 - 145 mmol/L Potassium, pl 4.5 3.3 - 4.9 mmol/L [facility] Chloride 107 97 - 110 mmol/L [facility] CO2 17(L) 22 - 32 mmol/L [facility] Anion gap 15 2 - 15 mmol/L [facility] BUN 29(H) 6 - 25 mg/dL [facility] Creatinine 0.94 0.60 - 1.10 mg/dL [facility] Glucose 109 70 - 199 mg/dL [facility] Comment: Interpretive Data Fasting glucose >/= 126 [...] 2022. Calcium 10.2 8.5 - 10.3 mg/dL [facility] Bilirubin, total 0.4 0.1 - 1.2 mg/dL [facility] Protein, pl 7.6 6.5 - 8.5 g/dL [facility] Albumin 4.5 3.5 - 5.0 g/dL [facility] Alk phos 79 40 - 130 Units/L [facility] ALT 24 7 - 45 Units/L [facility] AST 24 10 - 45 Units/L [facility] Comment:Slightly Hemolyzed S pecimen Blood 01/03/2025 10:3 5 AM CDT 01/03/2025 1:30 PM CDT Precious Merino NP LAB BLOOD ORDERABLES Final Result [facility] [address] [place] [address] * DEVICE CHECK - REMOTE (11/16/2024 9:42 PM CDT) Anatomical Region Laterality Modality Other 11/16/2024 9:42 PM CDT Narrative 12/14/2024 2:44 PM CDT Interpretation Summary: Battery and Leads (BL) Normal parameters noted on battery and lead(s) --- 14.1 yrs remaining longevity. Lead impedance, sensing, and threshold trends stable and appropriate. No short V-V intervals. Presenting Rhythm (PA) Atrial Sensing-Ventricular Sensing (-VS) --- /VS (SR) [...] andappropriate. No short V-V intervals. Presenting Rhythm (PA) Atrial Sensing-Ventricular Sensing (-VS) --- /VS (SR) 80s with 2PVCs. Arrhythmic events (AE) Supraventricular Tachycardia --- Since 10/10/24: One SVT-ST detection, 47sec, with EGM appearing to show 1:1 AV rhythm, likely ST, 150s. Transmission Information (TI) Device Summary Report Yan Varghese MD PhD [facility] OCEDURES Final Result * Dexa Axial Skeleton Bone Density 1 or 2 Site (07/19/2024 10:08 AM CDT) Anatomical Region Laterality Modality Body N/A Digital RadioLailaihuia phy 07/19/2024 10:3 1 AM CDT Impressions [...] and agrees with it. Electronically signed by: Agnelo Granda M.D. Narrative 07/19/2024 10:31 AM CDT [...] Recently Relevant to Health Maintenance Insurance MEDICARE [employer] MEDICARE [employer] MEDICARE [employer] Advance Directives For more information, please contact: [phone] Documents on File Type Date Recorded Patient Aircraft Dispatcher Expl anation ADVANCE DIRECTIVE 02/02/2022 2:00 PM Genia ng Will Advance Directives and Living Will 08/06/2021 10:42 AM ADVANCE DIRECTIVE 07/24/2021 12:51 PM POWER OF PHYSICIAN PRACTICE CONSULTANT-MEDICAL * Full Code (Latest Code Status on [...] 11:46 AM 06/14/2023 7:19 PM Care Teams Take Out Waitress Relationship Specialty Start Date End Date Dalia Pérez MD PCP - General 06/29/17 John-Monserrat Ferrer MD [address] [facility] [id number] [place] [address] Consulting Physician General Surgery 09/25/24
--- OUTSIDE RECORDS SUMMARY | 2025-01-24 02:27 | XMS_ITS ---
Author Organization [facility] Address [address] [address] Care Team Providers Care Home Health Care Provider Name Role Phone Dalia Pérez MD Primary Care Provider [phone] Monserrat Beasley MD Unavailable [phone] Active Problems Problem Noted Date Diagnosed Date [...] (10/31/2021): Added automatically from request for surgery [id number] Shoulder arthritis 08/06/2021 Anxiety 08/01/2021 History of [...] (08/29/2019): Added automatically from request for surgery [id number] Personal history of colonic polyps 01/19/2018 Overview (01/19/2018): Added automatically from request for surgery [id number] Other dysphagia 01/19/2018 Overview (01/19/2018): Added automatically from request for surgery [id number] Allergic conjunctivitis of both eyes 11/30/2017 Assessment & Plan (02/02/2023 10:49 AM STEMHOLE BORER): Finished 3 yrs of allergy shot last year Takes zyrtec recently. Warned may dry eye out more.n Assessment & Plan (12/19/2019 1:24 PM CDT): Add hot compresses with lid scrubs to alleviate crusting of lashes and remove pollen. Recommend trail of lubricant eye drops 4 times/day. If still itchy and symptomatic, try Zaditor OTC drops 2x/s day. H/o shots [id number] and using nose spray and judy. Eyes ok. Assessment & Plan (12/13/2018 2:32 PM CDT): Add hot compresses with lid scrubs to alleviate crusting of lashes and remove pollen. Recommend trail of lubricant eye drops 4 times/day. If still itchy and symptomatic, try Zaditor OTC drops 2x/s day. H/o shots [id number] and using nose spray and judy. Eyes [...] unremarkable Assessment & Plan (02/02/2023 10:52 AM STEMHOLE BORER): Not visually significant. Do not recommend surgery at this time. Continue to monitor. Patient to call if problems with activities of daily living. Warned post-LASIK will give some intraocular lens (IOL) calc challenges. Also smallish pupil, would likely need a ring when eventually needs Assessment & Plan (01/27/2022 9:24 AM STEMHOLE BORER): Not visually significant. Do not recommend surgery [...] 01/2018 Assessment & Plan (02/02/2023 9:51 AM STEMHOLE BORER): Recommend increase lubricant eye drops to 4 times/day; consider preservative- free drops, especially if using drops more than that. Add hot compresses with lid scrubs to improve quality of tears. Assessment & Plan (01/27/2022 9:25 AM STEMHOLE BORER): Recommend increase lubricant eye drops to 4 [...] monitor Assessment & Plan (02/02/2023 9:51 AM STEMHOLE BORER): Good result from surgery [place] [address] Verdugo. (had enhancement left eye (OS)). Pt doing well. Assessment & Plan (01/27/2022 9:25 AM STEMHOLE BORER): Good result from surgery in 2001 with [...]
--- OUTSIDE RECORDS SUMMARY | 2025-01-24 02:27 | XMS_ITS | Encounter Summary ---
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 05/20/2024 06/15/2024 08/18/2024 7:26 PM C DT C. difficile suspected 08/22/2024 08/22/202408/25 9:39 AM CDT documented as of this encounter Care Teams Roll Wrapper Relationship Specialty Start Date End Date Dalia Pérez MD PCP - General 4/10/18 Monserrat Beasley MD [id number] [place] [address] Consulting Physician General Surgery 09/25/24 documented as of this encounter
--- OUTSIDE RECORDS SUMMARY | 2025-01-24 02:27 | XMS_ITS | Data Portability ---
Author Organization [place] [facility] Address [address] [facility] [address] [place] [address] Assessment Encounter Date Assessment Date Assessment LastModified by Organization Details LastModified Time 01/23/2025 01/23/2025 The patient visit started at 1:31 pm and ended at 2:29 pm. My total encounter time on 01/23/25 was 75 minutes which was spent in the activities documented in the note. This includes time spent prior to the visit and after the visit in direct care of the patient. This time does not include time spent in any separately reportable services. This telemedicine visit took place via real-time video connection. After being given an opportunity to ask questions about and discuss this type of visit, the patient verbally consented to proceeding with the telemedicine visit. The patient understands that this service replaces an office visit and they may be billed and/or responsible for any applicable copayments. [email or web address] Not available 01/23/2025 15:45:08 Plan of Treatment Reminders Order Date Submit Date Provider Last Modified By Organization Details Last Modified Time Details Appointments None recorded. Lab lipid panel, serum 2024 025 [facility], [address], [place], [address], 16:05:38 vitamin D, 25-hydroxy , total, serum 2024 025 [facility], [address], [place], [address], 16:05:38 CBC 2024 [email or web address] Not available 13:36:45 CMP, serum or plasma 2024 [email or web address] Not available 13:36:45 gamma-glut amyl transferas e (ggt), serum 2024 [email or web address] Not available 13:36:45 lipid panel, serum 2024 [email or web address] Not available 13:36:45 apolipopro tein B (apo B), serum 2024 [email or web address] Not available 13:36:45 lipoprotei n (A), serum 2024 [email or web address] Not available 13:36:45 TSH, serum, reflex free T4 2024 [email or web address] Not available 13:36:45 HbA1c (hemoglobi n A1c), blood 2024 [email or web address] Not available 13:36:45 insulin, fasting, serum 2024 [email or web address] Not available 13:36:45 Referral None recorded. Procedures oxygen uptake, gas analysis, rest, indirect (PROC) [email or web address] [place] [address] [facility], [address], [place], [address], 16:12:43 Surgeries None recorded. Imaging electrocar diogram 2024 [facility], [address], [place], [address], 13:51:54 Medication Orders ezetimibe [address] [id number], [address], [place], [place], [id number], 16:04:24 Patient TargetsNo targets recorded. Patient InstructionsNo instructions recorded. Reason for Referral None Reported. Results Created Date Observation Date Name Description Value Unit Range Abnormal Flag Note LastModifiedBy Organization Detail LastModifiedTime 01/04/2001/03/2025 elect rocar diogr am No observ ation record ed. [email or web address] [address], [place], [address], 01/19/2025 15:42:22 01/04/2001/03/2025 elect rocar diogr am No observ ation record ed. [facility] [address], [place], [address], 01/03/2025 13:52:41 01/04/2001/03/2025 oxyge n uptak e, expir ed gas ayah sis, rest, indir ect (PROC ) No observ ation record ed. [email or web address] Not Available 2024 14:02:50 Result Notes None recorded. Problems Name Problem SNOMED Code Status Onset Date Resolution Date Notes Provider Name and Address Organization Details Recorded Time Gastroes ophageal reflux disease without esophagi tis 734582551 Active 2024 MICKI GONCALVES [address], [place], [address], [place] [facility] 5 14:19:40 Chronic metaboli c acidosis Active 2024 MICKI GONCALVES [address], [place], [address], [place] [facility] 5 14:19:48 Vitamin D deficien cy 64679126 Active 2024 MICKI GONCALVES [address], [place], [address], [place] [facility] 14:19:58 Cobalami n deficien cy 605949649 Active 2024 MICKI GONCALVES [address] [facility] [address], [place], [address], [place] [facility] 14:20:05 Prediabe janeen 532393710 Active 2024 LIZZY AVELAR MD [address] [facility] [address], [place], [address], [place] [facility] 15:43:22 Insulin resistan ce 858183029 Active 2024 MICKI GONCALVES [address] [facility] [address], [place], [address], [place] [facility] 14:20:26 Menopaus al syndrome 383411297 Active 2024 MICKI GONCALVES [address] [facility] [address], [place], [address], [place] [facility] 14:20:49 Renal cell carcinom a 855040445 Completed 202401/02/2025 Removal Reason: partial nephrecto my MICKI GONCALVES [address] [facility] [address], [place], [address], [place] [facility] 14:25:49 Malignan t neoplasm of urinary bladder 945332625 Completed 202401/02/2025 MICKI GONCALVES [address] [facility] [address], [place], [address], [place] [facility] 14:21:35 Hyperten sive disorder 98623118 Active 2024 MICKI GONCALVES [address] [facility] [address], [place], [address], [place] [facility] 14:22:04 Hyperlip idemia 05674638 Active 2024 LIZZY AVELAR MD [address], [place], [address], [place] [facility] 14:35:41 Small bowel obstruct ion 691715822 Completed 202401/02/20252024 after viral enteritis MICKI GONCALVES [address], [place], [address], [place] [facility] 14:22:50 Complete atrioven tricular block 25286119 Completed 202401/02/2025 Removal Reason: 11/2023-s/ p ppm MICKI GONCALVES [address], [place], [address], [place] [facility] 14:23:31 Hypothyr oidism 04510237 Active 2024 MICKI GONCALVES [address], [place], [address], [place] [facility] 14:24:22 Anxiety 37483107 Active 2024 MICKI GONCALVES [address], [place], [address], [place] [facility] 14:25:57 Renal artery stenosis 437678174 Active 2024 MICKI GONCALVES [address], [place], [address], [place] [facility] 14:26:29 Senile cataract 82124856 Active 2024 BIRDIE GONCALVESC [address], [place], [address], [place] [facility] 14:26:41 [facility] hyperten viky 17186424 Active 2024 LIZZY AVELAR MD [address], [place], [address], [facility] 5 14:35:31 Sensorin eural hearing loss of bilatera l ears 952872705 Active 2024 LIZZY AVELAR MD [address], [place], [address], [facility] 5 14:46:42 Pure hypergly ceridemi a 136010050 Active 2024 LIZZY AVELAR MD [address], [place], [address], [facility] 5 15:25:00 Chronic kidney disease stage 2 571350798 Active 2024 LIZZY AVELAR MD [address], [place], [address], [facility] 5 15:26:08 Primary insomnia 3437947 Active 2024 LIZZY AVELAR MD [address], [place], [address], [facility] 5 15:39:54 Amnesia 04160174 Active 2024 LIZZY AVELAR MD [address], [place], [address], [facility] 5 15:40:00 Problem Notes None recorded. Medical Equipment None Reported. Allergies No known drug allergies Medications Name Sig Start Date Stop Date Status Note LastModified by Organization Details LastModified Time venlafaxine 75 mg tablet TAKE 1 TABLET BY MOUTH EVERY DAY ALONG WITH THE 37.5MG TABLET active Not Available Not Available No t Available amlodipine 5 mg tablet TAKE 1 TABLET BY MOUTH EVERY DAY active Not Available Not Available No t Available ciprofloxac in 500 mg tablet TAKE 1 TABLET BY MOUTH EVERY 12 HOURS 01/02 completed Not Available Not Available Not Available levothyroxi ne 75 mcg tablet TAKE 1 TABLET BY MOUTH EVERY DAY active Not Available Not Available No t Available pantoprazol e 40 mg tablet,carmelo yed release TAKE 1 TABLET BY MOUTH DAILY active Not Available Not Available No t Available venlafaxine 37.5 mg tablet TAKE 1 TABLET BY MOUTH EVERY DAY ALONG WITH 75MG TABLET active Not Available Not Available No t Available ferrous sulfate 325 mg (65 mg iron) tablet Take 1 tablet every other day by oral route. active Not Available Not Available No t Available lisinopril 10 mg tablet TAKE 1 TABLET BY MOUTH TWICE DAILY active Not Available Not Available No t Available docusate sodium 100 mg capsule 01/23 completed Not Available Not Available Not Available aspirin 81 mg chewable tablet Chew 1 tablet every day by oral route. active Not Available Not Available No t Available hydrochloro thiazide 25 mg tablet TAKE 1 TABLET BY MOUTH EVERY DAY 10/19 completed Not Available Not Available Not Available polyethylen e glycol 3350 17 gram/dose oral powder DISSOLVE 17 GRAMS BY MOUTH DAILY . 01/03 completed Not Available Not Available Not Available methylpredn isolone 4 mg tablets in a dose pack FOLLOW PACKAGE DIRECTION S 01/03 completed Not Available Not Available Not Available oxycodone 5 mg tablet 01/23 completed Not Available Not Available Not Available ezetimibe 10 mg tablet TAKE 1 TABLET BY MOUTH EVERY DAY active Not Available Not Available No t Available rosuvastati n 10 mg tablet TAKE 1 TABLET BY MOUTH DAILY active Not Available Not Available No t Available multivitami n Take 1 tablet daily active Not Available Not Available No t Available Krill Oil (Monona 3 and 6) Take 1 capsule daily active Not Available Not Available No t Available B12 Take 1000 mcg daily active Not Available Not Available No t Available Entresto 97 mg-103 mg tablet Take 1 tablet twice a day by oral route. active Not Available Not Available No t Available Paxlovid 150 mg-100 mg tablets in a dose pack (Moderate Renal Dose) TK 1 NIRMATREL VIR T AND 1 RITONAVIR T TOGETHER PO BID FOR 5 DAYS 01/03 completed Not Available Not Available Not Available Vitals None Recorded Social History None recorded. Functional Status None recorded. Mental Status None recorded. Family History Nothing Reported. Medical History Condition Response Cardiac: Pacemaker or Defibrillator Y Metabolic: Prediabetes N Mental Health: Attention Deficit Disorde r N Urology: Chronic Kidney Disease (CKD) N Lungs: Pneumonia N Metabolic: Diabetes Mellitus N Urology: Erectile Dysfunction N TYPESETTERS PRINTER: Endometriosis N Urology: Kidney Stones N Infection: Shingles N Infection: Sinus Infections (More than 3 x/year) N Rheum: Rheumatoid Arthritis N Metabolic: Liver Enzyme Elevation N Vision or Eye Problems Y TYPESETTERS PRINTER: Menopause N Rheum: Spinal Stenosis N Cardiac: Lipoprotein(a) Elevation N GI: Constipation N Neuro: Epilepsy/Seizures N Cardiac: Congestive Heart Failure (CHF) N Cardiac: High Total Cholesterol Y Heme: Anemia N TYPESETTERS PRINTER: IUD Present N Metabolic: Thyroid Levels Low (Hypothyro id) Y Rheum: Psoriatic Arthritis N Hospitalizations Y Heme: Bleeding Disorder N GI: Reflux/GERD Y Mental Health: Panic Attacks N Mental Health: Anxiety Y Osteopenia N Cardiac: High Triglycerides (Fatty Sugar s) Y ENT: Eustachian Tube Dysfunction N TYPESETTERS PRINTER: Low Libido N Neuro: Neuropathy N Oncology: Abnormal Pap Test N GI: Peptic Ulcer N GI: Diverticulitis (Infection) Y Heme: Vitamin B12 Deficiency N Metabolic: High Fasting Glucose (Not Pre diabetes or Diabetes) N Urology: Blood in Urine (Chronic) N Oncology: Cancer (Past or Present) Y Metabolic: Obesity N Metabolic: Thyroid Levels High (Hyperthy roid) N Rheum: Osteoarthritis (Wear and Tear) N Metabolic: Vitamin D Deficiency N Cardiac: Valve Disorder (Stenosis or Reg urgitation) N Cardiac: High Blood Pressure (Hypertensi on) Y Heme: Iron Deficiency Y Urology: Frequent UTI (more than 4x/year ) N Rheum: Gout N Infection: Hepatitis N GI: Small Intestine Bacterial Overgrowth N Metabolic: Insulin Resistance N TYPESETTERS PRINTER: Infertility N TYPESETTERS PRINTER: Perimenopause N GI: Colon Polyps (Not Cancer) N TYPESETTERS PRINTER: Hot Flashes or Night Sweats N Mental Health: Binge Eating Disorder N Heme: Blood Clots N Metabolic: Fatty Liver Disease N TYPESETTERS PRINTER: Preeclampsia N Rheum: Raynoud's Syndrome N TYPESETTERS PRINTER: Dense Breasts N Cardiac: Postural Orthostatic Tachycardi a Syndrome (POTS) N Metabolic: Liver Fibrosis or Cirrhosis N Mental Health: Insomnia Y Rheum: Fibromyalgia N Thinning Hair / Hair Loss N Infection: Chicken Pox Y ENT: Hearing Problems Y Infection: COVID Y Mental Health: Depression Y GI: Irritable Bowel Syndrome N GI: Diverticulosis without Diverticuliti s Flare Y Oncology: Genetic Mutation Increasing Ca ncer Risk N Urology: Low Testosterone N TYPESETTERS PRINTER: Breast Problem (Not Cancer) N Oncology: Abnormal Mammogram N Lungs: Asthma N Lungs: Chronic Obstructive Pulmonary Dis ease (COPD) N Cardiac: Plaque or Blockages (Atheroscle rosis) N TYPESETTERS PRINTER: Polycystic Ovarian Syndrome (PCOS) N Cardiac: Rhythm Problem (AFib, SVT, etc) N Lungs: Sleep Apnea N ENT: Allergies/Hayfever Y Oncology: Abnormal Colonoscopy N Urology: Prostate Disease N Cardiac: High CRP (Inflammation) N Neuro: Migraine N TYPESETTERS PRINTER: Painful Sex Y Cardiac: TIA or Stroke N Osteoporosis N Gynecological HistoryNo gynecological history recorded. Obstetrics History GPAL:G 0 P 0 0 0 0 Immunizations Vaccine Type Date Status Note Provider Nam e and Address Organization Details Recorded Time Tdap 0 completed MICKI DE OLIVEIRA [address] [facility] [address], [place], [address], [facility] 01/03/2025 13:16:31 Pneumococcal conjugate PCV 13 5 completed MICKI DE OLIVEIRA [address], [place], [place], [address] [place] [address], [facility] 01/03/2025 13:18:34 pneumococcal polysaccharide PPV23 0 completed MICKI DE OLIVEIRA [address] [facility] [address], [place], [address], [facility] 01/03/2025 13:18:47 zoster recombinant 0 completed MICKI DE OLIVEIRA [address] [facility] [address], [place], [address], [facility] 01/03/2025 13:19:01 zoster recombinant 9 completed MICKI DE OLIVEIRA [address] [facility] [address], [place], [address], [facility] 01/03/2025 13:19:08 Influenza, high-dose, trivalent, PF 5 completed MICKI DE OLIVEIRA [address] [facility] [address], [place], [address], [facility] 01/03/2025 13:49:42 Past Encounters Encounter ID Performer Location Encounter Start Date Encounter Closed Date Diagnosis/Indication Diagnosis SNOMED-CT Code Diagnosis ICD10 Code Diagnosis IMO Codes Diagnosis Note [id number] MICKI DE OLIVEIRA [facility] [address] [place] [address] 01/03/2025 10:18:22 01/03/2025 13:33:49 Adult health examination 025132559 Z00.01 3884093 Reviewed all age- and gender- appropriat e preventive recommenda tions. Reviewed optimal lifestyle and any applicable changes to consider including nutrition, physical activity, sleep, avoidance of toxic substances , stress management and social support. Consider health and/or life coaching. [id number] LIZZY AVELAR MD [facility] [address] [place] [address] 01/23/2025 14:28:43 01/23/2025 16:26:49 Essential hypertension 80947112 I10 09903 - Goal BP <120/80; CCT Prediabetes 149048008 R7 3.03 071105 - Metformin offered but dietary modificati on preferred initially- Consider low glycemic diet Anxiety 32245746 F41.9 93364 - Discussed option of switching to pristiq to decrease copay cost; if she desires to do this, start [id number] and titrate down to 50mg in the spring if sx well controlled Pure hyperglyceridemia 602394629 E78.1 3446243 - Discontinu e Rosuvastat in temporaril y to assess impact on memory- Start Zetia (ezetimibe ) as alternativ e cholestero l management - Recheck triglyceri khalida in one month with fasting labs- Follow up with Precious in one month to assess memory changes and lab results Chronic ki dney disease stage 2 924648169 N18.2 269035 - Increase fluid intake to 50-60 ounces daily (goal 100 ounces in perfect world)- Patient to resume previous successful hydration measuremen t methods Primary insomnia 0531747 F51.01 55849 - Discontinu e melatonin due to morning grogginess and fall risk- Prescripti on sleep aids available if problems persist Amnesia 06037969 R41.3 70784 - Trial off statin for 30 days to assess cognitive impact- Low fructose diet informatio n provided- Address hearing aid optimizati on as contributi ng factor Vitamin D deficiency 347 84128 E55.9 64903 - Resume vitamin D supplement ation 4,000-5,00 0 units daily- Check level with labs in 1 month Health Concerns Section Related Observation LastModified by Organization Detai ls LastModified Time None Recorded Concern Status LastModified by Organization Details LastModified Time None Recorded Advance Directives Directive None Recorded Payers Insurance Date Sequence Insurance Name Policy Number Policy Herrera Covered Member ID Herrera Member ID Guarantor Name 01/22/2025 1 [place] Khushi Keenan Efra [id number] 3 01/18/2025 1 [place] MARI Puri Efra [id number] 3 Notes Date Note Type Note Provider Name and Address Organization Details Recorded Time 01/03/2025 text/html Annual WellnessReported by PatientSocial/Behavior al HistoryFor fracture risk, patient reportsprevious musculoskeletal injuriesbut reportsno history of fractures,no recent explained fracture, andno sudden unexplained fractures(osteopenia on dxa). For diet and nutrition, patient reportsfollows recommended diet. For physical activity, patient reportsexercises on a regular basis,recent increase in physical activity,good physical condition,discussed weightbearing activities, anddiscussed exercise habits. For additional lifestyle factors, patient reportsno tobacco use,no intimate partner violence, andno high risk sexual behavior.Functional AbilityFor hearing, patient reportsno loss of hearing. For vision, patient reportsno vision problems.ROS as noted in the HPI LIZZY AVELAR MD [address], [place], [address], [place] [facility] 01/03/2025 17:51:03 01/23/2025 text/html Here to discuss ALA report (see scanned document for details) LIZZY AVELAR MD [address] [facility] [address], [place], [address], [place] [facility] 01/23/2025 16:04:14 OBGyn Episode No OBEpisode recorded.
--- OUTSIDE RECORDS SUMMARY | 2025-01-24 02:28 | XMS_ITS | Clinical Summary ---
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
--- OUTSIDE RECORDS SUMMARY | 2025-01-24 02:28 | XMS_ITS | Continuity of Care Document ---
Author Organization [place] - [facility], [facility] Address [address] [place] [address] Assessment Encounter Date Assessment Date Assessment LastModified [...] recorded. Lab lipid panel, serum 2024 025 [facility], [address], [place], [address], 16:05:38 vitamin D, 25-hydroxy , total, serum 2024 025 [facility], [address], [place], [address], 11/04/202 5 16:05:38 Referral None recorded. Procedures None recorded. Surgeries None recorded. Imaging None recorded. Medication Orders ezetimibe 10 mg tablet 2024 025 [id number], [address] [facility], [place], [place], [id number], 16:04:24 Patient TargetsNo targets recorded. Patient InstructionsNo instructions recorded. Reason for Referral None Reported. Results Created Date Observation Date Name Description Value Unit Range Abnormal Flag Note LastModifiedBy Organization Detail LastModifiedTime 01/04/2001/03/2025 elect rocar diogr am No observ ation record ed. [facility] [address], [place], [address], 01/19/2025 15:42:22 01/04/2001/03/2025 elect rocar diogr am No observ ation record ed. [facility] [address], [place], [address], 01/03/2025 13:52:41 01/04/2001/03/2025 oxyge n uptak e, expir ed gas ayah sis, rest, indir ect (PROC ) No observ ation record ed. [email or web address] Not Available 2024 14:02:50 Result Notes None recorded. Problems Name Problem SNOMED Code Status Onset Date Resolution Date Notes Provider Name and Address Organization Details Recorded Time Gastroes ophageal reflux disease without esophagi tis 790178058 Active 2024 MICKI GONCALVES [address], [place], [address], [facility] 14:19:40 Chronic metaboli c acidosis Active 2024 MICKI GONCALVES [address], [place], [address], [facility] 5 14:19:48 Vitamin D deficien cy 42511611 Active 2024 MICKI GONCALVES [address], [place], [address], [place] [facility] 14:19:58 Cobalami n deficien cy 099471408 Active 2024 MICKI GONCALVES [address], [place], [address], [place] [facility] 14:20:05 Prediabe janeen 938113331 Active 2024 LIZZY AVELAR MD [address], [place], [address], [place] [facility] 15:43:22 Insulin resistan ce 787614039 Active 2024 [facility]CALVES [address] [facility] [address], [place], [address], [place] [facility] 14:20:26 Menopaus al syndrome 739299659 Active 2024 MICK[facility]CALVES [address] [facility] [address], [place], [address], [place] [facility] 14:20:49 Renal cell carcinom a 253888921 Completed 202401/02/2025 Removal Reason: partial nephrecto my MICKI GONCALVES [address], [place], [address], [place] [facility] 14:25:49 Malignan t neoplasm of urinary bladder 256410636 Completed 202401/02/2025 BIRDIE GONCALVESC [address], [place], [address], [place] [facility] 14:21:35 Hyperten sive disorder 78856983 Active 2024 MICKI GONCALVES [address], [place], [address], [place] [facility] 14:22:04 Hyperlip idemia 73157995 Active 2024 LIZZY AVELAR MD [address], [place], [address], [place] [facility] 14:35:41 Small bowel obstruct ion 614170558 Completed 202401/02/20252024 after viral enteritis MICKI GONCALVES [address], [place], [address], [place] [facility] 14:22:50 Complete atrioven tricular block 05288833 Completed 202401/02/2025 Removal Reason: 11/2023-s/ p ppm MICKI GONCALVES [address], [place], [address], [place] [facility] 14:23:31 Hypothyr oidism 14927657 Active 2024 MICKI GONCALVES [address], [place], [address], [place] [facility] 14:24:22 Anxiety 51845509 Active 2024 MICKI GONCALVES [address], [place], [address], [place] [facility] 14:25:57 Renal artery stenosis 745724296 Active 2024 MICKI GONCALVES [address], [place], [address], [place] [facility] 14:26:29 Senile cataract 08029539 Active 2024 MICKI GONCALVES [address], [place], [address], [place] [facility] 5 14:26:41 Essentia l hyperten viky 24462999 Active 2024 LIZZY AVELAR MD [email or web address] [address], [place], [address], [place] [facility] 5 14:35:31 Sensorin eural hearing loss of bilatera l ears 223371204 Active 2024 LIZZY AVELAR MD [address] [email or web address] [address], [place], [address], [place] [facility] 5 14:46:42 Pure hypergly ceridemi a 653293213 Active 2024 LIZZY AVELAR MD [address] [email or web address] [address], [place], [address], [place] [facility] 5 15:25:00 Chronic kidney disease stage 2 640788951 Active 2024 LIZZY AVELAR MD [address] [email or web address] [address], [place], [address], [place] [facility] 5 15:26:08 Primary insomnia 4143797 Active 2024 LIZZY AVELAR MD [email or web address], [place], [address], [place] [facility] 5 15:39:54 Amnesia 27804134 Active 2024 LIZZY AVELAR MD [email or web address], [place], [address], [place] [facility] 5 15:40:00 Problem [...] Not Available No t Available Krill Oil ([place] 3 and 6) Take 1 capsule daily [...] Diabetes Mellitus N Urology: Erectile Dysfunction N BURNT LIME DRAWER: Endometriosis N Urology: Kidney Stones N Infection: Shingles N Infection: Sinus Infections (More than 3 x/year) N Rheum: Rheumatoid Arthritis N Metabolic: Liver Enzyme Elevation N Vision or Eye Problems Y BURNT LIME DRAWER: Menopause N Rheum: Spinal Stenosis N Cardiac: Lipoprotein(a) Elevation N GI: Constipation N Neuro: Epilepsy/Seizures N Cardiac: Congestive Heart Failure (CHF) N Cardiac: High Total Cholesterol Y Heme: Anemia N BURNT LIME DRAWER: IUD Present N Metabolic: Thyroid Levels Low (Hypothyro id) Y Rheum: Psoriatic Arthritis N Hospitalizations Y Heme: Bleeding Disorder N GI: Reflux/GERD Y Mental Health: Panic Attacks N Mental Health: Anxiety Y Osteopenia N Cardiac: High Triglycerides (Fatty Sugar s) Y ENT: Eustachian Tube Dysfunction N BURNT LIME DRAWER: Low Libido N Neuro: Neuropathy N Oncology: [...] Bacterial Overgrowth N Metabolic: Insulin Resistance N BURNT LIME DRAWER: Infertility N BURNT LIME DRAWER: Perimenopause N GI: Colon Polyps (Not Cancer) N BURNT LIME DRAWER: Hot Flashes or Night Sweats N Mental Health: Binge Eating Disorder N Heme: Blood Clots N Metabolic: Fatty Liver Disease N BURNT LIME DRAWER: Preeclampsia N Rheum: Raynoud's Syndrome N BURNT LIME DRAWER: Dense Breasts N Cardiac: Postural Orthostatic Tachycardi [...] ncer Risk N Urology: Low Testosterone N BURNT LIME DRAWER: Breast Problem (Not Cancer) N Oncology: Abnormal Mammogram N Lungs: Asthma N Lungs: Chronic Obstructive Pulmonary Dis ease (COPD) N Cardiac: Plaque or Blockages (Atheroscle rosis) N BURNT LIME DRAWER: Polycystic Ovarian Syndrome (PCOS) N Cardiac: Rhythm Problem (AFib, SVT, etc) N Lungs: Sleep Apnea N ENT: Allergies/Hayfever Y Oncology: Abnormal Colonoscopy N Urology: Prostate Disease N Cardiac: High CRP (Inflammation) N Neuro: Migraine N BURNT LIME DRAWER: Painful Sex Y Cardiac: TIA or Stroke N Osteoporosis N Gynecological HistoryNo gynecological history recorded. Obstetrics History GPAL:G 0 P 0 0 0 0 Immunizations Vaccine Type Date Status Note Provider Nam e and Address Organization Details Recorded Time Tdap 0 completed MICKI DE LOIVEIRA [address] [facility] [address], [place], [address], [facility] 01/03/2025 13:16:31 Pneumococcal conjugate PCV 13 5 completed MICKI DE OLIVEIRA [address] [facility] [address], [place], [address], [facility] 01/03/2025 13:18:34 pneumococcal polysaccharide PPV23 0 completed MICKI DE OLIVIERA [address] [facility] [address], [place], [address], [facility] 01/03/2025 13:18:47 zoster recombinant 0 completed MICKI DE OLIVEIRA [address] [facility] [address], [place], [address], [facility] 01/03/2025 13:19:01 zoster recombinant 9 completed MICKI DE OLIVEIRA [address] [facility] [address], [place], [address], [facility] 01/03/2025 13:19:08 Influenza, high-dose, trivalent, PF 5 completed MICKI DE OLIVEIRA [address], [place], [address], [place] [facility] 01/03/2025 13:49:42 Past Encounters Encounter ID Performer Location Encounter Start Date Encounter Closed Date Diagnosis/Indication Diagnosis SNOMED-CT Code Diagnosis ICD10 Code Diagnosis IMO Codes Diagnosis Note [id number] MICKI DE OLIVEIRA [facility] [address] [place] [address] 01/03/2025 10:18:22 01/03/2025 13:33:49 Adult health examination 183671560 Z00.01 4796012 Reviewed all age- and gender- appropriat e preventive recommenda tions. Reviewed optimal lifestyle and any applicable changes to consider including nutrition, physical activity, sleep, avoidance of toxic substances , stress management and social support. Consider health and/or life coaching. [id number] LIZZY AVELAR MD [facility] [address] [place] [address] 01/23/2025 14:28:43 01/23/2025 16:26:49 Essential hypertension 73021964 I10 01148 - Goal BP <120/80; CCT Prediabetes 403272303 R7 3.03 734428 - Metformin offered but dietary modificati on preferred initially- Consider low glycemic diet Anxiety 80603943 F41.9 94764 - Discussed option of switching to pristiq to decrease copay cost; if she desires to do this, start tt601lx and titrate down to 50mg in the spring if sx well controlled Pure hyperglyceridemia 761703320 E78.1 1882262 - Discontinu e Rosuvastat in temporaril y to assess impact on memory- Start Zetia (ezetimibe ) as alternativ e cholestero l management - Recheck triglyceri khalida in one month with fasting labs- Follow up with Precious in one month to assess memory changes and lab results Chronic ki dney disease stage 2 177830885 N18.2 312076 - Increase fluid intake to 50-60 ounces daily (goal 100 ounces in perfect world)- Patient to resume previous successful hydration measuremen t methods Primary insomnia 0395596 F51.01 86093 - Discontinu e melatonin due to morning grogginess and fall risk- Prescripti on sleep aids available if problems persist Amnesia 54228185 R41.3 90353 - Trial off statin for 30 days to assess cognitive impact- Low fructose diet informatio n provided- Address hearing aid optimizati on as contributi ng factor Vitamin D deficiency 347 56714 E55.9 25778 - Resume vitamin D supplement ation 4,000-5,00 0 units daily- Check level with labs in 1 month Health Concerns Section Related Observation LastModified by Organization Detai ls LastModified Time None Recorded Concern Status LastModified by Organization Details LastModified Time None Recorded Payers Encounter Date Sequence Insurance Name Policy Number Policy Herrera Covered Member ID Herrera Member ID Guarantor Name 01/23/2025 1 [place] [employer] Khushi Pengycki [id number] 3 Notes Date Note Type Note Provider Name and Address Organization Details Recorded Time 01/23/2025 text/html Here to discuss ALA report (see scanned document for details) LIZZY AVELAR MD [address], [place], [address], [place] [facility] 01/23/2025 16:04:14 OBGyn Episode No OBEpisode recorded.
[2025-01-24] MEDS: ASPIRIN 81 MG CHEWABLE TABLET 324 MG PO (02:34)
[2025-01-24 02:41] LABS: Hematocrit 38.5 % (37.0-47.0); Hemoglobin 13.5 g/dL (12.0-15.0); Immature Granulocyte Percent A 0.4 % (0-0.5); Lymphocytes Absolute Auto 3.03 K/mm3 (0.9-3.2); Mean Corpuscular HGB Conc 35.1 g/dl (32-36); Mean Corpuscular Hemoglobin 33.3 pg (26-34); Mean Corpuscular Volume 94.8 fl (80-100); Nucleated Red Blood Cells Absolute Auto 0.000 K/mm3 (0.0-0.012); Nucleated Red Blood Cells Perc 0.0 % (0.0-0.2); Platelet Count Result 232 k/mm3 (150-375); Red Blood Count 4.06 M/mm3 (4.2-5.4); White Blood Count 8.3 K/mm3 (4.5-10.0)
[2025-01-24 02:52] LABS: INR 0.9; Prothrombin Time 12.5 Seconds (11.1-14.7)
[2025-01-24 02:53] LABS: Partial Thromboplastin Time 27.4 Seconds (22.3-36.8)
[2025-01-24 03:07] LABS: Alanine Aminotransferase 32 U/L (6-35); Albumin Level 5.0 g/dL (3.5-5.1); Alkaline Phosphatase 82 U/L (38-126); Anion Gap 15 mmol/L (4-12); Aspartate Amino Transferase 32 U/L (14-36); Bilirubin,Total 0.5 mg/dL (0.2-1.3); Blood Urea Nitrogen 33 mg/dL (7-17); Calcium 9.9 mg/dL (8.4-10.2); Carbon Dioxide 18 mmol/L (22-30); Chloride 105 mmol/L (98-107); Estimated CRCL calculation 32 ml/min; Estimated Glomerular Filt Rate 49; Glucose 125 mg/dL (65-110); Lipase 120 U/L (23-300); Potassium 3.4 mmol/L (3.4-5.0); Sodium 138 mmol/L (137-145); Total Protein 8.6 g/dL (6.3-8.2)
[2025-01-24 03:19] LABS: Troponin I < 0.012 ng/mL (0.000-0.034)
--- NOTE | 2025-01-24 04:13 | ED.GENADULT ---
HPI - General Adult General Chief complaint: Abdominal Pain <Malik Leonard MD - Last Filed: 01/24/25 06:31> Stated complaint: Abdominal bloating <Malik Leonard MD - Last Filed: 01/24/25 06:31> Time Seen by Provider: 01/24/25 02:14 <Malik Leonard MD - Last Filed: 01/24/25 06:31> History of Present Illness HPI narrative: this is a [age]-year-old female with a history of small-bowel obstruction who underwent adhesiolysis at [facility] earlier this year presenting with abdominal bloating. patient also has associated discomfort in the lower abdominal region. She is still passing gas. Last bowel movement was 2 days ago and was normal. She has not had any nausea or vomiting. She has not had any fevers chills chest pain shortness of breath or urinary symptoms. <Malik Leonard MD - Last Filed: 01/24/25 06:31> Related Data Home medications: Home Medications ?Medication ?Instructions ?Recorded ?Confirmed ?Last Taken ?Type Lactobacillus acidophilus 250 250 mmu cells PO DAILY 02/11/19 08/09/24 Unknown History million cell capsule (Probiotic Acidophilus) cholecalciferol (vitamin D3) 50 50 mcg PO DAILY 02/11/19 08/09/24 Unknown History mcg (2,000 unit) capsule (Vitamin D3) balcoqeqavoc-socvucrb-mzmohet-folic 1 tablet PO DAILY 02/11/19 08/09/24 Unknown History acid 400 mcg-vit K1 20 mcg tablet (One-A-Day Women's 50 Plus) aspirin 81 mg tablet,delayed 81 mg PO DAILY 08/09/24 08/09/24 Unknown History release azelastine 205.5 mcg (0.15 %) 1 spray intranasal DAILY PRN 08/09/24 08/09/24 Unknown History nasal spray (Astepro Allergy) allergy symptoms cetirizine 10 mg tablet (24Hour 5 mg PO DAILY PRN allergy symptoms 08/09/24 08/09/24 Unknown History Allergy) ferrous sulfate 27 mg iron tablet 27 mg PO EVERY OTHER DAY 08/09/24 08/09/24 Unknown History (High Potency Iron) hydrochlorothiazide 25 mg tablet 12.5 mg PO DAILY 08/09/24 08/09/24 Unknown History krill oil 500 mg capsule 2,500 mg PO DAILY 08/09/24 08/09/24 Unknown History levothyroxine 75 mcg tablet 75 mcg PO DAILY 08/09/24 08/09/24 Unknown History mecobalamin (vitamin B12) 1,000 2,000 mcg PO DAILY 08/09/24 08/09/24 Unknown History mcg chewable tablet pantoprazole 40 mg tablet,delayed 40 mg PO HS 08/09/24 08/09/24 Unknown History release rosuvastatin 10 mg tablet 10 mg PO HS 08/09/24 08/09/24 Unknown History sacubitril 24 mg-valsartan 26 mg 1 tablet PO BID 08/09/24 08/09/24 Unknown History tablet (Entresto) triamcinolone acetonide 55 mcg 2 spray intranasal DAILY PRN 08/09/24 08/09/24 Unknown History nasal spray aerosol (Nasacort) allergy symptoms venlafaxine 37.5 mg tablet 37.5 mg PO DAILY 08/09/24 08/09/24 Unknown History venlafaxine 75 mg tablet 75 mg PO DAILY 08/09/24 08/09/24 Unknown History <Malik Leonard MD - Last Filed: 01/24/25 06:31> Allergies/adverse reactions: Allergies Allergy/AdvReac Type Severity Reaction Status Date / Time No Known Allergies Allergy Mild Verified 08/09/24 08:32 <Malik Leonard MD - Last Filed: 01/24/25 06:31> FOR[facility] Past Medical History Medical History: Medical History Renal artery stenosis Bladder cancer Plantar fasciitis of left foot LVH (left ventricular hypertrophy) GERD (gastroesophageal reflux disease) Hypertension Hyperlipidemia Hypothyroidism Vertigo <Malik Leonard MD - Last Filed: 01/24/25 06:31> Surgical History Surgical History: Surgical History History of transurethral resection of bladder tumor (TURBT) H/O partial nephrectomy Due to tumor History of endoscopy History of colonoscopy History of repair of right rotator cuff History of repair of left rotator cuff History of bunionectomy History of cholecystectomy History of bladder suspension procedure History of cystoscopy History of hysterectomy History of rhinoplasty History of tubal ligation <Malik Leonard MD - Last Filed: 01/24/25 06:31> Family History Family History: Family History Mother Uterine cancer Father Acute myocardial infarction Asthma Sibling Diabetes mellitus <Malik Leonard MD - Last Filed: 01/24/25 06:31> Social History Social History: Social History Alcohol intake: never Substance use: never Substance use type: does not use Do You Feel Safe in your Home?: Yes Lack of Transportation: No Lack of Food: Never True Current Housing: I Have Housing Concerned About Future Housing: No Difficulty Paying Gas/Electric Bills: No Difficulty Paying for Meds: No Currently Unemployed: No Education: High School Diploma/GED Difficulty w/ Childcare or Family Care: No Gender identity (if verbalized by the patient): Female Spiritual care concerns: No <Malik Leonard MD - Last Filed: 01/24/25 06:31> Exam Narrative: APPEARANCE: No apparent distress. Head: atraumatic. EYES: EOMI, NOSE: Atraumatic NECK: Trachea midline RESPIRATORY: No increased rate of breathing clear to auscultation CARDIOVASCULAR: RRR, no peripheral edema ABDOMINAL: distended, nontender, no guarding or rebound MUSCULOSKELETAl: No obvious deformities NEURO: Alert. Moving 4/4 extremities SKIN:: Warm, dry. Normal color PSYCHIATRIC: Normal affect <Malik Leonard MD - Last Filed: 01/24/25 06:31> Course Course Emergency Course: Patient signed out to me pending CT. It was reported that her last bowel movement was 2 days ago although she is passing flatus however there were concerns for small bowel obstruction given she has a history of this and has undergone adhesiolysis was recently at [facility]. Was also reported the patient had a quite full bladder upon arrival and once this was drained she was feeling better. Delay in Stat Rad interpretation being faxed; refer to Phu radiology interpretation as below. Patient is assessed by myself at 8:10 a.m.. She reports that she is still having a little bit of epigastric abdominal pain although feeling much improved. She has had a bowel movement or 2, denies any diarrhea. She has urinated several times. I did cancel the 6 hour troponin as her baseline and 3 hour were normal. Her pain had been primarily epigastric with some radiation into the chest but I do not believe it to be cardiac in nature. She has only received aspirin for pain. I ordered a urinalysis as well as small dose morphine and Bentyl. Urinalysis with hematuria but no signs of infection. It was a straight cath, possibly traumatic insertion considered although on reassessment she states this has been chronic; has seen urology before. Her PCP is in [facility], Dr Snowden. [facility] surgeon Dr German; adhesiolysis performed September 2024. Although the notation of adynamic ileus have been appreciated on CT scan, patient is otherwise still having bowel movements and passing flatus and feels better. We discussed the possibility of admission in the setting of true adynamic ileus however this does not appear to be the case. Otherwise stable for discharge. No dysuria or gross hematuria per patient. Urine culture ordered. Patient will p.o. challenge. Patient will be discharged with prescription for Bentyl. We discussed the indication and patient is in agreement. Strict ED return precautions given. <Catalina Stevenson MD - Last Filed: 01/24/25 09:26> Vital Signs Vital signs: Vital Signs Temperature 98.6 F 01/24/25 01:50 Pulse Rate 81 01/24/25 01:50 Respiratory Rate 22 H 01/24/25 01:50 Blood Pressure 226/105 H 01/24/25 01:50 Pulse Oximetry 96 01/24/25 01:50 Oxygen Delivery Room Air 01/24/25 01:50 Temperature 98.6 F 01/24/25 01:50 Pulse Rate 85 01/24/25 08:12 Respiratory Rate 16 01/24/25 08:12 Blood Pressure 187/80 H 01/24/25 08:12 Pulse Oximetry 100 01/24/25 08:12 Oxygen Delivery Room Air 01/24/25 02:09 <Malik Leonard MD - Last Filed: 01/24/25 06:31> Vital Signs Temperature 98.6 F 01/24/25 01:50 Pulse Rate 81 01/24/25 01:50 Respiratory Rate 22 H 01/24/25 01:50 Blood Pressure 226/105 H 01/24/25 01:50 Pulse Oximetry 96 01/24/25 01:50 Oxygen Delivery Room Air 01/24/25 01:50 Temperature 98.6 F 01/24/25 01:50 Pulse Rate 85 01/24/25 08:12 Respiratory Rate 16 01/24/25 08:12 Blood Pressure 187/80 H 01/24/25 08:12 Pulse Oximetry 100 01/24/25 08:12 Oxygen Delivery Room Air 01/24/25 02:09 <Catalina Stevenson MD - Last Filed: 01/24/25 09:26> Medical Decision Making MDM Narrative Medical decision making narrative: -Course: 84-year-old female with history of small-bowel obstruction presenting with abdominal distension. Abdomen is distended but nontender with no guarding rebound. Last bowel movement was 2 days ago. She is still passing gas. No nausea or vomiting. Labs within normal limits. Patient signed out to the oncoming physician pending CT imaging. -DDX includes but is not limited to: Dyspepsia, small-bowel obstruction, ileus, gas pains, urinary retention <Malik Leonard MD - Last Filed: 01/24/25 06:31> Vital Signs Vital Signs: Vital Signs Temperature 98.6 F 01/24/25 01:50 Pulse Rate 81 01/24/25 01:50 Respiratory Rate 22 H 01/24/25 01:50 Blood Pressure 226/105 H 01/24/25 01:50 Pulse Oximetry 96 01/24/25 01:50 Oxygen Delivery Room Air 01/24/25 01:50 Temperature 98.6 F 01/24/25 01:50 Pulse Rate 85 01/24/25 08:12 Respiratory Rate 16 01/24/25 08:12 Blood Pressure 187/80 H 01/24/25 08:12 Pulse Oximetry 100 01/24/25 08:12 Oxygen Delivery Room Air 01/24/25 02:09 <Malik Leonard MD - Last Filed: 01/24/25 06:31> Vital Signs Temperature 98.6 F 01/24/25 01:50 Pulse Rate 81 01/24/25 01:50 Respiratory Rate 22 H 01/24/25 01:50 Blood Pressure 226/105 H 01/24/25 01:50 Pulse Oximetry 96 01/24/25 01:50 Oxygen Delivery Room Air 01/24/25 01:50 Temperature 98.6 F 01/24/25 01:50 Pulse Rate 85 01/24/25 08:12 Respiratory Rate 16 01/24/25 08:12 Blood Pressure 187/80 H 01/24/25 08:12 Pulse Oximetry 100 01/24/25 08:12 Oxygen Delivery Room Air 01/24/25 02:09 <Catalina Stevenson MD - Last Filed: 01/24/25 09:26> Lab Data Result diagrams: 01/24/25 02:34 01/24/25 02:34 <Malik Leonard MD - Last Filed: 01/24/25 06:31> Labs: Lab Results 01/24/25 01/24/25 01/24/25 Range/Units 02:34 05:01 08:41 WBC 8.3 (4.5-10.0) K/mm3 RBC 4.06 L (4.2-5.4) M/mm3 Hgb 13.5 D (12.0-15.0) g/dL Hct 38.5 (37.0-47.0) % MCV 94.8 (80-100) fl MCH 33.3 (26-34) pg MCHC 35.1 (32-36) g/dl RDW 11.7 (11.5-14.5) % Plt Count 232 (150-375) k/mm3 MPV 9.0 (7.4-10.4) fl Immature Gran % (Auto) 0.4 (0-0.5) % Neut % (Auto) 53.9 (45.5-73.1) % Lymph % (Auto) 36.6 (18.3-44.2) % [place] % (Auto) 7.2 (2.6-8.5) % Eos % (Auto) 1.7 (0-4.4) % Baso % (Auto) 0.2 (0.2-1.2) % Lymph # (Auto) 3.03 (0.9-3.2) K/mm3 [place] # (Auto) 0.6 (0.1-0.6) K/mm3 Eos # (Auto) 0.1 (0-0.3) K/mm3 Baso # (Auto) 0.0 (0.0-0.1) K/mm3 Abs Immat Gran (auto) 0.03 (0.00-0.031) K/mm3 Absolute Neuts (auto) 4.5 (1.3-6.7) K/mm3 Absolute Nucleated RBC 0.000 (0.0-0.012) K/mm3 Nucleated RBC % 0.0 (0.0-0.2) % PT 12.5 (11.1-14.7) Seconds INR 0.9 APTT 27.4 (22.3-36.8) Seconds Sodium 138 (137-145) mmol/L Potassium 3.4 (3.4-5.0) mmol/L Chloride 105 (98-107) mmol/L Carbon Dioxide 18 L (22-30) mmol/L Anion Gap 15 H (4-12) mmol/L BUN 33 H D (7-17) mg/dL Creatinine 1.08 H (0.7-1.0) mg/dL Estim Creat Clear Calc 32 ml/min Estimated GFR 49 L (59 - ) Glucose 125 H (65-110) mg/dL Calcium 9.9 (8.4-10.2) mg/dL Total Bilirubin 0.5 (0.2-1.3) mg/dL AST 32 (14-36) U/L ALT 32 (6-35) U/L Alkaline Phosphatase 82 (38-126) U/L Troponin I < 0.012 < 0.012 (0.000-0.034) ng/mL Total Protein 8.6 H (6.3-8.2) g/dL Albumin 5.0 (3.5-5.1) g/dL Lipase 120 (23-300) U/L Urine Color Yellow (Yellow) Urine Appearance Clear (Clear) Urine pH 5.5 (5.0-9.0) Ur Specific [place] > 1.045 H (1.001-1.035) Urine Protein 3+ H (Negative) mg/dL Urine Glucose (UA) Negative (Negative) mg/dL Urine Ketones Negative (Negative) mg/dL Ur Blood (Man) 2+ H (Negative) Urine Nitrate Negative (Negative) Urine Bilirubin Negative (Negative) Urine Urobilinogen 0.2 (<2.0) mg/dL Add Ur Microanalysis Reviewed Leukocyte Esterase Rfl Negative (Negative) CHEN/UL Urine RBC 21-50 H (0-2) /hpf Urine WBC 0-5 (0-3) /hpf Ur Squamous Epith Cells None seen (Few) /hpf Urine Bacteria None seen /hpf Urine Casts 0-2 <Malik Leonard MD - Last Filed: 01/24/25 06:31> Lab Results 01/24/25 01/24/25 01/24/25 Range/Units 02:34 05:01 08:41 WBC 8.3 (4.5-10.0) K/mm3 RBC 4.06 L (4.2-5.4) M/mm3 Hgb 13.5 D (12.0-15.0) g/dL Hct 38.5 (37.0-47.0) % MCV 94.8 (80-100) fl MCH 33.3 (26-34) pg MCHC 35.1 (32-36) g/dl RDW 11.7 (11.5-14.5) % Plt Count 232 (150-375) k/mm3 MPV 9.0 (7.4-10.4) fl Immature Gran % (Auto) 0.4 (0-0.5) % Neut % (Auto) 53.9 (45.5-73.1) % Lymph % (Auto) 36.6 (18.3-44.2) % [place] % (Auto) 7.2 (2.6-8.5) % Eos % (Auto) 1.7 (0-4.4) % Baso % (Auto) 0.2 (0.2-1.2) % Lymph # (Auto) 3.03 (0.9-3.2) K/mm3 [place] # (Auto) 0.6 (0.1-0.6) K/mm3 Eos # (Auto) 0.1 (0-0.3) K/mm3 Baso # (Auto) 0.0 (0.0-0.1) K/mm3 Abs Immat Gran (auto) 0.03 (0.00-0.031) K/mm3 Absolute Neuts (auto) 4.5 (1.3-6.7) K/mm3 Absolute Nucleated RBC 0.000 (0.0-0.012) K/mm3 Nucleated RBC % 0.0 (0.0-0.2) % PT 12.5 (11.1-14.7) Seconds INR 0.9 APTT 27.4 (22.3-36.8) Seconds Sodium 138 (137-145) mmol/L Potassium 3.4 (3.4-5.0) mmol/L Chloride 105 (98-107) mmol/L Carbon Dioxide 18 L (22-30) mmol/L Anion Gap 15 H (4-12) mmol/L BUN 33 H D (7-17) mg/dL Creatinine 1.08 H (0.7-1.0) mg/dL Estim Creat Clear Calc 32 ml/min Estimated GFR 49 L (59 - ) Glucose 125 H (65-110) mg/dL Calcium 9.9 (8.4-10.2) mg/dL Total Bilirubin 0.5 (0.2-1.3) mg/dL AST 32 (14-36) U/L ALT 32 (6-35) U/L Alkaline Phosphatase 82 (38-126) U/L Troponin I < 0.012 < 0.012 (0.000-0.034) ng/mL Total Protein 8.6 H (6.3-8.2) g/dL Albumin 5.0 (3.5-5.1) g/dL Lipase 120 (23-300) U/L Urine Color Yellow (Yellow) Urine Appearance Clear (Clear) Urine pH 5.5 (5.0-9.0) Ur Specific [place] > 1.045 H (1.001-1.035) Urine Protein 3+ H (Negative) mg/dL Urine Glucose (UA) Negative (Negative) mg/dL Urine Ketones Negative (Negative) mg/dL Ur Blood (Man) 2+ H (Negative) Urine Nitrate Negative (Negative) Urine Bilirubin Negative (Negative) Urine Urobilinogen 0.2 (<2.0) mg/dL Add Ur Microanalysis Reviewed Leukocyte Esterase Rfl Negative (Negative) CHEN/UL Urine RBC 21-50 H (0-2) /hpf Urine WBC 0-5 (0-3) /hpf Ur Squamous Epith Cells None seen (Few) /hpf Urine Bacteria None seen /hpf Urine Casts 0-2 <Catalina Stevenson MD - Last Filed: 01/24/25 09:26> Imaging Data Radiologist's impression: Impressions Chest X-Ray 01/24/25 05:32 IMPRESSION: 1. No acute cardiopulmonary findings given portable technique. Abdomen/Pelvis CT 01/24/25 07:27 IMPRESSION: 1. Small sliding hiatal hernia. 2. Mildly dilated loops of small bowel, likely adynamic ileus. <Catalina Stevenson MD - Last Filed: 01/24/25 09:26> Discharge Plan Discharge Clinical Impression: Abdominal bloating, Hematuria, microscopic <Malik Leonard MD - Last Filed: 01/24/25 06:31> Patient Disposition: Home <Malik Leonard MD - Last Filed: 01/24/25 06:31> Condition: Stable <Malik Leonard MD - Last Filed: 01/24/25 06:31> Instructions: Antibiotic Form, Hematuria (ED), Abdominal Pain (ED) <Malik Leonard MD - Last Filed: 01/24/25 06:31> Additional Instructions: you were seen in the emergency department abdominal bloating. Please follow-up with your general surgeon for further management. If you develop any new symptoms such as severe abdominal pain, nausea vomiting or inability to pass gas please return to the ED for re-evaluation. You had microscopic hematuria the which is to say red blood cells that were seen under the microscope in your urine. You stated this has been chronic and you have seen urology. A urine culture is pending but otherwise holding off on antibiotics at this time unless culture is positive. <Malik Leonard MD - Last Filed: 01/24/25 06:31> Patient Language: Egyptian <Malik Leonard MD - Last Filed: 01/24/25 06:31> Prescriptions: New dicyclomine 10 mg capsule 10 mg PO BID PRN (Reason: abdominal pain) Qty: 20 0RF Rx Instructions: can substitute with tablets if needed No Action cholecalciferol (vitamin D3) [Vitamin D3] 50 mcg (2,000 unit) Capsule 50 mcg PO DAILY One-A-Day Women's 50 Plus 400-20 mcg Tablet 1 tablet PO DAILY Probiotic Acidophilus 1.5 mg (250 million cell) Capsule 250 mmu cells PO DAILY rosuvastatin 10 mg tablet 10 mg PO HS levothyroxine 75 mcg tablet 75 mcg PO DAILY Entresto 24-26 mg tablet 1 tablet PO BID pantoprazole 40 mg tablet,delayed release (DR/EC) 40 mg PO HS hydrochlorothiazide 25 mg tablet 12.5 mg PO DAILY venlafaxine 75 mg tablet 75 mg PO DAILY venlafaxine 37.5 mg tablet 37.5 mg PO DAILY High Potency Iron 27 mg iron tablet 27 mg PO EVERY OTHER DAY mecobalamin (vitamin B12) 1,000 mcg tablet,chewable 2,000 mcg PO DAILY krill oil 500 mg capsule 2,500 mg PO DAILY Patient Comments: 2 pills for her home dose cetirizine [24Hour Allergy] 10 mg tablet 5 mg PO DAILY PRN (Reason: allergy symptoms) azelastine [Astepro Allergy] 205.5 mcg (0.15 %) spray,non-aerosol 1 spray intranasal DAILY PRN (Reason: allergy symptoms) Rx Instructions: administer into each nostril triamcinolone acetonide [Nasacort] 55 mcg aerosol,spray 2 spray intranasal DAILY PRN (Reason: allergy symptoms) Rx Instructions: administer into each nostril aspirin 81 mg tablet,delayed release (DR/EC) 81 mg PO DAILY ciprofloxacin HCl [Cipro] 500 mg tablet 500 mg PO Q12H Qty: 8 0RF <Malik Leonard MD - Last Filed: 01/24/25 06:31> Follow-up/Referrals: Dalia Pérez [Other] <Malik Leonard MD - Last Filed: 01/24/25 06:31> Time of Disposition: 09:26 <Malik Leonard MD - Last Filed: 01/24/25 06:31> 09:26 <Catalina Stevenson MD - Last Filed: 01/24/25 09:26>
--- NOTE | 2025-01-24 04:45 | ECG_ITS ---
Test Date: 2025-01-24 04:59:56 Measurements Intervals [place] Rate: 77 P: 17 MT: 202 QRS: -38 QRSD: 152 T: 124 QT: 426 QTc: 482 Interpretive Statements SINUS RHYTHM WITH OCCASIONAL VENTRICULAR PREMATURE COMPLEXES LEFT AXIS DEVIATION [QRS AXIS < -30] LEFT BUNDLE BRANCH BLOCK [120+ ms QRS DURATION, 80+ ms Q/S IN V1/V2, 85+ ms R IN I/aVL/V5/V6] Compared to ECG 01/24/2025 02:19:16 Left-axis deviation now present First degree AV block no longer present Electronically Signed On 01-24-2025 06:38:54 CALIBRATION SPECIALIST by Candido Hopson M.D.
[2025-01-24 05:33] LABS: Troponin I < 0.012 ng/mL (0.000-0.034)
--- NOTE | 2025-01-24 07:23 | PC.NURSE ---
Assumed care of pt, pt is alert and upright on tele monitor. Discussed POC. Spouse at bedside.
--- NOTE | 2025-01-24 08:07 | ECG_ITS ---
Test Date: 2025-01-24 08:04:15 Measurements Intervals [place] Rate: 81 P: 21 DC: 195 QRS: -31 QRSD: 154 T: 109 QT: 444 QTc: 517 Interpretive Statements SINUS RHYTHM POSSIBLE RIGHT VENTRICULAR CONDUCTION DELAY [RSR (QR) IN V1/V2] LEFT BUNDLE BRANCH BLOCK [120+ ms QRS DURATION, 80+ ms Q/S IN V1/V2, 85+ ms R IN I/aVL/V5/V6] ABNORMAL ECG Compared to ECG 01/24/2025 04:59:56 Ventricular premature complex(es) no longer present Electronically Signed On 01-24-2025 14:36:51 DIRECTOR OF STRATEGY & MOBILE by Bartolo Castellano M.D.
[2025-01-24] MEDS: MORPHINE SULFATE (*CRX) 4 MG/ML INJ 2 MG IV PUSH (08:25)
[2025-01-24] MEDS: DICYCLOMINE HCL 10 MG CAPSULE PO (08:25)
[2025-01-24] MEDS: ONDANSETRON INJ 4 MG/2 ML VIAL IV PUSH (08:35)
[2025-01-24] MEDS: SIMETHICONE 80 MG TAB.CHEW PO (08:46)
[2025-01-24 09:01] LABS: Add Urine Microscopic? YES; Appearance Urine Clear (Clear); Glucose Urine UA Negative (Negative); Leukocyte Esterase Ur Negative LEU/UL (Negative); Need Manual Microscopic Reviewed; Nitrate Urine Negative (Negative); Non Pathogenic Casts 0-2; Specific Grav Ur > 1.045 (1.001-1.035)
== END 2025-01-24 10:53 | disposition home or self-care (01) ==
PROVIDERS: Emergency Medicine; Emergency Provider Student in an Organized Health Care Education/Training Program
DX: R14.0 Abdominal distension (gaseous) (principal); R31.29 Other microscopic hematuria; I70.1 Atherosclerosis of renal artery; I10 Essential (primary) hypertension; E78.5 Hyperlipidemia, unspecified; E03.9 Hypothyroidism, unspecified; K21.9 Gastro-esophageal reflux disease without esophagitis; K44.9 Diaphragmatic hernia without obstruction or gangrene; Z85.51 Personal history of malignant neoplasm of bladder; Z90.5 Acquired absence of kidney; Z90.49 Acquired absence of other specified parts of digestive tract; Z90.710 Acquired absence of both cervix and uterus; I44.0 Atrioventricular block, first degree; I49.3 Ventricular premature depolarization; R94.31 Abnormal electrocardiogram [ECG] [EKG]; I44.7 Left bundle-branch block, unspecified
CPT/HCPCS: 36415; 71045; 74177; 80053; 81001; 83690; 84484; 85025; 85610; 85730; 87086; 93005; 96374; 96375; 99284; A9270; J2270; J2405; Q9967